=== PATIENT | female | born 1955 | race African-American/Black ===

== ENCOUNTER 2016-03-24 07:54 | Emergency (ER) | payer SELFPAY ==
[~2016-03-24] VITALS: Ht 170.2 cm; Wt 109.3 kg
[2016-03-24] MEDS ORDERED: ASPIRIN 81 MG TAB.CHEW PO ONE (08:30)
--- NOTE | 2016-03-24 08:33 | PHYS DOC ---
Past Medical History Past Medical History: High Cholesterol Past Surgical History: No Surgical History Additional Information: nonsmoker Alcohol Use: None Drug Use: None Adult General Chief Complaint Chief Complaint: MULTIPLE COMPLAINTS HPI HPI Patient is a 60 year old female who presents with chest tightness starting at 0250 this morning. The pain was located in the substernal region without radiation. It has almost entirely resolved now. She reports feeling hot and cold flashes for approximately 1 month and has had an intermittent non- productive cough. She denies any shortness of breath, nausea, palpitations, or diaphoresis with the chest tightness. She has not had any abdominal pain, lower extremity pain or swelling. She has a history of hyperlipidemia but does not take any home medications. She denies history of diabetes, hypertension, CAD, or family history of CAD. She is a non-smoker. She does not have a PCP and has not seen a doctor in over 3 years. Review of Systems Review of Systems Constitutional: Reports hot and cold flashes. Eyes: Denies change in visual acuity, redness, or eye pain. [] HENT: Denies ear pain, nasal congestion or sore throat. [] Respiratory: Denies shortness of breath. Reports intermittent nonproductive cough. Cardiovascular: Denies palpitations or edema. Reports substernal chest tightness. GI: Denies abdominal pain, nausea, vomiting, bloody stools or diarrhea. [] : Denies dysuria, hematuria or urinary frequency. [] Musculoskeletal: Denies back pain or joint pain. [] Integument: Denies rash or skin lesions. [] Neurologic: Denies headache, focal weakness or sensory changes. [] Endocrine: Denies polyuria or polydipsia. [] Psych: Denies anxiety or depression. [] All systems reviewed and negative unless otherwise stated in the HPI. Current Medications Current Medications Current Medications Medications (Trade) Dose Ordered Sig/Shaunna Start Time Stop Time Status Last Admin Dose Admin Aspirin (Children'S Aspirin) 324 mg 1X ONCE 03/24/16 08:30 03/24/16 08:31 DC 03/24/16 08:40 324 MG Allergies Allergies Allergies Coded Allergies Type Severity Reaction Last Updated Verified No Known Drug Allergies 03/24/16 No Physical Exam Physical Exam Constitutional: Well developed, well nourished, no acute distress, non-toxic appearance. [] HENT: Normocephalic, atraumatic, oropharynx moist. [] Eyes: PERRLA, EOMI, conjunctiva normal, no discharge. [] Neck: Normal range of motion, no tenderness, supple, no stridor. [] Cardiovascular: Heart rate regular rhythm, no murmur. [] Lungs & Thorax: Bilateral breath sounds clear to auscultation without wheezes, rales, or rhonchi. Mild central chest wall tenderness. Abdomen: Bowel sounds normal, soft, no tenderness, no masses, no pulsatile masses. [] Skin: Warm, dry, no erythema, no rash. [] Back: No midline tenderness, no CVA tenderness. [] Extremities: No lower extremity tenderness, ROM intact, no edema. 2+ DP pulses bilaterally. [] Neurologic: Alert and oriented X 3, normal motor function, normal sensory function, no focal deficits noted. [] Psychologic: Affect normal, judgement normal, mood normal. [] Current Patient Data Vital Signs Vital Signs Date Time Temp Pulse Resp B/P Pulse Ox O2 Delivery O2 Flow Rate FiO2 03/24/16 09:55 69 14 142/89 96 Room Air 03/24/16 08:13 98.7 98.7 Lab Values Laboratory Tests Test 03/24/16 09:00 03/24/16 11:15 White Blood Count 7.8x10^3/uL (4.0-11.0) Red Blood Count 3.91x10^6/uL (3.50-5.40) Hemoglobin 12.1g/dL (12.0-15.5) Hematocrit 35.5% (36.0-47.0) L Mean Corpuscular Volume 91fL (79-100) Mean Corpuscular Hemoglobin 31pg (25-35) Mean Corpuscular Hemoglobin Concent 34g/dL (31-37) Red Cell Distribution Width 14.2% (11.5-14.5) Platelet Count 217x10^3/uL (140-400) Neutrophils (%) (Auto) 74% (31-73) H Lymphocytes (%) (Auto) 19% (24-48) L Monocytes (%) (Auto) 7% (0-9) Eosinophils (%) (Auto) 1% (0-3) Basophils (%) (Auto) 0% (0-3) Neutrophils # (Auto) 5.8x10^3uL (1.8-7.7) Lymphocytes # (Auto) 1.4x10^3/uL (1.0-4.8) Monocytes # (Auto) 0.5x10^3/uL (0.0-1.1) Eosinophils # (Auto) 0.0x10^3/uL (0.0-0.7) Basophils # (Auto) 0.0x10^3/uL (0.0-0.2) Sodium Level 142mmol/L (136-145) Potassium Level 4.2mmol/L (3.5-5.1) Chloride Level 106mmol/L (98-107) Carbon Dioxide Level 31mmol/L (21-32) Anion Gap 5 (6-14) L Blood Urea Nitrogen 10mg/dL (7-20) Creatinine 0.9mg/dL (0.6-1.0) Estimated GFR (Cockcroft-Gault) 77.8 Glucose Level 99mg/dL (70-99) Calcium Level 9.2mg/dL (8.5-10.1) Magnesium Level 2.1mg/dL (1.8-2.4) Total Bilirubin 0.5mg/dL (0.2-1.0) Direct Bilirubin 0.1mg/dL (0.0-0.2) Aspartate Amino Transferase (AST) 11U/L (15-37) L Alanine Aminotransferase (ALT) 15U/L (14-59) Alkaline Phosphatase 66U/L (46-116) Creatine Kinase 142U/L (26-192) Creatine Kinase MB (Mass) 0.9ng/mL (0.0-3.6) Creatine Kinase MB Relative Index 0.6% (0-4) Troponin I Quantitative < 0.017ng/mL (0.000-0.055) NA-Phj-Z-Type Natriuretic Peptide 65pg/mL (0-124) Total Protein 7.3g/dL (6.4-8.2) Albumin 3.6g/dL (3.4-5.0) Lipase 73U/L (73-393) Urine Collection Type Void Urine Color Yellow Urine Clarity Clear Urine pH 7.0 Urine Specific Delta 1.010 Urine Protein Negativemg/dL (NEG-TRACE) Urine Glucose (UA) Negativemg/dL (NEG) Urine Ketones (Stick) Negativemg/dL (NEG) Urine Blood Negative (NEG) Urine Nitrite Negative (NEG) Urine Bilirubin Negative (NEG) Urine Urobilinogen Dipstick 0.2mg/dL (0.2 mg/dL) Urine Leukocyte Esterase Large (NEG) Urine RBC 0/HPF (0-2) Urine WBC 11-20/HPF (0-4) Urine Squamous Epithelial Cells Many/LPF Urine Transitional Epithelial Cells Few/LPF Urine Renal Epithelial Cells Few/LPF Urine Bacteria Moderate/HPF (0-FEW) Urine Hyaline Casts Few/HPF Urine Mucus Mod/LPF Urine Opiates Screen Neg (NEG) Urine Methadone Screen Neg (NEG) Urine Barbiturates Neg (NEG) Urine Phencyclidine Screen Neg (NEG) Urine Amphetamine/Methamphetamine Neg (NEG) Urine Benzodiazepines Screen Neg (NEG) Urine Cocaine Screen Neg (NEG) Urine Cannabinoids Screen Neg (NEG) Urine Ethyl Alcohol Neg (NEG) Laboratory Tests 03/24/16 09:00 Laboratory Tests 03/24/16 09:00 Microbiology 03/24/16 Urine Culture - Final, Complete 03/24/16 Urine Culture Result 1 (WEST) - Final, Complete EKG EKG EKG at 0821. Heart rate 74 bpm. Sinus rhythm with leftward axis. There are no acute ischemic changes or STEMI, as interpreted by Dr. Morgan. Radiology/Procedures Radiology/Procedures REASON: chest pain PROCEDURE: CHEST PA & LATERAL EXAM: Chest, 2 views. HISTORY: Chest pressure. COMPARISON: None. FINDINGS: Frontal and lateral views of the chest are obtained. There is no infiltrate, effusion or pneumothorax. There is mild cardiomegaly. IMPRESSION: 1. Stable mild cardiomegaly. 2. No acute pulmonary finding. Course & Med Decision Making Course & Med Decision Making Pertinent Labs and Imaging studies reviewed. (See chart for details) The patient is a 52-year-old female with history of hyperlipidemia who presents with chest tightness starting at approximately 0300 this morning in the substernal region. She denies any associated symptoms with this, however has had hot and cold flashes and nonproductive cough intermittently for approximately one month. Upon arrival to the emergency department, her vital signs are stable. On exam, her lungs are clear, heart rate regular. EKG does not show any acute ischemic changes or STEMI. Chest x-ray does not show any acute cardiopulmonary process. Initial troponin level is negative, obtained greater than 4 hours after onset of pain. She is pain-free in the emergency department. She was given a dose of aspirin in the emergency department. Patient course was discussed with Dr. Morgan. Results were discussed with the patient. She is instructed to follow-up with cardiology as an outpatient. She is also instructed to begin a daily aspirin regimen. Return precautions were discussed. She verbalizes understanding and agrees with plan. The patient was being discharged by JULIET Curry when her friend arrived to take her home. Her friend was motioning at Antoinette, pointing to her head. When questioned, her friend stated that she is concerned about the patient because she "has no cheri, doesn't smile anymore, and has been hearing voices." The patient was specifically asked about hearing voices during her initial triage evaluation by Antoinette and she denied it. The patient admits that she has been hearing voices. Carlito with social work spoke with the patient regarding her financial concerns. The PAT team was paged. The patient denies suicidal or homicidal ideation and is not a danger to herself. At the recommendation of Dr. Morgan, [facility] was contacted about having the patient seen through their emergency service because she is not suicidal, homicidal, or a danger to herself. After faxing the patient's medical information to [facility], she was accepted to their emergency service. The patient was evaluated by Sandra with the PAT team. She agrees that the [facility] emergency service is appropriate for the patient. The patient's friend agreed to take her immediately there. The patient agreed with this plan as well. She was discharged in stable condition. Dragon Disclaimer Dragon Disclaimer This electronic medical record was generated, in whole or in part, using a voice recognition dictation system. Departure Departure Impression: Primary Impression: Atypical chest pain Additional Impressions: Hallucination Mental health problem Disposition: HOME, SELF-CARE Condition: STABLE Referrals: SHELLI MARTINEZ MD Patient Instructions: Chest Pain (Nonspecific), [id number] Additional Instructions: You were seen for chest pain. Your EKG was normal and your cardiac lab tests were also normal. Your chest xray did not show any concerning changes. Please take a daily baby aspirin (81mg). Please follow up with the motorboat mechanic inboard listed below for further evaluation of your heart. Return to the emergency department if you have chest pain, shortness of breath, or other new or concerning symptoms. Please go directly to [facility] for evaluation of your psychiatric concerns. Return immediately to the emergency department if you have thoughts of hurting yourself or others. Scripts No Active Prescriptions or Reported Meds Problem Qualifiers HANNA SHELBY Mar 24, 2016 08:33
--- NOTE | 2016-03-24 08:43 | EKG ---
[facility] [address] [place] [address] Test Date: 2016-03-24 Test Time: 08:21:01 Pat Name: MARIA ESTHER MEYERS Department: Room: Gender: F Pumper Hand: : 1955 Requested By: HANNA SHELBY Order Number: [id number] Reading MD: Tani Gardiner Measurements Intervals [place] Rate: 74 P: 25 [place]: 154 QRS: -28 QRSD: 98 T: 20 QT: 398 QTc: 442 Interpretive Statements SINUS RHYTHM LEFTWARD AXIS Electronically Signed On 03-24-2016 15:51:59 NEUROSURGICAL NURSE by Tani Gardiner
--- NOTE | 2016-03-24 08:47 | RAD ---
EXAM: Chest, 2 views. HISTORY: Chest pressure. COMPARISON: None. FINDINGS: Frontal and lateral views of the chest are obtained. There is no infiltrate, effusion or pneumothorax. There is mild cardiomegaly. IMPRESSION: 1. Stable mild cardiomegaly. 2. No acute pulmonary finding.
[2016-03-24 09:10] LABS: BASO % 0 % (0-3); EOS % 1 % (0-3); HEMATOCRIT 35.5 % (36.0-47.0); HEMOGLOBIN 12.1 g/dL (12.0-15.5); LYMPH # 1.4 x10^3/uL (1.0-4.8); LYMPH % 19 % (24-48); MEAN CORPUSCULAR HEMOGLOBIN 31 pg (25-35); MEAN CORPUSCULAR HGB CONC 34 g/dL (31-37); MEAN CORPUSCULAR VOLUME 91 fL (79-100); MONO % 7 % (0-9); NEUT % 74 % (31-73); PLATELET COUNT 217 x10^3/uL (140-400); RED BLOOD COUNT 3.91 x10^6/uL (3.50-5.40); RED CELL DISTRIBUTION WIDTH 14.2 % (11.5-14.5); WHITE BLOOD COUNT 7.8 x10^3/uL (4.0-11.0)
[2016-03-24 09:20] LABS: CALCIUM 9.2 mg/dL (8.5-10.1); CREATININE 0.9 mg/dL (0.6-1.0); GFR 77.8; POTASSIUM 4.2 mmol/L (3.5-5.1)
[2016-03-24 09:27] LABS: ALBUMIN 3.6 g/dL (3.4-5.0); DIRECT BILIRUBIN 0.1 mg/dL (0.0-0.2); MAGNESIUM 2.1 mg/dL (1.8-2.4); TOTAL BILIRUBIN 0.5 mg/dL (0.2-1.0); TOTAL PROTEIN 7.3 g/dL (6.4-8.2)
[2016-03-24 09:35] LABS: CKMB INDEX 0.6 % (0-4); CKMB MASS 0.9 ng/mL (0.0-3.6)
[2016-03-24 09:55] VITALS: BP 142/89
[2016-03-24 11:56] LABS: BARBITURATES NEG (NEG); BENZODIAZEPINES NEG (NEG); BILIRUBIN,URINE NEGATIVE (NEG); CANNABINOIDS NEG (NEG); COCAINE NEG (NEG); GLUCOSE,URINE NEGATIVE (NEG); METHADONE NEG (NEG); NITRITE,URINE NEGATIVE (NEG); OPIATES NEG (NEG); PHENCYCLIDINE NEG (NEG); PROTEIN,URINE NEGATIVE (NEG-TRACE); UROBILINOGEN,URINE 0.2 mg/dL (0.2 mg/dL)
[2016-03-24 12:00] LABS: ETHANOL, URINE NEG (NEG)
[2016-03-24 12:08] LABS: BACTERIA,URINE MODERATE /HPF (0-FEW); RBC,URINE 0 /HPF (0-2); SQUAMOUS EPITHELIAL CELL,UR MANY /LPF
== END 2016-03-24 12:00 | disposition home or self-care (01) ==
LOC: ER 07:54
DX: R07.89 Other chest pain (principal); R44.3 Hallucinations, unspecified; E78.00 Pure hypercholesterolemia, unspecified; F48.8 Other specified nonpsychotic mental disorders
CPT/HCPCS: 36415; 71020; 80048; 80076; 81001; 82553; 83690; 83735; 83880; 84484; 85027; 87086; 93005; 99285; G0481

== ENCOUNTER 2016-04-07 10:36 | Emergency (ER) | payer SELFPAY ==
[~2016-04-07] VITALS: Ht 170.2 cm; Wt 109.3 kg
[2016-04-07 11:18] LABS: BILIRUBIN,URINE NEGATIVE (NEG); GLUCOSE,URINE NEGATIVE (NEG); NITRITE,URINE NEGATIVE (NEG); PH,URINE 6.5; PROTEIN,URINE NEGATIVE (NEG-TRACE); UROBILINOGEN,URINE 0.2 mg/dL (0.2 mg/dL)
[2016-04-07 11:29] LABS: BACTERIA,URINE FEW /HPF (0-FEW); RBC,URINE 0 /HPF (0-2); SQUAMOUS EPITHELIAL CELL,UR FEW /LPF
[2016-04-07] MEDS ORDERED: CIPR250T30 PO (12:03)
--- NOTE | 2016-04-07 12:03 | PHYS DOC ---
Past Medical History Past Medical History: Depression, High Cholesterol Past Surgical History: No Surgical History Alcohol Use: None Drug Use: None Adult General Chief Complaint Chief Complaint: MULTIPLE COMPLAINTS HPI HPI Patient is a 60 year old female who presents with friend for evaluation of difficulty sleeping for the past month. She has difficulty initiating and staying asleep. She also notes a dry cough that has been present for the past month. She denies dyspnea, hemoptysis, chest pain, fever or chills, sore throat , rhinorrhea. She does also note intermittent episodes of urinary incontinence. She states this can happen in small or large amounts, spontaneously or associated with cough. She denies urinary frequency, dysuria, or hematuria. She states she did go to [facility] after her last visit to the emergency department and was told to start an SSRI, but she did not want to start this medication due to the listed side effects. Review of Systems Review of Systems Constitutional: Denies fever or chills [] Eyes: Denies change in visual acuity, redness, or eye pain [] HENT: Denies nasal congestion or sore throat [] Respiratory: Denies shortness of breath [] Cardiovascular: No additional information not addressed in HPI [] GI: Denies abdominal pain, nausea, vomiting, bloody stools or diarrhea [] : Denies dysuria or hematuria [] Musculoskeletal: Denies back pain or joint pain [] Integument: Denies rash or skin lesions [] Neurologic: Denies headache, focal weakness or sensory changes [] Endocrine: Denies polyuria or polydipsia [] Allergies Allergies Allergies Coded Allergies Type Severity Reaction Last Updated Verified No Known Drug Allergies 03/24/16 No Physical Exam Physical Exam Constitutional: Well developed, well nourished, no acute distress, non-toxic appearance. [] HENT: Normocephalic, atraumatic, bilateral external ears normal, oropharynx moist, no oral exudates, nose normal. [] Eyes: PERRLA, EOMI, conjunctiva normal, no discharge. [] Neck: Normal range of motion, supple, no stridor. [] Cardiovascular:Heart rate regular rhythm [] Lungs & Thorax: Bilateral breath sounds clear to auscultation [] Abdomen: Bowel sounds normal, soft, no tenderness. [] Skin: Warm, dry, no erythema, no rash. [] Back: No tenderness, no CVA tenderness. [] Extremities: No tenderness, ROM intact, no edema. [] Neurologic: Alert and oriented X 3, normal motor function, normal sensory function, no focal deficits noted. [] Psychologic: Affect normal, judgement normal, mood normal. [] Current Patient Data Vital Signs Vital Signs Date Time Temp Pulse Resp B/P Pulse Ox O2 Delivery O2 Flow Rate FiO2 04/07/16 13:01 58 20 142/87 94 Room Air 04/07/16 11:32 04/07/16 10:55 98.7 98.7 Lab Values Laboratory Tests Test 04/07/16 10:55 Urine Collection Type Unknown Urine Color Yellow Urine Clarity Clear Urine pH 6.5 Urine Specific [place] 1.010 Urine Protein Negativemg/dL (NEG-TRACE) Urine Glucose (UA) Negativemg/dL (NEG) Urine Ketones (Stick) Negativemg/dL (NEG) Urine Blood Negative (NEG) Urine Nitrite Negative (NEG) Urine Bilirubin Negative (NEG) Urine Urobilinogen Dipstick 0.2mg/dL (0.2 mg/dL) Urine Leukocyte Esterase Large (NEG) Urine RBC 0/HPF (0-2) Urine WBC 11-20/HPF (0-4) Urine Squamous Epithelial Cells Few/LPF Urine Bacteria Few/HPF (0-FEW) Course & Med Decision Making Course & Med Decision Making Pertinent Labs and Imaging studies reviewed. (See chart for details) She had a normal chest x-ray during her last emergency department visit and she was having cough at that time, so x-ray was not repeated at this time. She appears well on exam. Discussed avenues symptomatic management such as Benadryl or Unisom to help with sleep and honey to help with cough. Will treat for urinary tract infection. I encouraged her to return for mental health follow-up to discuss other medications for depression or sleep aid on an outpatient basis. She states she does have a primary care follow-up in 2 weeks. Return precautions given. She understands and agrees with plan. Dragon Disclaimer Dragon Disclaimer This electronic medical record was generated, in whole or in part, using a voice recognition dictation system. Departure Departure Impression: Primary Impression: Acute cystitis without hematuria Additional Impressions: Insomnia Cough Disposition: HOME, SELF-CARE Condition: STABLE Referrals: NO PCP (PCP) Patient Instructions: Insomnia-Brief Additional Instructions: Take Cipro for urinary tract infection. Take Unisom or Benadryl as needed to help you sleep. Use honey as needed for cough. Follow-up with your primary care doctor and mental health clinic. Return for any concerns. Scripts Ciprofloxacin Hcl (Cipro)250 Mg Tablet1 Tab PO BID #6 TAB Prov:Chey CHAN MD 04/07/16 Problem Qualifiers Additional Impressions: Insomnia Insomnia type: unspecified Qualified Code: G47.00 - Insomnia, unspecified Chey CHAN MD Apr 07, 2016 12:03
[2016-04-07 13:01] VITALS: BP 142/87
== END 2016-04-07 13:05 | disposition home or self-care (01) ==
LOC: ER 10:36
DX: N30.00 Acute cystitis without hematuria (principal); G47.00 Insomnia, unspecified; R05 Cough; F32.9 Major depressive disorder, single episode, unspecified; E78.00 Pure hypercholesterolemia, unspecified
CPT/HCPCS: 81001; 87086; 99284

== ENCOUNTER → 2016-06-17 | Outpatient (CLI) | payer OTHER ==
[~2016-06-17] MED LIST: CIPR250T30 PO; CONTRAST GIVEN MC PRN; IOHEXOL 300 MG/ML 75 ML VIAL IV ONE
--- NOTE | 2016-06-17 14:30 | RAD ---
CT of the head with and without contrast, 06/17/2016: History: Altered mental status, visual disturbance Multiple detector CT imaging was performed prior to and following an IV bolus injection of iodinated contrast material. The ventricles are within normal limits in size. There is no shift of the midline structures. There is no evidence of acute intracranial hemorrhage or mass effect. The postcontrast scans show no foci of abnormal enhancement. A small lucency in the right frontal parasagittal calvarium is unchanged since 03/30/2012 and is probably a venous salas. IMPRESSION: No acute intracranial abnormality is detected. PQRS Compliance Statement: One or more of the following individualized dose reduction techniques were utilized for this examination: 1. Automated exposure control 2. Adjustment of the mA and/or kV according to patient size 3. Use of iterative reconstruction technique
== END | disposition home or self-care (01) ==
LOC: CT 09:23
PROVIDERS: ATTEND Family Medicine
DX: R63.4 Abnormal weight loss (principal)
CPT/HCPCS: 70470

== ENCOUNTER 2016-07-13 12:14 | Inpatient (IN) | payer SELFPAY ==
[2016-07-13] VITALS (7 sets, daily range): BP systolic 141–179; BP diastolic 63–109
[~2016-07-13] VITALS: Ht 170.2 cm; Wt 121.7 kg
[~2016-07-13 12:14] MED LIST changes: -CONTRAST GIVEN MC PRN; -IOHEXOL 300 MG/ML 75 ML VIAL IV ONE
[2016-07-13] MEDS ORDERED: HALOPERIDOL LACTATE 5 MG/ML VIAL. IVP ONE ×2 (12:30→14:15)
--- NOTE | 2016-07-13 12:38 | ED.ADGEN ---
Past Medical History Past Medical History: Depression, High Cholesterol Past Surgical History: No Surgical History Alcohol Use: None Drug Use: None Adult General Chief Complaint Chief Complaint: ALTERED MENTAL STATUS HPI HPI Patient is a 60 year old female found confused in bed by EMS after being were called by a neighbor for welfare check. Patient's last known normal was unknown. Patient's alert, agitated with spontaneous coordinated mated movement of all 4 extremities. Patient is nonverbal and follows basic commands. Blood sugar was 158. Patient was found to be incontinent of both urine and stool. Noted empty medication bottles, drug paraphernalia or alcohol were noted in her immediate surroundings. History is limited due to the patient' s clinical condition. Review of Systems Review of Systems ROS limited due to mental status change. Current Medications Current Medications Current Medications Medications (Trade) Dose Ordered Sig/Shaunna Start Time Stop Time Status Last Admin Dose Admin Haloperidol Lactate 5 mg 5 mg 1X ONCE 07/13/16 12:30 07/13/16 12:31 DC 07/13/16 12:34 5 MG Sodium Chloride (Iv Sodium Chloride 0.9% 1000ml Bag) 1,000 ml @ 1,000 mls/hr 1X ONCE 07/13/16 13:45 07/13/16 14:44 DC 07/13/16 14:06 1,000 MLS/HR Allergies Allergies Allergies Coded Allergies Type Severity Reaction Last Updated Verified No Known Drug Allergies 03/24/16 No Physical Exam Physical Exam Constitutional: Well developed, agitated, and uncooperative. HENT: Normocephalic, atraumatic, bilateral external ears normal, oropharynx moist, no oral exudates, nose, dry MMM. Eyes: PERRL, matting of eyelids. Neck: Normal range of motion. Cardiovascular:Heart rate regular rhythm, no murmur. Lungs & Thorax: Bilateral breath sounds clear to auscultation. Abdomen: Bowel sounds normal, soft, no tenderness. Skin: Warm, dry. Back: No tenderness. Neurologic: Alert X one, normal motor function, normal sensory function, no focal deficits noted. Psychologic: Affect normal, judgement normal, mood normal. Current Patient Data Vital Signs Vital Signs Date Time Temp Pulse Resp B/P Pulse Ox O2 Delivery O2 Flow Rate FiO2 07/13/16 12:30 98.8 96 28 117/66 98 Room Air 98.8 Lab Values Laboratory Tests Test 07/13/16 12:45 07/13/16 12:50 07/13/16 13:13 Lactic Acid Level 2.2mmol/L (0.4-2.0) H Sodium Level 153mmol/L (136-145) H Potassium Level 5.0mmol/L (3.5-5.1) Chloride Level 114mmol/L (98-107) H Carbon Dioxide Level 32mmol/L (21-32) Anion Gap 7 (6-14) Blood Urea Nitrogen 100mg/dL (7-20) H Creatinine 3.0mg/dL (0.6-1.0) H Estimated GFR (Cockcroft-Gault) 19.4 BUN/Creatinine Ratio 33 (6-20) H Glucose Level 181mg/dL (70-99) H Calcium Level 8.3mg/dL (8.5-10.1) L Total Bilirubin 2.4mg/dL (0.2-1.0) H Aspartate Amino Transferase (AST) 57U/L (15-37) H Alanine Aminotransferase (ALT) 40U/L (14-59) Alkaline Phosphatase 86U/L (46-116) Ammonia 14mcmol/L (11-34) Creatine Kinase 160U/L (26-192) Troponin I Quantitative 0.118ng/mL (0.000-0.055) Total Protein 8.0g/dL (6.4-8.2) Albumin 3.4g/dL (3.4-5.0) Albumin/Globulin Ratio 0.7 (1.0-1.7) L Thyroid Stimulating Hormone (TSH) 1.630uIU/mL (0.358-3.74) Ethyl Alcohol Level < 10mg/dL (0-10) White Blood Count 45.0x10^3/uL (4.0-11.0) *H Red Blood Count 3.29x10^6/uL (3.50-5.40) L Hemoglobin 10.6g/dL (12.0-15.5) L Hematocrit 34.4% (36.0-47.0) L Mean Corpuscular Volume 105fL (79-100) H Mean Corpuscular Hemoglobin 32pg (25-35) Mean Corpuscular Hemoglobin Concent 31g/dL (31-37) Red Cell Distribution Width 17.9% (11.5-14.5) H Platelet Count 184x10^3/uL (140-400) Neutrophils (%) (Auto) 72% (31-73) Lymphocytes (%) (Auto) 16% (24-48) L Monocytes (%) (Auto) 11% (0-9) H Eosinophils (%) (Auto) 0% (0-3) Basophils (%) (Auto) 1% (0-3) Neutrophils # (Auto) 32.4x10^3uL (1.8-7.7) H Lymphocytes # (Auto) 7.2x10^3/uL (1.0-4.8) H Monocytes # (Auto) 5.0x10^3/uL (0.0-1.1) H Eosinophils # (Auto) 0.1x10^3/uL (0.0-0.7) Basophils # (Auto) 0.3x10^3/uL (0.0-0.2) H Segmented Neutrophils % 63% (35-66) Band Neutrophils % 11% (0-9) H Lymphocytes % 12% (24-48) L Monocytes % 12% (0-10) H Metamyelocytes % 2% (0-0) H Nucleated Red Blood Cells 31 Platelet Estimate Adequate (ADEQUATE) Polychromasia Mod Poikilocytosis Mod Basophilic Stippling Present Anisocytosis Mod Spherocytes Present Sickle Cells Present Sharp-Riley Bodies Present Schistocytes Mod Laboratory Tests 07/13/16 13:13 Laboratory Tests 07/13/16 12:50 EKG EKG [EKG: Reviewed] Radiology/Procedures Radiology/Procedures [CT head: No acute findings per radiology report Chest x-ray: Endotracheal tube in good position. Lumbar puncture procedure: Operating physician: Dr. Jaziel Sanchez Anesthesia used: Etomidate 20 mg, Ativan 2 mg Consent: Patient's medical power of civil attorney] written consent prior to procedure. Full wrist and benefits of procedure discussed in detail. Patient's power of civil attorney verbalizes understanding prior to signing. Patient was connected to a cardiovascular and pulse oximetry monitors. After she achieved an adequate level sedation, the patient was paced in a left lateral recumbent position. Her back was exposed and bowed towards the examiner with her knees to chest position. Her back was widely prepped in a sterile manner with piece of Betadine. Following which a 22-gauge 3 and having cheek with the needle was inserted into the L3-L4 interspace. However, this was unsuccessful for attempts were made prior to return in the L2-L3 interspace. However, the tap was closely blood he would not run clear. No further attempts were made. Patient tolerated procedure well without complication. Patient procedure note Indication: Need to protect airway or respiratory compromise Operating physician: Dr. Jaziel Sanchez Anesthesia use: Propofol 100 mg, rocuronium 80 mg Consent: Verbal consent was obtained from [facility] power of civil attorney The patient was connected to pulse oximetry and cardiovascular monitors. She was preoxygenated 100% via of mask. Upon adequate level of sedation, 7.5 mm endotracheal tube was cautiously introduced through the vocal cords and was successful on first attempt via inferior laryngoscope. Tube was secured at the lips at 23.5 cm. Endotracheal tube position was confirmed with tube fogging, positive capnometry, presence of bilateral ear sounds and absence of your noises no epigastrium and on chest x-ray. Nations tolerated the procedure well without complications. ] Impressions: Acute encephalopathy Course & Med Decision Making Course & Med Decision Making Pertinent Labs and Imaging studies reviewed. (See chart for details) [Patient acutely encephalopathic with markedly elevated white blood cell count. Concern for sepsis with cephalopathy versus meningitis/encephalitis is unknown cause. Unfortunately, lumbar puncture was unable to be obtained in the emergency department due to technical limitations. Infectious disease was consult. Dr. Prakash requested empiric antibiotics. Dr. Albarran in the ED for admission. Family remembers provided routine updates. Dragon Disclaimer Dragon Disclaimer This electronic medical record was generated, in whole or in part, using a voice recognition dictation system. JAZIEL SANCHEZ DO July 13, 2016 12:38
[2016-07-13] MEDS ORDERED: IV NORMAL SALINE 1000ML BAG 1,000 ML IV ONE ×3 (13:00→16:30)
--- NOTE | 2016-07-13 13:03 | ACF ---
Admission Forms Criteria MENTAL STATUS CHANGE Clinical Indications for Inpatient Care (Place 'X' for any and all applicable criteria): Ongoing inpatient care may be needed for 1 or more of the following(1)(2)(3)(5)( 6): [X]I. Suspected serious etiology (eg, medical disorder, ANIMAL ECOLOGIST event) of altered mental status [ ]II. Danger to self or others not manageable at lower level of care [ ]III. Grave disability (eg, inability to perform self care necessary at lower level of care) [ ]IV. Agitation or inappropriate behavior interfering with care for primary condition (eg, attempting to discontinue lines or drains prematurely, unable to cooperate with respiratory care) [ ]V. Delirium [A] [D][E] as described by 1 or more of the following(26): [ ]a) Delirium due to alcohol or sedative [F] withdrawal [ ]b) Delirium of uncertain etiology that has not responded to appropriate empiric treatment [ ]c) Delirium that prevents performance of a life-sustaining function (eg, feeding or hydrating oneself) [ ]. General contraindications and/or Inappropriate clinical situations for Observational Care in patients with Mental Status Change, when ANY ONE of the following is required: [ ]a) Prediction of prolongation of LOS based on ANY ONE of the following may be considered as a contraindication for observational care 2, 3, 4, 5, 6, 7, 8, 9, 10, 11 [ ]i) Age > 65 yrs. [ ]ii) Patient arriving by ambulance [ ]iii) Patient with high acuity [ ]iv) Patient requiring vital sign monitoring [ ]v) Patient on IV medication [ ]b) Systolic blood pressures greater than or equal to 180mmHg 3, 12 [ ]c) Patient with altered mental status including delirium and other alteration of consciousness, (3) [ ]d) Patient whose discharge disposition will be to a alf home or rehabilitation home should not be managed in Emergency Department Observation Unit. CMS rule requires 3 days hospital stay before such placement.3,13 [ ]e) Patient with failure to thrive due to broad array of etiologies 3,16,17 [ ]f) Inability to ambulate 3,14 Extended stay beyond goal length of stay for the primary condition may be needed until ALL of the following are present(3)(5): [ ]a) Underlying medical etiology of mental status change is absent, or has been established and adequately treated [ ]b) Danger to self or others is absent or manageable at lower level of care. [ ]c) Behavior crisis management, including physical or chemical restraints, is not required or available at lower level of car [ ]d) Substance or alcohol withdrawal is absent or manageable at lower level of care. [ ]e) Behavioral symptoms (eg, agitation, somnolence, inappropriate behavior) are absent, or are manageable at lower level of care. The original [facility] content created by [facility] has been revised. The portions of the content which have been revised are identified through the use of italic text or in bold, and [facility] has neither reviewed nor approved the modified material. All other unmodified content is copyright [facility]. Please see references footnoted in the original [facility] edition 2016 Admission Criteria Met?: Yes CHRISTOPHER GALVEZ July 13, 2016 13:03
--- NOTE | 2016-07-13 13:14 | EKG ---
[facility] [address] [place] [address] Test Date: 2016-07-13 Test Time: 12:26:41 Pat Name: MARIA ESTHER MEYERS Department: Room: Gender: F Medical Care Administrator: : 1955 Requested By: EARLINE LACY Order Number: [id number] Reading MD: Duyen Mendez Measurements Intervals [place] Rate: 96 P: 5 CO: 116 QRS: -87 QRSD: 90 T: -152 QT: 338 QTc: 428 Interpretive Statements SINUS RHYTHM LEFT ATRIAL ABNORMALITY ABNORMAL LEFT AXIS DEVIATION T ABNORMALITY IN LATERAL LEADS INFEROLATERAL LEADS ABNORMAL ECG Electronically Signed On 07-13-2016 21:14:56 CDT by Duyen Mendez
[2016-07-13 13:25] LABS: BASO # 0.3 x10^3/uL (0.0-0.2); BASO % 1 % (0-3); EOS % 0 % (0-3); HEMATOCRIT 34.4 % (36.0-47.0); HEMOGLOBIN 10.6 g/dL (12.0-15.5); LYMPH # 7.2 x10^3/uL (1.0-4.8); LYMPH % 16 % (24-48); MEAN CORPUSCULAR HEMOGLOBIN 32 pg (25-35); MEAN CORPUSCULAR HGB CONC 31 g/dL (31-37); MEAN CORPUSCULAR VOLUME 105 fL (79-100); MONO % 11 % (0-9); NEUT % 72 % (31-73); PLATELET COUNT 184 x10^3/uL (140-400); RED BLOOD COUNT 3.29 x10^6/uL (3.50-5.40); RED CELL DISTRIBUTION WIDTH 17.9 % (11.5-14.5)
[2016-07-13 13:33] LABS: CALCIUM 8.3 mg/dL (8.5-10.1); GFR 19.4
[2016-07-13 13:39] LABS: ALBUMIN 3.4 g/dL (3.4-5.0); ALBUMIN/GLOBULIN RATIO 0.7 (1.0-1.7); TOTAL BILIRUBIN 2.4 mg/dL (0.2-1.0)
--- NOTE | 2016-07-13 14:21 | RAD ---
Indication change in mental status. Noncontrast images of the head were obtained. Note is made of a previous examination 06/17/2016. An acute or significant calvarial finding is not seen and the visualized paranasal sinuses appear unremarkable. No subdural or epidural hematoma is seen. There is no mass or midline shift. No hemorrhage or acute finding is seen. A significant change when compared to the previous exam is not seen. IMPRESSION: No acute finding apparent in the head PQRS Compliance Statement: One or more of the following individualized dose reduction techniques were utilized for this examination: 1. Automated exposure control 2. Adjustment of the mA and/or kV according to patient size 3. Use of iterative reconstruction technique
[2016-07-13] MEDS ORDERED: ETOMIDATE 20 MG/10 ML VIAL. IV ONE (14:30)
[2016-07-13 14:32] LABS: NUCLEATED RBC 31
[2016-07-13 14:33] LABS: PLT ESTIMATE ADEQUATE (ADEQUATE); POLYCHROMASIA MOD
[2016-07-13 14:34] LABS: ANISOCYTOSIS MOD
[2016-07-13 14:35] LABS: HOWELL-JOLLY BODIES PRESENT; POIKILOCYTOSIS MOD; SCHISTOCYTES MOD; SICKLE CELLS PRESENT; SPHEROCYTES PRESENT
[2016-07-13] MEDS ORDERED: MEROPENEM 1 GM in IV NORMAL SALINE 100ML 100 ML IV ONE (15:00)
[2016-07-13] MEDS ORDERED: VANCOMYCIN 1.25 GM in IV NORMAL SALINE 250ML 250 ML IV ONE (15:00)
[2016-07-13 15:09] LABS: BILIRUBIN,URINE NEGATIVE (NEG); GLUCOSE,URINE NEGATIVE (NEG); NITRITE,URINE NEGATIVE (NEG); PROTEIN,URINE 30 mg/dL (NEG-TRACE)
[2016-07-13] MEDS ORDERED: PROPOFOL 50 ML IV ONE (15:15)
[2016-07-13 15:18] LABS: BACTERIA,URINE MODERATE /HPF (0-FEW); SQUAMOUS EPITHELIAL CELL,UR MOD /LPF
[2016-07-13] MEDS ORDERED: IV DEXTROSE 5 %-0.45 % NACL 1,000 ML IV ONE (15:45)
--- NOTE | 2016-07-13 15:45 | RAD ---
Indication shortness of breath. A single view of the chest was obtained and is compared to an exam March 24, 2016. There is unchanged moderate cardiomegaly. Slightly tortuous thoracic aorta is noted. There are patchy pulmonary infiltrates suggesting mild congestive heart failure. A component of inflammation is not entirely excluded. Significant pleural fluid is not present. Endotracheal tube is appropriately positioned above the louis. IMPRESSION: Stable mild cardiomegaly. Appropriately positioned endotracheal tube. Suspect congestive heart failure. Inflammatory component cannot be entirely excluded. A focal consolidated pneumonia is not seen
[2016-07-13] MEDS ORDERED: ROCURONIUM 50 MG/5 ML VIAL. ONE (16:50)
[2016-07-13 17:00] LABS: HCO3 ABG 25 mmol/L (21-28); PCO2 ABG 46 mmHg (35-46); PH ABG 7.36 (7.35-7.45); PO2 ABG 104 mmHg (75-108); SAT O2 ABG 96 % (92-99)
[2016-07-13 17:08] LABS: BARBITURATES NEG (NEG); BENZODIAZEPINES NEG (NEG); CANNABINOIDS NEG (NEG); COCAINE NEG (NEG); METHADONE NEG (NEG); OPIATES NEG (NEG); PHENCYCLIDINE NEG (NEG)
[2016-07-13] MEDS ORDERED: PROPOFOL 50 ML IV PRN (18:00)
[2016-07-13 18:43] LABS: FIO2 ABG 60
--- NOTE | 2016-07-13 19:06 | HP ---
ADMIT DATE: 07/13/2016 CHIEF COMPLAINT: Found down. 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 Apparently, she was found down. She seems to be septic. Her white count is 40,000. She is encephalopathic. She is shaking. She might have some respiratory failure. I have discussed the case with ER physician. We are going to get lumbar puncture and this patient is going to be admitted to the ICU after being intubated. PAST MEDICAL HISTORY: Was reviewed in the computerized system. She psychiatric issues and hypertension. ALLERGIES: None. FAMILY HISTORY: Unknown. SOCIAL HISTORY: She does not drink, smoke, or take drugs. MEDICATIONS: Reviewed. REVIEW OF SYSTEMS: Unobtainable; the patient is too confused. PHYSICAL EXAMINATION: VITAL SIGNS: Temperature 100, pulse 98, respirations 18, blood pressure 130/63. GENERAL: She is shaking. She is very encephalopathic. Her sister is present. HEART: Tachycardic S1, S2. LUNGS: Diminished with some slight crackles. ABDOMEN: Soft, obese. EXTREMITIES: 1+ edema. SKIN: No rashes. ENDOCRINE: No thyromegaly. LYMPHATICS: No cervical nodes. HEMATOPOIETIC: No bruising. LABORATORY DATA: Reviewed. She has a white count 40,000. Lumbar puncture results are pending. ASSESSMENT AND PLAN: Clinical sepsis. The patient has been admitted. We will start IV Rocephin, IV vancomycin. Consult Infectious Disease. Consult pulmonary medicine for vent management. We will try to resume her home meds once she is more stable, IV fluids and frequent labs. PROGNOSIS: Guarded. GOMEZ IBRAHIM DO DR: LESVIA/frank JOB#: [id number] / [id number]
[2016-07-13] MEDS: fentaNYL PF VIAL 100 MCG/2 ML VIAL IV PRN (22:41)
[2016-07-13] MEDS: MEROPENEM 1 GM in IV NORMAL SALINE 100ML 100 ML IV SCH (23:02)
[2016-07-13] MEDS: PROPOFOL 100 ML IV PRN (23:30)
[2016-07-14] VITALS (24 sets, daily range): BP systolic 96–160; BP diastolic 57–95
[2016-07-14] MEDS ORDERED: IV DEXTROSE 5 %-0.45 % NACL 1,000 ML IV ONE (03:30)
[2016-07-14] MEDS: PROPOFOL 100 ML IV PRN ×7 (03:34→23:01)
[2016-07-14] MEDS: MEROPENEM 1 GM in IV NORMAL SALINE 100ML 100 ML IV SCH ×3 (05:40→22:27)
[2016-07-14] MEDS ORDERED: ACETAMINOPHEN 650 MG SUPP.RECT. PR PRN (08:00)
[2016-07-14 08:21] LABS: CALCIUM 7.5 mg/dL (8.5-10.1); CREATININE 1.8 mg/dL (0.6-1.0); POTASSIUM 3.5 mmol/L (3.5-5.1)
[2016-07-14] MEDS: CHLORHEXIDINE 0.12% 15 ML MOUTHWASH. MM SCH ×2 (08:21→20:29)
--- NOTE | 2016-07-14 08:22 | PDOC ---
Infectious Disease Note Vital Sign Vital Signs Vital Signs Date Time Temp Pulse Resp B/P Pulse Ox O2 Delivery O2 Flow Rate FiO2 07/14/16 08:00 71 22 128/64 100 Ventilator 07/14/16 07:00 99.8 99.8 Labs Lab Laboratory Tests Test 07/13/16 12:45 07/13/16 12:50 07/13/16 13:13 07/13/16 14:54 Lactic Acid Level 2.2mmol/L (0.4-2.0) Sodium Level 153mmol/L (136-145) Potassium Level 5.0mmol/L (3.5-5.1) Chloride Level 114mmol/L (98-107) Carbon Dioxide Level 32mmol/L (21-32) Anion Gap 7 (6-14) Blood Urea Nitrogen 100mg/dL (7-20) Creatinine 3.0mg/dL (0.6-1.0) Estimated GFR (Cockcroft-Gault) 19.4 BUN/Creatinine Ratio 33 (6-20) Glucose Level 181mg/dL (70-99) Calcium Level 8.3mg/dL (8.5-10.1) Total Bilirubin 2.4mg/dL (0.2-1.0) Aspartate Amino Transf (AST/SGOT) 57U/L (15-37) Alanine Aminotransferase (ALT/SGPT) 40U/L (14-59) Alkaline Phosphatase 86U/L (46-116) Ammonia 14mcmol/L (11-34) Creatine Kinase 160U/L (26-192) Troponin I Quantitative 0.118ng/mL (0.000-0.055) CE-Zqc-[id number]-Type Natriuretic Peptide 80366vg/mL (0-124) Total Protein 8.0g/dL (6.4-8.2) Albumin 3.4g/dL (3.4-5.0) Albumin/Globulin Ratio 0.7 (1.0-1.7) Thyroid Stimulating Hormone (TSH) 1.630uIU/mL (0.358-3.74) Ethyl Alcohol Level < 10mg/dL (0-10) White Blood Count 45.0x10^3/uL (4.0-11.0) Red Blood Count 3.29x10^6/uL (3.50-5.40) Hemoglobin 10.6g/dL (12.0-15.5) Hematocrit 34.4% (36.0-47.0) Mean Corpuscular Volume 105fL (79-100) Mean Corpuscular Hemoglobin 32pg (25-35) Mean Corpuscular Hemoglobin Concent 31g/dL (31-37) Red Cell Distribution Width 17.9% (11.5-14.5) Platelet Count 184x10^3/uL (140-400) Neutrophils (%) (Auto) 72% (31-73) Lymphocytes (%) (Auto) 16% (24-48) Monocytes (%) (Auto) 11% (0-9) Eosinophils (%) (Auto) 0% (0-3) Basophils (%) (Auto) 1% (0-3) Neutrophils # (Auto) 32.4x10^3uL (1.8-7.7) Lymphocytes # (Auto) 7.2x10^3/uL (1.0-4.8) Monocytes # (Auto) 5.0x10^3/uL (0.0-1.1) Eosinophils # (Auto) 0.1x10^3/uL (0.0-0.7) Basophils # (Auto) 0.3x10^3/uL (0.0-0.2) Segmented Neutrophils % 63% (35-66) Band Neutrophils % 11% (0-9) Lymphocytes % 12% (24-48) Monocytes % 12% (0-10) Metamyelocytes % 2% (0-0) Nucleated Red Blood Cells 31 Platelet Estimate Adequate (ADEQUATE) Polychromasia Mod Poikilocytosis Mod Basophilic Stippling Present Anisocytosis Mod Spherocytes Present Sickle Cells Present Sharp-[place] Bodies Present Schistocytes Mod O2 Saturation 96% (92-99) Arterial Blood pH 7.36 (7.35-7.45) Arterial Blood pCO2 at Patient Temp 46mmHg (35-46) Arterial Blood pO2 at Patient Temp 104mmHg (75-108) Arterial Blood HCO3 25mmol/L (21-28) Arterial Blood Base Excess -1mmol/L (-3-3) FiO2 60 Test 07/13/16 14:55 07/13/16 15:08 07/13/16 17:40 Urine Color Cheryl Urine Clarity Turbid Urine pH 5.0 Urine Specific [place] 1.015 Urine Protein 30mg/dL (NEG-TRACE) Urine Glucose (UA) Negativemg/dL (NEG) Urine Ketones (Stick) Negativemg/dL (NEG) Urine Blood Large (NEG) Urine Nitrite Negative (NEG) Urine Bilirubin Negative (NEG) Urine Urobilinogen Dipstick 1.0mg/dL (0.2 mg/dL) Urine Leukocyte Esterase Large (NEG) Urine RBC 3-5/HPF (0-2) Urine WBC 11-20/HPF (0-4) Urine Squamous Epithelial Cells Mod/LPF Urine Bacteria Moderate/HPF (0-FEW) Urine Mucus Slight/LPF Urine Opiates Screen Neg (NEG) Urine Methadone Screen Neg (NEG) Urine Barbiturates Neg (NEG) Urine Phencyclidine Screen Neg (NEG) Urine Amphetamine/Methamphetamine Neg (NEG) Urine Benzodiazepines Screen Neg (NEG) Urine Cocaine Screen Neg (NEG) Urine Cannabinoids Screen Neg (NEG) Urine Ethyl Alcohol Neg (NEG) Glucose Level 127mg/dL (70-99) Lactic Acid Level 1.9mmol/L (0.4-2.0) Nasal Screen MRSA (PCR) Negative (Negative) Objective Assessment Fever Encephalopathy Respiratory failure Leukocytosis h/o depression Obesity Plan Plan of Care Meropenem and vanc x 1 LP supportive care check cultures BENY CASTILLO MD July 14, 2016 08:22
[2016-07-14 08:23] LABS: HCO3 ABG 23 mmol/L (21-28); PCO2 ABG 23 mmHg (35-46); PO2 ABG 81 mmHg (75-108); SAT O2 ABG 96 % (92-99)
[2016-07-14 08:25] LABS: HEMATOCRIT 31.5 % (36.0-47.0); HEMOGLOBIN 10.4 g/dL (12.0-15.5); RED BLOOD COUNT 3.15 x10^6/uL (3.50-5.40); RED CELL DISTRIBUTION WIDTH 16.6 % (11.5-14.5); WHITE BLOOD COUNT 19.4 x10^3/uL (4.0-11.0)
[2016-07-14 08:27] LABS: PH ABG 7.62 (7.35-7.45)
--- NOTE | 2016-07-14 08:31 | RAD ---
Indication respiratory failure. A single view of the chest was obtained and is compared to a study one day earlier. Heart size is unchanged. There is no gross congestive heart failure. The right lung is clear. There is now significant volume loss in the left lower lobe which may reflect pleural fluid and atelectasis. Mucous plugging accounting for the appearance is not excluded. Pneumonia is not entirely excluded. There is no pneumothorax. Endotracheal tube is appropriately positioned above the louis. Nasogastric tube is noted having its tip beyond the mid body of the stomach. IMPRESSION: Appropriately positioned endotracheal and nasogastric tubes. New volume loss in the left lower lobe may reflect atelectasis and pleural fluid. Underlying pneumonia is not excluded
[2016-07-14] MEDS: IV DEXTROSE 5 %-0.2 % NACL 1,000 ML IV SCH ×2 (09:13→20:50)
[2016-07-14 09:28] LABS: HCO3 ABG 28 mmol/L (21-28); PCO2 ABG 44 mmHg (35-46); PH ABG 7.42 (7.35-7.45); PO2 ABG 82 mmHg (75-108); SAT O2 ABG 94 % (92-99)
[2016-07-14 10:19] LABS: FIO2 ABG 40
[2016-07-14 10:26] LABS: INR 1.5 (0.8-1.1); PROTHROMBIN TIME PATIENT 17.6 SEC (11.7-14.0)
--- NOTE | 2016-07-14 11:19 | CONS ---
DATE OF CONSULTATION: ATTENDING PHYSICIAN: Dr. Norris. REASON FOR CONSULTATION: Respiratory failure, fevers, abnormal chest x-ray. HISTORY OF PRESENT ILLNESS: The patient is a 60-year-old female who resides at [facility]patient [facility] at [facility]. She was found down and was unresponsive. Her white cell count was 40,000. Due to her altered mental status, she was brought to [facility] where she was intubated. Her white cell count was 40,000 and I reviewed the patient's chest x-ray and per my review, films from yesterday showed a rounded density in the right perihilar area, could be a pulmonary artery shadow. There was also some fullness in the mediastinum as well. No definite consolidation seen except for possible atelectasis involving the left lower lobe on today's film. I have been asked to see her for further evaluation. She had a fever of 101 on admission. Lumbar puncture has been scheduled for today. Broad spectrum antibiotics were initiated. Infectious Disease was consulted. White cell count is trending down. She is on low dose propofol. Blood pressure is stable. I have been asked to see her for further evaluation. PAST MEDICAL HISTORY: Significant for history of psychiatric issues, depression, dyslipidemia. PAST SURGICAL HISTORY: None. ALLERGIES: None. MEDICATIONS: Reviewed as listed in the MRAD. REVIEW OF SYSTEMS: Unable to obtain as patient is on the ventilator. PHYSICAL EXAMINATION: VITAL SIGNS: T-max is 101.2, blood pressure 151/77. HEENT: Sclerae are nonicteric. NECK: Supple. LUNGS: Diminished breath sounds. CARDIOVASCULAR: Regular rate. ABDOMEN: Soft, obese. EXTREMITIES: With no pitting edema. LABORATORY DATA: Reviewed. Sodium , potassium 3.5, chloride 122, BUN ____, creatinine 1.8. ABGs showed a pH of 7.62, pCO2 of 23 and a pO2 of 81, which has been corrected and pH is now normalized after reducing the assist control rate and tidal volume. Her white cell count was ____, now down to 19.4, hemoglobin is 10.4 and platelets are 122. IMPRESSION: 1. Acute respiratory failure secondary to acute encephalopathy and sepsis. 2. Acute encephalopathy secondary to sepsis. 3. High-grade fever and markedly elevated white cell count, suspect underlying sepsis. Cannot exclude the possibility of any drug reaction in a patient with psychiatric issues. We will review her home medication to see if it includes SSRI and to rule out the possibility of serotonergic syndrome. 4. Abnormal chest x-ray with some rounded density in the right perihilar area and some mediastinal fullness. could be pulmonary artery shadow. We will obtain CT chest. 5. Rule out encephalitis. RECOMMENDATIONS: 1. Continue present assist control mode and make necessary adjustments based on ABGs. 2. Broad-spectrum antibiotics. 3. Infectious Disease recommendations. 4. Follow all cultures. 5. Lumbar puncture is scheduled for today. 6. Noncontrast CT chest. 7. Deep venous thrombosis prophylaxis. 8. Stress ulcer prophylaxis. 9. Once lumbar puncture is done, we will discontinue propofol and assess her mental status. 10. Discussed with RN and RT. We will follow along with you. Critical care time 40 minutes. ANU CROWLEY MD DR: EDIE/frank JOB#: [id number] / [id number] JEAN CARLOS
--- NOTE | 2016-07-14 13:25 | PDOC ---
PROGRESS NOTES Chief Complaint Chief Complaint cc: Altered mental status Depression High Cholesterol History of Present Illness History of Present Illness Ms. Thrasher was sedated when we visited. She was on a ventilator with settings of A/C / 12 / 500 / 40 / 5 PEEP. We discussed care with her nurse. Her fluids were changed from D5 1/2 NS to D5 1/4 NS this morning due to Na of 158 and BUN of 58 and Cr of 1.8. Vitals Vitals Vital Signs Date Time Temp Pulse Resp B/P Pulse Ox O2 Delivery O2 Flow Rate FiO2 07/14/16 12:00 98.7 71 13 96/57 100 Ventilator 98.7 Physical Exam General: Other (sedated) Heart: Regular rate, Normal S1, Normal S2 Lungs: Clear, Other (ventilator) Abdomen: Normal bowel sounds, Soft Extremities: No clubbing, No cyanosis Skin: No rashes, No breakdown Labs LABS Laboratory Tests Test 07/13/16 14:54 07/13/16 14:55 07/13/16 15:08 07/13/16 17:40 O2 Saturation 96% (92-99) Arterial Blood pH 7.36 (7.35-7.45) Arterial Blood pCO2 at Patient Temp 46mmHg (35-46) Arterial Blood pO2 at Patient Temp 104mmHg (75-108) Arterial Blood HCO3 25mmol/L (21-28) Arterial Blood Base Excess -1mmol/L (-3-3) FiO2 60 Urine Color Cheryl Urine Clarity Turbid Urine pH 5.0 Urine Specific Bailey 1.015 Urine Protein 30mg/dL (NEG-TRACE) Urine Glucose (UA) Negativemg/dL (NEG) Urine Ketones (Stick) Negativemg/dL (NEG) Urine Blood Large (NEG) Urine Nitrite Negative (NEG) Urine Bilirubin Negative (NEG) Urine Urobilinogen Dipstick 1.0mg/dL (0.2 mg/dL) Urine Leukocyte Esterase Large (NEG) Urine RBC 3-5/HPF (0-2) Urine WBC 11-20/HPF (0-4) Urine Squamous Epithelial Cells Mod/LPF Urine Bacteria Moderate/HPF (0-FEW) Urine Mucus Slight/LPF Urine Opiates Screen Neg (NEG) Urine Methadone Screen Neg (NEG) Urine Barbiturates Neg (NEG) Urine Phencyclidine Screen Neg (NEG) Urine Amphetamine/Methamphetamine Neg (NEG) Urine Benzodiazepines Screen Neg (NEG) Urine Cocaine Screen Neg (NEG) Urine Cannabinoids Screen Neg (NEG) Urine Ethyl Alcohol Neg (NEG) Glucose Level 127mg/dL (70-99) Lactic Acid Level 1.9mmol/L (0.4-2.0) Nasal Screen MRSA (PCR) Negative (Negative) Test 07/14/16 07:50 07/14/16 08:00 07/14/16 08:39 07/14/16 09:39 White Blood Count 19.4x10^3/uL (4.0-11.0) Red Blood Count 3.15x10^6/uL (3.50-5.40) Hemoglobin 10.4g/dL (12.0-15.5) Hematocrit 31.5% (36.0-47.0) Mean Corpuscular Volume 100fL (79-100) Mean Corpuscular Hemoglobin 33pg (25-35) Mean Corpuscular Hemoglobin Concent 33g/dL (31-37) Red Cell Distribution Width 16.6% (11.5-14.5) Platelet Count 122x10^3/uL (140-400) Sodium Level 158mmol/L (136-145) Potassium Level 3.5mmol/L (3.5-5.1) Chloride Level 122mmol/L (98-107) Carbon Dioxide Level 27mmol/L (21-32) Anion Gap 9 (6-14) Blood Urea Nitrogen 58mg/dL (7-20) Creatinine 1.8mg/dL (0.6-1.0) Estimated GFR (Cockcroft-Gault) 35.0 Glucose Level 151mg/dL (70-99) Lactic Acid Level 1.7mmol/L (0.4-2.0) Calcium Level 7.5mg/dL (8.5-10.1) Troponin I Quantitative 0.096ng/mL (0.000-0.055) O2 Saturation 96% (92-99) 94% (92-99) Arterial Blood pH 7.62 (7.35-7.45) 7.42 (7.35-7.45) Arterial Blood pCO2 at Patient Temp 23mmHg (35-46) 44mmHg (35-46) Arterial Blood pO2 at Patient Temp 81mmHg (75-108) 82mmHg (75-108) Arterial Blood HCO3 23mmol/L (21-28) 28mmol/L (21-28) Arterial Blood Base Excess 3mmol/L (-3-3) 3mmol/L (-3-3) FiO2 40 Prothrombin Time 17.6SEC (11.7-14.0) Prothromb Time International Ratio 1.5 (0.8-1.1) Review of Systems Review of Systems General: patient is under sedation Assessment and Plan Assessmemt and Plan Problems Medical Problems: (1) Sepsis Status: Acute (2) Sepsis Status: Acute Assessment: -Sepsis -Altered mental status -Acute encephalopathy -Depression -High Cholesterol Plan: -Plan of LP at 1pm today -Plan for Lovenox after LP -Continue monitoring renal function and adjust fluids as needed -Consult nephrology -Recheck AM labs -ID is following, continue antibiotics if they agree -Subspecialty input appreciated Problems: Comment Review of Relevant I have reviewed the following items quentin (where applicable) has been applied. Labs Laboratory Tests Test 07/13/16 12:45 07/13/16 12:50 07/13/16 13:13 07/13/16 14:54 Lactic Acid Level 2.2mmol/L (0.4-2.0) Sodium Level 153mmol/L (136-145) Potassium Level 5.0mmol/L (3.5-5.1) Chloride Level 114mmol/L (98-107) Carbon Dioxide Level 32mmol/L (21-32) Anion Gap 7 (6-14) Blood Urea Nitrogen 100mg/dL (7-20) Creatinine 3.0mg/dL (0.6-1.0) Estimated GFR (Cockcroft-Gault) 19.4 BUN/Creatinine Ratio 33 (6-20) Glucose Level 181mg/dL (70-99) Calcium Level 8.3mg/dL (8.5-10.1) Total Bilirubin 2.4mg/dL (0.2-1.0) Aspartate Amino Transf (AST/SGOT) 57U/L (15-37) Alanine Aminotransferase (ALT/SGPT) 40U/L (14-59) Alkaline Phosphatase 86U/L (46-116) Ammonia 14mcmol/L (11-34) Creatine Kinase 160U/L (26-192) Troponin I Quantitative 0.118ng/mL (0.000-0.055) HK-Ifs-S-Type Natriuretic Peptide 13387hk/mL (0-124) Total Protein 8.0g/dL (6.4-8.2) Albumin 3.4g/dL (3.4-5.0) Albumin/Globulin Ratio 0.7 (1.0-1.7) Thyroid Stimulating Hormone (TSH) 1.630uIU/mL (0.358-3.74) Ethyl Alcohol Level < 10mg/dL (0-10) White Blood Count 45.0x10^3/uL (4.0-11.0) Red Blood Count 3.29x10^6/uL (3.50-5.40) Hemoglobin 10.6g/dL (12.0-15.5) Hematocrit 34.4% (36.0-47.0) Mean Corpuscular Volume 105fL (79-100) Mean Corpuscular Hemoglobin 32pg (25-35) Mean Corpuscular Hemoglobin Concent 31g/dL (31-37) Red Cell Distribution Width 17.9% (11.5-14.5) Platelet Count 184x10^3/uL (140-400) Neutrophils (%) (Auto) 72% (31-73) Lymphocytes (%) (Auto) 16% (24-48) Monocytes (%) (Auto) 11% (0-9) Eosinophils (%) (Auto) 0% (0-3) Basophils (%) (Auto) 1% (0-3) Neutrophils # (Auto) 32.4x10^3uL (1.8-7.7) Lymphocytes # (Auto) 7.2x10^3/uL (1.0-4.8) Monocytes # (Auto) 5.0x10^3/uL (0.0-1.1) Eosinophils # (Auto) 0.1x10^3/uL (0.0-0.7) Basophils # (Auto) 0.3x10^3/uL (0.0-0.2) Segmented Neutrophils % 63% (35-66) Band Neutrophils % 11% (0-9) Lymphocytes % 12% (24-48) Monocytes % 12% (0-10) Metamyelocytes % 2% (0-0) Nucleated Red Blood Cells 31 Platelet Estimate Adequate (ADEQUATE) Polychromasia Mod Poikilocytosis Mod Basophilic Stippling Present Anisocytosis Mod Spherocytes Present Sickle Cells Present Sharp-Roy Bodies Present Schistocytes Mod O2 Saturation 96% (92-99) Arterial Blood pH 7.36 (7.35-7.45) Arterial Blood pCO2 at Patient Temp 46mmHg (35-46) Arterial Blood pO2 at Patient Temp 104mmHg (75-108) Arterial Blood HCO3 25mmol/L (21-28) Arterial Blood Base Excess -1mmol/L (-3-3) FiO2 60 Test 07/13/16 14:55 07/13/16 15:08 07/13/16 17:40 07/14/16 07:50 Urine Color Cheryl Urine Clarity Turbid Urine pH 5.0 Urine Specific Bailey 1.015 Urine Protein 30mg/dL (NEG-TRACE) Urine Glucose (UA) Negativemg/dL (NEG) Urine Ketones (Stick) Negativemg/dL (NEG) Urine Blood Large (NEG) Urine Nitrite Negative (NEG) Urine Bilirubin Negative (NEG) Urine Urobilinogen Dipstick 1.0mg/dL (0.2 mg/dL) Urine Leukocyte Esterase Large (NEG) Urine RBC 3-5/HPF (0-2) Urine WBC 11-20/HPF (0-4) Urine Squamous Epithelial Cells Mod/LPF Urine Bacteria Moderate/HPF (0-FEW) Urine Mucus Slight/LPF Urine Opiates Screen Neg (NEG) Urine Methadone Screen Neg (NEG) Urine Barbiturates Neg (NEG) Urine Phencyclidine Screen Neg (NEG) Urine Amphetamine/Methamphetamine Neg (NEG) Urine Benzodiazepines Screen Neg (NEG) Urine Cocaine Screen Neg (NEG) Urine Cannabinoids Screen Neg (NEG) Urine Ethyl Alcohol Neg (NEG) Glucose Level 127mg/dL (70-99) 151mg/dL (70-99) Lactic Acid Level 1.9mmol/L (0.4-2.0) 1.7mmol/L (0.4-2.0) Nasal Screen MRSA (PCR) Negative (Negative) White Blood Count 19.4x10^3/uL (4.0-11.0) Red Blood Count 3.15x10^6/uL (3.50-5.40) Hemoglobin 10.4g/dL (12.0-15.5) Hematocrit 31.5% (36.0-47.0) Mean Corpuscular Volume 100fL (79-100) Mean Corpuscular Hemoglobin 33pg (25-35) Mean Corpuscular Hemoglobin Concent 33g/dL (31-37) Red Cell Distribution Width 16.6% (11.5-14.5) Platelet Count 122x10^3/uL (140-400) Sodium Level 158mmol/L (136-145) Potassium Level 3.5mmol/L (3.5-5.1) Chloride Level 122mmol/L (98-107) Carbon Dioxide Level 27mmol/L (21-32) Anion Gap 9 (6-14) Blood Urea Nitrogen 58mg/dL (7-20) Creatinine 1.8mg/dL (0.6-1.0) Estimated GFR (Cockcroft-Gault) 35.0 Calcium Level 7.5mg/dL (8.5-10.1) Troponin I Quantitative 0.096ng/mL (0.000-0.055) Test 07/14/16 08:00 07/14/16 08:39 07/14/16 09:39 O2 Saturation 96% (92-99) 94% (92-99) Arterial Blood pH 7.62 (7.35-7.45) 7.42 (7.35-7.45) Arterial Blood pCO2 at Patient Temp 23mmHg (35-46) 44mmHg (35-46) Arterial Blood pO2 at Patient Temp 81mmHg (75-108) 82mmHg (75-108) Arterial Blood HCO3 23mmol/L (21-28) 28mmol/L (21-28) Arterial Blood Base Excess 3mmol/L (-3-3) 3mmol/L (-3-3) FiO2 40 Prothrombin Time 17.6SEC (11.7-14.0) Prothromb Time International Ratio 1.5 (0.8-1.1) Laboratory Tests Test 07/13/16 14:54 07/13/16 14:55 07/13/16 15:08 07/13/16 17:40 O2 Saturation 96% (92-99) Arterial Blood pH 7.36 (7.35-7.45) Arterial Blood pCO2 at Patient Temp 46mmHg (35-46) Arterial Blood pO2 at Patient Temp 104mmHg (75-108) Arterial Blood HCO3 25mmol/L (21-28) Arterial Blood Base Excess -1mmol/L (-3-3) FiO2 60 Urine Color Cheryl Urine Clarity Turbid Urine pH 5.0 Urine Specific Bailey 1.015 Urine Protein 30mg/dL (NEG-TRACE) Urine Glucose (UA) Negativemg/dL (NEG) Urine Ketones (Stick) Negativemg/dL (NEG) Urine Blood Large (NEG) Urine Nitrite Negative (NEG) Urine Bilirubin Negative (NEG) Urine Urobilinogen Dipstick 1.0mg/dL (0.2 mg/dL) Urine Leukocyte Esterase Large (NEG) Urine RBC 3-5/HPF (0-2) Urine WBC 11-20/HPF (0-4) Urine Squamous Epithelial Cells Mod/LPF Urine Bacteria Moderate/HPF (0-FEW) Urine Mucus Slight/LPF Urine Opiates Screen Neg (NEG) Urine Methadone Screen Neg (NEG) Urine Barbiturates Neg (NEG) Urine Phencyclidine Screen Neg (NEG) Urine Amphetamine/Methamphetamine Neg (NEG) Urine Benzodiazepines Screen Neg (NEG) Urine Cocaine Screen Neg (NEG) Urine Cannabinoids Screen Neg (NEG) Urine Ethyl Alcohol Neg (NEG) Glucose Level 127mg/dL (70-99) Lactic Acid Level 1.9mmol/L (0.4-2.0) Nasal Screen MRSA (PCR) Negative (Negative) Test 07/14/16 07:50 07/14/16 08:00 07/14/16 08:39 07/14/16 09:39 White Blood Count 19.4x10^3/uL (4.0-11.0) Red Blood Count 3.15x10^6/uL (3.50-5.40) Hemoglobin 10.4g/dL (12.0-15.5) Hematocrit 31.5% (36.0-47.0) Mean Corpuscular Volume 100fL (79-100) Mean Corpuscular Hemoglobin 33pg (25-35) Mean Corpuscular Hemoglobin Concent 33g/dL (31-37) Red Cell Distribution Width 16.6% (11.5-14.5) Platelet Count 122x10^3/uL (140-400) Sodium Level 158mmol/L (136-145) Potassium Level 3.5mmol/L (3.5-5.1) Chloride Level 122mmol/L (98-107) Carbon Dioxide Level 27mmol/L (21-32) Anion Gap 9 (6-14) Blood Urea Nitrogen 58mg/dL (7-20) Creatinine 1.8mg/dL (0.6-1.0) Estimated GFR (Cockcroft-Gault) 35.0 Glucose Level 151mg/dL (70-99) Lactic Acid Level 1.7mmol/L (0.4-2.0) Calcium Level 7.5mg/dL (8.5-10.1) Troponin I Quantitative 0.096ng/mL (0.000-0.055) O2 Saturation 96% (92-99) 94% (92-99) Arterial Blood pH 7.62 (7.35-7.45) 7.42 (7.35-7.45) Arterial Blood pCO2 at Patient Temp 23mmHg (35-46) 44mmHg (35-46) Arterial Blood pO2 at Patient Temp 81mmHg (75-108) 82mmHg (75-108) Arterial Blood HCO3 23mmol/L (21-28) 28mmol/L (21-28) Arterial Blood Base Excess 3mmol/L (-3-3) 3mmol/L (-3-3) FiO2 40 Prothrombin Time 17.6SEC (11.7-14.0) Prothromb Time International Ratio 1.5 (0.8-1.1) Microbiology 07/13/16 Blood Culture - Preliminary, Resulted NO GROWTH AFTER 1 DAY Medications Current Medications Haloperidol Lactate 5 mg 5 mg 1X ONCE IVP Last administered on 07/13/16 12:34 ; Start 07/13/16 at 12:30; Stop 07/13/16 at 12:31; Status DC Sodium Chloride 1,000 ml @ 1,000 mls/hr 1X ONCE IV Last administered on 14:06; Start 07/13/16 at 13:00; Stop 07/13/16 at 13:59; Status DC Sodium Chloride (Iv Sodium Chloride 0.9% 1000ml Bag) 1,000 ml @ 1,000 mls/hr 1X ONCE IV Last administered on 07/13/16 14:06; Start 07/13/16 at 13:45; Stop 07/13/16 at 14:44; Status DC Haloperidol Lactate (Haldol) 5 mg 1X ONCE IVP Last administered on 07/13/16 14 :20; Start 07/13/16 at 14:15; Stop 07/13/16 at 14:17; Status DC Etomidate (Amidate) 20 mg 1X ONCE IV Last administered on 07/13/16 14:35; Start 07/13/16 at 14:30; Stop 07/13/16 at 14:31; Status DC Lorazepam 2 mg 2 mg STK-MED ONCE .ROUTE ; Start 07/13/16 at 14:43; Stop 07/13/16 at 14:44; Status DC Levofloxacin/ Dextrose 150 ml @ 100 mls/hr 1X ONCE IV ; Start 07/13/16 at 15:00 ; Stop 07/13/16 at 15:00; Status DC Ceftriaxone Sodium 2 gm/ Sodium Chloride 100 ml @ 200 mls/hr Q24H IV ; Start at 15:00; Stop 07/13/16 at 15:00; Status DC Vancomycin HCl 1.25 gm/Sodium Chloride 250 ml @ 166.667 mls/hr 1X ONCE IV Last administered on 07/13/16 16:32; Start 07/13/16 at 15:00; Stop 07/13/16 at 16: 29; Status DC Meropenem 1 gm/ Sodium Chloride 100 ml @ 200 mls/hr Q8HRS IV Last administered on 07/14/16 12:30; Start 07/13/16 at 22:00 Meropenem 1 gm/ Sodium Chloride 100 ml @ 200 mls/hr 1X ONCE IV Last administered on 07/13/16 15:39; Start 07/13/16 at 15:00; Stop 07/13/16 at 15:29; Status DC Propofol (Diprivan) 50 ml @ As Directed STK-MED ONCE IV ; Start 07/13/16 at 15:15 ; Stop 07/13/16 at 15:16; Status DC Lorazepam 2 mg 2 mg 1X ONCE IV Last administered on 07/13/16 14:44; Start 07/13 at 15:45; Stop 07/13/16 at 15:46; Status DC Dextrose/Sodium Chloride 1,000 ml @ 125 mls/hr 1X ONCE IV Last administered on 07/13/16 18:25; Start 07/13/16 at 15:45; Stop 07/13/16 at 23:44; Status DC Propofol 100 ml @ 0 mls/hr CONT PRN IV SEE I/O RECORD Last administered on 11:24; Start 07/13/16 at 15:45 Sodium Chloride (Iv Sodium Chloride 0.9% 1000ml Bag) 1,000 ml @ 1,000 mls/hr 1X ONCE IV Last administered on 07/13/16 16:30; Start 07/13/16 at 16:30; Stop 07/13/16 at 17:29; Status DC Rocuronium [place] 50 mg 50 mg STK-MED ONCE .ROUTE ; Start 07/13/16 at 16:50; Stop 07/13/16 at 16:51; Status DC Propofol (Diprivan) 50 ml @ 0 mls/hr CONT PRN IV SEE I/O RECORD Last administered on 07/13/16 15:30; Start 07/13/16 at 18:00; Stop 07/14/16 at 07:08; Status DC Fentanyl Citrate (Fentanyl 2ml Vial) 25 mcg PRN Q1HR PRN IV COMM; Start at 21:15 Fentanyl Citrate (Fentanyl 2ml Vial) 50 mcg PRN Q1HR PRN IV COMM Last administered on 07/13/16 22:41; Start 07/13/16 at 21:15 Chlorhexidine Gluconate 15 ml 15 ml BID MM Last administered on 07/14/16 08:21 ; Start 07/14/16 at 09:00 Dextrose/Sodium Chloride (Iv D5% - / NS) 1,000 ml @ 125 mls/hr 1X ONCE IV Last administered on 07/14/16 03:33; Start 07/14/16 at 03:30; Stop 07/14/16 at 11: 29; Status DC Acetaminophen 650 mg 650 mg PRN Q6HRS PRN [place] MILD PAIN / TEMP Last administered on 07/14/16 08:21; Start 07/14/16 at 08:00 Dextrose/Sodium Chloride (Iv D5% - 1/ NS) 1,000 ml @ 100 mls/hr Q10H IV Last administered on 07/14/16 09:13; Start 07/14/16 at 09:15 Enoxaparin Sodium (Lovenox 40mg Syringe) 40 mg Q24H SQ ; Start 07/14/16 at 11:00 Famotidine (Pepcid) 20 mg QHS IVP ; Start 07/14/16 at 21:00 Active Scripts Active Cipro (Ciprofloxacin Hcl) 250 Mg Tablet 1 Tab PO BID Vitals/I & O Vital Sign - Last 24 Hours 07/13/16 07/13/16 07/13/16 07/13/16 13:30 14:00 14:30 15:00 Pulse 100 98 94 90 Resp 34 30 30 18 B/P 85/48 111/78 119/102 179/90 Pulse Ox 88 90 90 90 O2 Delivery Room Air Venturi Mask Venturi Mask Venturi Mask 07/13/16 07/13/16 07/13/16 07/13/16 15:23 15:30 15:32 16:00 Pulse 84 90 Resp 22 22 B/P 118/69 56/90 Pulse Ox 97 99 98 O2 Delivery Ventilator Mechanical Ventilator Ventilator Ventilator 07/13/16 07/13/16 07/13/16 07/13/16 16:30 16:50 17:00 17:30 Temp 98.8 98.8 Pulse 90 88 86 Resp 22 22 24 B/P 171/108 140/75 179/109 Pulse Ox 98 99 97 97 O2 Delivery Ventilator Ventilator Ventilator Ventilator 07/13/16 07/13/16 07/13/16 07/13/16 18:00 19:00 19:52 20:00 Pulse 77 74 Resp 25 22 B/P 161/89 158/82 Pulse Ox 100 100 100 O2 Delivery Ventilator Ventilator Ventilator Mechanical Ventilator 07/13/16 07/13/16 07/13/16 07/13/16 20:00 21:00 22:00 22:30 Temp 100.2 100.2 Pulse 77 78 78 Resp 22 22 22 B/P 176/81 141/63 161/77 Pulse Ox 100 100 100 100 O2 Delivery Ventilator Ventilator Ventilator Ventilator 07/13/16 07/13/16 07/13/16 07/13/16 22:41 23:00 23:11 23:59 Pulse 80 Resp 22 22 22 B/P 143/63 Pulse Ox 100 99 100 O2 Delivery Ventilator Ventilator Ventilator Mechanical Ventilator 07/14/16 07/14/16 07/14/16 07/14/16 00:00 00:20 01:00 02:00 Temp 100.3 100.3 Pulse 80 82 83 Resp B/P 140/69 144/73 154/72 Pulse Ox 99 100 98 98 O2 Delivery Ventilator Ventilator Ventilator Ventilator 07/14/16 07/14/16 07/14/16 07/14/16 03:00 03:30 04:00 04:00 Temp 101.2 101.2 Pulse 83 82 Resp 22 22 B/P 147/76 138/71 Pulse Ox 98 98 98 O2 Delivery Ventilator Ventilator Mechanical Ventilator Ventilator 07/14/16 07/14/16 07/14/16 07/14/16 05:00 05:10 06:00 07:00 Temp 99.8 99.8 Pulse 81 80 70 Resp B/P 149/77 141/78 151/77 Pulse Ox 98 98 99 99 O2 Delivery Ventilator Ventilator Ventilator Ventilator 07/14/16 07/14/16 07/14/16 07/14/16 07:05 07:54 08:00 08:47 Pulse 71 Resp 22 B/P 128/64 Pulse Ox 100 100 99 O2 Delivery Ventilator Mechanical Ventilator Ventilator Ventilator 07/14/16 07/14/16 07/14/16 07/14/16 09:00 10:00 10:57 11:00 Pulse 73 76 70 Resp 12 12 12 B/P 121/70 118/69 105/65 Pulse Ox 99 100 99 100 O2 Delivery Ventilator Ventilator Ventilator Ventilator 07/14/16 07/14/16 11:57 12:00 Temp 98.7 98.7 Pulse 71 Resp 13 B/P 96/57 Pulse Ox 100 O2 Delivery Mechanical Ventilator Ventilator Intake and Output 07/13/16 07/13/16 07/14/16 15:00 23:00 07:00 Intake Total 3364.3 ml 625 ml Output Total 1275 ml 1075 ml Balance 2089.3 ml -450 ml GOMEZ IBRAHIM K III DO July 14, 2016 13:25
--- NOTE | 2016-07-14 14:31 | RAD ---
Indication sepsis. Suspect meningitis. Administrative consistent was obtained to perform the lumbar puncture for purposes of acquiring CSF. The patient was intubated during the procedure and managed by the nursing and anesthesia personnel during the lumbar puncture. The skin was prepped and draped in the routine fashion. Initially a left side down decubitus approach was attempted but this was unsuccessful. Ultimately a midline approach was utilized. A 20-gauge spinal needle was used and the subarachnoid space was punctured at L3-4 with a 20-gauge spinal needle using a midline approach.. Clear CSF was encountered. Approximately 10 cc of fluid was withdrawn and into 3 tubes. A single spot fluoroscopic image was obtained. Fluoroscopy time associated with the procedure was 3.7 minutes. The patient tolerated the procedure well. Retrieved fluid was transferred to pathology for analysis. Analysis to be performed on the CSF was ordered by the physician caring for the patient. IMPRESSION: Successful lumbar puncture under fluoroscopic guidance.
[2016-07-14] MEDS: ENOXAPARIN 40 MG/0.4 ML SYRINGE. SQ SCH (14:47)
[2016-07-14 14:59] LABS: CSF PROTEIN 32.9 mg/dL (15.0-45.0)
[2016-07-14 15:20] LABS: CSF CLARITY CLEAR; CSF COLOR STRAW
[2016-07-14 15:21] LABS: CSF PMN % 16 %
--- NOTE | 2016-07-14 15:34 | RAD ---
CT of the chest without contrast, 07/14/2016: History: Right parahilar density Noncontrast scans were obtained as requested. An NG tube extends into the stomach. An ET tube is in place. The heart is generally enlarged. The ascending aorta is mildly enlarged measuring 4.2 cm in width. The main pulmonary artery is also prominent measuring 4 cm in width. No mediastinal adenopathy is seen. There is moderate volume loss and posterior atelectasis/infiltrate in both lower lobes, left greater than right. There appears to be a trace amount of pleural fluid in the posterior gutters. There is minimal atelectasis posteriorly in the upper lobes. There are moderate scattered spurs in the spine. IMPRESSION: 1. Cardiomegaly with mild enlargement of the ascending aorta. 2. Moderate volume loss with posterior atelectasis/infiltrate in both lower lobes, left greater than right. PQRS Compliance Statement: One or more of the following individualized dose reduction techniques were utilized for this examination: 1. Automated exposure control 2. Adjustment of the mA and/or kV according to patient size 3. Use of iterative reconstruction technique
[2016-07-14] MEDS ORDERED: QUET100T4 PO (15:41)
[2016-07-14] MEDS ORDERED: MELO-150 PO (15:41)
[2016-07-14] MEDS ORDERED: QUET200T4 PO (15:41)
[2016-07-14] MEDS: FAMOTIDINE 20 MG/2 ML VIAL IVP SCH (20:29)
[2016-07-14] MEDS: fentaNYL PF VIAL 100 MCG/2 ML VIAL IV PRN (23:01)
[2016-07-15] VITALS (24 sets, daily range): BP systolic 84–139; BP diastolic 48–75
--- NOTE | 2016-07-15 00:06 | CONS ---
DATE OF CONSULTATION: 07/14/2016 REQUESTING PHYSICIAN: Dr. Norris. REASON FOR CONSULTATION: Fever and encephalopathy. HISTORY OF PRESENT ILLNESS: This is a 60-year-old -[place] female with morbid obesity, depression and hyperlipidemia who was found at home confused by neighbor. The patient was nonverbal in the ER and found incontinent of urine and stool. The patient was intubated. The patient was stabilized. They attempted the lumbar puncture. They were not able to do. The patient had fever and leukocytosis. ER physician called me since they were not able to get lumbar puncture, I said them to start on meropenem and one dose of vancomycin was given. The patient also had acute renal failure. The patient is currently in the ICU, orally intubated on ventilator and sedated. Blood pressure has been stable. White count is 45,000 and the lumbar puncture is supposed to be done today. Lactic acid was normal. Her creatinine around 3. Toxicology screen was negative and the culture so far negative. CT of the head was unremarkable for any acute changes and chest x-ray showed cardiomegaly. The patient is not able to provide any information and there is no family member at the bedside. PAST MEDICAL HISTORY: As I mentioned, obesity, hyperlipidemia and depression. SOCIAL HISTORY: Unable to get. ALLERGIES: No known drug allergies. CURRENT MEDICATIONS: Reviewed. REVIEW OF SYSTEMS: Unable to obtain. PHYSICAL EXAMINATION: GENERAL: Sedated, orally intubated female, not in any distress. VITAL SIGNS: 99.8 with a T-max of 101.2. HEENT: Both pupils are round and reacting. Mouth cannot be visualized, as she is orally intubated. NECK: Supple. No JVP. No lymphadenopathy. LUNGS: Clear. HEART: S1, S2 regular. ABDOMEN: Benign. EXTREMITIES: No edema or cyanosis. SKIN: Unremarkable. There is no rash. The patient had been moving all the extremities before intubation. LABORATORY DATA: White count is 45,000, hemoglobin 10.6, platelets are normal. BUN 100, creatinine 3. Drug screen was negative. Urinalysis showed 11-20 WBC. MRSA screen was negative. Cultures are pending. Chest x-ray and CT as I mentioned in the HPI. IMPRESSION: 1. Fever and leukocytosis. 2. Encephalopathy. 3. Respiratory failure. 4. Renal failure. 5. History for depression. 6. Obesity. RECOMMENDATIONS: Continue meropenem and vancomycin was given one dose, lumbar puncture today, supportive care. We will check the cultures and continue to follow. Thank you very much, Dr. Norris for giving me opportunity to participate in this patient's care. BENY CASTILLO MD DR: EZRA/frank JOB#: [id number] / [id number] JEAN CARLOS
[2016-07-15] MEDS: PROPOFOL 100 ML IV PRN ×6 (02:49→23:19)
[2016-07-15] MEDS: MEROPENEM 1 GM in IV NORMAL SALINE 100ML 100 ML IV SCH ×3 (05:56→21:56)
[2016-07-15 07:27] LABS: HCO3 ABG 26 mmol/L (21-28); PCO2 ABG 43 mmHg (35-46); PO2 ABG 94 mmHg (75-108); SAT O2 ABG 97 % (92-99)
[2016-07-15 07:29] LABS: FIO2 ABG 40
[2016-07-15 07:50] LABS: BASO # 0.1 x10^3/uL (0.0-0.2); BASO % 1 % (0-3); EOS % 0 % (0-3); HEMATOCRIT 37.8 % (36.0-47.0); HEMOGLOBIN 11.8 g/dL (12.0-15.5); LYMPH # 2.1 x10^3/uL (1.0-4.8); LYMPH % 13 % (24-48); MEAN CORPUSCULAR HEMOGLOBIN 33 pg (25-35); MEAN CORPUSCULAR HGB CONC 31 g/dL (31-37); MEAN CORPUSCULAR VOLUME 105 fL (79-100); MONO % 8 % (0-9); NEUT % 78 % (31-73); PLATELET COUNT 78 x10^3/uL (140-400); RED BLOOD COUNT 3.59 x10^6/uL (3.50-5.40); RED CELL DISTRIBUTION WIDTH 18.8 % (11.5-14.5); WHITE BLOOD COUNT 16.1 x10^3/uL (4.0-11.0)
[2016-07-15 08:04] LABS: CALCIUM 7.7 mg/dL (8.5-10.1); CREATININE 1.2 mg/dL (0.6-1.0); GFR 55.8; POTASSIUM 4.4 mmol/L (3.5-5.1)
--- NOTE | 2016-07-15 08:42 | PDOC ---
Infectious Disease Note Subjective Subjective intubated , sedated ROS ROS unable to do Vital Sign Vital Signs Vital Signs Date Time Temp Pulse Resp B/P Pulse Ox O2 Delivery O2 Flow Rate FiO2 07/15/16 08:00 98.8 81 19 133/75 100 Ventilator 98.8 Physical Exam PHYSICAL EXAM GENERAL: sedated on vent HEENT: PERRL, OC/OP NECK: Supple, no JVD, no LN LUNGS: Clear HEART: S1S2, no gallop, no murmur ABD: Soft, NT, no organomegaly, no rebound EXT: No edema, no cyanosis GLUING MACHINE OPERATOR: sedated on vent SKIN: No rash IV: ok Labs Lab Laboratory Tests Test 07/14/16 09:39 07/15/16 07:20 Prothrombin Time 17.6SEC (11.7-14.0) Prothromb Time International Ratio 1.5 (0.8-1.1) White Blood Count 16.1x10^3/uL (4.0-11.0) Red Blood Count 3.59x10^6/uL (3.50-5.40) Hemoglobin 11.8g/dL (12.0-15.5) Hematocrit 37.8% (36.0-47.0) Mean Corpuscular Volume 105fL (79-100) Mean Corpuscular Hemoglobin 33pg (25-35) Mean Corpuscular Hemoglobin Concent 31g/dL (31-37) Red Cell Distribution Width 18.8% (11.5-14.5) Platelet Count 78x10^3/uL (140-400) Neutrophils (%) (Auto) 78% (31-73) Lymphocytes (%) (Auto) 13% (24-48) Monocytes (%) (Auto) 8% (0-9) Eosinophils (%) (Auto) 0% (0-3) Basophils (%) (Auto) 1% (0-3) Neutrophils # (Auto) 12.5x10^3uL (1.8-7.7) Lymphocytes # (Auto) 2.1x10^3/uL (1.0-4.8) Monocytes # (Auto) 1.3x10^3/uL (0.0-1.1) Eosinophils # (Auto) 0.0x10^3/uL (0.0-0.7) Basophils # (Auto) 0.1x10^3/uL (0.0-0.2) O2 Saturation 97% (92-99) Arterial Blood pH 7.40 (7.35-7.45) Arterial Blood pCO2 at Patient Temp 43mmHg (35-46) Arterial Blood pO2 at Patient Temp 94mmHg (75-108) Arterial Blood HCO3 26mmol/L (21-28) Arterial Blood Base Excess 1mmol/L (-3-3) FiO2 40 Sodium Level 153mmol/L (136-145) Potassium Level 4.4mmol/L (3.5-5.1) Chloride Level 119mmol/L (98-107) Carbon Dioxide Level 27mmol/L (21-32) Anion Gap 7 (6-14) Blood Urea Nitrogen 31mg/dL (7-20) Creatinine 1.2mg/dL (0.6-1.0) Estimated GFR (Cockcroft-Gault) 55.8 Glucose Level 146mg/dL (70-99) Calcium Level 7.7mg/dL (8.5-10.1) Objective Assessment Fever Encephalopathy, CSF neg, traumatic tap Respiratory failure Leukocytosis h/o depression Obesity Plan Plan of Care Meropenem and vanc x 1 supportive care cultures neg so far BENY CASTILLO MD July 15, 2016 08:42
--- NOTE | 2016-07-15 08:44 | RAD ---
Portable chest, 07/15/2016: History: Respiratory distress Comparison is made yesterday study. The ET tube and NG tube remain in place in satisfactory positions. The heart is enlarged. The pulmonary vascularity is within normal limits. There is a moderate ongoing consolidation and atelectasis in the left lower lobe obscuring the hemidiaphragm. This is unchanged. A lesser degree of atelectasis/infiltrate seen posteriorly in the right lung base on yesterday's CT study is not radiographically visible. No new abnormality is detected. IMPRESSION: 1. Stable tube positions. 2. Cardiomegaly without vascular congestion. 3. Moderate unchanged left basilar consolidation/atelectasis.
[2016-07-15] MEDS: CHLORHEXIDINE 0.12% 15 ML MOUTHWASH. MM SCH ×2 (11:00→20:43)
[2016-07-15] MEDS: ENOXAPARIN 40 MG/0.4 ML SYRINGE. SQ SCH (11:01)
--- NOTE | 2016-07-15 11:16 | PDOC ---
PULMONARY PROGRESS NOTES Subjective BECOMES VERY AGITATED WHEN OFF SEDATION CANNOT DO CPAP TRIAL Vitals Vital Signs Date Time Temp Pulse Resp B/P Pulse Ox O2 Delivery O2 Flow Rate FiO2 07/15/16 10:00 75 16 129/68 100 Ventilator 07/15/16 08:00 98.8 98.8 Lungs: Other (decrease bs) Cardiovascular: S1 Abdomen: Soft Extremities: No Edema Skin: Warm Labs Laboratory Tests Test 07/13/16 12:45 07/13/16 12:50 07/13/16 13:13 07/13/16 14:00 Lactic Acid Level 2.2mmol/L (0.4-2.0) Sodium Level 153mmol/L (136-145) Potassium Level 5.0mmol/L (3.5-5.1) Chloride Level 114mmol/L (98-107) Carbon Dioxide Level 32mmol/L (21-32) Anion Gap 7 (6-14) Blood Urea Nitrogen 100mg/dL (7-20) Creatinine 3.0mg/dL (0.6-1.0) Estimated GFR (Cockcroft-Gault) 19.4 BUN/Creatinine Ratio 33 (6-20) Glucose Level 181mg/dL (70-99) Calcium Level 8.3mg/dL (8.5-10.1) Total Bilirubin 2.4mg/dL (0.2-1.0) Aspartate Amino Transf (AST/SGOT) 57U/L (15-37) Alanine Aminotransferase (ALT/SGPT) 40U/L (14-59) Alkaline Phosphatase 86U/L (46-116) Ammonia 14mcmol/L (11-34) Creatine Kinase 160U/L (26-192) Troponin I Quantitative 0.118ng/mL (0.000-0.055) SL-Emj-Y-Type Natriuretic Peptide 12464kf/mL (0-124) Total Protein 8.0g/dL (6.4-8.2) Albumin 3.4g/dL (3.4-5.0) Albumin/Globulin Ratio 0.7 (1.0-1.7) Thyroid Stimulating Hormone (TSH) 1.630uIU/mL (0.358-3.74) Ethyl Alcohol Level < 10mg/dL (0-10) White Blood Count 45.0x10^3/uL (4.0-11.0) Red Blood Count 3.29x10^6/uL (3.50-5.40) Hemoglobin 10.6g/dL (12.0-15.5) Hematocrit 34.4% (36.0-47.0) Mean Corpuscular Volume 105fL (79-100) Mean Corpuscular Hemoglobin 32pg (25-35) Mean Corpuscular Hemoglobin Concent 31g/dL (31-37) Red Cell Distribution Width 17.9% (11.5-14.5) Platelet Count 184x10^3/uL (140-400) Neutrophils (%) (Auto) 72% (31-73) Lymphocytes (%) (Auto) 16% (24-48) Monocytes (%) (Auto) 11% (0-9) Eosinophils (%) (Auto) 0% (0-3) Basophils (%) (Auto) 1% (0-3) Neutrophils # (Auto) 32.4x10^3uL (1.8-7.7) Lymphocytes # (Auto) 7.2x10^3/uL (1.0-4.8) Monocytes # (Auto) 5.0x10^3/uL (0.0-1.1) Eosinophils # (Auto) 0.1x10^3/uL (0.0-0.7) Basophils # (Auto) 0.3x10^3/uL (0.0-0.2) Segmented Neutrophils % 63% (35-66) Band Neutrophils % 11% (0-9) Lymphocytes % 12% (24-48) Monocytes % 12% (0-10) Metamyelocytes % 2% (0-0) Nucleated Red Blood Cells 31 Platelet Estimate Adequate (ADEQUATE) Polychromasia Mod Poikilocytosis Mod Basophilic Stippling Present Anisocytosis Mod Spherocytes Present Sickle Cells Present [place] Bodies Present Schistocytes Mod CSF Tube Number 3 CSF Color Straw CSF Clarity Clear CSF WBC 6 CSF RBC 381 CSF Mononuclear WBCs % 84% CSF Polynuclear WBCs (%) 16% CSF Glucose 94mg/dL (37-70) CSF Total Protein 32.9mg/dL (15.0-45.0) Test 07/13/16 14:54 07/13/16 14:55 07/13/16 15:08 07/13/16 17:40 O2 Saturation 96% (92-99) Arterial Blood pH 7.36 (7.35-7.45) Arterial Blood pCO2 at Patient Temp 46mmHg (35-46) Arterial Blood pO2 at Patient Temp 104mmHg (75-108) Arterial Blood HCO3 25mmol/L (21-28) Arterial Blood Base Excess -1mmol/L (-3-3) FiO2 60 Urine Color Cheryl Urine Clarity Turbid Urine pH 5.0 Urine Specific [place] 1.015 Urine Protein 30mg/dL (NEG-TRACE) Urine Glucose (UA) Negativemg/dL (NEG) Urine Ketones (Stick) Negativemg/dL (NEG) Urine Blood Large (NEG) Urine Nitrite Negative (NEG) Urine Bilirubin Negative (NEG) Urine Urobilinogen Dipstick 1.0mg/dL (0.2 mg/dL) Urine Leukocyte Esterase Large (NEG) Urine RBC 3-5/HPF (0-2) Urine WBC 11-20/HPF (0-4) Urine Squamous Epithelial Cells Mod/LPF Urine Bacteria Moderate/HPF (0-FEW) Urine Mucus Slight/LPF Urine Opiates Screen Neg (NEG) Urine Methadone Screen Neg (NEG) Urine Barbiturates Neg (NEG) Urine Phencyclidine Screen Neg (NEG) Urine Amphetamine/Methamphetamine Neg (NEG) Urine Benzodiazepines Screen Neg (NEG) Urine Cocaine Screen Neg (NEG) Urine Cannabinoids Screen Neg (NEG) Urine Ethyl Alcohol Neg (NEG) Glucose Level 127mg/dL (70-99) Lactic Acid Level 1.9mmol/L (0.4-2.0) Nasal Screen MRSA (PCR) Negative (Negative) Test 07/14/16 07:50 07/14/16 08:00 07/14/16 08:39 07/14/16 09:39 White Blood Count 19.4x10^3/uL (4.0-11.0) Red Blood Count 3.15x10^6/uL (3.50-5.40) Hemoglobin 10.4g/dL (12.0-15.5) Hematocrit 31.5% (36.0-47.0) Mean Corpuscular Volume 100fL (79-100) Mean Corpuscular Hemoglobin 33pg (25-35) Mean Corpuscular Hemoglobin Concent 33g/dL (31-37) Red Cell Distribution Width 16.6% (11.5-14.5) Platelet Count 122x10^3/uL (140-400) Sodium Level 158mmol/L (136-145) Potassium Level 3.5mmol/L (3.5-5.1) Chloride Level 122mmol/L (98-107) Carbon Dioxide Level 27mmol/L (21-32) Anion Gap 9 (6-14) Blood Urea Nitrogen 58mg/dL (7-20) Creatinine 1.8mg/dL (0.6-1.0) Estimated GFR (Cockcroft-Gault) 35.0 Glucose Level 151mg/dL (70-99) Lactic Acid Level 1.7mmol/L (0.4-2.0) Calcium Level 7.5mg/dL (8.5-10.1) Troponin I Quantitative 0.096ng/mL (0.000-0.055) O2 Saturation 96% (92-99) 94% (92-99) Arterial Blood pH 7.62 (7.35-7.45) 7.42 (7.35-7.45) Arterial Blood pCO2 at Patient Temp 23mmHg (35-46) 44mmHg (35-46) Arterial Blood pO2 at Patient Temp 81mmHg (75-108) 82mmHg (75-108) Arterial Blood HCO3 23mmol/L (21-28) 28mmol/L (21-28) Arterial Blood Base Excess 3mmol/L (-3-3) 3mmol/L (-3-3) FiO2 40 Prothrombin Time 17.6SEC (11.7-14.0) Prothromb Time International Ratio 1.5 (0.8-1.1) Test 07/15/16 07:20 White Blood Count 16.1x10^3/uL (4.0-11.0) Red Blood Count 3.59x10^6/uL (3.50-5.40) Hemoglobin 11.8g/dL (12.0-15.5) Hematocrit 37.8% (36.0-47.0) Mean Corpuscular Volume 105fL (79-100) Mean Corpuscular Hemoglobin 33pg (25-35) Mean Corpuscular Hemoglobin Concent 31g/dL (31-37) Red Cell Distribution Width 18.8% (11.5-14.5) Platelet Count 78x10^3/uL (140-400) Neutrophils (%) (Auto) 78% (31-73) Lymphocytes (%) (Auto) 13% (24-48) Monocytes (%) (Auto) 8% (0-9) Eosinophils (%) (Auto) 0% (0-3) Basophils (%) (Auto) 1% (0-3) Neutrophils # (Auto) 12.5x10^3uL (1.8-7.7) Lymphocytes # (Auto) 2.1x10^3/uL (1.0-4.8) Monocytes # (Auto) 1.3x10^3/uL (0.0-1.1) Eosinophils # (Auto) 0.0x10^3/uL (0.0-0.7) Basophils # (Auto) 0.1x10^3/uL (0.0-0.2) O2 Saturation 97% (92-99) Arterial Blood pH 7.40 (7.35-7.45) Arterial Blood pCO2 at Patient Temp 43mmHg (35-46) Arterial Blood pO2 at Patient Temp 94mmHg (75-108) Arterial Blood HCO3 26mmol/L (21-28) Arterial Blood Base Excess 1mmol/L (-3-3) FiO2 40 Sodium Level 153mmol/L (136-145) Potassium Level 4.4mmol/L (3.5-5.1) Chloride Level 119mmol/L (98-107) Carbon Dioxide Level 27mmol/L (21-32) Anion Gap 7 (6-14) Blood Urea Nitrogen 31mg/dL (7-20) Creatinine 1.2mg/dL (0.6-1.0) Estimated GFR (Cockcroft-Gault) 55.8 Glucose Level 146mg/dL (70-99) Calcium Level 7.7mg/dL (8.5-10.1) Laboratory Tests Test 07/15/16 07:20 White Blood Count 16.1x10^3/uL (4.0-11.0) Red Blood Count 3.59x10^6/uL (3.50-5.40) Hemoglobin 11.8g/dL (12.0-15.5) Hematocrit 37.8% (36.0-47.0) Mean Corpuscular Volume 105fL (79-100) Mean Corpuscular Hemoglobin 33pg (25-35) Mean Corpuscular Hemoglobin Concent 31g/dL (31-37) Red Cell Distribution Width 18.8% (11.5-14.5) Platelet Count 78x10^3/uL (140-400) Neutrophils (%) (Auto) 78% (31-73) Lymphocytes (%) (Auto) 13% (24-48) Monocytes (%) (Auto) 8% (0-9) Eosinophils (%) (Auto) 0% (0-3) Basophils (%) (Auto) 1% (0-3) Neutrophils # (Auto) 12.5x10^3uL (1.8-7.7) Lymphocytes # (Auto) 2.1x10^3/uL (1.0-4.8) Monocytes # (Auto) 1.3x10^3/uL (0.0-1.1) Eosinophils # (Auto) 0.0x10^3/uL (0.0-0.7) Basophils # (Auto) 0.1x10^3/uL (0.0-0.2) O2 Saturation 97% (92-99) Arterial Blood pH 7.40 (7.35-7.45) Arterial Blood pCO2 at Patient Temp 43mmHg (35-46) Arterial Blood pO2 at Patient Temp 94mmHg (75-108) Arterial Blood HCO3 26mmol/L (21-28) Arterial Blood Base Excess 1mmol/L (-3-3) FiO2 40 Sodium Level 153mmol/L (136-145) Potassium Level 4.4mmol/L (3.5-5.1) Chloride Level 119mmol/L (98-107) Carbon Dioxide Level 27mmol/L (21-32) Anion Gap 7 (6-14) Blood Urea Nitrogen 31mg/dL (7-20) Creatinine 1.2mg/dL (0.6-1.0) Estimated GFR (Cockcroft-Gault) 55.8 Glucose Level 146mg/dL (70-99) Calcium Level 7.7mg/dL (8.5-10.1) Medications Active Scripts Medications Dose Route/Sig Days Date Category Seroquel (Quetiapine Fumarate) 100 Mg Tablet 1 Tab PO DAILY08 07/14/16 Reported Meloxicam 15 Mg Tablet 1 Tab PO DAILY 07/14/16 Reported Seroquel (Quetiapine Fumarate) 200 Mg Tablet 1 Tab PO QHS 07/14/16 Reported Cipro (Ciprofloxacin Hcl) 250 Mg Tablet 1 Tab PO BID 04/07/16 Rx Impression . 1. Acute respiratory failure secondary to acute encephalopathy and sepsis. 2. Acute encephalopathy secondary to sepsis. 3. High-grade fever and markedly elevated white cell count, suspect underlying sepsis. 4. Abnormal chest x-ray with some rounded density in the right perihilar area and some mediastinal fullness. We will obtain CT chest. 5. encephalopathy, LP neg Plan . 1. Continue present assist control mode and make necessary adjustments based on ABGs. HOLD CPAP trial today 2. Broad-spectrum antibiotics. 3. Infectious Disease recommendations. 4. Follow all cultures. 5. Lumbar puncture neg 6. Noncontrast CT chest reviewed. pulmonary HTN/ atelectasis 7. Deep venous thrombosis prophylaxis. 8. Stress ulcer prophylaxis. 10. Discussed with RN and RT. ANU CROWLEY MD July 15, 2016 11:16
--- NOTE | 2016-07-15 11:32 | PDOC ---
PROGRESS NOTES Chief Complaint Chief Complaint cc: acute hypoxic resp failure altered mental status hypernatremia Sepsis Acute metabolic encephalopathy Hx Depression High Cholesterol History of Present Illness History of Present Illness Ms. Thrasher was sedated on a ventilator . We discussed care with her nurse. Na of 158 and BUN of 58 and Cr of 1.8. Vitals Vitals Vital Signs Date Time Temp Pulse Resp B/P Pulse Ox O2 Delivery O2 Flow Rate FiO2 07/15/16 10:00 75 16 129/68 100 Ventilator 07/15/16 08:00 98.8 98.8 Physical Exam General: Other (sedated) Heart: Regular rate, Normal S1, Normal S2 Lungs: Other (decrease bs) Abdomen: Normal bowel sounds, Soft Extremities: No clubbing, No cyanosis Skin: No rashes, No breakdown Labs LABS Laboratory Tests Test 07/15/16 07:20 White Blood Count 16.1x10^3/uL (4.0-11.0) Red Blood Count 3.59x10^6/uL (3.50-5.40) Hemoglobin 11.8g/dL (12.0-15.5) Hematocrit 37.8% (36.0-47.0) Mean Corpuscular Volume 105fL (79-100) Mean Corpuscular Hemoglobin 33pg (25-35) Mean Corpuscular Hemoglobin Concent 31g/dL (31-37) Red Cell Distribution Width 18.8% (11.5-14.5) Platelet Count 78x10^3/uL (140-400) Neutrophils (%) (Auto) 78% (31-73) Lymphocytes (%) (Auto) 13% (24-48) Monocytes (%) (Auto) 8% (0-9) Eosinophils (%) (Auto) 0% (0-3) Basophils (%) (Auto) 1% (0-3) Neutrophils # (Auto) 12.5x10^3uL (1.8-7.7) Lymphocytes # (Auto) 2.1x10^3/uL (1.0-4.8) Monocytes # (Auto) 1.3x10^3/uL (0.0-1.1) Eosinophils # (Auto) 0.0x10^3/uL (0.0-0.7) Basophils # (Auto) 0.1x10^3/uL (0.0-0.2) O2 Saturation 97% (92-99) Arterial Blood pH 7.40 (7.35-7.45) Arterial Blood pCO2 at Patient Temp 43mmHg (35-46) Arterial Blood pO2 at Patient Temp 94mmHg (75-108) Arterial Blood HCO3 26mmol/L (21-28) Arterial Blood Base Excess 1mmol/L (-3-3) FiO2 40 Sodium Level 153mmol/L (136-145) Potassium Level 4.4mmol/L (3.5-5.1) Chloride Level 119mmol/L (98-107) Carbon Dioxide Level 27mmol/L (21-32) Anion Gap 7 (6-14) Blood Urea Nitrogen 31mg/dL (7-20) Creatinine 1.2mg/dL (0.6-1.0) Estimated GFR (Cockcroft-Gault) 55.8 Glucose Level 146mg/dL (70-99) Calcium Level 7.7mg/dL (8.5-10.1) Assessment and Plan Assessmemt and Plan Problems Medical Problems: (1) Sepsis Status: Acute (2) Sepsis Status: Acute Problems: Comment Review of Relevant I have reviewed the following items quentin (where applicable) has been applied. Labs Laboratory Tests Test 07/13/16 12:45 07/13/16 12:50 07/13/16 13:13 07/13/16 14:00 Lactic Acid Level 2.2mmol/L (0.4-2.0) Sodium Level 153mmol/L (136-145) Potassium Level 5.0mmol/L (3.5-5.1) Chloride Level 114mmol/L (98-107) Carbon Dioxide Level 32mmol/L (21-32) Anion Gap 7 (6-14) Blood Urea Nitrogen 100mg/dL (7-20) Creatinine 3.0mg/dL (0.6-1.0) Estimated GFR (Cockcroft-Gault) 19.4 BUN/Creatinine Ratio 33 (6-20) Glucose Level 181mg/dL (70-99) Calcium Level 8.3mg/dL (8.5-10.1) Total Bilirubin 2.4mg/dL (0.2-1.0) Aspartate Amino Transf (AST/SGOT) 57U/L (15-37) Alanine Aminotransferase (ALT/SGPT) 40U/L (14-59) Alkaline Phosphatase 86U/L (46-116) Ammonia 14mcmol/L (11-34) Creatine Kinase 160U/L (26-192) Troponin I Quantitative 0.118ng/mL (0.000-0.055) BF-Frh-J-Type Natriuretic Peptide 14203oi/mL (0-124) Total Protein 8.0g/dL (6.4-8.2) Albumin 3.4g/dL (3.4-5.0) Albumin/Globulin Ratio 0.7 (1.0-1.7) Thyroid Stimulating Hormone (TSH) 1.630uIU/mL (0.358-3.74) Ethyl Alcohol Level < 10mg/dL (0-10) White Blood Count 45.0x10^3/uL (4.0-11.0) Red Blood Count 3.29x10^6/uL (3.50-5.40) Hemoglobin 10.6g/dL (12.0-15.5) Hematocrit 34.4% (36.0-47.0) Mean Corpuscular Volume 105fL (79-100) Mean Corpuscular Hemoglobin 32pg (25-35) Mean Corpuscular Hemoglobin Concent 31g/dL (31-37) Red Cell Distribution Width 17.9% (11.5-14.5) Platelet Count 184x10^3/uL (140-400) Neutrophils (%) (Auto) 72% (31-73) Lymphocytes (%) (Auto) 16% (24-48) Monocytes (%) (Auto) 11% (0-9) Eosinophils (%) (Auto) 0% (0-3) Basophils (%) (Auto) 1% (0-3) Neutrophils # (Auto) 32.4x10^3uL (1.8-7.7) Lymphocytes # (Auto) 7.2x10^3/uL (1.0-4.8) Monocytes # (Auto) 5.0x10^3/uL (0.0-1.1) Eosinophils # (Auto) 0.1x10^3/uL (0.0-0.7) Basophils # (Auto) 0.3x10^3/uL (0.0-0.2) Segmented Neutrophils % 63% (35-66) Band Neutrophils % 11% (0-9) Lymphocytes % 12% (24-48) Monocytes % 12% (0-10) Metamyelocytes % 2% (0-0) Nucleated Red Blood Cells 31 Platelet Estimate Adequate (ADEQUATE) Polychromasia Mod Poikilocytosis Mod Basophilic Stippling Present Anisocytosis Mod Spherocytes Present Sickle Cells Present [place] Bodies Present Schistocytes Mod CSF Tube Number 3 CSF Color Straw CSF Clarity Clear CSF WBC 6 CSF RBC 381 CSF Mononuclear WBCs % 84% CSF Polynuclear WBCs (%) 16% CSF Glucose 94mg/dL (37-70) CSF Total Protein 32.9mg/dL (15.0-45.0) Test 07/13/16 14:54 07/13/16 14:55 07/13/16 15:08 07/13/16 17:40 O2 Saturation 96% (92-99) Arterial Blood pH 7.36 (7.35-7.45) Arterial Blood pCO2 at Patient Temp 46mmHg (35-46) Arterial Blood pO2 at Patient Temp 104mmHg (75-108) Arterial Blood HCO3 25mmol/L (21-28) Arterial Blood Base Excess -1mmol/L (-3-3) FiO2 60 Urine Color Cheryl Urine Clarity Turbid Urine pH 5.0 Urine Specific [place] 1.015 Urine Protein 30mg/dL (NEG-TRACE) Urine Glucose (UA) Negativemg/dL (NEG) Urine Ketones (Stick) Negativemg/dL (NEG) Urine Blood Large (NEG) Urine Nitrite Negative (NEG) Urine Bilirubin Negative (NEG) Urine Urobilinogen Dipstick 1.0mg/dL (0.2 mg/dL) Urine Leukocyte Esterase Large (NEG) Urine RBC 3-5/HPF (0-2) Urine WBC 11-20/HPF (0-4) Urine Squamous Epithelial Cells Mod/LPF Urine Bacteria Moderate/HPF (0-FEW) Urine Mucus Slight/LPF Urine Opiates Screen Neg (NEG) Urine Methadone Screen Neg (NEG) Urine Barbiturates Neg (NEG) Urine Phencyclidine Screen Neg (NEG) Urine Amphetamine/Methamphetamine Neg (NEG) Urine Benzodiazepines Screen Neg (NEG) Urine Cocaine Screen Neg (NEG) Urine Cannabinoids Screen Neg (NEG) Urine Ethyl Alcohol Neg (NEG) Glucose Level 127mg/dL (70-99) Lactic Acid Level 1.9mmol/L (0.4-2.0) Nasal Screen MRSA (PCR) Negative (Negative) Test 07/14/16 07:50 07/14/16 08:00 07/14/16 08:39 07/14/16 09:39 White Blood Count 19.4x10^3/uL (4.0-11.0) Red Blood Count 3.15x10^6/uL (3.50-5.40) Hemoglobin 10.4g/dL (12.0-15.5) Hematocrit 31.5% (36.0-47.0) Mean Corpuscular Volume 100fL (79-100) Mean Corpuscular Hemoglobin 33pg (25-35) Mean Corpuscular Hemoglobin Concent 33g/dL (31-37) Red Cell Distribution Width 16.6% (11.5-14.5) Platelet Count 122x10^3/uL (140-400) Sodium Level 158mmol/L (136-145) Potassium Level 3.5mmol/L (3.5-5.1) Chloride Level 122mmol/L (98-107) Carbon Dioxide Level 27mmol/L (21-32) Anion Gap 9 (6-14) Blood Urea Nitrogen 58mg/dL (7-20) Creatinine 1.8mg/dL (0.6-1.0) Estimated GFR (Cockcroft-Gault) 35.0 Glucose Level 151mg/dL (70-99) Lactic Acid Level 1.7mmol/L (0.4-2.0) Calcium Level 7.5mg/dL (8.5-10.1) Troponin I Quantitative 0.096ng/mL (0.000-0.055) O2 Saturation 96% (92-99) 94% (92-99) Arterial Blood pH 7.62 (7.35-7.45) 7.42 (7.35-7.45) Arterial Blood pCO2 at Patient Temp 23mmHg (35-46) 44mmHg (35-46) Arterial Blood pO2 at Patient Temp 81mmHg (75-108) 82mmHg (75-108) Arterial Blood HCO3 23mmol/L (21-28) 28mmol/L (21-28) Arterial Blood Base Excess 3mmol/L (-3-3) 3mmol/L (-3-3) FiO2 40 Prothrombin Time 17.6SEC (11.7-14.0) Prothromb Time International Ratio 1.5 (0.8-1.1) Test 07/15/16 07:20 White Blood Count 16.1x10^3/uL (4.0-11.0) Red Blood Count 3.59x10^6/uL (3.50-5.40) Hemoglobin 11.8g/dL (12.0-15.5) Hematocrit 37.8% (36.0-47.0) Mean Corpuscular Volume 105fL (79-100) Mean Corpuscular Hemoglobin 33pg (25-35) Mean Corpuscular Hemoglobin Concent 31g/dL (31-37) Red Cell Distribution Width 18.8% (11.5-14.5) Platelet Count 78x10^3/uL (140-400) Neutrophils (%) (Auto) 78% (31-73) Lymphocytes (%) (Auto) 13% (24-48) Monocytes (%) (Auto) 8% (0-9) Eosinophils (%) (Auto) 0% (0-3) Basophils (%) (Auto) 1% (0-3) Neutrophils # (Auto) 12.5x10^3uL (1.8-7.7) Lymphocytes # (Auto) 2.1x10^3/uL (1.0-4.8) Monocytes # (Auto) 1.3x10^3/uL (0.0-1.1) Eosinophils # (Auto) 0.0x10^3/uL (0.0-0.7) Basophils # (Auto) 0.1x10^3/uL (0.0-0.2) O2 Saturation 97% (92-99) Arterial Blood pH 7.40 (7.35-7.45) Arterial Blood pCO2 at Patient Temp 43mmHg (35-46) Arterial Blood pO2 at Patient Temp 94mmHg (75-108) Arterial Blood HCO3 26mmol/L (21-28) Arterial Blood Base Excess 1mmol/L (-3-3) FiO2 40 Sodium Level 153mmol/L (136-145) Potassium Level 4.4mmol/L (3.5-5.1) Chloride Level 119mmol/L (98-107) Carbon Dioxide Level 27mmol/L (21-32) Anion Gap 7 (6-14) Blood Urea Nitrogen 31mg/dL (7-20) Creatinine 1.2mg/dL (0.6-1.0) Estimated GFR (Cockcroft-Gault) 55.8 Glucose Level 146mg/dL (70-99) Calcium Level 7.7mg/dL (8.5-10.1) Laboratory Tests Test 07/15/16 07:20 White Blood Count 16.1x10^3/uL (4.0-11.0) Red Blood Count 3.59x10^6/uL (3.50-5.40) Hemoglobin 11.8g/dL (12.0-15.5) Hematocrit 37.8% (36.0-47.0) Mean Corpuscular Volume 105fL (79-100) Mean Corpuscular Hemoglobin 33pg (25-35) Mean Corpuscular Hemoglobin Concent 31g/dL (31-37) Red Cell Distribution Width 18.8% (11.5-14.5) Platelet Count 78x10^3/uL (140-400) Neutrophils (%) (Auto) 78% (31-73) Lymphocytes (%) (Auto) 13% (24-48) Monocytes (%) (Auto) 8% (0-9) Eosinophils (%) (Auto) 0% (0-3) Basophils (%) (Auto) 1% (0-3) Neutrophils # (Auto) 12.5x10^3uL (1.8-7.7) Lymphocytes # (Auto) 2.1x10^3/uL (1.0-4.8) Monocytes # (Auto) 1.3x10^3/uL (0.0-1.1) Eosinophils # (Auto) 0.0x10^3/uL (0.0-0.7) Basophils # (Auto) 0.1x10^3/uL (0.0-0.2) O2 Saturation 97% (92-99) Arterial Blood pH 7.40 (7.35-7.45) Arterial Blood pCO2 at Patient Temp 43mmHg (35-46) Arterial Blood pO2 at Patient Temp 94mmHg (75-108) Arterial Blood HCO3 26mmol/L (21-28) Arterial Blood Base Excess 1mmol/L (-3-3) FiO2 40 Sodium Level 153mmol/L (136-145) Potassium Level 4.4mmol/L (3.5-5.1) Chloride Level 119mmol/L (98-107) Carbon Dioxide Level 27mmol/L (21-32) Anion Gap 7 (6-14) Blood Urea Nitrogen 31mg/dL (7-20) Creatinine 1.2mg/dL (0.6-1.0) Estimated GFR (Cockcroft-Gault) 55.8 Glucose Level 146mg/dL (70-99) Calcium Level 7.7mg/dL (8.5-10.1) Microbiology 07/13/16 Blood Culture - Preliminary, Resulted NO GROWTH AFTER 1 DAY 07/13/16 Gram Stain - Final, Complete 07/13/16 Urine Culture - Preliminary, Resulted 07/13/16 Urine Culture Result 1 (WEST) - Preliminary, Resulted Medications Current Medications Haloperidol Lactate 5 mg 5 mg 1X ONCE IVP Last administered on 07/13/16 12:34 ; Start 07/13/16 at 12:30; Stop 07/13/16 at 12:31; Status DC Sodium Chloride 1,000 ml @ 1,000 mls/hr 1X ONCE IV Last administered on 14:06; Start 07/13/16 at 13:00; Stop 07/13/16 at 13:59; Status DC Sodium Chloride (Iv Sodium Chloride 0.9% 1000ml Bag) 1,000 ml @ 1,000 mls/hr 1X ONCE IV Last administered on 07/13/16 14:06; Start 07/13/16 at 13:45; Stop 07/13/16 at 14:44; Status DC Haloperidol Lactate (Haldol) 5 mg 1X ONCE IVP Last administered on 07/13/16 14 :20; Start 07/13/16 at 14:15; Stop 07/13/16 at 14:17; Status DC Etomidate (Amidate) 20 mg 1X ONCE IV Last administered on 07/13/16 14:35; Start 07/13/16 at 14:30; Stop 07/13/16 at 14:31; Status DC Lorazepam 2 mg 2 mg STK-MED ONCE .ROUTE ; Start 07/13/16 at 14:43; Stop 07/13/16 at 14:44; Status DC Levofloxacin/ Dextrose 150 ml @ 100 mls/hr 1X ONCE IV ; Start 07/13/16 at 15:00 ; Stop 07/13/16 at 15:00; Status DC Ceftriaxone Sodium 2 gm/ Sodium Chloride 100 ml @ 200 mls/hr Q24H IV ; Start at 15:00; Stop 07/13/16 at 15:00; Status DC Vancomycin HCl 1.25 gm/Sodium Chloride 250 ml @ 166.667 mls/hr 1X ONCE IV Last administered on 07/13/16 16:32; Start 07/13/16 at 15:00; Stop 07/13/16 at 16: 29; Status DC Meropenem 1 gm/ Sodium Chloride 100 ml @ 200 mls/hr Q8HRS IV Last administered on 07/15/16 05:56; Start 07/13/16 at 22:00 Meropenem 1 gm/ Sodium Chloride 100 ml @ 200 mls/hr 1X ONCE IV Last administered on 07/13/16 15:39; Start 07/13/16 at 15:00; Stop 07/13/16 at 15:29; Status DC Propofol (Diprivan) 50 ml @ As Directed STK-MED ONCE IV ; Start 07/13/16 at 15:15 ; Stop 07/13/16 at 15:16; Status DC Lorazepam 2 mg 2 mg 1X ONCE IV Last administered on 07/13/16 14:44; Start 07/13 at 15:45; Stop 07/13/16 at 15:46; Status DC Dextrose/Sodium Chloride 1,000 ml @ 125 mls/hr 1X ONCE IV Last administered on 07/13/16 18:25; Start 07/13/16 at 15:45; Stop 07/13/16 at 23:44; Status DC Propofol 100 ml @ 0 mls/hr CONT PRN IV SEE I/O RECORD Last administered on 11:00; Start 07/13/16 at 15:45 Sodium Chloride (Iv Sodium Chloride 0.9% 1000ml Bag) 1,000 ml @ 1,000 mls/hr 1X ONCE IV Last administered on 07/13/16 16:30; Start 07/13/16 at 16:30; Stop 07/13/16 at 17:29; Status DC Rocuronium [place] 50 mg 50 mg STK-MED ONCE .ROUTE ; Start 07/13/16 at 16:50; Stop 07/13/16 at 16:51; Status DC Propofol (Diprivan) 50 ml @ 0 mls/hr CONT PRN IV SEE I/O RECORD Last administered on 07/13/16 15:30; Start 07/13/16 at 18:00; Stop 07/14/16 at 07:08; Status DC Fentanyl Citrate (Fentanyl 2ml Vial) 25 mcg PRN Q1HR PRN IV COMM; Start at 21:15 Fentanyl Citrate (Fentanyl 2ml Vial) 50 mcg PRN Q1HR PRN IV COMM Last administered on 07/14/16 23:01; Start 07/13/16 at 21:15 Chlorhexidine Gluconate 15 ml 15 ml BID MM Last administered on 07/15/16 11:00 ; Start 07/14/16 at 09:00 Dextrose/Sodium Chloride (Iv D5% - 1/2 NS) 1,000 ml @ 125 mls/hr 1X ONCE IV Last administered on 07/14/16 03:33; Start 07/14/16 at 03:30; Stop 07/14/16 at 11: 29; Status DC Acetaminophen 650 mg 650 mg PRN Q6HRS PRN OR MILD PAIN / TEMP Last administered on 07/14/16 08:21; Start 07/14/16 at 08:00 Dextrose/Sodium Chloride (Iv D5% - 1/4 NS) 1,000 ml @ 100 mls/hr Q10H IV Last administered on 07/14/16 20:50; Start 07/14/16 at 09:15 Enoxaparin Sodium (Lovenox 40mg Syringe) 40 mg Q24H SQ Last administered on 07/15 11:01; Start 07/14/16 at 11:00 Famotidine (Pepcid) 20 mg QHS IVP Last administered on 07/14/16 20:29; Start at 21:00 Active Scripts Active Cipro (Ciprofloxacin Hcl) 250 Mg Tablet 1 Tab PO BID Reported Seroquel (Quetiapine Fumarate) 100 Mg Tablet 1 Tab PO DAILY08 Meloxicam 15 Mg Tablet 1 Tab PO DAILY Seroquel (Quetiapine Fumarate) 200 Mg Tablet 1 Tab PO QHS Vitals/I & O Vital Sign - Last 24 Hours 07/14/16 07/14/16 07/14/16 07/14/16 11:57 12:00 13:00 14:00 Temp 98.7 98.7 Pulse 71 70 88 Resp 13 12 12 B/P 96/57 138/87 154/87 Pulse Ox 100 100 100 O2 Delivery Mechanical Ventilator Ventilator Ventilator Ventilator 07/14/16 07/14/16 07/14/16 07/14/16 14:51 15:00 16:00 16:00 Temp 98.8 98.8 Pulse 77 72 Resp 12 13 B/P 160/95 138/74 Pulse Ox 100 100 100 O2 Delivery Ventilator Ventilator Mechanical Ventilator Ventilator 07/14/16 07/14/16 07/14/16 07/14/16 16:44 17:00 18:00 19:00 Pulse 68 73 80 Resp 12 12 14 B/P 152/83 119/66 141/84 Pulse Ox 100 100 100 100 O2 Delivery Ventilator Ventilator Ventilator Ventilator 07/14/16 07/14/16 07/14/16 07/14/16 19:27 19:51 20:00 21:00 Temp 98.2 98.2 Pulse 78 78 Resp 14 14 B/P 127/75 133/60 Pulse Ox 100 100 100 O2 Delivery Ventilator Mechanical Ventilator Ventilator Ventilator 07/14/16 07/14/16 07/14/16 07/14/16 21:34 22:00 23:00 23:37 Pulse 79 85 Resp 14 17 B/P 131/82 146/76 Pulse Ox 100 100 100 100 O2 Delivery Ventilator Ventilator Ventilator Ventilator 07/14/16 07/15/16 07/15/16 07/15/16 23:59 00:00 01:00 01:20 Temp 98.6 98.6 Pulse 75 77 Resp 13 13 B/P 103/64 90/58 Pulse Ox 100 100 100 O2 Delivery Mechanical Ventilator Ventilator Ventilator Ventilator 07/15/16 07/15/16 07/15/16 07/15/16 02:00 03:00 03:35 03:38 Pulse 84 80 Resp 16 16 B/P 99/57 119/69 Pulse Ox 100 100 100 O2 Delivery Ventilator Ventilator Ventilator Mechanical Ventilator 07/15/16 07/15/16 07/15/16 07/15/16 04:00 05:00 05:20 06:00 Temp 98.4 98.4 Pulse 83 77 78 Resp 16 14 16 B/P 108/58 90/48 123/73 Pulse Ox 100 100 100 100 O2 Delivery Ventilator Ventilator Ventilator Ventilator 07/15/16 07/15/16 07/15/16 07/15/16 07:00 07:05 08:00 09:00 Temp 98.8 98.8 Pulse 88 81 80 Resp 19 17 B/P 130/68 133/75 116/64 Pulse Ox 100 100 100 100 O2 Delivery Ventilator Ventilator Ventilator Ventilator 07/15/16 10:00 Pulse 75 Resp 16 B/P 129/68 Pulse Ox 100 O2 Delivery Ventilator Intake and Output 07/14/16 07/14/16 07/15/16 15:00 23:00 07:00 Intake Total 200 ml 1449 ml 3004 ml Output Total 1110 ml 1070 ml 1060 ml Balance -910 ml 379 ml 1944 ml TEX MCMANUS MD July 15, 2016 11:32
[2016-07-15] MEDS: IV DEXTROSE 5 %-0.2 % NACL 1,000 ML IV SCH ×2 (15:15→17:34)
[2016-07-15] MEDS: QUEtiapine 100 MG TABLET. NG SCH ×2 (17:34→20:43)
[2016-07-15] MEDS: FAMOTIDINE 20 MG/2 ML VIAL IVP SCH (20:43)
[2016-07-16] VITALS (21 sets, daily range): BP systolic 106–158; BP diastolic 55–87
--- NOTE | 2016-07-16 00:22 | CONS ---
DATE OF CONSULTATION: PRIMARY PHYSICIAN: Debbie Norris DO CONSULTING PHYSICIAN: Dr. Ruby. REASON FOR CONSULTATION: Elevated creatinine. HISTORY OF PRESENT ILLNESS: The patient is a 60-year-old -[place] female who was transferred from the inpatient Geriatric Psych Unit at [facility]. She was apparently found down and was felt to be septic, encephalopathic and had some chills. She was evaluated through the ER and appears to have been intubated for airway protection. Per ER notes empty medication bottles, and/or alcohol are noted in the immediate surroundings also. At presentation here, her sodium was 153 and a creatinine of 3.0, with adequate hydration she is now down to a BUN of 30, creatinine of 1.2 and sodium of 153 after it had gone up to 158 yesterday. Her CK is normal. PAST MEDICAL HISTORY: Hyperlipidemia and psych problems including depression, otherwise unable to be obtained from the patient due to altered mental status. SOCIAL HISTORY: She was a resident of the psych unit, prior to that it is unknown. Not noted to drink, smoke or take drugs; however, was found around her at the previous facility. REVIEW OF SYSTEMS: Unable to be obtained due to intubated state. PHYSICAL EXAMINATION: GENERAL: Intubated, sedated. NECK: Supple. LUNGS: Clear to auscultation. ABDOMEN: Soft. EXTREMITIES: Lower extremities have trace of an edema. SKIN: No skin rashes are noted. LABORATORY DATA: Sodium 153, potassium 4.4, BUN 31, creatinine 1.2, calcium 7.7. ASSESSMENT AND PLAN: 1. Hypernatremia, currently does not appear to be polyuric per se. She was also on tube feeds, increased free water flushes have been ordered for now. 2. Acute renal failure, now resolved. We will continue to monitor her labs on increased IV fluids. DAMASO CASTILLO MD DR: SIENA/frank JOB#: [id number] / [id number]
[2016-07-16] MEDS: IV DEXTROSE 5 %-0.2 % NACL 1,000 ML IV SCH ×2 (01:15→16:15)
[2016-07-16] MEDS: PROPOFOL 100 ML IV PRN ×4 (02:30→19:48)
[2016-07-16] MEDS: MEROPENEM 1 GM in IV NORMAL SALINE 100ML 100 ML IV SCH ×3 (06:00→21:38)
--- NOTE | 2016-07-16 07:34 | RAD ---
Portable chest, 07/16/2016: History: Respiratory failure Comparison is made to yesterday's study. The ET tube remains in place in satisfactory position. An NG tube extends into the stomach. The heart is enlarged. The pulmonary vascularity is within normal limits. There is a moderate ongoing left basilar opacity compatible with dense consolidation and atelectasis. A component of pleural fluid cannot be excluded. The right chest remains clear. No new abnormality is detected. IMPRESSION: No significant change since yesterday's exam.
--- NOTE | 2016-07-16 08:06 | PDOC ---
Infectious Disease Note Subjective Subjective intubated , sedated ROS ROS unable to do Vital Sign Vital Signs Vital Signs Date Time Temp Pulse Resp B/P (MAP) Pulse Ox O2 Delivery O2 Flow Rate FiO2 07/16/16 03:07 Mechanical Ventilator 07/16/16 03:00 83 24 106/55 (72) 100 07/16/16 00:00 98.4 98.4 Physical Exam PHYSICAL EXAM GENERAL: sedated on vent HEENT: PERRL, OC/OP NECK: Supple, no JVD, no LN LUNGS: Clear HEART: S1S2, no gallop, no murmur ABD: Soft, NT, no organomegaly, no rebound EXT: No edema, no cyanosis [employer]: sedated on vent SKIN: No rash IV: ok Objective Assessment Fever improved Encephalopathy, CSF neg, traumatic tap Respiratory failure Leukocytosis h/o depression Obesity Plan Plan of Care Meropenem and vanc x 1 supportive care cultures neg so far BENY CASTILLO MD July 16, 2016 08:06
[2016-07-16 08:18] LABS: BASO % 0 % (0-3); EOS % 1 % (0-3); HEMATOCRIT 32.8 % (36.0-47.0); HEMOGLOBIN 10.3 g/dL (12.0-15.5); LYMPH # 1.2 x10^3/uL (1.0-4.8); LYMPH % 9 % (24-48); MEAN CORPUSCULAR HEMOGLOBIN 32 pg (25-35); MEAN CORPUSCULAR HGB CONC 31 g/dL (31-37); MEAN CORPUSCULAR VOLUME 103 fL (79-100); MONO % 9 % (0-9); NEUT % 82 % (31-73); PLATELET COUNT 70 x10^3/uL (140-400); RED BLOOD COUNT 3.19 x10^6/uL (3.50-5.40); RED CELL DISTRIBUTION WIDTH 19.1 % (11.5-14.5); WHITE BLOOD COUNT 13.3 x10^3/uL (4.0-11.0)
[2016-07-16 08:33] LABS: HCO3 ABG 25 mmol/L (21-28); PCO2 ABG 37 mmHg (35-46); PH ABG 7.45 (7.35-7.45); PO2 ABG 89 mmHg (75-108); SAT O2 ABG 97 % (92-99)
[2016-07-16 08:35] LABS: CALCIUM 7.6 mg/dL (8.5-10.1); GFR 68.9; POTASSIUM 4.1 mmol/L (3.5-5.1)
[2016-07-16 09:00] LABS: FIO2 ABG 40
--- NOTE | 2016-07-16 10:52 | PDOC ---
PROGRESS NOTES Chief Complaint Chief Complaint cc: acute hypoxic resp failure altered mental status hypernatremia Sepsis Acute metabolic encephalopathy Hx Depression High Cholesterol History of Present Illness History of Present Illness a little more awake today, not responding or following commands on a ventilator Na+ better white count improving Vitals Vitals Vital Signs Date Time Temp Pulse Resp B/P (MAP) Pulse Ox O2 Delivery O2 Flow Rate FiO2 07/16/16 08:15 99 Ventilator 07/16/16 03:00 83 24 106/55 (72) 07/16/16 00:00 98.4 98.4 Physical Exam General: mild distress, Other (sedated) Heart: Regular rate, Normal S1, Normal S2 Lungs: Other (decrease bs, no wheeze or rhonchi) Abdomen: Normal bowel sounds, Soft Extremities: No clubbing, No cyanosis Skin: No rashes, No breakdown Labs LABS Laboratory Tests Test 07/16/16 08:00 07/16/16 08:05 O2 Saturation 97 % (92-99) Arterial Blood pH 7.45 (7.35-7.45) Arterial Blood pCO2 at Patient Temp 37 mmHg (35-46) Arterial Blood pO2 at Patient Temp 89 mmHg (75-108) Arterial Blood HCO3 25 mmol/L (21-28) Arterial Blood Base Excess 1 mmol/L (-3-3) FiO2 40 White Blood Count 13.3 x10^3/uL (4.0-11.0) Red Blood Count 3.19 x10^6/uL (3.50-5.40) Hemoglobin 10.3 g/dL (12.0-15.5) Hematocrit 32.8 % (36.0-47.0) Mean Corpuscular Volume 103 fL (79-100) Mean Corpuscular Hemoglobin 32 pg (25-35) Mean Corpuscular Hemoglobin Concent 31 g/dL (31-37) Red Cell Distribution Width 19.1 % (11.5-14.5) Platelet Count 70 x10^3/uL (140-400) Neutrophils (%) (Auto) 82 % (31-73) Lymphocytes (%) (Auto) 9 % (24-48) Monocytes (%) (Auto) 9 % (0-9) Eosinophils (%) (Auto) 1 % (0-3) Basophils (%) (Auto) 0 % (0-3) Neutrophils # (Auto) 10.9 x10^3uL (1.8-7.7) Lymphocytes # (Auto) 1.2 x10^3/uL (1.0-4.8) Monocytes # (Auto) 1.2 x10^3/uL (0.0-1.1) Eosinophils # (Auto) 0.1 x10^3/uL (0.0-0.7) Basophils # (Auto) 0.0 x10^3/uL (0.0-0.2) Sodium Level 151 mmol/L (136-145) Potassium Level 4.1 mmol/L (3.5-5.1) Chloride Level 115 mmol/L (98-107) Carbon Dioxide Level 27 mmol/L (21-32) Anion Gap 9 (6-14) Blood Urea Nitrogen 19 mg/dL (7-20) Creatinine 1.0 mg/dL (0.6-1.0) Estimated GFR (Cockcroft-Gault) 68.9 Glucose Level 187 mg/dL (70-99) Calcium Level 7.6 mg/dL (8.5-10.1) Review of Systems Review of Systems vent Assessment and Plan Assessmemt and Plan Problems Medical Problems: (1) Sepsis Status: Acute (2) Sepsis Status: Acute Problems: Comment Review of Relevant I have reviewed the following items quentin (where applicable) has been applied. Labs Laboratory Tests Test 07/15/16 07:20 07/16/16 08:00 07/16/16 08:05 White Blood Count 16.1 x10^3/uL (4.0-11.0) 13.3 x10^3/uL (4.0-11.0) Red Blood Count 3.59 x10^6/uL (3.50-5.40) 3.19 x10^6/uL (3.50-5.40) Hemoglobin 11.8 g/dL (12.0-15.5) 10.3 g/dL (12.0-15.5) Hematocrit 37.8 % (36.0-47.0) 32.8 % (36.0-47.0) Mean Corpuscular Volume 105 fL (79-100) 103 fL (79-100) Mean Corpuscular Hemoglobin 33 pg (25-35) 32 pg (25-35) Mean Corpuscular Hemoglobin Concent 31 g/dL (31-37) 31 g/dL (31-37) Red Cell Distribution Width 18.8 % (11.5-14.5) 19.1 % (11.5-14.5) Platelet Count 78 x10^3/uL (140-400) 70 x10^3/uL (140-400) Neutrophils (%) (Auto) 78 % (31-73) 82 % (31-73) Lymphocytes (%) (Auto) 13 % (24-48) 9 % (24-48) Monocytes (%) (Auto) 8 % (0-9) 9 % (0-9) Eosinophils (%) (Auto) 0 % (0-3) 1 % (0-3) Basophils (%) (Auto) 1 % (0-3) 0 % (0-3) Neutrophils # (Auto) 12.5 x10^3uL (1.8-7.7) 10.9 x10^3uL (1.8-7.7) Lymphocytes # (Auto) 2.1 x10^3/uL (1.0-4.8) 1.2 x10^3/uL (1.0-4.8) Monocytes # (Auto) 1.3 x10^3/uL (0.0-1.1) 1.2 x10^3/uL (0.0-1.1) Eosinophils # (Auto) 0.0 x10^3/uL (0.0-0.7) 0.1 x10^3/uL (0.0-0.7) Basophils # (Auto) 0.1 x10^3/uL (0.0-0.2) 0.0 x10^3/uL (0.0-0.2) O2 Saturation 97 % (92-99) 97 % (92-99) Arterial Blood pH 7.40 (7.35-7.45) 7.45 (7.35-7.45) Arterial Blood pCO2 at Patient Temp 43 mmHg (35-46) 37 mmHg (35-46) Arterial Blood pO2 at Patient Temp 94 mmHg (75-108) 89 mmHg (75-108) Arterial Blood HCO3 26 mmol/L (21-28) 25 mmol/L (21-28) Arterial Blood Base Excess 1 mmol/L (-3-3) 1 mmol/L (-3-3) FiO2 40 40 Sodium Level 153 mmol/L (136-145) 151 mmol/L (136-145) Potassium Level 4.4 mmol/L (3.5-5.1) 4.1 mmol/L (3.5-5.1) Chloride Level 119 mmol/L (98-107) 115 mmol/L (98-107) Carbon Dioxide Level 27 mmol/L (21-32) 27 mmol/L (21-32) Anion Gap 7 (6-14) 9 (6-14) Blood Urea Nitrogen 31 mg/dL (7-20) 19 mg/dL (7-20) Creatinine 1.2 mg/dL (0.6-1.0) 1.0 mg/dL (0.6-1.0) Estimated GFR (Cockcroft-Gault) 55.8 68.9 Glucose Level 146 mg/dL (70-99) 187 mg/dL (70-99) Calcium Level 7.7 mg/dL (8.5-10.1) 7.6 mg/dL (8.5-10.1) Laboratory Tests Test 07/16/16 08:00 07/16/16 08:05 O2 Saturation 97 % (92-99) Arterial Blood pH 7.45 (7.35-7.45) Arterial Blood pCO2 at Patient Temp 37 mmHg (35-46) Arterial Blood pO2 at Patient Temp 89 mmHg (75-108) Arterial Blood HCO3 25 mmol/L (21-28) Arterial Blood Base Excess 1 mmol/L (-3-3) FiO2 40 White Blood Count 13.3 x10^3/uL (4.0-11.0) Red Blood Count 3.19 x10^6/uL (3.50-5.40) Hemoglobin 10.3 g/dL (12.0-15.5) Hematocrit 32.8 % (36.0-47.0) Mean Corpuscular Volume 103 fL (79-100) Mean Corpuscular Hemoglobin 32 pg (25-35) Mean Corpuscular Hemoglobin Concent 31 g/dL (31-37) Red Cell Distribution Width 19.1 % (11.5-14.5) Platelet Count 70 x10^3/uL (140-400) Neutrophils (%) (Auto) 82 % (31-73) Lymphocytes (%) (Auto) 9 % (24-48) Monocytes (%) (Auto) 9 % (0-9) Eosinophils (%) (Auto) 1 % (0-3) Basophils (%) (Auto) 0 % (0-3) Neutrophils # (Auto) 10.9 x10^3uL (1.8-7.7) Lymphocytes # (Auto) 1.2 x10^3/uL (1.0-4.8) Monocytes # (Auto) 1.2 x10^3/uL (0.0-1.1) Eosinophils # (Auto) 0.1 x10^3/uL (0.0-0.7) Basophils # (Auto) 0.0 x10^3/uL (0.0-0.2) Sodium Level 151 mmol/L (136-145) Potassium Level 4.1 mmol/L (3.5-5.1) Chloride Level 115 mmol/L (98-107) Carbon Dioxide Level 27 mmol/L (21-32) Anion Gap 9 (6-14) Blood Urea Nitrogen 19 mg/dL (7-20) Creatinine 1.0 mg/dL (0.6-1.0) Estimated GFR (Cockcroft-Gault) 68.9 Glucose Level 187 mg/dL (70-99) Calcium Level 7.6 mg/dL (8.5-10.1) Microbiology 07/13/16 Blood Culture - Preliminary, Resulted NO GROWTH AFTER 2 DAYS 07/13/16 Anaerobic/Aerobic Culture - Preliminary, Resulted 07/13/16 Anaerobic Culture Result 1 ([facility]) - Preliminary, Resulted 07/13/16 Aerobic Culture - Preliminary, Resulted 07/13/16 Aerobic Culture Result 1 ([facility]) - Preliminary, Resulted 07/13/16 Urine Culture - Final, Complete 07/13/16 Urine Culture Result 1 ([facility]) - Final, Complete 07/13/16 Urine Culture Result 2 ([facility]) - Final, Complete Medications Current Medications Haloperidol Lactate (Haldol) 5 mg 1X ONCE IVP Last administered on 07/13/16 12 :34; Start 07/13/16 at 12:30; Stop 07/13/16 at 12:31; Status DC Sodium Chloride 1,000 ml @ 1,000 mls/hr 1X ONCE IV Last administered on 14:06; Start 07/13/16 at 13:00; Stop 07/13/16 at 13:59; Status DC Sodium Chloride 1,000 ml @ 1,000 mls/hr 1X ONCE IV Last administered on 14:06; Start 07/13/16 at 13:45; Stop 07/13/16 at 14:44; Status DC Haloperidol Lactate (Haldol) 5 mg 1X ONCE IVP Last administered on 07/13/16 14 :20; Start 07/13/16 at 14:15; Stop 07/13/16 at 14:17; Status DC Etomidate (Amidate) 20 mg 1X ONCE IV Last administered on 07/13/16 14:35; Start 07/13/16 at 14:30; Stop 07/13/16 at 14:31; Status DC Lorazepam (Ativan) 2 mg STK-MED ONCE .ROUTE ; Start 07/13/16 at 14:43; Stop at 14:44; Status DC Levofloxacin/ Dextrose 150 ml @ 100 mls/hr 1X ONCE IV ; Start 07/13/16 at 15:00 ; Stop 07/13/16 at 15:00; Status DC Ceftriaxone Sodium 2 gm/ Sodium Chloride 100 ml @ 200 mls/hr Q24H IV ; Start at 15:00; Stop 07/13/16 at 15:00; Status DC Vancomycin HCl 1.25 gm/Sodium Chloride 250 ml @ 166.667 mls/hr 1X ONCE IV Last administered on 07/13/16 16:32; Start 07/13/16 at 15:00; Stop 07/13/16 at 16: 29; Status DC Meropenem 1 gm/ Sodium Chloride 100 ml @ 200 mls/hr Q8HRS IV Last administered on 07/15/16 21:56; Start 07/13/16 at 22:00 Meropenem 1 gm/ Sodium Chloride 100 ml @ 200 mls/hr 1X ONCE IV Last administered on 07/13/16 15:39; Start 07/13/16 at 15:00; Stop 07/13/16 at 15:29; Status DC Propofol 50 ml @ As Directed STK-MED ONCE IV ; Start 07/13/16 at 15:15; Stop 07/13 at 15:16; Status DC Lorazepam (Ativan) 2 mg 1X ONCE IV Last administered on 07/13/16 14:44; Start 07/13/16 at 15:45; Stop 07/13/16 at 15:46; Status DC Dextrose/Sodium Chloride 1,000 ml @ 125 mls/hr 1X ONCE IV Last administered on 07/13/16 18:25; Start 07/13/16 at 15:45; Stop 07/13/16 at 23:44; Status DC Propofol 100 ml @ 0 mls/hr CONT PRN IV SEE I/O RECORD Last administered on 06:15; Start 07/13/16 at 15:45 Sodium Chloride 1,000 ml @ 1,000 mls/hr 1X ONCE IV Last administered on 16:30; Start 07/13/16 at 16:30; Stop 07/13/16 at 17:29; Status DC Rocuronium [place] (Zemuron) 50 mg STK-MED ONCE .ROUTE ; Start 07/13/16 at 16:50 ; Stop 07/13/16 at 16:51; Status DC Propofol 50 ml @ 0 mls/hr CONT PRN IV SEE I/O RECORD Last administered on 15:30; Start 07/13/16 at 18:00; Stop 07/14/16 at 07:08; Status DC Fentanyl Citrate (Fentanyl 2ml Vial) 25 mcg PRN Q1HR PRN IV COMM; Start at 21:15 Fentanyl Citrate (Fentanyl 2ml Vial) 50 mcg PRN Q1HR PRN IV COMM Last administered on 07/14/16 23:01; Start 07/13/16 at 21:15 Chlorhexidine Gluconate (Peridex) 15 ml BID MM Last administered on 07/15/16 20 :43; Start 07/14/16 at 09:00 Dextrose/Sodium Chloride 1,000 ml @ 125 mls/hr 1X ONCE IV Last administered on 07/14/16 03:33; Start 07/14/16 at 03:30; Stop 07/14/16 at 11:29; Status DC Acetaminophen (Acetaminophen Supp) 650 mg PRN Q6HRS PRN PA MILD PAIN / TEMP Last administered on 07/14/16 08:21; Start 07/14/16 at 08:00 Dextrose/Sodium Chloride 1,000 ml @ 100 mls/hr Q10H IV Last administered on 17:34; Start 07/14/16 at 09:15 Enoxaparin Sodium (Lovenox 40mg Syringe) 40 mg Q24H SQ Last administered on 07/15 11:01; Start 07/14/16 at 11:00 Famotidine (Pepcid) 20 mg QHS IVP Last administered on 07/15/16 20:43; Start at 21:00 Quetiapine Fumarate (SEROquel) 100 mg DAILY08 NG Last administered on 07/15/16 17:34; Start 07/15/16 at 15:00 Quetiapine Fumarate (SEROquel) 200 mg QHS NG Last administered on 07/15/16 20: 43; Start 07/15/16 at 21:00 Active Scripts Active Cipro (Ciprofloxacin Hcl) 250 Mg Tablet 1 Tab PO BID Reported Seroquel (Quetiapine Fumarate) 100 Mg Tablet 1 Tab PO DAILY08 Meloxicam 15 Mg Tablet 1 Tab PO DAILY Seroquel (Quetiapine Fumarate) 200 Mg Tablet 1 Tab PO QHS Vitals/I & O Vital Sign - Last 24 Hours 07/15/16 07/15/16 07/15/16 07/15/16 11:00 11:47 12:00 12:00 Temp 98.4 98.4 Pulse 80 82 Resp 15 15 B/P (MAP) 107/66 (80) 91/55 (67) Pulse Ox 100 100 100 O2 Delivery Ventilator Ventilator Ventilator Mechanical Ventilator 07/15/16 07/15/16 07/15/16 07/15/16 13:00 14:00 15:00 16:00 Pulse 82 78 84 Resp 17 17 17 B/P (MAP) 137/62 (87) 84/55 (65) 117/71 (86) Pulse Ox 100 100 100 O2 Delivery Ventilator Ventilator Ventilator Mechanical Ventilator 07/15/16 07/15/16 07/15/16 07/15/16 16:00 16:10 17:00 17:31 Temp 98.6 98.6 Pulse 73 69 Resp 24 30 B/P (MAP) 135/75 (95) 133/71 (91) Pulse Ox 100 100 100 99 O2 Delivery Ventilator Ventilator Ventilator Ventilator 07/15/16 07/15/16 07/15/16 07/15/16 18:00 19:00 19:55 20:00 Temp 98.0 98.0 Pulse 84 85 81 Resp 24 22 14 B/P (MAP) 113/61 (78) 111/51 (71) 109/58 (75) Pulse Ox 100 100 95 100 O2 Delivery Ventilator Ventilator Ventilator Ventilator 07/15/16 07/15/16 07/15/16 07/15/16 20:00 21:00 21:00 22:00 Pulse 87 84 Resp 24 16 B/P (MAP) 139/65 (89) 117/60 (79) Pulse Ox 100 98 99 O2 Delivery Mechanical Ventilator Ventilator Ventilator Ventilator 07/15/16 07/15/16 07/15/16 07/16/16 23:00 23:00 23:53 00:00 Temp 98.4 98.4 Pulse 84 92 Resp 17 24 B/P (MAP) 117/61 (79) 124/64 (84) Pulse Ox 99 99 99 O2 Delivery Ventilator Ventilator Mechanical Ventilator Ventilator 07/16/16 07/16/16 07/16/16 07/16/16 01:00 02:00 02:45 03:00 Pulse 83 84 83 Resp 21 20 24 B/P (MAP) 121/69 (86) 118/66 (83) 106/55 (72) Pulse Ox 99 99 99 100 O2 Delivery Ventilator Ventilator Ventilator Ventilator 07/16/16 07/16/16 03:07 08:15 Pulse Ox 99 O2 Delivery Mechanical Ventilator Ventilator Intake and Output 07/15/16 07/15/16 07/16/16 14:59 22:59 06:59 Intake Total 440 ml 2644 ml 1538 ml Output Total 1325 ml 860 ml 660 ml Balance -885 ml 1784 ml 878 ml TEX MCMANUS MD July 16, 2016 10:52
[2016-07-16] MEDS: CHLORHEXIDINE 0.12% 15 ML MOUTHWASH. MM SCH ×2 (10:54→20:37)
[2016-07-16] MEDS: QUEtiapine 100 MG TABLET. NG SCH ×2 (10:55→20:37)
[2016-07-16] MEDS: ENOXAPARIN 40 MG/0.4 ML SYRINGE. SQ SCH (10:55)
--- NOTE | 2016-07-16 12:01 | PDOC ---
PULMONARY PROGRESS NOTES Subjective BECOMES VERY AGITATED WHEN OFF SEDATION CANNOT DO CPAP TRIAL STILL NOT FULLY AWAKE Vitals Vital Signs Date Time Temp Pulse Resp B/P (MAP) Pulse Ox O2 Delivery O2 Flow Rate FiO2 07/16/16 10:50 98 Ventilator 07/16/16 03:00 83 24 106/55 (72) 07/16/16 00:00 98.4 98.4 Lungs: Other (decrease bs, no wheeze or rhonchi) Cardiovascular: S1 Abdomen: Soft Extremities: No Edema Skin: Warm Labs Laboratory Tests Test 07/15/16 07:20 07/16/16 08:00 07/16/16 08:05 White Blood Count 16.1 x10^3/uL (4.0-11.0) 13.3 x10^3/uL (4.0-11.0) Red Blood Count 3.59 x10^6/uL (3.50-5.40) 3.19 x10^6/uL (3.50-5.40) Hemoglobin 11.8 g/dL (12.0-15.5) 10.3 g/dL (12.0-15.5) Hematocrit 37.8 % (36.0-47.0) 32.8 % (36.0-47.0) Mean Corpuscular Volume 105 fL (79-100) 103 fL (79-100) Mean Corpuscular Hemoglobin 33 pg (25-35) 32 pg (25-35) Mean Corpuscular Hemoglobin Concent 31 g/dL (31-37) 31 g/dL (31-37) Red Cell Distribution Width 18.8 % (11.5-14.5) 19.1 % (11.5-14.5) Platelet Count 78 x10^3/uL (140-400) 70 x10^3/uL (140-400) Neutrophils (%) (Auto) 78 % (31-73) 82 % (31-73) Lymphocytes (%) (Auto) 13 % (24-48) 9 % (24-48) Monocytes (%) (Auto) 8 % (0-9) 9 % (0-9) Eosinophils (%) (Auto) 0 % (0-3) 1 % (0-3) Basophils (%) (Auto) 1 % (0-3) 0 % (0-3) Neutrophils # (Auto) 12.5 x10^3uL (1.8-7.7) 10.9 x10^3uL (1.8-7.7) Lymphocytes # (Auto) 2.1 x10^3/uL (1.0-4.8) 1.2 x10^3/uL (1.0-4.8) Monocytes # (Auto) 1.3 x10^3/uL (0.0-1.1) 1.2 x10^3/uL (0.0-1.1) Eosinophils # (Auto) 0.0 x10^3/uL (0.0-0.7) 0.1 x10^3/uL (0.0-0.7) Basophils # (Auto) 0.1 x10^3/uL (0.0-0.2) 0.0 x10^3/uL (0.0-0.2) O2 Saturation 97 % (92-99) 97 % (92-99) Arterial Blood pH 7.40 (7.35-7.45) 7.45 (7.35-7.45) Arterial Blood pCO2 at Patient Temp 43 mmHg (35-46) 37 mmHg (35-46) Arterial Blood pO2 at Patient Temp 94 mmHg (75-108) 89 mmHg (75-108) Arterial Blood HCO3 26 mmol/L (21-28) 25 mmol/L (21-28) Arterial Blood Base Excess 1 mmol/L (-3-3) 1 mmol/L (-3-3) FiO2 40 40 Sodium Level 153 mmol/L (136-145) 151 mmol/L (136-145) Potassium Level 4.4 mmol/L (3.5-5.1) 4.1 mmol/L (3.5-5.1) Chloride Level 119 mmol/L (98-107) 115 mmol/L (98-107) Carbon Dioxide Level 27 mmol/L (21-32) 27 mmol/L (21-32) Anion Gap 7 (6-14) 9 (6-14) Blood Urea Nitrogen 31 mg/dL (7-20) 19 mg/dL (7-20) Creatinine 1.2 mg/dL (0.6-1.0) 1.0 mg/dL (0.6-1.0) Estimated GFR (Cockcroft-Gault) 55.8 68.9 Glucose Level 146 mg/dL (70-99) 187 mg/dL (70-99) Calcium Level 7.7 mg/dL (8.5-10.1) 7.6 mg/dL (8.5-10.1) Laboratory Tests Test 07/16/16 08:00 07/16/16 08:05 O2 Saturation 97 % (92-99) Arterial Blood pH 7.45 (7.35-7.45) Arterial Blood pCO2 at Patient Temp 37 mmHg (35-46) Arterial Blood pO2 at Patient Temp 89 mmHg (75-108) Arterial Blood HCO3 25 mmol/L (21-28) Arterial Blood Base Excess 1 mmol/L (-3-3) FiO2 40 White Blood Count 13.3 x10^3/uL (4.0-11.0) Red Blood Count 3.19 x10^6/uL (3.50-5.40) Hemoglobin 10.3 g/dL (12.0-15.5) Hematocrit 32.8 % (36.0-47.0) Mean Corpuscular Volume 103 fL (79-100) Mean Corpuscular Hemoglobin 32 pg (25-35) Mean Corpuscular Hemoglobin Concent 31 g/dL (31-37) Red Cell Distribution Width 19.1 % (11.5-14.5) Platelet Count 70 x10^3/uL (140-400) Neutrophils (%) (Auto) 82 % (31-73) Lymphocytes (%) (Auto) 9 % (24-48) Monocytes (%) (Auto) 9 % (0-9) Eosinophils (%) (Auto) 1 % (0-3) Basophils (%) (Auto) 0 % (0-3) Neutrophils # (Auto) 10.9 x10^3uL (1.8-7.7) Lymphocytes # (Auto) 1.2 x10^3/uL (1.0-4.8) Monocytes # (Auto) 1.2 x10^3/uL (0.0-1.1) Eosinophils # (Auto) 0.1 x10^3/uL (0.0-0.7) Basophils # (Auto) 0.0 x10^3/uL (0.0-0.2) Sodium Level 151 mmol/L (136-145) Potassium Level 4.1 mmol/L (3.5-5.1) Chloride Level 115 mmol/L (98-107) Carbon Dioxide Level 27 mmol/L (21-32) Anion Gap 9 (6-14) Blood Urea Nitrogen 19 mg/dL (7-20) Creatinine 1.0 mg/dL (0.6-1.0) Estimated GFR (Cockcroft-Gault) 68.9 Glucose Level 187 mg/dL (70-99) Calcium Level 7.6 mg/dL (8.5-10.1) Medications Active Scripts Medications Dose Route/Sig Days Date Category Seroquel (Quetiapine Fumarate) 100 Mg Tablet 1 Tab PO DAILY08 07/14/16 Reported Meloxicam 15 Mg Tablet 1 Tab PO DAILY 07/14/16 Reported Seroquel (Quetiapine Fumarate) 200 Mg Tablet 1 Tab PO QHS 07/14/16 Reported Cipro (Ciprofloxacin Hcl) 250 Mg Tablet 1 Tab PO BID 04/07/16 Rx Impression . 1. Acute respiratory failure secondary to acute encephalopathy and sepsis. 2. Acute encephalopathy secondary to sepsis. 3. High-grade fever and markedly elevated white cell count, suspect underlying sepsis. Fever improved 4. Abnormal chest x-ray with some rounded density in the right perihilar area and some mediastinal fullness. CT chest with no mass 5. encephalopathy, LP neg Plan . 1. Continue present assist control mode and make necessary adjustments based on ABGs. HOLD CPAP trial until MS improved. 2. Broad-spectrum antibiotics. 3. Infectious Disease recommendations. 4. Follow all cultures. 5. Lumbar puncture neg 6. Noncontrast CT chest reviewed. pulmonary HTN/ atelectasis 7. Deep venous thrombosis prophylaxis. 8. Stress ulcer prophylaxis. 10. Discussed with RN and RT. ANU CROWLEY MD July 16, 2016 12:01
[2016-07-16 16:19] LABS: HSV 1&2 IGM <0.91 Ratio (0.00-0.90)
[2016-07-16] MEDS: FAMOTIDINE 20 MG/2 ML VIAL IVP SCH (20:37)
[2016-07-17] VITALS (25 sets, daily range): BP systolic 94–129; BP diastolic 49–73
[2016-07-17] MEDS: PROPOFOL 100 ML IV PRN ×5 (00:22→20:37)
[2016-07-17] MEDS: IV DEXTROSE 5 %-0.2 % NACL 1,000 ML IV SCH ×3 (03:23→23:37)
[2016-07-17] MEDS: MEROPENEM 1 GM in IV NORMAL SALINE 100ML 100 ML IV SCH (05:24)
[2016-07-17 08:03] LABS: HCO3 ABG 27 mmol/L (21-28); PCO2 ABG 42 mmHg (35-46); PH ABG 7.42 (7.35-7.45); PO2 ABG 84 mmHg (75-108); SAT O2 ABG 96 % (92-99)
--- NOTE | 2016-07-17 08:24 | PDOC ---
Infectious Disease Note Subjective Subjective intubated , sedated ROS ROS unable to do Vital Sign Vital Signs Vital Signs Date Time Temp Pulse Resp B/P (MAP) Pulse Ox O2 Delivery O2 Flow Rate FiO2 07/17/16 07:23 100 Ventilator 07/17/16 07:00 99.6 82 13 113/62 (79) 99.6 Physical Exam PHYSICAL EXAM GENERAL: on vent HEENT: PERRL, OC/OP NECK: Supple, no JVD, no LN LUNGS: Clear HEART: S1S2, no gallop, no murmur ABD: Soft, NT, no organomegaly, no rebound EXT: No edema, no cyanosis SOLE INKER: sedated on vent SKIN: No rash IV: ok Objective Assessment Fever improved Encephalopathy, CSF neg, traumatic tap Respiratory failure Leukocytosis h/o depression Obesity CHF Plan Plan of Care d/c Meropenem and vanc x 1 supportive care cultures neg so far BENY CASTILLO MD July 17, 2016 08:24
--- NOTE | 2016-07-17 08:34 | RAD ---
Portable chest, 07/17/2016: History: Respiratory failure Comparison is made to a study from 07/16/2016. The ET tube remains in satisfactory position. An NG tube extends into the stomach. The heart is enlarged. There is a moderate unchanged left basilar opacity compatible with left lower lobe consolidation and atelectasis. A component of pleural fluid cannot be excluded. There is minimal right basilar atelectasis. No new abnormality is detected. IMPRESSION: No significant change since yesterday's study.
[2016-07-17] MEDS: QUEtiapine 100 MG TABLET. NG SCH ×2 (08:37→21:24)
[2016-07-17 08:42] LABS: FIO2 ABG 40
[2016-07-17] MEDS: CHLORHEXIDINE 0.12% 15 ML MOUTHWASH. MM SCH ×2 (09:14→20:37)
[2016-07-17] MEDS ORDERED: FUROSEMIDE 20 MG/2 ML VIAL. IVP ONE (11:00)
[2016-07-17] MEDS ORDERED: 0.9 % SODIUM CHLORIDE 10 ML DISP.SYRIN. IV PRN ×2 (11:00)
[2016-07-17 11:09] LABS: HEMATOCRIT 29.7 % (36.0-47.0); HEMOGLOBIN 9.5 g/dL (12.0-15.5); RED BLOOD COUNT 2.95 x10^6/uL (3.50-5.40); RED CELL DISTRIBUTION WIDTH 19.3 % (11.5-14.5); WHITE BLOOD COUNT 13.9 x10^3/uL (4.0-11.0)
[2016-07-17] MEDS: ENOXAPARIN 40 MG/0.4 ML SYRINGE. SQ SCH (11:17)
[2016-07-17 11:22] LABS: CALCIUM 7.2 mg/dL (8.5-10.1); CREATININE 0.9 mg/dL (0.6-1.0); GFR 77.8; POTASSIUM 4.3 mmol/L (3.5-5.1)
--- NOTE | 2016-07-17 11:45 | PDOC ---
PULMONARY PROGRESS NOTES Subjective BECOMES VERY AGITATED WHEN OFF SEDATION, more alert has small ett secretion, follows some commands Vitals Vital Signs Date Time Temp Pulse Resp B/P (MAP) Pulse Ox O2 Delivery O2 Flow Rate FiO2 07/17/16 11:21 100 07/17/16 11:17 Ventilator 07/17/16 11:00 79 17 120/65 (83) 07/17/16 07:00 99.6 99.6 Comments ros as mentioned as above discussed w rn, other sys otherwise neg HEENT: Other (nc at perrl, nose clear, orally intubated) Lungs: Crackles, Other (decrease bs, no wheeze or rhonchi) Cardiovascular: S1, S2 Abdomen: Soft, Non-tender, Other (no mass) Neuro Exam: Alert Extremities: No Edema Skin: Warm Labs Laboratory Tests Test 07/16/16 08:00 07/16/16 08:05 07/17/16 08:00 07/17/16 11:00 O2 Saturation 97 % (92-99) 96 % (92-99) Arterial Blood pH 7.45 (7.35-7.45) 7.42 (7.35-7.45) Arterial Blood pCO2 at Patient Temp 37 mmHg (35-46) 42 mmHg (35-46) Arterial Blood pO2 at Patient Temp 89 mmHg (75-108) 84 mmHg (75-108) Arterial Blood HCO3 25 mmol/L (21-28) 27 mmol/L (21-28) Arterial Blood Base Excess 1 mmol/L (-3-3) 2 mmol/L (-3-3) FiO2 40 40 White Blood Count 13.3 x10^3/uL (4.0-11.0) 13.9 x10^3/uL (4.0-11.0) Red Blood Count 3.19 x10^6/uL (3.50-5.40) 2.95 x10^6/uL (3.50-5.40) Hemoglobin 10.3 g/dL (12.0-15.5) 9.5 g/dL (12.0-15.5) Hematocrit 32.8 % (36.0-47.0) 29.7 % (36.0-47.0) Mean Corpuscular Volume 103 fL (79-100) 101 fL (79-100) Mean Corpuscular Hemoglobin 32 pg (25-35) 32 pg (25-35) Mean Corpuscular Hemoglobin Concent 31 g/dL (31-37) 32 g/dL (31-37) Red Cell Distribution Width 19.1 % (11.5-14.5) 19.3 % (11.5-14.5) Platelet Count 70 x10^3/uL (140-400) 70 x10^3/uL (140-400) Neutrophils (%) (Auto) 82 % (31-73) Lymphocytes (%) (Auto) 9 % (24-48) Monocytes (%) (Auto) 9 % (0-9) Eosinophils (%) (Auto) 1 % (0-3) Basophils (%) (Auto) 0 % (0-3) Neutrophils # (Auto) 10.9 x10^3uL (1.8-7.7) Lymphocytes # (Auto) 1.2 x10^3/uL (1.0-4.8) Monocytes # (Auto) 1.2 x10^3/uL (0.0-1.1) Eosinophils # (Auto) 0.1 x10^3/uL (0.0-0.7) Basophils # (Auto) 0.0 x10^3/uL (0.0-0.2) Sodium Level 151 mmol/L (136-145) 148 mmol/L (136-145) Potassium Level 4.1 mmol/L (3.5-5.1) 4.3 mmol/L (3.5-5.1) Chloride Level 115 mmol/L (98-107) 112 mmol/L (98-107) Carbon Dioxide Level 27 mmol/L (21-32) 31 mmol/L (21-32) Anion Gap 9 (6-14) 5 (6-14) Blood Urea Nitrogen 19 mg/dL (7-20) 15 mg/dL (7-20) Creatinine 1.0 mg/dL (0.6-1.0) 0.9 mg/dL (0.6-1.0) Estimated GFR (Cockcroft-Gault) 68.9 77.8 Glucose Level 187 mg/dL (70-99) 158 mg/dL (70-99) Calcium Level 7.6 mg/dL (8.5-10.1) 7.2 mg/dL (8.5-10.1) Laboratory Tests Test 07/17/16 08:00 07/17/16 11:00 O2 Saturation 96 % (92-99) Arterial Blood pH 7.42 (7.35-7.45) Arterial Blood pCO2 at Patient Temp 42 mmHg (35-46) Arterial Blood pO2 at Patient Temp 84 mmHg (75-108) Arterial Blood HCO3 27 mmol/L (21-28) Arterial Blood Base Excess 2 mmol/L (-3-3) FiO2 40 White Blood Count 13.9 x10^3/uL (4.0-11.0) Red Blood Count 2.95 x10^6/uL (3.50-5.40) Hemoglobin 9.5 g/dL (12.0-15.5) Hematocrit 29.7 % (36.0-47.0) Mean Corpuscular Volume 101 fL (79-100) Mean Corpuscular Hemoglobin 32 pg (25-35) Mean Corpuscular Hemoglobin Concent 32 g/dL (31-37) Red Cell Distribution Width 19.3 % (11.5-14.5) Platelet Count 70 x10^3/uL (140-400) Sodium Level 148 mmol/L (136-145) Potassium Level 4.3 mmol/L (3.5-5.1) Chloride Level 112 mmol/L (98-107) Carbon Dioxide Level 31 mmol/L (21-32) Anion Gap 5 (6-14) Blood Urea Nitrogen 15 mg/dL (7-20) Creatinine 0.9 mg/dL (0.6-1.0) Estimated GFR (Cockcroft-Gault) 77.8 Glucose Level 158 mg/dL (70-99) Calcium Level 7.2 mg/dL (8.5-10.1) Medications Active Scripts Medications Dose Route/Sig Days Date Category Seroquel (Quetiapine Fumarate) 100 Mg Tablet 1 Tab PO DAILY08 07/14/16 Reported Meloxicam 15 Mg Tablet 1 Tab PO DAILY 07/14/16 Reported Seroquel (Quetiapine Fumarate) 200 Mg Tablet 1 Tab PO QHS 07/14/16 Reported Cipro (Ciprofloxacin Hcl) 250 Mg Tablet 1 Tab PO BID 04/07/16 Rx Comments cxr reviewed, There is a moderate unchanged left basilar opacity compatible with left lower lobe consolidation and atelectasis. A component of pleural fluid cannot be excluded. There is minimal right basilar atelectasis. Impression . 1. Acute respiratory failure secondary to acute encephalopathy and sepsis. 2. Acute encephalopathy secondary to sepsis. 3. High-grade fever and markedly elevated white cell count, suspect underlying sepsis. Fever improved 4. Abnormal chest x-ray with some rounded density in the right perihilar area and some mediastinal fullness. CT chest with no mass 5. encephalopathy, LP neg Plan . 1. cont vent support, setting reviewed, i personally put her on sbt, rr in 30s , vt 130 cc, not ready 2. Broad-spectrum antibiotics, stopped by id. 3. Infectious Disease recommendations. 4. Follow all cultures, neg. 5. Lumbar puncture neg 6. Noncontrast CT chest reviewed. pulmonary HTN/ atelectasis 7. Deep venous thrombosis prophylaxis. 8. Stress ulcer prophylaxis. 10. Discussed with RN and RT. TABBY JOHNSON MD July 17, 2016 11:45
--- NOTE | 2016-07-17 11:57 | PDOC ---
SUBJECTIVE ROS ^Na On the vent OBJECTIVE Vital Signs Vital Signs Date Time Temp Pulse Resp B/P (MAP) Pulse Ox O2 Delivery O2 Flow Rate FiO2 07/17/16 11:21 100 07/17/16 11:17 Ventilator 07/17/16 11:00 79 17 120/65 (83) 07/17/16 07:00 99.6 99.6 I & 0 Intake and Output 07/17/16 07:00 Intake Total 5675 ml Output Total 2833 ml Balance 2842 ml Intake Oral 0 ml IV Total 2967 ml Tube Feeding 2108 ml Other 600 ml Output Urine Total 2833 ml Gastric Drainage Total 0 ml PHYSICAL EXAM Physical Exam General Appearance: On the Vent Neck: No JVD or JVP Chest: CTA Omar Heart: S1 S2 Abdomen - Soft NTND Extremities - ? Edema DIAGNOSIS/ASSESSMENT Assessment & Plan ^Na - ct free water repletion. If felt that she needs diuresis then TF may need to be held (with contd free water) to prevent further ^ in Na. Will be available prn - pl call Problems: COMMENT/RELEVANT DATA Meds Current Medications Medications (Trade) Dose Ordered Sig/Shaunna Start Time Stop Time Status Last Admin Dose Admin Acetaminophen (Acetaminophen Supp) 650 mg PRN Q6HRS PRN 07/14/16 08:00 07/14/16 08:21 650 MG Ceftriaxone Sodium 2 gm/ Sodium Chloride 100 ml @ 200 mls/hr Q24H 07/13/16 15:00 07/13/16 15:00 DC Chlorhexidine Gluconate (Peridex) 15 ml BID 07/14/16 09:00 07/17/16 09:14 15 ML Dextrose/Sodium Chloride 1,000 ml @ 100 mls/hr Q10H 07/14/16 09:15 07/17/16 03:23 100 MLS/HR Enoxaparin Sodium (Lovenox 40mg Syringe) 40 mg Q24H 07/14/16 11:00 07/17/16 11:17 40 MG Etomidate (Amidate) 20 mg 1X ONCE 07/13/16 14:30 07/13/16 14:31 DC 07/13/16 14:35 20 MG Famotidine (Pepcid) 20 mg QHS 07/14/16 21:00 07/16/16 20:37 20 MG Fentanyl Citrate (Fentanyl 2ml Vial) 50 mcg PRN Q1HR PRN 07/13/16 21:15 07/14/16 23:01 50 MCG Furosemide (Lasix) 20 mg 1X ONCE 07/17/16 11:00 07/17/16 11:01 DC 07/17/16 11:18 20 MG Haloperidol Lactate (Haldol) 5 mg 1X ONCE 07/13/16 14:15 07/13/16 14:17 DC 07/13/16 14:20 5 MG Levofloxacin/ Dextrose 150 ml @ 100 mls/hr 1X ONCE 07/13/16 15:00 07/13/16 15:00 DC Lorazepam (Ativan) 2 mg 1X ONCE 07/13/16 15:45 07/13/16 15:46 DC 07/13/16 14:44 2 MG Meropenem 1 gm/ Sodium Chloride 100 ml @ 200 mls/hr 1X ONCE 07/13/16 15:00 07/13/16 15:29 DC 07/13/16 15:39 200 MLS/HR Propofol 50 ml @ 0 mls/hr CONT PRN 07/13/16 18:00 07/14/16 07:08 DC 07/13/16 15:30 3.9 MLS/HR Quetiapine Fumarate (SEROquel) 200 mg QHS 07/15/16 21:00 07/16/16 20:37 200 MG Rocuronium [place] (Zemuron) 50 mg STK-MED ONCE 07/13/16 16:50 07/13/16 16:51 DC Sodium Chloride (Normal Saline Flush) 20 ml QSHIFT PRN 07/17/16 11:00 Vancomycin HCl 1.25 gm/Sodium Chloride 250 ml @ 166.667 mls/hr 1X ONCE 07/13/16 15:00 07/13/16 16:29 DC 07/13/16 16:32 166.667 MLS/HR Lab Laboratory Tests Test 07/17/16 08:00 07/17/16 11:00 O2 Saturation 96 % (92-99) Arterial Blood pH 7.42 (7.35-7.45) Arterial Blood pCO2 at Patient Temp 42 mmHg (35-46) Arterial Blood pO2 at Patient Temp 84 mmHg (75-108) Arterial Blood HCO3 27 mmol/L (21-28) Arterial Blood Base Excess 2 mmol/L (-3-3) FiO2 40 White Blood Count 13.9 x10^3/uL (4.0-11.0) Red Blood Count 2.95 x10^6/uL (3.50-5.40) Hemoglobin 9.5 g/dL (12.0-15.5) Hematocrit 29.7 % (36.0-47.0) Mean Corpuscular Volume 101 fL (79-100) Mean Corpuscular Hemoglobin 32 pg (25-35) Mean Corpuscular Hemoglobin Concent 32 g/dL (31-37) Red Cell Distribution Width 19.3 % (11.5-14.5) Platelet Count 70 x10^3/uL (140-400) Sodium Level 148 mmol/L (136-145) Potassium Level 4.3 mmol/L (3.5-5.1) Chloride Level 112 mmol/L (98-107) Carbon Dioxide Level 31 mmol/L (21-32) Anion Gap 5 (6-14) Blood Urea Nitrogen 15 mg/dL (7-20) Creatinine 0.9 mg/dL (0.6-1.0) Estimated GFR (Cockcroft-Gault) 77.8 Glucose Level 158 mg/dL (70-99) Calcium Level 7.2 mg/dL (8.5-10.1) DAMASO CASTILLO MD July 17, 2016 11:57
[2016-07-17] MEDS: fentaNYL PF VIAL 100 MCG/2 ML VIAL IV PRN (12:16)
--- NOTE | 2016-07-17 12:44 | CARD ---
APPROVED REPORT EXAM: Two-dimensional and M-mode echocardiogram with Doppler and color Doppler. Other Information Quality : Good INDICATION R/O CHF 2D DIMENSIONS RVDd3.0 (2.9-3.5cm)Left Atrium(2D)4.3 (1.6-4.0cm) IVSd1.3 (0.7-1.1cm)Aortic Root(2D)3.1 (2.0-3.7cm) LVDd4.5 (3.9-5.9cm)LVOT Diameter2.3 (1.8-2.4cm) PWd1.4 (0.7-1.1cm)LVDs2.6 (2.5-4.0cm) FS (%) 30.0 %LVEF(%)60.0 (>50%) Aortic Valve AoV Peak Pineda.209.6cm/sAoV VTI30.8cm AO Peak GR.17.6mmHgLVOT VTI 26.61cm AO Mean GR.10mmHgAVA (VTI)3.70cm2 Mitral Valve MV E Dmepqchp57.2cm/sMV DECEL [id number] MV A Qxzkiafg03.0cm/sE/A Ratio0.9 TDI Lateral E' P. V10.17cm/sMedial E' P. V6.56cm/s E/Lateral E'6.2E/Medial E'9.6 Tricuspid Valve TR P. Urvuwcdf437sb/sRAP [id number] TR Peak Gr.96lpVbAUMO28xtHa Pulmonary Vein S1 Ygzabycv00.9cm/sS2 Ghyuolmq72.48cm/s D2 Qhcfygbx08.5cm/s LEFT VENTRICLE The left ventricle is normal size. There is mild concentric left ventricular hypertrophy. The left ve ntricular systolic function is normal and the ejection fraction is within normal range. The Ejection Fraction is 55-60%. There is normal LV segmental wall motion. Transmitral Doppler flow pattern is Gra de I-abnormal relaxation pattern. RIGHT VENTRICLE The right ventricle is normal size. The right ventricular systolic function is normal. ATRIA The left atrium is mildly dilated. The right atrium size is normal. The interatrial septum is intact with no evidence for an atrial septal defect or patent foramen ovale as noted on 2-D or Doppler imagi ng. AORTIC VALVE The aortic valve is mildly but opens well. Doppler and Color Flow revealed no significant aortic regu rgitation. There is no significant aortic valvular stenosis. MITRAL VALVE The mitral valve is normal in structure and function. There is no evidence of mitral valve prolapse. There is no mitral valve stenosis. Doppler and Color-flow revealed trace mitral regurgitation. TRICUSPID VALVE The tricuspid valve is normal in structure and function. Doppler and Color Flow revealed physiologica l tricuspid regurgitation. The PA pressure was estimated at 26 mmHg. There is no tricuspid valve sten osis. PULMONIC VALVE Doppler and Color Flow revealed no pulmonic valvular regurgitation. There is no pulmonic valvular cesia nosis. GREAT VESSELS The aortic root is normal in size. The ascending aorta is normal in size. The IVC was not visualized. PERICARDIAL EFFUSION There is moderate left pleural effusion. There is a trace circumferential pericardial effusion. Critical Notification Critical Value: No <Conclusion> The left ventricular systolic function is normal and the ejection fraction is within normal range. Th e Ejection Fraction is 55-60%. There is normal LV segmental wall motion. There is moderate left pleural effusion. There is a trace circumferential pericardial effusion.
--- NOTE | 2016-07-17 15:30 | PDOC ---
PROGRESS NOTES Chief Complaint Chief Complaint cc: acute hypoxic resp failure altered mental status hypernatremia Sepsis Acute metabolic encephalopathy Hx Depression High Cholesterol History of Present Illness History of Present Illness a little more awake today, not responding or following commands on a ventilator Na+ better white count improving Vitals Vitals Vital Signs Date Time Temp Pulse Resp B/P (MAP) Pulse Ox O2 Delivery O2 Flow Rate FiO2 07/17/16 15:06 100 Ventilator 07/17/16 15:00 69 12 94/49 (64) 07/17/16 12:00 99.4 99.4 Physical Exam General: mild distress, Other (sedated) Heart: Regular rate, Normal S1, Normal S2 Lungs: Crackles, Other (decrease bs, no wheeze or rhonchi) Abdomen: Normal bowel sounds, Soft Extremities: No clubbing, No cyanosis Skin: No rashes, No breakdown Labs LABS Laboratory Tests Test 07/17/16 08:00 07/17/16 11:00 O2 Saturation 96 % (92-99) Arterial Blood pH 7.42 (7.35-7.45) Arterial Blood pCO2 at Patient Temp 42 mmHg (35-46) Arterial Blood pO2 at Patient Temp 84 mmHg (75-108) Arterial Blood HCO3 27 mmol/L (21-28) Arterial Blood Base Excess 2 mmol/L (-3-3) FiO2 40 White Blood Count 13.9 x10^3/uL (4.0-11.0) Red Blood Count 2.95 x10^6/uL (3.50-5.40) Hemoglobin 9.5 g/dL (12.0-15.5) Hematocrit 29.7 % (36.0-47.0) Mean Corpuscular Volume 101 fL (79-100) Mean Corpuscular Hemoglobin 32 pg (25-35) Mean Corpuscular Hemoglobin Concent 32 g/dL (31-37) Red Cell Distribution Width 19.3 % (11.5-14.5) Platelet Count 70 x10^3/uL (140-400) Sodium Level 148 mmol/L (136-145) Potassium Level 4.3 mmol/L (3.5-5.1) Chloride Level 112 mmol/L (98-107) Carbon Dioxide Level 31 mmol/L (21-32) Anion Gap 5 (6-14) Blood Urea Nitrogen 15 mg/dL (7-20) Creatinine 0.9 mg/dL (0.6-1.0) Estimated GFR (Cockcroft-Gault) 77.8 Glucose Level 158 mg/dL (70-99) Calcium Level 7.2 mg/dL (8.5-10.1) Review of Systems Review of Systems following some commands Assessment and Plan Assessmemt and Plan Problems Medical Problems: (1) Sepsis Status: Acute (2) Sepsis Status: Acute Problems: Comment Review of Relevant I have reviewed the following items quentin (where applicable) has been applied. Labs Laboratory Tests Test 07/16/16 08:00 07/16/16 08:05 07/17/16 08:00 07/17/16 11:00 O2 Saturation 97 % (92-99) 96 % (92-99) Arterial Blood pH 7.45 (7.35-7.45) 7.42 (7.35-7.45) Arterial Blood pCO2 at Patient Temp 37 mmHg (35-46) 42 mmHg (35-46) Arterial Blood pO2 at Patient Temp 89 mmHg (75-108) 84 mmHg (75-108) Arterial Blood HCO3 25 mmol/L (21-28) 27 mmol/L (21-28) Arterial Blood Base Excess 1 mmol/L (-3-3) 2 mmol/L (-3-3) FiO2 40 40 White Blood Count 13.3 x10^3/uL (4.0-11.0) 13.9 x10^3/uL (4.0-11.0) Red Blood Count 3.19 x10^6/uL (3.50-5.40) 2.95 x10^6/uL (3.50-5.40) Hemoglobin 10.3 g/dL (12.0-15.5) 9.5 g/dL (12.0-15.5) Hematocrit 32.8 % (36.0-47.0) 29.7 % (36.0-47.0) Mean Corpuscular Volume 103 fL (79-100) 101 fL (79-100) Mean Corpuscular Hemoglobin 32 pg (25-35) 32 pg (25-35) Mean Corpuscular Hemoglobin Concent 31 g/dL (31-37) 32 g/dL (31-37) Red Cell Distribution Width 19.1 % (11.5-14.5) 19.3 % (11.5-14.5) Platelet Count 70 x10^3/uL (140-400) 70 x10^3/uL (140-400) Neutrophils (%) (Auto) 82 % (31-73) Lymphocytes (%) (Auto) 9 % (24-48) Monocytes (%) (Auto) 9 % (0-9) Eosinophils (%) (Auto) 1 % (0-3) Basophils (%) (Auto) 0 % (0-3) Neutrophils # (Auto) 10.9 x10^3uL (1.8-7.7) Lymphocytes # (Auto) 1.2 x10^3/uL (1.0-4.8) Monocytes # (Auto) 1.2 x10^3/uL (0.0-1.1) Eosinophils # (Auto) 0.1 x10^3/uL (0.0-0.7) Basophils # (Auto) 0.0 x10^3/uL (0.0-0.2) Sodium Level 151 mmol/L (136-145) 148 mmol/L (136-145) Potassium Level 4.1 mmol/L (3.5-5.1) 4.3 mmol/L (3.5-5.1) Chloride Level 115 mmol/L (98-107) 112 mmol/L (98-107) Carbon Dioxide Level 27 mmol/L (21-32) 31 mmol/L (21-32) Anion Gap 9 (6-14) 5 (6-14) Blood Urea Nitrogen 19 mg/dL (7-20) 15 mg/dL (7-20) Creatinine 1.0 mg/dL (0.6-1.0) 0.9 mg/dL (0.6-1.0) Estimated GFR (Cockcroft-Gault) 68.9 77.8 Glucose Level 187 mg/dL (70-99) 158 mg/dL (70-99) Calcium Level 7.6 mg/dL (8.5-10.1) 7.2 mg/dL (8.5-10.1) Laboratory Tests Test 07/17/16 08:00 07/17/16 11:00 O2 Saturation 96 % (92-99) Arterial Blood pH 7.42 (7.35-7.45) Arterial Blood pCO2 at Patient Temp 42 mmHg (35-46) Arterial Blood pO2 at Patient Temp 84 mmHg (75-108) Arterial Blood HCO3 27 mmol/L (21-28) Arterial Blood Base Excess 2 mmol/L (-3-3) FiO2 40 White Blood Count 13.9 x10^3/uL (4.0-11.0) Red Blood Count 2.95 x10^6/uL (3.50-5.40) Hemoglobin 9.5 g/dL (12.0-15.5) Hematocrit 29.7 % (36.0-47.0) Mean Corpuscular Volume 101 fL (79-100) Mean Corpuscular Hemoglobin 32 pg (25-35) Mean Corpuscular Hemoglobin Concent 32 g/dL (31-37) Red Cell Distribution Width 19.3 % (11.5-14.5) Platelet Count 70 x10^3/uL (140-400) Sodium Level 148 mmol/L (136-145) Potassium Level 4.3 mmol/L (3.5-5.1) Chloride Level 112 mmol/L (98-107) Carbon Dioxide Level 31 mmol/L (21-32) Anion Gap 5 (6-14) Blood Urea Nitrogen 15 mg/dL (7-20) Creatinine 0.9 mg/dL (0.6-1.0) Estimated GFR (Cockcroft-Gault) 77.8 Glucose Level 158 mg/dL (70-99) Calcium Level 7.2 mg/dL (8.5-10.1) Microbiology 07/13/16 Blood Culture - Preliminary, Resulted NO GROWTH AFTER 4 DAYS 07/13/16 Anaerobic/Aerobic Culture - Final, Complete 07/13/16 Anaerobic Culture Result 1 ([facility]) - Final, Complete 07/13/16 Aerobic Culture - Final, Complete 07/13/16 Aerobic Culture Result 1 ([facility]) - Final, Complete 07/13/16 Urine Culture - Final, Complete 07/13/16 Urine Culture Result 1 ([facility]) - Final, Complete 07/13/16 Urine Culture Result 2 ([facility]) - Final, Complete Medications Current Medications Haloperidol Lactate (Haldol) 5 mg 1X ONCE IVP Last administered on 07/13/16t 12 :34; Start 07/13/16 at 12:30; Stop 07/13/16 at 12:31; Status DC Sodium Chloride 1,000 ml @ 1,000 mls/hr 1X ONCE IV Last administered on 14:06; Start 07/13/16 at 13:00; Stop 07/13/16 at 13:59; Status DC Sodium Chloride 1,000 ml @ 1,000 mls/hr 1X ONCE IV Last administered on 14:06; Start 07/13/16 at 13:45; Stop 07/13/16 at 14:44; Status DC Haloperidol Lactate (Haldol) 5 mg 1X ONCE IVP Last administered on 07/13/16 14 :20; Start 07/13/16 at 14:15; Stop 07/13/16 at 14:17; Status DC Etomidate (Amidate) 20 mg 1X ONCE IV Last administered on 07/13/16 14:35; Start 07/13/16 at 14:30; Stop 07/13/16 at 14:31; Status DC Lorazepam (Ativan) 2 mg STK-MED ONCE .ROUTE ; Start 07/13/16 at 14:43; Stop at 14:44; Status DC Levofloxacin/ Dextrose 150 ml @ 100 mls/hr 1X ONCE IV ; Start 07/13/16 at 15:00 ; Stop 07/13/16 at 15:00; Status DC Ceftriaxone Sodium 2 gm/ Sodium Chloride 100 ml @ 200 mls/hr Q24H IV ; Start at 15:00; Stop 07/13/16 at 15:00; Status DC Vancomycin HCl 1.25 gm/Sodium Chloride 250 ml @ 166.667 mls/hr 1X ONCE IV Last administered on 07/13/16 16:32; Start 07/13/16 at 15:00; Stop 07/13/16 at 16: 29; Status DC Meropenem 1 gm/ Sodium Chloride 100 ml @ 200 mls/hr Q8HRS IV Last administered on 07/17/16 05:24; Start 07/13/16 at 22:00; Stop 07/17/16 at 08:25; Status DC Meropenem 1 gm/ Sodium Chloride 100 ml @ 200 mls/hr 1X ONCE IV Last administered on 07/13/16 15:39; Start 07/13/16 at 15:00; Stop 07/13/16 at 15:29; Status DC Propofol 50 ml @ As Directed STK-MED ONCE IV ; Start 07/13/16 at 15:15; Stop 07/13 at 15:16; Status DC Lorazepam (Ativan) 2 mg 1X ONCE IV Last administered on 07/13/16 14:44; Start 07/13/16 at 15:45; Stop 07/13/16 at 15:46; Status DC Dextrose/Sodium Chloride 1,000 ml @ 125 mls/hr 1X ONCE IV Last administered on 07/13/16 18:25; Start 07/13/16 at 15:45; Stop 07/13/16 at 23:44; Status DC Propofol 100 ml @ 0 mls/hr CONT PRN IV SEE I/O RECORD Last administered on 14:16; Start 07/13/16 at 15:45 Sodium Chloride 1,000 ml @ 1,000 mls/hr 1X ONCE IV Last administered on 16:30; Start 07/13/16 at 16:30; Stop 07/13/16 at 17:29; Status DC Rocuronium [place] (Zemuron) 50 mg STK-MED ONCE .ROUTE ; Start 07/13/16 at 16:50 ; Stop 07/13/16 at 16:51; Status DC Propofol 50 ml @ 0 mls/hr CONT PRN IV SEE I/O RECORD Last administered on 15:30; Start 07/13/16 at 18:00; Stop 07/14/16 at 07:08; Status DC Fentanyl Citrate (Fentanyl 2ml Vial) 25 mcg PRN Q1HR PRN IV COMM Last administered on 07/17/16 12:16; Start 07/13/16 at 21:15 Fentanyl Citrate (Fentanyl 2ml Vial) 50 mcg PRN Q1HR PRN IV COMM Last administered on 07/14/16 23:01; Start 07/13/16 at 21:15 Chlorhexidine Gluconate (Peridex) 15 ml BID MM Last administered on 07/17/16 09 :14; Start 07/14/16 at 09:00 Dextrose/Sodium Chloride 1,000 ml @ 125 mls/hr 1X ONCE IV Last administered on 07/14/16 03:33; Start 07/14/16 at 03:30; Stop 07/14/16 at 11:29; Status DC Acetaminophen (Acetaminophen Supp) 650 [address]N Q6HRS PRN CT MILD PAIN / TEMP Last administered on 07/14/16 08:21; Start 07/14/16 at 08:00 Dextrose/Sodium Chloride 1,000 ml @ 100 mls/hr Q10H IV Last administered on 12:21; Start 07/14/16 at 09:15 Enoxaparin Sodium (Lovenox 40mg Syringe) 40 mg Q24H SQ Last administered on 07/17 11:17; Start 07/14/16 at 11:00 Famotidine (Pepcid) 20 mg QHS IVP Last administered on 07/16/16 20:37; Start at 21:00 Quetiapine Fumarate (SEROquel) 100 mg DAILY08 NG Last administered on 07/17/16 08:37; Start 07/15/16 at 15:00 Quetiapine Fumarate (SEROquel) 200 mg QHS NG Last administered on 07/16/16 20: 37; Start 07/15/16 at 21:00 Furosemide (Lasix) 20 mg 1X ONCE IVP Last administered on 07/17/16 11:18; Start 07/17/16 at 11:00; Stop 07/17/16 at 11:01; Status DC Sodium Chloride (Normal Saline Flush) 10 ml QSHIFT PRN IV AFTER MEDS AND BLOOD DRAWS; Start 07/17/16 at 11:00 Sodium Chloride (Normal Saline Flush) 20 ml QSHIFT PRN IV AFTER MEDS AND BLOOD DRAWS; Start 07/17/16 at 11:00 Active Scripts Active Cipro (Ciprofloxacin Hcl) 250 Mg Tablet 1 Tab PO BID Reported Seroquel (Quetiapine Fumarate) 100 Mg Tablet 1 Tab PO DAILY08 Meloxicam 15 Mg Tablet 1 Tab PO DAILY Seroquel (Quetiapine Fumarate) 200 Mg Tablet 1 Tab PO QHS Vitals/I & O Vital Sign - Last 24 Hours 07/16/16 07/16/16 07/16/16 07/16/16 16:00 16:00 17:24 18:00 Temp 100.9 100.9 Pulse 82 90 Resp 24 21 B/P (MAP) 124/78 (93) 120/68 (85) Pulse Ox 100 100 99 O2 Delivery Ventilator Mechanical Ventilator Ventilator Ventilator 07/16/16 07/16/16 07/16/16 07/16/16 19:00 20:00 20:00 20:30 Temp 99.1 99.1 Pulse 75 74 Resp 16 18 B/P (MAP) 120/68 (85) 128/65 (86) Pulse Ox 99 100 99 O2 Delivery Ventilator Ventilator Mechanical Ventilator Ventilator 07/16/16 07/16/16 07/16/16 07/16/16 21:00 21:20 22:00 23:00 Pulse 91 85 78 Resp 14 15 15 B/P (MAP) 109/57 (74) 111/61 (78) 114/59 (77) Pulse Ox 100 100 100 100 O2 Delivery Ventilator Ventilator Ventilator Ventilator 07/16/16 07/17/16 07/17/16 07/17/16 23:59 00:00 01:00 01:37 Temp 99.7 99.7 Pulse 79 83 Resp 17 17 B/P (MAP) 108/61 (77) 129/73 (91) Pulse Ox 100 100 100 O2 Delivery Mechanical Ventilator Ventilator Ventilator Ventilator 07/17/16 07/17/16 07/17/16 07/17/16 02:00 03:00 03:33 04:00 Temp 98.2 98.2 Pulse 76 74 73 Resp 16 17 14 B/P (MAP) 112/63 (79) 102/59 (73) 112/59 (76) Pulse Ox 100 100 99 100 O2 Delivery Ventilator Ventilator Ventilator Ventilator 07/17/16 07/17/16 07/17/16 07/17/16 04:00 05:00 05:44 06:00 Pulse 75 76 Resp 16 16 B/P (MAP) 113/56 (75) 108/53 (71) Pulse Ox 100 100 100 O2 Delivery Mechanical Ventilator Ventilator Ventilator Ventilator 07/17/16 07/17/16 07/17/16 07/17/16 07:00 07:23 08:00 08:00 Temp 99.6 99.6 Pulse 82 75 Resp 13 18 B/P (MAP) 113/62 (79) 119/67 (84) Pulse Ox 100 100 100 O2 Delivery Ventilator Ventilator Ventilator Mechanical Ventilator 07/17/16 07/17/16 07/17/16 07/17/16 08:39 09:00 10:00 11:00 Pulse 80 76 79 Resp 19 18 17 B/P (MAP) 112/61 (78) 104/53 (70) 120/65 (83) Pulse Ox 100 100 100 100 O2 Delivery Ventilator Ventilator Ventilator Ventilator 07/17/16 07/17/16 07/17/16 07/17/16 11:17 11:21 12:00 12:00 Temp 99.4 99.4 Pulse 74 Resp 16 B/P (MAP) 97/66 (76) Pulse Ox 96 100 100 O2 Delivery Ventilator Ventilator Mechanical Ventilator 07/17/16 07/17/16 07/17/16 07/17/16 12:16 12:45 13:00 13:26 Pulse 72 Resp 16 16 14 B/P (MAP) 106/64 (78) Pulse Ox 100 100 100 100 O2 Delivery Ventilator Ventilator Ventilator Ventilator 07/17/16 07/17/16 07/17/16 14:00 15:00 15:06 Pulse 73 69 Resp 18 12 B/P (MAP) 113/57 (75) 94/49 (64) Pulse Ox 100 100 100 O2 Delivery Ventilator Ventilator Ventilator Intake and Output 07/16/16 07/16/16 07/17/16 15:00 23:00 07:00 Intake Total 415 ml 2880 ml 2380 ml Output Total 0 ml 1910 ml 923 ml Balance 415 ml 970 ml 1457 ml TEX MCMANUS MD July 17, 2016 15:30
[2016-07-17 20:12] LABS: HERPES SIMPLEX TYPE 1 Negative (Negative); HERPES SIMPLEX TYPE 2 Negative (Negative)
[2016-07-17] MEDS: FAMOTIDINE 20 MG/2 ML VIAL IVP SCH (21:25)
[2016-07-18] VITALS (24 sets, daily range): BP systolic 93–149; BP diastolic 50–78
[2016-07-18] MEDS: PROPOFOL 100 ML IV PRN ×2 (00:15→05:11)
[2016-07-18 06:19] LABS: CALCIUM 7.9 mg/dL (8.5-10.1); CREATININE 0.9 mg/dL (0.6-1.0); GFR 77.8; POTASSIUM 4.2 mmol/L (3.5-5.1)
--- NOTE | 2016-07-18 08:24 | PDOC ---
PULMONARY PROGRESS NOTES Subjective on vent, agitated off sedation, more alert has small ett secretion, Vitals Vital Signs Date Time Temp Pulse Resp B/P (MAP) Pulse Ox O2 Delivery O2 Flow Rate FiO2 07/18/16 08:03 98.7 65 15 120/73 (89) 100 Ventilator 98.7 Comments ros as mentioned as above discussed w rn, other sys otherwise neg HEENT: Other (nc at perrl, nose clear, orally intubated) Lungs: Crackles, Other (decrease bs, no wheeze or rhonchi) Cardiovascular: S1, S2 Abdomen: Soft, Non-tender, Other (no mass) Neuro Exam: Alert Extremities: No Edema Skin: Warm Labs Laboratory Tests Test 07/17/16 08:00 07/17/16 11:00 07/18/16 05:50 O2 Saturation 96 % (92-99) Arterial Blood pH 7.42 (7.35-7.45) Arterial Blood pCO2 at Patient Temp 42 mmHg (35-46) Arterial Blood pO2 at Patient Temp 84 mmHg (75-108) Arterial Blood HCO3 27 mmol/L (21-28) Arterial Blood Base Excess 2 mmol/L (-3-3) FiO2 40 White Blood Count 13.9 x10^3/uL (4.0-11.0) Red Blood Count 2.95 x10^6/uL (3.50-5.40) Hemoglobin 9.5 g/dL (12.0-15.5) Hematocrit 29.7 % (36.0-47.0) Mean Corpuscular Volume 101 fL (79-100) Mean Corpuscular Hemoglobin 32 pg (25-35) Mean Corpuscular Hemoglobin Concent 32 g/dL (31-37) Red Cell Distribution Width 19.3 % (11.5-14.5) Platelet Count 70 x10^3/uL (140-400) Sodium Level 148 mmol/L (136-145) 142 mmol/L (136-145) Potassium Level 4.3 mmol/L (3.5-5.1) 4.2 mmol/L (3.5-5.1) Chloride Level 112 mmol/L (98-107) 107 mmol/L (98-107) Carbon Dioxide Level 31 mmol/L (21-32) 31 mmol/L (21-32) Anion Gap 5 (6-14) 4 (6-14) Blood Urea Nitrogen 15 mg/dL (7-20) 14 mg/dL (7-20) Creatinine 0.9 mg/dL (0.6-1.0) 0.9 mg/dL (0.6-1.0) Estimated GFR (Cockcroft-Gault) 77.8 77.8 Glucose Level 158 mg/dL (70-99) 122 mg/dL (70-99) Calcium Level 7.2 mg/dL (8.5-10.1) 7.9 mg/dL (8.5-10.1) Laboratory Tests Test 07/17/16 11:00 07/18/16 05:50 White Blood Count 13.9 x10^3/uL (4.0-11.0) Red Blood Count 2.95 x10^6/uL (3.50-5.40) Hemoglobin 9.5 g/dL (12.0-15.5) Hematocrit 29.7 % (36.0-47.0) Mean Corpuscular Volume 101 fL (79-100) Mean Corpuscular Hemoglobin 32 pg (25-35) Mean Corpuscular Hemoglobin Concent 32 g/dL (31-37) Red Cell Distribution Width 19.3 % (11.5-14.5) Platelet Count 70 x10^3/uL (140-400) Sodium Level 148 mmol/L (136-145) 142 mmol/L (136-145) Potassium Level 4.3 mmol/L (3.5-5.1) 4.2 mmol/L (3.5-5.1) Chloride Level 112 mmol/L (98-107) 107 mmol/L (98-107) Carbon Dioxide Level 31 mmol/L (21-32) 31 mmol/L (21-32) Anion Gap 5 (6-14) 4 (6-14) Blood Urea Nitrogen 15 mg/dL (7-20) 14 mg/dL (7-20) Creatinine 0.9 mg/dL (0.6-1.0) 0.9 mg/dL (0.6-1.0) Estimated GFR (Cockcroft-Gault) 77.8 77.8 Glucose Level 158 mg/dL (70-99) 122 mg/dL (70-99) Calcium Level 7.2 mg/dL (8.5-10.1) 7.9 mg/dL (8.5-10.1) Medications Active Scripts Medications Dose Route/Sig Days Date Category Seroquel (Quetiapine Fumarate) 100 Mg Tablet 1 Tab PO DAILY08 07/14/16 Reported Meloxicam 15 Mg Tablet 1 Tab PO DAILY 07/14/16 Reported Seroquel (Quetiapine Fumarate) 200 Mg Tablet 1 Tab PO QHS 07/14/16 Reported Cipro (Ciprofloxacin Hcl) 250 Mg Tablet 1 Tab PO BID 04/07/16 Rx Comments cxr reviewed, There is a moderate unchanged left basilar opacity compatible with left lower lobe consolidation and atelectasis. A component of pleural fluid cannot be excluded. There is minimal right basilar atelectasis. Impression . 1. Acute respiratory failure secondary to acute encephalopathy and sepsis. 2. Acute encephalopathy secondary to sepsis. 3. High-grade fever and markedly elevated white cell count, suspect underlying sepsis. Fever improved 4. Abnormal chest x-ray with some rounded density in the right perihilar area and some mediastinal fullness. CT chest with no mass 5. encephalopathy, LP neg Plan . 1. cont vent support, setting reviewed, sbt today, reeval after trial 2. Broad-spectrum antibiotics, stopped by id. monitor off abx 3. Infectious Disease recommendations. 4. Follow all cultures, neg. 5. Lumbar puncture neg 6. Noncontrast CT chest reviewed. pulmonary HTN/ atelectasis 7. Deep venous thrombosis prophylaxis. 8. Stress ulcer prophylaxis. 10. elevate hob Discussed with RN and RT. TABBY JOHNSON MD July 18, 2016 08:24
[2016-07-18] MEDS: fentaNYL PF VIAL 100 MCG/2 ML VIAL IV PRN (08:51)
[2016-07-18] MEDS: QUEtiapine 100 MG TABLET. NG SCH ×2 (08:51→21:00)
[2016-07-18] MEDS: CHLORHEXIDINE 0.12% 15 ML MOUTHWASH. MM SCH ×2 (08:53→21:00)
--- NOTE | 2016-07-18 08:54 | PDOC ---
Infectious Disease Note Subjective Subjective Uneventful night Sedation recently turned off Remains intubated/vent. FiO2 40% Alert Tube feedings via OGT No BM No fever last 24 hours ROS ROS Unobtainable Vital Sign Vital Signs Vital Signs Date Time Temp Pulse Resp B/P (MAP) Pulse Ox O2 Delivery O2 Flow Rate FiO2 07/18/16 08:03 98.7 65 15 120/73 (89) 100 Ventilator 98.7 Physical Exam PHYSICAL EXAM GENERAL: Awake, moving arms, mittens, following commands HEENT: Pupils equally round, ETT, OGT NECK: Supple, no JVD, no LN LUNGS: Mechanical breath sounds HEART: S1S2 ABD: Obese, BS present, soft, No grimace or guarding to palpation : [place]al[place] EXT: Trace edema. No cyanosis SKIN: No rash RUE-PICC. clean Labs Lab Laboratory Tests Test 07/17/16 11:00 07/18/16 05:50 White Blood Count 13.9 x10^3/uL (4.0-11.0) Red Blood Count 2.95 x10^6/uL (3.50-5.40) Hemoglobin 9.5 g/dL (12.0-15.5) Hematocrit 29.7 % (36.0-47.0) Mean Corpuscular Volume 101 fL (79-100) Mean Corpuscular Hemoglobin 32 pg (25-35) Mean Corpuscular Hemoglobin Concent 32 g/dL (31-37) Red Cell Distribution Width 19.3 % (11.5-14.5) Platelet Count 70 x10^3/uL (140-400) Sodium Level 148 mmol/L (136-145) 142 mmol/L (136-145) Potassium Level 4.3 mmol/L (3.5-5.1) 4.2 mmol/L (3.5-5.1) Chloride Level 112 mmol/L (98-107) 107 mmol/L (98-107) Carbon Dioxide Level 31 mmol/L (21-32) 31 mmol/L (21-32) Anion Gap 5 (6-14) 4 (6-14) Blood Urea Nitrogen 15 mg/dL (7-20) 14 mg/dL (7-20) Creatinine 0.9 mg/dL (0.6-1.0) 0.9 mg/dL (0.6-1.0) Estimated GFR (Cockcroft-Gault) 77.8 77.8 Glucose Level 158 mg/dL (70-99) 122 mg/dL (70-99) Calcium Level 7.2 mg/dL (8.5-10.1) 7.9 mg/dL (8.5-10.1) Micro BLOOD CULTURE Preliminary NO GROWTH AFTER 4 DAYS CSF GRAM STAIN Final WBCS OCCASIONAL RBCS FEW ORGANISMS NONE SEEN ANAEROBIC-AEROBIC CULTURE Final Final report ANAEROBIC RES 1 Final Comment No anaerobic growth in 72 hours. AEROBIC CULT Final Final report AEROBIC RES 1 Final Comment No growth in 56 - 72 hours. URINE CULTURE Final Final report URINE CULTURE RES 1 Final Comment Culture shows less than 10,000 colony forming units of bacteria per milliliter of urine. This colony count is not generally considered to be clinically significant. URINE CULTURE RES 2 Final Gardnerella vaginalis Greater than 100,000 colony forming units per mL Presumptive identification Objective Assessment Fever improved Gardnerella Encephalopathy, CSF neg, traumatic tap - improving Respiratory failure Leukocytosis, improved h/o depression Obesity CHF Plan Plan of Care Flagyl 500 mg per tube BID times 7 days Cultures negative except Gardnerella Supportive care Attending Co-Sign Attending Co-Sign The patient was seen and interviewed as well as examined at the bedside. The chart was reviewed. The case was discussed. Agree with the plan of care. BHARGAVI DARNELL APRN July 18, 2016 08:54 QUIN ASHFORD MD July 18, 2016 12:12
[2016-07-18 09:36] LABS: HCO3 ABG 29 mmol/L (21-28); PCO2 ABG 46 mmHg (35-46); PH ABG 7.41 (7.35-7.45); PO2 ABG 67 mmHg (75-108); SAT O2 ABG 91 % (92-99)
[2016-07-18] MEDS: IV DEXTROSE 5 %-0.2 % NACL 1,000 ML IV SCH ×2 (09:54→21:25)
[2016-07-18] MEDS: ENOXAPARIN 40 MG/0.4 ML SYRINGE. SQ SCH (11:18)
[2016-07-18 11:57] LABS: FIO2 ABG 40
--- NOTE | 2016-07-18 12:00 | PDOC ---
PROGRESS NOTES Chief Complaint Chief Complaint cc: acute hypoxic resp failure altered mental status hypernatremia Sepsis Acute metabolic encephalopathy Hx Depression High Cholesterol History of Present Illness History of Present Illness much more awake today, following commands on a 07/17 trial, doing well, pulling nearly 400 mls, Vitals Vitals Vital Signs Date Time Temp Pulse Resp B/P (MAP) Pulse Ox O2 Delivery O2 Flow Rate FiO2 07/18/16 11:42 Mechanical Ventilator 07/18/16 11:19 87 22 141/78 (99) 100 07/18/16 08:03 98.7 98.7 Physical Exam General: Alert, mild distress, Other (sedated) Heart: Regular rate, Normal S1, Normal S2 Lungs: Crackles, Other (decrease bs, no wheeze or rhonchi) Abdomen: Normal bowel sounds, Soft Extremities: No clubbing, No cyanosis Skin: No rashes, No breakdown Labs LABS Laboratory Tests Test 07/18/16 05:50 07/18/16 08:54 Sodium Level 142 mmol/L (136-145) Potassium Level 4.2 mmol/L (3.5-5.1) Chloride Level 107 mmol/L (98-107) Carbon Dioxide Level 31 mmol/L (21-32) Anion Gap 4 (6-14) Blood Urea Nitrogen 14 mg/dL (7-20) Creatinine 0.9 mg/dL (0.6-1.0) Estimated GFR (Cockcroft-Gault) 77.8 Glucose Level 122 mg/dL (70-99) Calcium Level 7.9 mg/dL (8.5-10.1) O2 Saturation 91 % (92-99) Arterial Blood pH 7.41 (7.35-7.45) Arterial Blood pCO2 at Patient Temp 46 mmHg (35-46) Arterial Blood pO2 at Patient Temp 67 mmHg (75-108) Arterial Blood HCO3 29 mmol/L (21-28) Arterial Blood Base Excess 3 mmol/L (-3-3) FiO2 40 Assessment and Plan Assessmemt and Plan abg pending try to extubate, looking much better Problems Medical Problems: (1) Sepsis Status: Acute (2) Sepsis Status: Acute Problems: Comment Review of Relevant I have reviewed the following items quentin (where applicable) has been applied. Labs Laboratory Tests Test 07/17/16 08:00 07/17/16 11:00 07/18/16 05:50 07/18/16 08:54 O2 Saturation 96 % (92-99) 91 % (92-99) Arterial Blood pH 7.42 (7.35-7.45) 7.41 (7.35-7.45) Arterial Blood pCO2 at Patient Temp 42 mmHg (35-46) 46 mmHg (35-46) Arterial Blood pO2 at Patient Temp 84 mmHg (75-108) 67 mmHg (75-108) Arterial Blood HCO3 27 mmol/L (21-28) 29 mmol/L (21-28) Arterial Blood Base Excess 2 mmol/L (-3-3) 3 mmol/L (-3-3) FiO2 40 40 White Blood Count 13.9 x10^3/uL (4.0-11.0) Red Blood Count 2.95 x10^6/uL (3.50-5.40) Hemoglobin 9.5 g/dL (12.0-15.5) Hematocrit 29.7 % (36.0-47.0) Mean Corpuscular Volume 101 fL (79-100) Mean Corpuscular Hemoglobin 32 pg (25-35) Mean Corpuscular Hemoglobin Concent 32 g/dL (31-37) Red Cell Distribution Width 19.3 % (11.5-14.5) Platelet Count 70 x10^3/uL (140-400) Sodium Level 148 mmol/L (136-145) 142 mmol/L (136-145) Potassium Level 4.3 mmol/L (3.5-5.1) 4.2 mmol/L (3.5-5.1) Chloride Level 112 mmol/L (98-107) 107 mmol/L (98-107) Carbon Dioxide Level 31 mmol/L (21-32) 31 mmol/L (21-32) Anion Gap 5 (6-14) 4 (6-14) Blood Urea Nitrogen 15 mg/dL (7-20) 14 mg/dL (7-20) Creatinine 0.9 mg/dL (0.6-1.0) 0.9 mg/dL (0.6-1.0) Estimated GFR (Cockcroft-Gault) 77.8 77.8 Glucose Level 158 mg/dL (70-99) 122 mg/dL (70-99) Calcium Level 7.2 mg/dL (8.5-10.1) 7.9 mg/dL (8.5-10.1) Laboratory Tests Test 07/18/16 05:50 07/18/16 08:54 Sodium Level 142 mmol/L (136-145) Potassium Level 4.2 mmol/L (3.5-5.1) Chloride Level 107 mmol/L (98-107) Carbon Dioxide Level 31 mmol/L (21-32) Anion Gap 4 (6-14) Blood Urea Nitrogen 14 mg/dL (7-20) Creatinine 0.9 mg/dL (0.6-1.0) Estimated GFR (Cockcroft-Gault) 77.8 Glucose Level 122 mg/dL (70-99) Calcium Level 7.9 mg/dL (8.5-10.1) O2 Saturation 91 % (92-99) Arterial Blood pH 7.41 (7.35-7.45) Arterial Blood pCO2 at Patient Temp 46 mmHg (35-46) Arterial Blood pO2 at Patient Temp 67 mmHg (75-108) Arterial Blood HCO3 29 mmol/L (21-28) Arterial Blood Base Excess 3 mmol/L (-3-3) FiO2 40 Microbiology 07/13/16 Blood Culture - Preliminary, Resulted NO GROWTH AFTER 4 DAYS 07/13/16 Anaerobic/Aerobic Culture - Final, Complete 07/13/16 Anaerobic Culture Result 1 (WEST) - Final, Complete 07/13/16 Aerobic Culture - Final, Complete 07/13/16 Aerobic Culture Result 1 (WEST) - Final, Complete 07/17/16 Gram Stain - Final, Complete 07/13/16 Urine Culture - Final, Complete 07/13/16 Urine Culture Result 1 (WEST) - Final, Complete 07/13/16 Urine Culture Result 2 (WEST) - Final, Complete Medications Current Medications Haloperidol Lactate (Haldol) 5 mg 1X ONCE IVP Last administered on 07/13/16 12 :34; Start 07/13/16 at 12:30; Stop 07/13/16 at 12:31; Status DC Sodium Chloride 1,000 ml @ 1,000 mls/hr 1X ONCE IV Last administered on 14:06; Start 07/13/16 at 13:00; Stop 07/13/16 at 13:59; Status DC Sodium Chloride 1,000 ml @ 1,000 mls/hr 1X ONCE IV Last administered on 14:06; Start 07/13/16 at 13:45; Stop 07/13/16 at 14:44; Status DC Haloperidol Lactate (Haldol) 5 mg 1X ONCE IVP Last administered on 07/13/16 14 :20; Start 07/13/16 at 14:15; Stop 07/13/16 at 14:17; Status DC Etomidate (Amidate) 20 mg 1X ONCE IV Last administered on 07/13/16 14:35; Start 07/13/16 at 14:30; Stop 07/13/16 at 14:31; Status DC Lorazepam (Ativan) 2 mg STK-MED ONCE .ROUTE ; Start 07/13/16 at 14:43; Stop at 14:44; Status DC Levofloxacin/ Dextrose 150 ml @ 100 mls/hr 1X ONCE IV ; Start 07/13/16 at 15:00 ; Stop 07/13/16 at 15:00; Status DC Ceftriaxone Sodium 2 gm/ Sodium Chloride 100 ml @ 200 mls/hr Q24H IV ; Start at 15:00; Stop 07/13/16 at 15:00; Status DC Vancomycin HCl 1.25 gm/Sodium Chloride 250 ml @ 166.667 mls/hr 1X ONCE IV Last administered on 07/13/16 16:32; Start 07/13/16 at 15:00; Stop 07/13/16 at 16: 29; Status DC Meropenem 1 gm/ Sodium Chloride 100 ml @ 200 mls/hr Q8HRS IV Last administered on 07/17/16 05:24; Start 07/13/16 at 22:00; Stop 07/17/16 at 08:25; Status DC Meropenem 1 gm/ Sodium Chloride 100 ml @ 200 mls/hr 1X ONCE IV Last administered on 07/13/16 15:39; Start 07/13/16 at 15:00; Stop 07/13/16 at 15:29; Status DC Propofol 50 ml @ As Directed STK-MED ONCE IV ; Start 07/13/16 at 15:15; Stop 07/13 at 15:16; Status DC Lorazepam (Ativan) 2 mg 1X ONCE IV Last administered on 07/13/16 14:44; Start 07/13/16 at 15:45; Stop 07/13/16 at 15:46; Status DC Dextrose/Sodium Chloride 1,000 ml @ 125 mls/hr 1X ONCE IV Last administered on 07/13/16 18:25; Start 07/13/16 at 15:45; Stop 07/13/16 at 23:44; Status DC Propofol 100 ml @ 0 mls/hr CONT PRN IV SEE I/O RECORD Last administered on 05:11; Start 07/13/16 at 15:45 Sodium Chloride 1,000 ml @ 1,000 mls/hr 1X ONCE IV Last administered on 16:30; Start 07/13/16 at 16:30; Stop 07/13/16 at 17:29; Status DC Rocuronium Duarte (Zemuron) 50 mg STK-MED ONCE .ROUTE ; Start 07/13/16 at 16:50 ; Stop 07/13/16 at 16:51; Status DC Propofol 50 ml @ 0 mls/hr CONT PRN IV SEE I/O RECORD Last administered on 15:30; Start 07/13/16 at 18:00; Stop 07/14/16 at 07:08; Status DC Fentanyl Citrate (Fentanyl 2ml Vial) 25 mcg PRN Q1HR PRN IV COMM Last administered on 07/17/16 12:16; Start 07/13/16 at 21:15 Fentanyl Citrate (Fentanyl 2ml Vial) 50 mcg PRN Q1HR PRN IV COMM Last administered on 07/14/16 23:01; Start 07/13/16 at 21:15 Chlorhexidine Gluconate (Peridex) 15 ml BID MM Last administered on 07/18/16 08 :53; Start 07/14/16 at 09:00 Dextrose/Sodium Chloride 1,000 ml @ 125 mls/hr 1X ONCE IV Last administered on 07/14/16 03:33; Start 07/14/16 at 03:30; Stop 07/14/16 at 11:29; Status DC Acetaminophen (Acetaminophen Supp) 650 mg PRN Q6HRS PRN [place] MILD PAIN / TEMP Last administered on 07/14/16 08:21; Start 07/14/16 at 08:00 Dextrose/Sodium Chloride 1,000 ml @ 100 mls/hr Q10H IV Last administered on 09:54; Start 07/14/16 at 09:15 Enoxaparin Sodium (Lovenox 40mg Syringe) 40 mg Q24H SQ Last administered on 07/18 11:18; Start 07/14/16 at 11:00 Famotidine (Pepcid) 20 mg QHS IVP Last administered on 07/17/16 21:25; Start at 21:00 Quetiapine Fumarate (SEROquel) 100 mg DAILY08 NG Last administered on 07/18/16 08:51; Start 07/15/16 at 15:00 Quetiapine Fumarate (SEROquel) 200 mg QHS NG Last administered on 07/17/16 21: 24; Start 07/15/16 at 21:00 Furosemide (Lasix) 20 mg 1X ONCE IVP Last administered on 07/17/16 11:18; Start 07/17/16 at 11:00; Stop 07/17/16 at 11:01; Status DC Sodium Chloride (Normal Saline Flush) 10 ml QSHIFT PRN IV AFTER MEDS AND BLOOD DRAWS; Start 07/17/16 at 11:00 Sodium Chloride (Normal Saline Flush) 20 ml QSHIFT PRN IV AFTER MEDS AND BLOOD DRAWS; Start 07/17/16 at 11:00 Active Scripts Active Cipro (Ciprofloxacin Hcl) 250 Mg Tablet 1 Tab PO BID Reported Seroquel (Quetiapine Fumarate) 100 Mg Tablet 1 Tab PO DAILY08 Meloxicam 15 Mg Tablet 1 Tab PO DAILY Seroquel (Quetiapine Fumarate) 200 Mg Tablet 1 Tab PO QHS Vitals/I & O Vital Sign - Last 24 Hours 07/17/16 07/17/16 07/17/16 07/17/16 12:00 12:00 12:16 12:45 Temp 99.4 99.4 Pulse 74 Resp 16 16 16 B/P (MAP) 97/66 (76) Pulse Ox 100 100 100 O2 Delivery Ventilator Mechanical Ventilator Ventilator Ventilator 07/17/16 07/17/16 07/17/16 07/17/16 13:00 13:26 14:00 15:00 Pulse 72 73 69 Resp 14 18 12 B/P (MAP) 106/64 (78) 113/57 (75) 94/49 (64) Pulse Ox 100 100 100 100 O2 Delivery Ventilator Ventilator Ventilator Ventilator 07/17/16 07/17/16 07/17/16 07/17/16 15:06 16:00 16:00 17:00 Pulse 75 74 Resp 18 17 B/P (MAP) 110/58 (75) 96/56 (69) Pulse Ox 100 100 100 O2 Delivery Ventilator Ventilator Mechanical Ventilator Ventilator 07/17/16 07/17/16 07/17/16 07/17/16 17:17 18:00 19:00 19:39 Pulse 71 72 Resp 14 14 B/P (MAP) 103/55 (71) 110/56 (74) Pulse Ox 100 100 100 94 O2 Delivery Ventilator Ventilator Ventilator Ventilator 07/17/16 07/17/16 07/17/16 07/17/16 20:00 20:00 21:00 22:00 Temp 99.2 99.2 Pulse 81 70 77 Resp 14 14 14 B/P (MAP) 108/57 (74) 114/66 (82) 121/67 (85) Pulse Ox 100 100 100 O2 Delivery Ventilator Mechanical Ventilator Ventilator Ventilator 07/17/16 07/17/16 07/17/16 07/17/16 23:00 23:29 23:59 23:59 Temp 98.9 98.9 Pulse 74 72 Resp 14 14 B/P (MAP) 114/61 (78) 102/51 (68) Pulse Ox 100 100 100 O2 Delivery Ventilator Ventilator Mechanical Ventilator Ventilator 07/18/16 07/18/16 07/18/16 07/18/16 01:00 01:42 02:00 03:00 Pulse 72 76 76 Resp 14 14 14 B/P (MAP) 93/50 (64) 95/53 (67) 100/53 (69) Pulse Ox 100 100 99 99 O2 Delivery Ventilator Ventilator Ventilator Ventilator 07/18/16 07/18/16 07/18/16 07/18/16 03:45 04:00 04:00 05:00 Temp 98.1 98.1 Pulse 78 67 Resp 14 14 B/P (MAP) 112/64 (80) 112/64 (80) Pulse Ox 100 100 100 O2 Delivery Ventilator Mechanical Ventilator Ventilator Ventilator 07/18/16 07/18/16 07/18/16 07/18/16 05:45 06:00 07:00 07:17 Pulse 72 66 Resp 14 14 B/P (MAP) 105/57 (73) 95/56 (69) Pulse Ox 100 100 100 99 O2 Delivery Ventilator Ventilator Ventilator Ventilator 07/18/16 07/18/16 07/18/16 07/18/16 08:03 08:12 08:49 09:27 Temp 98.7 98.7 Pulse 65 81 Resp 15 23 B/P (MAP) 120/73 (89) 149/73 (98) Pulse Ox 100 99 99 O2 Delivery Ventilator Mechanical Ventilator Ventilator Ventilator 07/18/16 07/18/16 07/18/16 07/18/16 09:30 10:04 11:09 11:19 Pulse 90 87 Resp 17 22 B/P (MAP) 111/60 (77) 141/78 (99) Pulse Ox 99 98 99 100 O2 Delivery Ventilator Ventilator Ventilator Ventilator 07/18/16 11:42 O2 Delivery Mechanical Ventilator Intake and Output 07/17/16 07/17/16 07/18/16 14:59 22:59 06:59 Intake Total 420 ml 2549 ml 2108 ml Output Total 1350 ml 725 ml 840 ml Balance -930 ml 1824 ml 1268 ml TEX MCMANUS MD July 18, 2016 12:00
[2016-07-18] MEDS ORDERED: metroNIDAZOLE 500 MG TABLET PEG SCH (13:00)
[2016-07-18 13:08] LABS: FIO2 ABG 40; HCO3 ABG 30 mmol/L (21-28); PCO2 ABG 50 mmHg (35-46); PO2 ABG 81 mmHg (75-108); SAT O2 ABG 95 % (92-99)
[2016-07-18] MEDS: FAMOTIDINE 20 MG/2 ML VIAL IVP SCH (21:25)
[2016-07-19] VITALS (12 sets, daily range): BP systolic 98–131; BP diastolic 53–78
--- NOTE | 2016-07-19 08:15 | PDOC ---
PULMONARY PROGRESS NOTES Subjective extubated, 07/18, on 02, sob better. has cough, no pain, has snoring and eds Vitals Vital Signs Date Time Temp Pulse Resp B/P (MAP) Pulse Ox O2 Delivery O2 Flow Rate FiO2 07/19/16 07:00 93 26 118/64 (82) 96 Nasal Cannula 2.0 07/19/16 04:00 99.0 99.0 Comments ros as mentioned as above discussed w rn, other sys otherwise neg ROS: No Nausea, No Chest Pain, No Abdominal Pain General: Alert HEENT: Other (nc at perrl, nose clear, orally intubated) Lungs: Crackles, Other (decrease bs, no wheeze or rhonchi) Cardiovascular: S1, S2 Abdomen: Soft, Non-tender, Other (no mass) Neuro Exam: Alert, Oriented Extremities: No Edema Skin: Warm Labs Laboratory Tests Test 07/17/16 11:00 07/18/16 05:50 07/18/16 08:54 07/18/16 11:43 White Blood Count 13.9 x10^3/uL (4.0-11.0) Red Blood Count 2.95 x10^6/uL (3.50-5.40) Hemoglobin 9.5 g/dL (12.0-15.5) Hematocrit 29.7 % (36.0-47.0) Mean Corpuscular Volume 101 fL (79-100) Mean Corpuscular Hemoglobin 32 pg (25-35) Mean Corpuscular Hemoglobin Concent 32 g/dL (31-37) Red Cell Distribution Width 19.3 % (11.5-14.5) Platelet Count 70 x10^3/uL (140-400) Sodium Level 148 mmol/L (136-145) 142 mmol/L (136-145) Potassium Level 4.3 mmol/L (3.5-5.1) 4.2 mmol/L (3.5-5.1) Chloride Level 112 mmol/L (98-107) 107 mmol/L (98-107) Carbon Dioxide Level 31 mmol/L (21-32) 31 mmol/L (21-32) Anion Gap 5 (6-14) 4 (6-14) Blood Urea Nitrogen 15 mg/dL (7-20) 14 mg/dL (7-20) Creatinine 0.9 mg/dL (0.6-1.0) 0.9 mg/dL (0.6-1.0) Estimated GFR (Cockcroft-Gault) 77.8 77.8 Glucose Level 158 mg/dL (70-99) 122 mg/dL (70-99) Calcium Level 7.2 mg/dL (8.5-10.1) 7.9 mg/dL (8.5-10.1) O2 Saturation 91 % (92-99) 95 % (92-99) Arterial Blood pH 7.41 (7.35-7.45) 7.40 (7.35-7.45) Arterial Blood pCO2 at Patient Temp 46 mmHg (35-46) 50 mmHg (35-46) Arterial Blood pO2 at Patient Temp 67 mmHg (75-108) 81 mmHg (75-108) Arterial Blood HCO3 29 mmol/L (21-28) 30 mmol/L (21-28) Arterial Blood Base Excess 3 mmol/L (-3-3) 5 mmol/L (-3-3) FiO2 40 40 Laboratory Tests Test 07/18/16 08:54 07/18/16 11:43 O2 Saturation 91 % (92-99) 95 % (92-99) Arterial Blood pH 7.41 (7.35-7.45) 7.40 (7.35-7.45) Arterial Blood pCO2 at Patient Temp 46 mmHg (35-46) 50 mmHg (35-46) Arterial Blood pO2 at Patient Temp 67 mmHg (75-108) 81 mmHg (75-108) Arterial Blood HCO3 29 mmol/L (21-28) 30 mmol/L (21-28) Arterial Blood Base Excess 3 mmol/L (-3-3) 5 mmol/L (-3-3) FiO2 40 40 Medications Active Scripts Medications Dose Route/Sig Days Date Category Seroquel (Quetiapine Fumarate) 100 Mg Tablet 1 Tab PO DAILY08 07/14/16 Reported Meloxicam 15 Mg Tablet 1 Tab PO DAILY 07/14/16 Reported Seroquel (Quetiapine Fumarate) 200 Mg Tablet 1 Tab PO QHS 07/14/16 Reported Cipro (Ciprofloxacin Hcl) 250 Mg Tablet 1 Tab PO BID 04/07/16 Rx Comments cxr reviewed, There is a moderate unchanged left basilar opacity compatible with left lower lobe consolidation and atelectasis. A component of pleural fluid cannot be excluded. There is minimal right basilar atelectasis. Impression . 1. Acute respiratory failure secondary to acute encephalopathy and sepsis. 2. Acute encephalopathy secondary to sepsis. 3. High-grade fever and markedly elevated white cell count, suspect underlying sepsis. Fever improved 4. Abnormal chest x-ray with some rounded density in the right perihilar area and some mediastinal fullness. CT chest with no mass 5. encephalopathy, LP neg, resolved 6. obesity, snoring, eds, prob yan Plan . 1. 02 titration 2. Broad-spectrum antibiotics, stopped by id. monitor off abx 3. Infectious Disease recommendations. 4. Follow all cultures, neg. 5. Lumbar puncture neg 6. Noncontrast CT chest reviewed. pulmonary HTN/ atelectasis 7. Deep venous thrombosis prophylaxis. 8. Stress ulcer prophylaxis. 10. elevate hob 11. psg as out pt Discussed with RN and RT. TABBY JOHNSON MD July 19, 2016 08:15
--- NOTE | 2016-07-19 08:29 | PDOC ---
Infectious Disease Note Subjective Subjective Extubated yesterday. Now on 2LNC O2 Tolerating clear liquids No BM No fever last 24 hours Feeling weak but doing ok ROS ROS GEN: Denies fevers, chills, sweats CV: Denies chest pain RESP: Denies shortness of air, cough GI: Denies n/v/d NEURO: Denies confusion, dizziness Vital Sign Vital Signs Vital Signs Date Time Temp Pulse Resp B/P (MAP) Pulse Ox O2 Delivery O2 Flow Rate FiO2 07/19/16 07:00 93 26 118/64 (82) 96 Nasal Cannula 2.0 07/19/16 04:00 99.0 99.0 Physical Exam PHYSICAL EXAM GENERAL: Alert, up in the chair, relaxed appearance HEENT: Pupils equally round, OP/OC pink, NECK: Supple LUNGS: CTAB, nonlabored HEART: S1S2 ABD: Obese, BS present, soft, NT : Escalera EXT: No gross edema or cyanosis 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 clean Labs Lab Laboratory Tests Test 07/18/16 08:54 07/18/16 11:43 O2 Saturation 91 % (92-99) 95 % (92-99) Arterial Blood pH 7.41 (7.35-7.45) 7.40 (7.35-7.45) Arterial Blood pCO2 at Patient Temp 46 mmHg (35-46) 50 mmHg (35-46) Arterial Blood pO2 at Patient Temp 67 mmHg (75-108) 81 mmHg (75-108) Arterial Blood HCO3 29 mmol/L (21-28) 30 mmol/L (21-28) Arterial Blood Base Excess 3 mmol/L (-3-3) 5 mmol/L (-3-3) FiO2 40 40 Micro BLOOD CULTURE Preliminary NO GROWTH AFTER 4 DAYS CSF GRAM STAIN Final WBCS OCCASIONAL RBCS FEW ORGANISMS NONE SEEN ANAEROBIC-AEROBIC CULTURE Final Final report ANAEROBIC RES 1 Final Comment No anaerobic growth in 72 hours. AEROBIC CULT Final Final report AEROBIC RES 1 Final Comment No growth in 56 - 72 hours. URINE CULTURE Final Final report URINE CULTURE RES 1 Final Comment Culture shows less than 10,000 colony forming units of bacteria per milliliter of urine. This colony count is not generally considered to be clinically significant. URINE CULTURE RES 2 Final Gardnerella vaginalis Greater than 100,000 colony forming units per mL Presumptive identification Objective Assessment Fever improved Gardnerella in urine Encephalopathy, CSF neg, traumatic tap, improved Respiratory failure s/p extubation, 5/ Leukocytosis, improved h/o depression Obesity CHF Plan Plan of Care Flagyl 500 mg BID times 7 days End 07/25 Cultures negative except Gardnerella Supportive care ID to sign off Attending Co-Sign Attending Co-Sign The patient was seen and interviewed as well as examined at the bedside. The chart was reviewed. The case was discussed. Agree with the plan of care. BHARGAVI DARNELL APRN July 19, 2016 08:28 QUIN ASHFORD MD July 19, 2016 14:23
[2016-07-19] MEDS: CHLORHEXIDINE 0.12% 15 ML MOUTHWASH. MM SCH (09:00)
[2016-07-19] MEDS: metroNIDAZOLE 500 MG TABLET PO SCH ×3 (09:23→22:36)
[2016-07-19] MEDS: QUEtiapine 100 MG TABLET. NG SCH ×3 (09:23→22:36)
[2016-07-19] MEDS: IV DEXTROSE 5 %-0.2 % NACL 1,000 ML IV SCH (09:24)
--- NOTE | 2016-07-19 10:57 | PDOC ---
PROGRESS NOTES Chief Complaint Chief Complaint cc: acute hypoxic resp failure altered mental status hypernatremia Sepsis Acute metabolic encephalopathy Hx Depression High Cholesterol History of Present Illness History of Present Illness much more awake today, extubated, up to chair, talkative, pleasant Vitals Vitals Vital Signs Date Time Temp Pulse Resp B/P (MAP) Pulse Ox O2 Delivery O2 Flow Rate FiO2 07/19/16 10:05 100 30 98/53 (68) 96 Nasal Cannula 3.0 07/19/16 04:00 99.0 99.0 Physical Exam General: Alert, Oriented X3, Cooperative, No acute distress, Other (sedated) Heart: Regular rate, Normal S1, Normal S2 Lungs: Crackles, Other (decrease bs, no wheeze or rhonchi) Abdomen: Normal bowel sounds, Soft Extremities: No clubbing, No cyanosis Skin: No rashes, No breakdown Labs LABS Laboratory Tests Test 07/18/16 11:43 O2 Saturation 95 % (92-99) Arterial Blood pH 7.40 (7.35-7.45) Arterial Blood pCO2 at Patient Temp 50 mmHg (35-46) Arterial Blood pO2 at Patient Temp 81 mmHg (75-108) Arterial Blood HCO3 30 mmol/L (21-28) Arterial Blood Base Excess 5 mmol/L (-3-3) FiO2 40 Review of Systems Review of Systems no n.vd. Assessment and Plan Assessmemt and Plan transfer to floor pt and Ot Cb coffman Problems Medical Problems: (1) Sepsis Status: Acute (2) Sepsis Status: Acute Problems: Comment Review of Relevant I have reviewed the following items quentin (where applicable) has been applied. Labs Laboratory Tests Test 07/17/16 11:00 07/18/16 05:50 07/18/16 08:54 07/18/16 11:43 White Blood Count 13.9 x10^3/uL (4.0-11.0) Red Blood Count 2.95 x10^6/uL (3.50-5.40) Hemoglobin 9.5 g/dL (12.0-15.5) Hematocrit 29.7 % (36.0-47.0) Mean Corpuscular Volume 101 fL (79-100) Mean Corpuscular Hemoglobin 32 pg (25-35) Mean Corpuscular Hemoglobin Concent 32 g/dL (31-37) Red Cell Distribution Width 19.3 % (11.5-14.5) Platelet Count 70 x10^3/uL (140-400) Sodium Level 148 mmol/L (136-145) 142 mmol/L (136-145) Potassium Level 4.3 mmol/L (3.5-5.1) 4.2 mmol/L (3.5-5.1) Chloride Level 112 mmol/L (98-107) 107 mmol/L (98-107) Carbon Dioxide Level 31 mmol/L (21-32) 31 mmol/L (21-32) Anion Gap 5 (6-14) 4 (6-14) Blood Urea Nitrogen 15 mg/dL (7-20) 14 mg/dL (7-20) Creatinine 0.9 mg/dL (0.6-1.0) 0.9 mg/dL (0.6-1.0) Estimated GFR (Cockcroft-Gault) 77.8 77.8 Glucose Level 158 mg/dL (70-99) 122 mg/dL (70-99) Calcium Level 7.2 mg/dL (8.5-10.1) 7.9 mg/dL (8.5-10.1) O2 Saturation 91 % (92-99) 95 % (92-99) Arterial Blood pH 7.41 (7.35-7.45) 7.40 (7.35-7.45) Arterial Blood pCO2 at Patient Temp 46 mmHg (35-46) 50 mmHg (35-46) Arterial Blood pO2 at Patient Temp 67 mmHg (75-108) 81 mmHg (75-108) Arterial Blood HCO3 29 mmol/L (21-28) 30 mmol/L (21-28) Arterial Blood Base Excess 3 mmol/L (-3-3) 5 mmol/L (-3-3) FiO2 40 40 Laboratory Tests Test 07/18/16 11:43 O2 Saturation 95 % (92-99) Arterial Blood pH 7.40 (7.35-7.45) Arterial Blood pCO2 at Patient Temp 50 mmHg (35-46) Arterial Blood pO2 at Patient Temp 81 mmHg (75-108) Arterial Blood HCO3 30 mmol/L (21-28) Arterial Blood Base Excess 5 mmol/L (-3-3) FiO2 40 Microbiology 07/13/16 Blood Culture - Final, Complete NO GROWTH AFTER 5 DAYS 07/13/16 Anaerobic/Aerobic Culture - Final, Complete 07/13/16 Anaerobic Culture Result 1 ([facility]) - Final, Complete 07/13/16 Aerobic Culture - Final, Complete 07/13/16 Aerobic Culture Result 1 (WE[facility]) - Final, Complete 07/17/16 Sputum Culture - Preliminary, Resulted 07/17/16 Sputum Result 1 - Preliminary, Resulted 07/13/16 Urine Culture - Final, Complete 07/13/16 Urine Culture Result 1 (WEST) - Final, Complete 07/13/16 Urine Culture Result 2 ([facility]) - Final, Complete Medications Current Medications Haloperidol Lactate (Haldol) 5 mg 1X ONCE IVP Last administered on 07/13/16 12 :34; Start 07/13/16 at 12:30; Stop 07/13/16 at 12:31; Status DC Sodium Chloride 1,000 ml @ 1,000 mls/hr 1X ONCE IV Last administered on 14:06; Start 07/13/16 at 13:00; Stop 07/13/16 at 13:59; Status DC Sodium Chloride 1,000 ml @ 1,000 mls/hr 1X ONCE IV Last administered on 14:06; Start 07/13/16 at 13:45; Stop 07/13/16 at 14:44; Status DC Haloperidol Lactate (Haldol) 5 mg 1X ONCE IVP Last administered on 07/13/16 14 :20; Start 07/13/16 at 14:15; Stop 07/13/16 at 14:17; Status DC Etomidate (Amidate) 20 mg 1X ONCE IV Last administered on 07/13/16 14:35; Start 07/13/16 at 14:30; Stop 07/13/16 at 14:31; Status DC Lorazepam (Ativan) 2 mg STK-MED ONCE .ROUTE ; Start 07/13/16 at 14:43; Stop at 14:44; Status DC Levofloxacin/ Dextrose 150 ml @ 100 mls/hr 1X ONCE IV ; Start 07/13/16 at 15:00 ; Stop 07/13/16 at 15:00; Status DC Ceftriaxone Sodium 2 gm/ Sodium Chloride 100 ml @ 200 mls/hr Q24H IV ; Start at 15:00; Stop 07/13/16 at 15:00; Status DC Vancomycin HCl 1.25 gm/Sodium Chloride 250 ml @ 166.667 mls/hr 1X ONCE IV Last administered on 07/13/16 16:32; Start 07/13/16 at 15:00; Stop 07/13/16 at 16: 29; Status DC Meropenem 1 gm/ Sodium Chloride 100 ml @ 200 mls/hr Q8HRS IV Last administered on 07/17/16 05:24; Start 07/13/16 at 22:00; Stop 07/17/16 at 08:25; Status DC Meropenem 1 gm/ Sodium Chloride 100 ml @ 200 mls/hr 1X ONCE IV Last administered on 07/13/16 15:39; Start 07/13/16 at 15:00; Stop 07/13/16 at 15:29; Status DC Propofol 50 ml @ As Directed STK-MED ONCE IV ; Start 07/13/16 at 15:15; Stop 07/13 at 15:16; Status DC Lorazepam (Ativan) 2 mg 1X ONCE IV Last administered on 07/13/16 14:44; Start 07/13/16 at 15:45; Stop 07/13/16 at 15:46; Status DC Dextrose/Sodium Chloride 1,000 ml @ 125 mls/hr 1X ONCE IV Last administered on 07/13/16 18:25; Start 07/13/16 at 15:45; Stop 07/13/16 at 23:44; Status DC Propofol 100 ml @ 0 mls/hr CONT PRN IV SEE I/O RECORD Last administered on 05:11; Start 07/13/16 at 15:45 Sodium Chloride 1,000 ml @ 1,000 mls/hr 1X ONCE IV Last administered on 16:30; Start 07/13/16 at 16:30; Stop 07/13/16 at 17:29; Status DC Rocuronium [place] (Zemuron) 50 mg STK-MED ONCE .ROUTE ; Start 07/13/16 at 16:50 ; Stop 07/13/16 at 16:51; Status DC Propofol 50 ml @ 0 mls/hr CONT PRN IV SEE I/O RECORD Last administered on 15:30; Start 07/13/16 at 18:00; Stop 07/14/16 at 07:08; Status DC Fentanyl Citrate (Fentanyl 2ml Vial) 25 mcg PRN Q1HR PRN IV COMM Last administered on 07/17/16 12:16; Start 07/13/16 at 21:15; Stop 07/19/16 at 09:06; Status DC Fentanyl Citrate (Fentanyl 2ml Vial) 50 mcg PRN Q1HR PRN IV COMM Last administered on 07/14/16 23:01; Start 07/13/16 at 21:15; Stop 07/19/16 at 09:06; Status DC Chlorhexidine Gluconate (Peridex) 15 ml BID MM Last administered on 07/18/16 08 :53; Start 07/14/16 at 09:00; Stop 07/19/16 at 09:06; Status DC Dextrose/Sodium Chloride 1,000 ml @ 125 mls/hr 1X ONCE IV Last administered on 07/14/16 03:33; Start 07/14/16 at 03:30; Stop 07/14/16 at 11:29; Status DC Acetaminophen (Acetaminophen Supp) 650 mg PRN Q6HRS PRN [place] MILD PAIN / TEMP Last administered on 07/14/16 08:21; Start 07/14/16 at 08:00 Dextrose/Sodium Chloride 1,000 ml @ 100 mls/hr Q10H IV Last administered on 09:24; Start 07/14/16 at 09:15 Enoxaparin Sodium (Lovenox 40mg Syringe) 40 mg Q24H SQ Last administered on 07/18 11:18; Start 07/14/16 at 11:00 Famotidine (Pepcid) 20 mg QHS IVP Last administered on 07/18/16 21:25; Start at 21:00 Quetiapine Fumarate (SEROquel) 100 mg DAILY08 NG Last administered on 07/19/16 09:23; Start 07/15/16 at 15:00 Quetiapine Fumarate (SEROquel) 200 mg QHS NG Last administered on 07/17/16 21: 24; Start 07/15/16 at 21:00 Furosemide (Lasix) 20 mg 1X ONCE IVP Last administered on 07/17/16 11:18; Start 07/17/16 at 11:00; Stop 07/17/16 at 11:01; Status DC Sodium Chloride (Normal Saline Flush) 10 ml QSHIFT PRN IV AFTER MEDS AND BLOOD DRAWS; Start 07/17/16 at 11:00 Sodium Chloride (Normal Saline Flush) 20 ml QSHIFT PRN IV AFTER MEDS AND BLOOD DRAWS; Start 07/17/16 at 11:00 Metronidazole (Flagyl) 500 mg Q12HR PEG ; Start 07/18/16 at 13:00; Stop 07/18/16 at 13:28; Status DC Metronidazole 100 ml @ 100 mls/hr Q12HR IV Last administered on 07/18/16 21:25 ; Start 07/18/16 at 14:00; Stop 07/19/16 at 09:08; Status DC Metronidazole (Flagyl) 500 mg Q12HR PO Last administered on 07/19/16 09:23; Start 07/19/16 at 10:00 Active Scripts Active Cipro (Ciprofloxacin Hcl) 250 Mg Tablet 1 Tab PO BID Reported Seroquel (Quetiapine Fumarate) 100 Mg Tablet 1 Tab PO DAILY08 Meloxicam 15 Mg Tablet 1 Tab PO DAILY Seroquel (Quetiapine Fumarate) 200 Mg Tablet 1 Tab PO QHS Vitals/I & O Vital Sign - Last 24 Hours 07/18/16 07/18/16 07/18/16 07/18/16 11:09 11:19 11:42 12:01 Pulse 87 93 Resp 22 23 B/P (MAP) 141/78 (99) 125/70 (88) Pulse Ox 99 100 99 O2 Delivery Ventilator Ventilator Mechanical Ventilator Ventilator 07/18/16 07/18/16 07/18/16 07/18/16 12:03 13:02 14:19 15:10 Temp 98.2 98.2 Pulse 90 91 90 Resp 28 21 24 B/P (MAP) 115/71 (86) 118/65 (82) 110/64 (79) Pulse Ox 99 96 96 98 O2 Delivery Ventilator Nasal Cannula Nasal Cannula Nasal Cannula O2 Flow Rate 3.0 2.0 2.0 07/18/16 07/18/16 07/18/16 07/18/16 16:08 16:10 17:00 18:16 Temp 98.5 98.5 Pulse 91 90 86 Resp 32 25 24 B/P (MAP) 111/58 (75) 123/67 (85) 114/65 (81) Pulse Ox 95 96 97 O2 Delivery Nasal Cannula Nasal Cannula Nasal Cannula Room Air O2 Flow Rate 2.0 2.0 2.0 07/18/16 07/18/16 07/18/16 07/18/16 19:00 20:00 20:00 21:00 Temp 98.7 98.7 Pulse 86 92 92 Resp 25 24 29 B/P (MAP) 140/63 (88) 134/71 (92) 111/59 (76) Pulse Ox 96 98 96 O2 Delivery Nasal Cannula Nasal Cannula Nasal Cannula Nasal Cannula O2 Flow Rate 2.0 2.0 2.0 2.0 07/18/16 07/18/16 07/18/16 07/18/16 22:00 23:00 23:59 23:59 Pulse 93 88 89 Resp 29 18 26 B/P (MAP) 126/60 (82) 113/51 (71) 110/55 (73) Pulse Ox 98 98 98 O2 Delivery Nasal Cannula Nasal Cannula Nasal Cannula Nasal Cannula O2 Flow Rate 2.0 2.0 2.0 2.0 07/19/16 07/19/16 07/19/16 07/19/16 01:00 02:00 03:00 04:00 Pulse 115 92 90 Resp 25 19 29 B/P (MAP) 118/61 (80) 99/63 (75) 119/65 (83) Pulse Ox 97 96 96 O2 Delivery Nasal Cannula Nasal Cannula Nasal Cannula Nasal Cannula O2 Flow Rate 2.0 2.0 2.0 2.0 07/19/16 07/19/16 07/19/16 07/19/16 04:00 05:00 06:00 07:00 Temp 99.0 99.0 Pulse 90 91 89 93 Resp 28 28 29 26 B/P (MAP) 114/61 (78) 115/64 (81) 130/66 (87) 118/64 (82) Pulse Ox 96 96 97 96 O2 Delivery Nasal Cannula Nasal Cannula Nasal Cannula Nasal Cannula O2 Flow Rate 2.0 2.0 2.0 2.0 07/19/16 07/19/16 07/19/16 08:00 09:00 10:05 Pulse 90 100 Resp 33 30 B/P (MAP) 131/75 (93) 98/53 (68) Pulse Ox 93 96 O2 Delivery Nasal Cannula Nasal Cannula Nasal Cannula O2 Flow Rate 3.0 2.0 3.0 Intake and Output 07/18/16 07/18/16 07/19/16 15:00 23:00 07:00 Intake Total 1141 ml 2575 ml 1092 ml Output Total 1355 ml 1025 ml 830 ml Balance -214 ml 1550 ml 262 ml TEX MCMANUS MD July 19, 2016 10:57
[2016-07-19] MEDS: ENOXAPARIN 40 MG/0.4 ML SYRINGE. SQ SCH (11:18)
--- NOTE | 2016-07-19 16:24 | PDOC2 ---
NEUROLOGY CONSULT Date of Admission Date of Admission DATE: 07/19/16 TIME: 16:17 Reason for Consult Reason for Consult: Tremors Referring Physician Referring Physician: Dr. Celeste Source Source: Chart review, Patient History of Present Illness History of Present Illness The patient is a 60-year-old right-handed female admitted 6 days ago after having been found unresponsive at her own home, found by a neighbor (Dr Jr' s H&P is incorrect, she was NOT found at the [facility] geriatric psychiatry unit). I do not have access to their records. At admission she underwent a CT of the head which was negative, as well as a lumbar puncture, consistent with traumatic tap. She had sepsis syndrome and was intubated. She was just extubated yesterday. She had an episode of hypoxia when she took off her mask this afternoon and the nurse has noticed some tremors since. These have resolved. There is no history of stroke, tremors, seizure, or head injury. She has also had acute renal failure, resolved, and hypernatremia, resolved, during this admission Past Medical History Cardiovascular: HTN Psych: Depression Past Surgical History Past Surgical History: No pertinent history Family History Family History: CAD Social History Social History Single, no alcohol or tobacco Current Medications Current Medications Current Medications Haloperidol Lactate (Haldol) 5 mg 1X ONCE IVP Last administered on 07/13/16 12 :34; Start 07/13/16 at 12:30; Stop 07/13/16 at 12:31; Status DC Sodium Chloride 1,000 ml @ 1,000 mls/hr 1X ONCE IV Last administered on 14:06; Start 07/13/16 at 13:00; Stop 07/13/16 at 13:59; Status DC Sodium Chloride 1,000 ml @ 1,000 mls/hr 1X ONCE IV Last administered on 14:06; Start 07/13/16 at 13:45; Stop 07/13/16 at 14:44; Status DC Haloperidol Lactate (Haldol) 5 mg 1X ONCE IVP Last administered on 07/13/16 14 :20; Start 07/13/16 at 14:15; Stop 07/13/16 at 14:17; Status DC Etomidate (Amidate) 20 mg 1X ONCE IV Last administered on 07/13/16 14:35; Start 07/13/16 at 14:30; Stop 07/13/16 at 14:31; Status DC Lorazepam (Ativan) 2 mg STK-MED ONCE .ROUTE ; Start 07/13/16 at 14:43; Stop at 14:44; Status DC Levofloxacin/ Dextrose 150 ml @ 100 mls/hr 1X ONCE IV ; Start 07/13/16 at 15:00 ; Stop 07/13/16 at 15:00; Status DC Ceftriaxone Sodium 2 gm/ Sodium Chloride 100 ml @ 200 mls/hr Q24H IV ; Start at 15:00; Stop 07/13/16 at 15:00; Status DC Vancomycin HCl 1.25 gm/Sodium Chloride 250 ml @ 166.667 mls/hr 1X ONCE IV Last administered on 07/13/16 16:32; Start 07/13/16 at 15:00; Stop 07/13/16 at 16: 29; Status DC Meropenem 1 gm/ Sodium Chloride 100 ml @ 200 mls/hr Q8HRS IV Last administered on 07/17/16 05:24; Start 07/13/16 at 22:00; Stop 07/17/16 at 08:25; Status DC Meropenem 1 gm/ Sodium Chloride 100 ml @ 200 mls/hr 1X ONCE IV Last administered on 07/13/16 15:39; Start 07/13/16 at 15:00; Stop 07/13/16 at 15:29; Status DC Propofol 50 ml @ As Directed STK-MED ONCE IV ; Start 07/13/16 at 15:15; Stop 07/13 at 15:16; Status DC Lorazepam (Ativan) 2 mg 1X ONCE IV Last administered on 07/13/16 14:44; Start 07/13/16 at 15:45; Stop 07/13/16 at 15:46; Status DC Dextrose/Sodium Chloride 1,000 ml @ 125 mls/hr 1X ONCE IV Last administered on 07/13/16 18:25; Start 07/13/16 at 15:45; Stop 07/13/16 at 23:44; Status DC Propofol 100 ml @ 0 mls/hr CONT PRN IV SEE I/O RECORD Last administered on 05:11; Start 07/13/16 at 15:45 Sodium Chloride 1,000 ml @ 1,000 mls/hr 1X ONCE IV Last administered on 16:30; Start 07/13/16 at 16:30; Stop 07/13/16 at 17:29; Status DC Rocuronium [place] (Zemuron) 50 mg STK-MED ONCE .ROUTE ; Start 07/13/16 at 16:50 ; Stop 07/13/16 at 16:51; Status DC Propofol 50 ml @ 0 mls/hr CONT PRN IV SEE I/O RECORD Last administered on 15:30; Start 07/13/16 at 18:00; Stop 07/14/16 at 07:08; Status DC Fentanyl Citrate (Fentanyl 2ml Vial) 25 mcg PRN Q1HR PRN IV COMM Last administered on 07/17/16 12:16; Start 07/13/16 at 21:15; Stop 07/19/16 at 09:06; Status DC Fentanyl Citrate (Fentanyl 2ml Vial) 50 mcg PRN Q1HR PRN IV COMM Last administered on 07/14/16 23:01; Start 07/13/16 at 21:15; Stop 07/19/16 at 09:06; Status DC Chlorhexidine Gluconate (Peridex) 15 ml BID MM Last administered on 07/19/16 09 :00; Start 07/14/16 at 09:00; Stop 07/19/16 at 09:06; Status DC Dextrose/Sodium Chloride 1,000 ml @ 125 mls/hr 1X ONCE IV Last administered on 07/14/16 03:33; Start 07/14/16 at 03:30; Stop 07/14/16 at 11:29; Status DC Acetaminophen (Acetaminophen Supp) 650 mg PRN Q6HRS PRN [place] MILD PAIN / TEMP Last administered on 07/14/16 08:21; Start 07/14/16 at 08:00 Dextrose/Sodium Chloride 1,000 ml @ 100 mls/hr Q10H IV Last administered on 09:24; Start 07/14/16 at 09:15; Stop 07/19/16 at 15:45; Status DC Enoxaparin Sodium (Lovenox 40mg Syringe) 40 mg Q24H SQ Last administered on 07/19 11:18; Start 07/14/16 at 11:00 Famotidine (Pepcid) 20 mg QHS IVP Last administered on 07/18/16 21:25; Start at 21:00 Quetiapine Fumarate (SEROquel) 100 mg DAILY08 NG Last administered on 07/19/16 09:23; Start 07/15/16 at 15:00 Quetiapine Fumarate (SEROquel) 200 mg QHS NG Last administered on 07/17/16 21: 24; Start 07/15/16 at 21:00 Furosemide (Lasix) 20 mg 1X ONCE IVP Last administered on 07/17/16 11:18; Start 07/17/16 at 11:00; Stop 07/17/16 at 11:01; Status DC Sodium Chloride (Normal Saline Flush) 10 ml QSHIFT PRN IV AFTER MEDS AND BLOOD DRAWS; Start 07/17/16 at 11:00 Sodium Chloride (Normal Saline Flush) 20 ml QSHIFT PRN IV AFTER MEDS AND BLOOD DRAWS; Start 07/17/16 at 11:00 Metronidazole (Flagyl) 500 mg Q12HR PEG ; Start 07/18/16 at 13:00; Stop 07/18/16 at 13:28; Status DC Metronidazole 100 ml @ 100 mls/hr Q12HR IV Last administered on 07/18/16 21:25 ; Start 07/18/16 at 14:00; Stop 07/19/16 at 09:08; Status DC Metronidazole (Flagyl) 500 mg Q12HR PO Last administered on 07/19/16 09:23; Start 07/19/16 at 10:00 Active Scripts Active Cipro (Ciprofloxacin Hcl) 250 Mg Tablet 1 Tab PO BID Reported Seroquel (Quetiapine Fumarate) 100 Mg Tablet 1 Tab PO DAILY08 Meloxicam 15 Mg Tablet 1 Tab PO DAILY Seroquel (Quetiapine Fumarate) 200 Mg Tablet 1 Tab PO QHS Allergies Allergies: Coded Allergies: No Known Drug Allergies (Unverified , 03/24/16) ROS Review of System Patient denies fevers, chills, weight loss, dyspnea, angina, abdominal pain, change in bowels, or dysuria. 14 point review of systems is negative. Physical Exam Physical Examination PHYSICAL EXAMINATION: Vital signs: see above. General appearance is normal and in no acute distress. HEENT: Normocephalic and nontraumatic. Eyes, nose, ears, and throat are unremarkable. Neck is supple. No lymphadenopathy. No bruits are heard over the carotid artery. No crepitus. NEUROLOGICAL EXAMINATION: Mental Status Examination: Alert. Oriented to place and person, does not know date. Answers questions and follows commends. Pupils are equal round and reactive to light and accommodation. Extraocular movements are intact. Visual field exam shows no defect on the direct confrontation. No motor or sensory deficits on the facial exam. Uvula in the midline and the soft palate elevated symmetrically. No deviation of the tongue to any direction. Gross hearing is normal. Shoulder shrug normal. Muscle tone is normal. Muscle strength is 5. Deep tendon reflexes are 1+ all around. Plantar reflex is with flexion response bilaterally. [id number] test performance is accurate. Alternative movements are accurate. Gait not tested. Sensory exam shows no deficits. No cerebellar signs are elicited. Vitals VITALS Vital Signs Date Time Temp Pulse Resp B/P (MAP) Pulse Ox O2 Delivery O2 Flow Rate FiO2 07/19/16 15:00 97.9 107 22 113/73 (86) 92 Nasal Cannula 2.0 97.9 Labs Labs Laboratory Tests Test 07/18/16 05:50 07/18/16 08:54 07/18/16 11:43 Sodium Level 142 mmol/L (136-145) Potassium Level 4.2 mmol/L (3.5-5.1) Chloride Level 107 mmol/L (98-107) Carbon Dioxide Level 31 mmol/L (21-32) Anion Gap 4 (6-14) Blood Urea Nitrogen 14 mg/dL (7-20) Creatinine 0.9 mg/dL (0.6-1.0) Estimated GFR (Cockcroft-Gault) 77.8 Glucose Level 122 mg/dL (70-99) Calcium Level 7.9 mg/dL (8.5-10.1) O2 Saturation 91 % (92-99) 95 % (92-99) Arterial Blood pH 7.41 (7.35-7.45) 7.40 (7.35-7.45) Arterial Blood pCO2 at Patient Temp 46 mmHg (35-46) 50 mmHg (35-46) Arterial Blood pO2 at Patient Temp 67 mmHg (75-108) 81 mmHg (75-108) Arterial Blood HCO3 29 mmol/L (21-28) 30 mmol/L (21-28) Arterial Blood Base Excess 3 mmol/L (-3-3) 5 mmol/L (-3-3) FiO2 [address] head 07/13/16: Noncontrast images of the head were obtained. Note is made of a previous examination 06/17/2016. An acute or significant calvarial finding is not seen and the visualized paranasal sinuses appear unremarkable. No subdural or epidural hematoma is seen. There is no mass or midline shift. No hemorrhage or acute finding is seen. A significant change when compared to the previous exam is not seen. IMPRESSION: No acute finding apparent in the head Assessment/Plan Assessment/Plan Impression: Tremors, perhaps due to hypoxia, resolved, no altered consciousness to suggest seizure and since tremor is bilateral, seizure would be impossible without altered consciousness Encephalopathy, sepsis, improving LP negative for meningoencephalitis No sign of stroke Recommendation: Continue observation. Hold off on additional studies Thank you for letting me help with the patient's care MAGDA GERBER MD July 19, 2016 16:24
[2016-07-19 16:35] LABS: CALCIUM 8.1 mg/dL (8.5-10.1); CREATININE 0.8 mg/dL (0.6-1.0); GFR 89.1; POTASSIUM 4.2 mmol/L (3.5-5.1)
[2016-07-19] MEDS ORDERED: IPRATRPIUM/ALBUTEROL 0.5/2.5MG 3 ML NEBU. NEB ONE (18:30)
[2016-07-19 18:53] LABS: HCO3 ABG 31 mmol/L (21-28); PCO2 ABG 55 mmHg (35-46); PH ABG 7.37 (7.35-7.45); SAT O2 ABG 81 % (92-99)
[2016-07-19 18:56] LABS: FIO2 ABG 28%; PO2 ABG 48 mmHg (75-108)
--- NOTE | 2016-07-19 19:08 | RAD ---
Chest, AP only Indication: Hypoxia. Time of exam 6:47 p.m. Comparison is made with prior chest from 07/17/2016. The heart is enlarged. There is central congestion. Left basilar infiltrate and pleural fluid persists and is similar to prior. This obscures the left hemidiaphragm. The right lung is clear. There is no pneumothorax. Endotracheal tube and NG tube have been removed. Impression: Cardiomegaly and central congestion with persistent left basilar infiltrate and pleural fluid. Electronically signed by: Jake Walton MD (July 19, 2016 19:06:18)
[2016-07-19] MEDS ORDERED: FUROSEMIDE 20 MG/2 ML VIAL. IVP ONE (20:15)
[2016-07-19] MEDS: FAMOTIDINE 20 MG/2 ML VIAL IVP SCH (20:51)
[2016-07-20] VITALS (27 sets, daily range): BP systolic 85–133; BP diastolic 49–78
[2016-07-20 00:32] LABS: HCO3 ABG 30 mmol/L (21-28); PCO2 ABG 49 mmHg (35-46); PO2 ABG 66 mmHg (75-108); SAT O2 ABG 92 % (92-99)
[2016-07-20 00:33] LABS: PH ABG 7.41 (7.35-7.45)
[2016-07-20 00:38] LABS: FIO2 ABG 30
[2016-07-20] MEDS ORDERED: CITA20TA5 PO (06:18)
[2016-07-20 07:35] LABS: BASO % 1 % (0-3); EOS % 4 % (0-3); HEMOGLOBIN 8.4 g/dL (12.0-15.5); LYMPH # 1.2 x10^3/uL (1.0-4.8); LYMPH % 14 % (24-48); MEAN CORPUSCULAR HEMOGLOBIN 32 pg (25-35); MEAN CORPUSCULAR HGB CONC 32 g/dL (31-37); MEAN CORPUSCULAR VOLUME 100 fL (79-100); MONO % 14 % (0-9); NEUT % 68 % (31-73); PLATELET COUNT 185 x10^3/uL (140-400); RED BLOOD COUNT 2.61 x10^6/uL (3.50-5.40); WHITE BLOOD COUNT 8.2 x10^3/uL (4.0-11.0)
[2016-07-20 07:45] LABS: ALBUMIN 2.2 g/dL (3.4-5.0); ALBUMIN/GLOBULIN RATIO 0.6 (1.0-1.7); CALCIUM 8.3 mg/dL (8.5-10.1); CREATININE 0.9 mg/dL (0.6-1.0); GFR 77.8; TOTAL BILIRUBIN 0.7 mg/dL (0.2-1.0)
[2016-07-20 08:00] LABS: HCO3 ABG 31 mmol/L (21-28); PCO2 ABG 52 mmHg (35-46); PH ABG 7.39 (7.35-7.45); PO2 ABG 59 mmHg (75-108); SAT O2 ABG 89 % (92-99)
[2016-07-20 08:04] LABS: FIO2 ABG 30
[2016-07-20] MEDS: QUEtiapine 100 MG TABLET. NG SCH ×2 (09:06→21:19)
[2016-07-20] MEDS: metroNIDAZOLE 500 MG TABLET PO SCH ×2 (09:06→21:19)
--- NOTE | 2016-07-20 09:09 | PDOC ---
PROGRESS NOTES Chief Complaint Chief Complaint Acute hypoxic respir failure ASSESSMENT AND PLAN: 1. Acute respiratory failure 2/2 acute encephalopathy and sepsis: extubated on 07/18. resolving. 2. Acute encephalopathy secondary to sepsis: resolved. LP on 07/13 neg. 3. Sepsis: blood/sputum cult neg. Urine with Gardnerella, on flagyl. monitor 4. suspected SHAAN: sleep study on O/P basis 5. pHTN: pleural effusion. echo with nl EF (55-60%), no diastolic dysfxn 6. Leukocytosis: resolved 7. Hypernatremia: persisting. push PO fluids. avoid IVF with clinical fluid overload. 8. Hyperglycemia: worse with D10 IVF recently, now stopped. obtain HgbA1c to eval for DM 9. Depression: stable mood. cont home meds 10. Prophylaxis: Lovenox, H2B 11. Dispo: transfer to med floor History of Present Illness History of Present Illness improved, but respir status not at baseline. cough with clear sputum. no CP. Vitals Vitals Vital Signs Date Time Temp Pulse Resp B/P (MAP) Pulse Ox O2 Delivery O2 Flow Rate FiO2 07/20/16 07:48 95 BiPAP/CPAP 07/20/16 06:00 76 16 109/57 (74) 07/20/16 04:08 98.9 98.9 07/19/16 19:57 2.0 Physical Exam General: Alert, Oriented X3, Cooperative, No acute distress Heart: Regular rate, Normal S1, Normal S2 Lungs: Crackles Abdomen: Normal bowel sounds, Soft Extremities: No clubbing, No cyanosis Skin: No rashes, No breakdown Labs LABS Laboratory Tests Test 07/19/16 16:10 07/19/16 18:25 07/19/16 23:53 07/20/16 07:24 Sodium Level 141 mmol/L (136-145) 148 mmol/L (136-145) Potassium Level 4.2 mmol/L (3.5-5.1) 4.0 mmol/L (3.5-5.1) Chloride Level 105 mmol/L (98-107) 109 mmol/L (98-107) Carbon Dioxide Level 33 mmol/L (21-32) 32 mmol/L (21-32) Anion Gap 3 (6-14) 7 (6-14) Blood Urea Nitrogen 14 mg/dL (7-20) 18 mg/dL (7-20) Creatinine 0.8 mg/dL (0.6-1.0) 0.9 mg/dL (0.6-1.0) Estimated GFR (Cockcroft-Gault) 89.1 77.8 Glucose Level 149 mg/dL (70-99) 104 mg/dL (70-99) Calcium Level 8.1 mg/dL (8.5-10.1) 8.3 mg/dL (8.5-10.1) O2 Saturation 81 % (92-99) 92 % (92-99) Arterial Blood pH 7.37 (7.35-7.45) 7.41 (7.35-7.45) Arterial Blood pCO2 at Patient Temp 55 mmHg (35-46) 49 mmHg (35-46) Arterial Blood pO2 at Patient Temp 48 mmHg (75-108) 66 mmHg (75-108) Arterial Blood HCO3 31 mmol/L (21-28) 30 mmol/L (21-28) Arterial Blood Base Excess 5 mmol/L (-3-3) 5 mmol/L (-3-3) FiO2 28% 30 White Blood Count 8.2 x10^3/uL (4.0-11.0) Red Blood Count 2.61 x10^6/uL (3.50-5.40) Hemoglobin 8.4 g/dL (12.0-15.5) Hematocrit 26.0 % (36.0-47.0) Mean Corpuscular Volume 100 fL (79-100) Mean Corpuscular Hemoglobin 32 pg (25-35) Mean Corpuscular Hemoglobin Concent 32 g/dL (31-37) Red Cell Distribution Width 17.0 % (11.5-14.5) Platelet Count 185 x10^3/uL (140-400) Neutrophils (%) (Auto) 68 % (31-73) Lymphocytes (%) (Auto) 14 % (24-48) Monocytes (%) (Auto) 14 % (0-9) Eosinophils (%) (Auto) 4 % (0-3) Basophils (%) (Auto) 1 % (0-3) Neutrophils # (Auto) 5.5 x10^3uL (1.8-7.7) Lymphocytes # (Auto) 1.2 x10^3/uL (1.0-4.8) Monocytes # (Auto) 1.1 x10^3/uL (0.0-1.1) Eosinophils # (Auto) 0.3 x10^3/uL (0.0-0.7) Basophils # (Auto) 0.0 x10^3/uL (0.0-0.2) BUN/Creatinine Ratio 20 (6-20) Total Bilirubin 0.7 mg/dL (0.2-1.0) Aspartate Amino Transf (AST/SGOT) 20 U/L (15-37) Alanine Aminotransferase (ALT/SGPT) 21 U/L (14-59) Alkaline Phosphatase 94 U/L (46-116) Total Protein 6.0 g/dL (6.4-8.2) Albumin 2.2 g/dL (3.4-5.0) Albumin/Globulin Ratio 0.6 (1.0-1.7) Test 07/20/16 07:45 O2 Saturation 89 % (92-99) Arterial Blood pH 7.39 (7.35-7.45) Arterial Blood pCO2 at Patient Temp 52 mmHg (35-46) Arterial Blood pO2 at Patient Temp 59 mmHg (75-108) Arterial Blood HCO3 31 mmol/L (21-28) Arterial Blood Base Excess 6 mmol/L (-3-3) FiO2 30 MODE ROSAS MD July 20, 2016 09:09
--- NOTE | 2016-07-20 10:48 | PDOC ---
PULMONARY PROGRESS NOTES Subjective extubated, 07/18, on 02, sob better. has cough, no pain, has snoring and eds feels better post diuresis Vitals Vital Signs Date Time Temp Pulse Resp B/P (MAP) Pulse Ox O2 Delivery O2 Flow Rate FiO2 07/20/16 10:00 92 24 107/70 (82) 97 Nasal Cannula 3.0 07/20/16 08:00 98.9 98.9 Comments ros as mentioned as above discussed w rn, other sys otherwise neg ROS: No Nausea, No Chest Pain, No Abdominal Pain General: Alert, No acute distress HEENT: Other (nc at perrl, nose clear, orally intubated) Lungs: Clear Cardiovascular: S1, S2 Abdomen: Soft, Non-tender, Other (no mass) Neuro Exam: Alert, Oriented Extremities: No Edema Skin: Warm Labs Laboratory Tests Test 07/18/16 11:43 07/19/16 16:10 07/19/16 18:25 07/19/16 23:53 O2 Saturation 95 % (92-99) 81 % (92-99) 92 % (92-99) Arterial Blood pH 7.40 (7.35-7.45) 7.37 (7.35-7.45) 7.41 (7.35-7.45) Arterial Blood pCO2 at Patient Temp 50 mmHg (35-46) 55 mmHg (35-46) 49 mmHg (35-46) Arterial Blood pO2 at Patient Temp 81 mmHg (75-108) 48 mmHg (75-108) 66 mmHg (75-108) Arterial Blood HCO3 30 mmol/L (21-28) 31 mmol/L (21-28) 30 mmol/L (21-28) Arterial Blood Base Excess 5 mmol/L (-3-3) 5 mmol/L (-3-3) 5 mmol/L (-3-3) FiO2 40 28% 30 Sodium Level 141 mmol/L (136-145) Potassium Level 4.2 mmol/L (3.5-5.1) Chloride Level 105 mmol/L (98-107) Carbon Dioxide Level 33 mmol/L (21-32) Anion Gap 3 (6-14) Blood Urea Nitrogen 14 mg/dL (7-20) Creatinine 0.8 mg/dL (0.6-1.0) Estimated GFR (Cockcroft-Gault) 89.1 Glucose Level 149 mg/dL (70-99) Calcium Level 8.1 mg/dL (8.5-10.1) Test 07/20/16 07:24 07/20/16 07:45 White Blood Count 8.2 x10^3/uL (4.0-11.0) Red Blood Count 2.61 x10^6/uL (3.50-5.40) Hemoglobin 8.4 g/dL (12.0-15.5) Hematocrit 26.0 % (36.0-47.0) Mean Corpuscular Volume 100 fL (79-100) Mean Corpuscular Hemoglobin 32 pg (25-35) Mean Corpuscular Hemoglobin Concent 32 g/dL (31-37) Red Cell Distribution Width 17.0 % (11.5-14.5) Platelet Count 185 x10^3/uL (140-400) Neutrophils (%) (Auto) 68 % (31-73) Lymphocytes (%) (Auto) 14 % (24-48) Monocytes (%) (Auto) 14 % (0-9) Eosinophils (%) (Auto) 4 % (0-3) Basophils (%) (Auto) 1 % (0-3) Neutrophils # (Auto) 5.5 x10^3uL (1.8-7.7) Lymphocytes # (Auto) 1.2 x10^3/uL (1.0-4.8) Monocytes # (Auto) 1.1 x10^3/uL (0.0-1.1) Eosinophils # (Auto) 0.3 x10^3/uL (0.0-0.7) Basophils # (Auto) 0.0 x10^3/uL (0.0-0.2) Sodium Level 148 mmol/L (136-145) Potassium Level 4.0 mmol/L (3.5-5.1) Chloride Level 109 mmol/L (98-107) Carbon Dioxide Level 32 mmol/L (21-32) Anion Gap 7 (6-14) Blood Urea Nitrogen 18 mg/dL (7-20) Creatinine 0.9 mg/dL (0.6-1.0) Estimated GFR (Cockcroft-Gault) 77.8 BUN/Creatinine Ratio 20 (6-20) Glucose Level 104 mg/dL (70-99) Calcium Level 8.3 mg/dL (8.5-10.1) Total Bilirubin 0.7 mg/dL (0.2-1.0) Aspartate Amino Transf (AST/SGOT) 20 U/L (15-37) Alanine Aminotransferase (ALT/SGPT) 21 U/L (14-59) Alkaline Phosphatase 94 U/L (46-116) Total Protein 6.0 g/dL (6.4-8.2) Albumin 2.2 g/dL (3.4-5.0) Albumin/Globulin Ratio 0.6 (1.0-1.7) O2 Saturation 89 % (92-99) Arterial Blood pH 7.39 (7.35-7.45) Arterial Blood pCO2 at Patient Temp 52 mmHg (35-46) Arterial Blood pO2 at Patient Temp 59 mmHg (75-108) Arterial Blood HCO3 31 mmol/L (21-28) Arterial Blood Base Excess 6 mmol/L (-3-3) FiO2 30 Laboratory Tests Test 07/19/16 16:10 07/19/16 18:25 07/19/16 23:53 07/20/16 07:24 Sodium Level 141 mmol/L (136-145) 148 mmol/L (136-145) Potassium Level 4.2 mmol/L (3.5-5.1) 4.0 mmol/L (3.5-5.1) Chloride Level 105 mmol/L (98-107) 109 mmol/L (98-107) Carbon Dioxide Level 33 mmol/L (21-32) 32 mmol/L (21-32) Anion Gap 3 (6-14) 7 (6-14) Blood Urea Nitrogen 14 mg/dL (7-20) 18 mg/dL (7-20) Creatinine 0.8 mg/dL (0.6-1.0) 0.9 mg/dL (0.6-1.0) Estimated GFR (Cockcroft-Gault) 89.1 77.8 Glucose Level 149 mg/dL (70-99) 104 mg/dL (70-99) Calcium Level 8.1 mg/dL (8.5-10.1) 8.3 mg/dL (8.5-10.1) O2 Saturation 81 % (92-99) 92 % (92-99) Arterial Blood pH 7.37 (7.35-7.45) 7.41 (7.35-7.45) Arterial Blood pCO2 at Patient Temp 55 mmHg (35-46) 49 mmHg (35-46) Arterial Blood pO2 at Patient Temp 48 mmHg (75-108) 66 mmHg (75-108) Arterial Blood HCO3 31 mmol/L (21-28) 30 mmol/L (21-28) Arterial Blood Base Excess 5 mmol/L (-3-3) 5 mmol/L (-3-3) FiO2 28% 30 White Blood Count 8.2 x10^3/uL (4.0-11.0) Red Blood Count 2.61 x10^6/uL (3.50-5.40) Hemoglobin 8.4 g/dL (12.0-15.5) Hematocrit 26.0 % (36.0-47.0) Mean Corpuscular Volume 100 fL (79-100) Mean Corpuscular Hemoglobin 32 pg (25-35) Mean Corpuscular Hemoglobin Concent 32 g/dL (31-37) Red Cell Distribution Width 17.0 % (11.5-14.5) Platelet Count 185 x10^3/uL (140-400) Neutrophils (%) (Auto) 68 % (31-73) Lymphocytes (%) (Auto) 14 % (24-48) Monocytes (%) (Auto) 14 % (0-9) Eosinophils (%) (Auto) 4 % (0-3) Basophils (%) (Auto) 1 % (0-3) Neutrophils # (Auto) 5.5 x10^3uL (1.8-7.7) Lymphocytes # (Auto) 1.2 x10^3/uL (1.0-4.8) Monocytes # (Auto) 1.1 x10^3/uL (0.0-1.1) Eosinophils # (Auto) 0.3 x10^3/uL (0.0-0.7) Basophils # (Auto) 0.0 x10^3/uL (0.0-0.2) BUN/Creatinine Ratio 20 (6-20) Total Bilirubin 0.7 mg/dL (0.2-1.0) Aspartate Amino Transf (AST/SGOT) 20 U/L (15-37) Alanine Aminotransferase (ALT/SGPT) 21 U/L (14-59) Alkaline Phosphatase 94 U/L (46-116) Total Protein 6.0 g/dL (6.4-8.2) Albumin 2.2 g/dL (3.4-5.0) Albumin/Globulin Ratio 0.6 (1.0-1.7) Test 07/20/16 07:45 O2 Saturation 89 % (92-99) Arterial Blood pH 7.39 (7.35-7.45) Arterial Blood pCO2 at Patient Temp 52 mmHg (35-46) Arterial Blood pO2 at Patient Temp 59 mmHg (75-108) Arterial Blood HCO3 31 mmol/L (21-28) Arterial Blood Base Excess 6 mmol/L (-3-3) FiO2 30 Medications Active Scripts Medications Dose Route/Sig Days Date Category Seroquel (Quetiapine Fumarate) 100 Mg Tablet 1 Tab PO DAILY08 07/14/16 Reported Meloxicam 15 Mg Tablet 1 Tab PO DAILY 07/14/16 Reported Seroquel (Quetiapine Fumarate) 200 Mg Tablet 1 Tab PO QHS 07/14/16 Reported Cipro (Ciprofloxacin Hcl) 250 Mg Tablet 1 Tab PO BID 04/07/16 Rx Comments cxr reviewed, There is a moderate unchanged left basilar opacity compatible with left lower lobe consolidation and atelectasis. A component of pleural fluid cannot be excluded. There is minimal right basilar atelectasis. Impression . 1. Acute respiratory failure secondary to acute encephalopathy and sepsis. extubated 2. Acute encephalopathy secondary to sepsis., resolved 3. High-grade fever and markedly elevated white cell count POA, suspect underlying sepsis. improved 4. Abnormal chest x-ray with some rounded density in the right perihilar area and some mediastinal fullness. CT chest with no mass 5. encephalopathy, LP neg, resolved 6. obesity, snoring, eds, prob yan 7. suspected acute Diastolic HF/ improved with BIPAP,diuresis Plan . 1. 02 titration 2. monitor off abx 3. Infectious Disease recommendations. 4. Follow all cultures, neg. 5. Lumbar puncture neg 6. Noncontrast CT chest reviewed. pulmonary HTN/ atelectasis 7. Deep venous thrombosis prophylaxis. 8. Stress ulcer prophylaxis. 10. elevate hob 11. psg as out pt ( she does not want CPAP ) Discussed with RN and RT. transfer to floor ANU CROWLEY MD July 20, 2016 10:48
--- NOTE | 2016-07-20 14:45 | PDOC ---
PROGRESS NOTES Assessment Assessment IMPRESSION: Metabolic encephalopathy. Respiratory failure. Hypoxia. Sepsis Tremors. Acute renal failure. Hypernatremia. Obesity. RECOMMENDATIONS/PLAN: Continue medical treatment. OT/PT. LP ruled out meningitis. CT: negative. SUBJECTIVE: Awake. OBJECTIVE: Patient had hypoxia and decreased O2 and she was transferred to ICU on 07/19. No focalized neurological deficits. Past Medical History Cardiovascular: HTN Psych: Depression Past Surgical History No pertinent recent surgical history Family History CAD Social History Single, no alcohol or tobacco ALLERGY: Reviewed. MEDICATIONS: Refer to [facility] REVIEW OF SYSTEMS: Constitutional: Obesity. Head: No recent traumatic brain or head injury. Skin: No edema, or rash. Ear: No infection, tinnitus. Eyes: No vision loss, or diplopia. Nose: No bleeding or purulent discharges. Hearing: No hearing decrease. Neck: No injury. Breast: No history of cancer, masses, or discharges. Cardiac: HTN Pulmonary: hypoxia. GI: No GI Ulcer, GI bleeding Urinary/genital: UTI. Endocrine: Obesity. Skeletomuscular: No muscular atrophy, deformity. Neurological: see HP. Psychiatric: Denies drug use/abuse. Otherwise, not [id number] review of systems. PHYSICAL EXAMINATION: General appearance in subacute distress. HEENT: Normocephalic and nontraumatic. Eyes, nose, ears, and throat are unremarkable. Hearing decrease. Neck is supple. No lymphadenopathy. No bruits are heard over the carotid artery. No Crepitus. Cardiovascular: S1, S2, regular rate and rhythm. Pulmonary: Clear to auscultation bilaterally. Abdomen: Bowel sounds are positive. Abdomen is soft, nontender, and nondistended. Extremities: No rash, lesions, or edema. No restriction of range of motion NEUROLOGICAL EXAMINATION: Awake. Extubated. Oriented to time, place and person, but reaction was slow. PERRL. EOMI. CN: no focal findings. Muscle tone: within normal. Muscle strength: 5- DTR: 2- Plantar reflex: Flexor response bilaterally Gait: not examined in chair. Sensory exam: no abnormal findings. No acute cerebellar signs elicited. F-T-N test fine. No tremors noted. Objective Objective Vital Signs Date Time Temp Pulse Resp B/P (MAP) Pulse Ox O2 Delivery O2 Flow Rate FiO2 07/20/16 11:00 93 24 117/66 (83) 97 Nasal Cannula 3.0 07/20/16 08:00 98.9 98.9 Intake and Output 07/20/16 07:00 Intake Total 100 ml Output Total 2380 ml Balance -2280 ml Intake Oral 100 ml Output Urine Total 2380 ml Vitals Signs Vitals VS - Last 72 Hours, by Label Date Time Temp Pulse Resp B/P (MAP) Pulse Ox O2 Delivery O2 Flow Rate FiO2 07/20/16 11:00 93 24 117/66 (83) 97 Nasal Cannula 3.0 07/20/16 10:00 92 24 107/70 (82) 97 Nasal Cannula 3.0 07/20/16 09:00 88 26 126/73 (90) 92 Nasal Cannula 3.0 07/20/16 08:00 98.9 82 22 129/72 (91) 93 BiPAP/CPAP 98.9 07/20/16 08:00 Bi-pap 07/20/16 07:48 95 BiPAP/CPAP 07/20/16 07:00 84 20 113/70 (84) 90 BiPAP/CPAP 07/20/16 06:00 76 16 109/57 (74) 98 BiPAP/CPAP 07/20/16 05:55 98 07/20/16 05:45 83 BiPAP/CPAP 07/20/16 05:42 94 BiPAP/CPAP 07/20/16 05:15 98 BiPAP/CPAP 07/20/16 05:10 72 16 107/61 (76) 98 BiPAP/CPAP 07/20/16 05:00 93 07/20/16 04:45 83 07/20/16 04:30 75 BiPAP/CPAP 07/20/16 04:26 Bi-pap 07/20/16 04:08 98.9 72 22 108/55 (72) 95 BiPAP/CPAP 98.9 07/20/16 03:50 98 BiPAP/CPAP 07/20/16 03:49 98 BiPAP/CPAP 07/20/16 03:00 86 22 113/68 (83) 91 BiPAP/CPAP 07/20/16 02:35 74 22 109/58 (75) 98 BiPAP/CPAP 07/20/16 02:00 78 22 90/49 (63) 98 BiPAP/CPAP 07/20/16 01:20 Bi-pap 07/20/16 01:15 80 24 115/67 (83) 96 BiPAP/CPAP 07/20/16 01:00 86 24 113/68 (83) 91 BiPAP/CPAP 07/20/16 00:45 99.3 104 24 115/63 (80) 91 BiPAP/CPAP 99.3 07/20/16 00:37 90 BiPAP/CPAP 07/19/16 23:26 92 BiPAP/CPAP 07/19/16 23:20 91 24 119/60 (79) 93 BiPAP/CPAP 07/19/16 20:00 Bi-pap 07/19/16 19:57 99.0 100 18 118/78 (91) 92 Nasal Cannula 2.0 99.0 07/19/16 19:33 97 BiPAP/CPAP 07/19/16 18:51 93 Nasal Cannula 3.0 07/19/16 15:00 97.9 107 22 113/73 (86) 92 Nasal Cannula 2.0 97.9 07/19/16 10:05 100 30 98/53 (68) 96 Nasal Cannula 3.0 07/19/16 09:00 90 33 131/75 (93) 93 Nasal Cannula 2.0 07/19/16 08:00 Nasal Cannula 3.0 07/19/16 07:00 93 26 118/64 (82) 96 Nasal Cannula 2.0 Laboratory Laboratory Laboratory Tests Test 07/19/16 16:10 07/19/16 18:25 07/19/16 23:53 07/20/16 07:24 Sodium Level 141 mmol/L (136-145) 148 mmol/L (136-145) Potassium Level 4.2 mmol/L (3.5-5.1) 4.0 mmol/L (3.5-5.1) Chloride Level 105 mmol/L (98-107) 109 mmol/L (98-107) Carbon Dioxide Level 33 mmol/L (21-32) 32 mmol/L (21-32) Anion Gap 3 (6-14) 7 (6-14) Blood Urea Nitrogen 14 mg/dL (7-20) 18 mg/dL (7-20) Creatinine 0.8 mg/dL (0.6-1.0) 0.9 mg/dL (0.6-1.0) Estimated GFR (Cockcroft-Gault) 89.1 77.8 Glucose Level 149 mg/dL (70-99) 104 mg/dL (70-99) Calcium Level 8.1 mg/dL (8.5-10.1) 8.3 mg/dL (8.5-10.1) O2 Saturation 81 % (92-99) 92 % (92-99) Arterial Blood pH 7.37 (7.35-7.45) 7.41 (7.35-7.45) Arterial Blood pCO2 at Patient Temp 55 mmHg (35-46) 49 mmHg (35-46) Arterial Blood pO2 at Patient Temp 48 mmHg (75-108) 66 mmHg (75-108) Arterial Blood HCO3 31 mmol/L (21-28) 30 mmol/L (21-28) Arterial Blood Base Excess 5 mmol/L (-3-3) 5 mmol/L (-3-3) FiO2 28% 30 White Blood Count 8.2 x10^3/uL (4.0-11.0) Red Blood Count 2.61 x10^6/uL (3.50-5.40) Hemoglobin 8.4 g/dL (12.0-15.5) Hematocrit 26.0 % (36.0-47.0) Mean Corpuscular Volume 100 fL (79-100) Mean Corpuscular Hemoglobin 32 pg (25-35) Mean Corpuscular Hemoglobin Concent 32 g/dL (31-37) Red Cell Distribution Width 17.0 % (11.5-14.5) Platelet Count 185 x10^3/uL (140-400) Neutrophils (%) (Auto) 68 % (31-73) Lymphocytes (%) (Auto) 14 % (24-48) Monocytes (%) (Auto) 14 % (0-9) Eosinophils (%) (Auto) 4 % (0-3) Basophils (%) (Auto) 1 % (0-3) Neutrophils # (Auto) 5.5 x10^3uL (1.8-7.7) Lymphocytes # (Auto) 1.2 x10^3/uL (1.0-4.8) Monocytes # (Auto) 1.1 x10^3/uL (0.0-1.1) Eosinophils # (Auto) 0.3 x10^3/uL (0.0-0.7) Basophils # (Auto) 0.0 x10^3/uL (0.0-0.2) BUN/Creatinine Ratio 20 (6-20) Total Bilirubin 0.7 mg/dL (0.2-1.0) Aspartate Amino Transf (AST/SGOT) 20 U/L (15-37) Alanine Aminotransferase (ALT/SGPT) 21 U/L (14-59) Alkaline Phosphatase 94 U/L (46-116) Total Protein 6.0 g/dL (6.4-8.2) Albumin 2.2 g/dL (3.4-5.0) Albumin/Globulin Ratio 0.6 (1.0-1.7) Test 07/20/16 07:45 O2 Saturation 89 % (92-99) Arterial Blood pH 7.39 (7.35-7.45) Arterial Blood pCO2 at Patient Temp 52 mmHg (35-46) Arterial Blood pO2 at Patient Temp 59 mmHg (75-108) Arterial Blood HCO3 31 mmol/L (21-28) Arterial Blood Base Excess 6 mmol/L (-3-3) FiO2 30 Microbiology 07/13/16 Blood Culture - Final, Complete NO GROWTH AFTER 5 DAYS 07/13/16 Anaerobic/Aerobic Culture - Final, Complete 07/13/16 Anaerobic Culture Result 1 (WEST) - Final, Complete 07/13/16 Aerobic Culture - Final, Complete 07/13/16 Aerobic Culture Result 1 (WEST) - Final, Complete 07/17/16 Sputum Culture - Final, Complete 07/17/16 Sputum Result 1 - Final, Complete 07/13/16 Urine Culture - Final, Complete 07/13/16 Urine Culture Result 1 (WEST) - Final, Complete 07/13/16 Urine Culture Result 2 (WEST) - Final, Complete Medication Medications Current Medications Albuterol/ Ipratropium (Duoneb) 3 ml 1X ONCE NEB Last administered on 18:30; Start 07/19/16 at 18:30; Stop 07/19/16 at 18:31; Status DC Furosemide (Lasix) 20 mg 1X ONCE IVP Last administered on 07/19/16 20:51; Start 07/19/16 at 20:15; Stop 07/19/16 at 20:16; Status DC Comment Review of Relevant I have reviewed the following items quentin (where applicable) has been applied. ZARA CHAMBERLAIN MD July 20, 2016 14:45
[2016-07-20] MEDS: ENOXAPARIN 40 MG/0.4 ML SYRINGE. SQ SCH (14:49)
[2016-07-20] MEDS: IPRATRPIUM/ALBUTEROL 0.5/2.5MG 3 ML NEBU. NEB SCH (20:33)
[2016-07-20] MEDS: FAMOTIDINE 20 MG/2 ML VIAL IVP SCH (21:19)
[2016-07-21] VITALS (20 sets, daily range): BP systolic 91–135; BP diastolic 49–74
[2016-07-21 06:14] LABS: BASO % 1 % (0-3); EOS % 4 % (0-3); HEMOGLOBIN 7.8 g/dL (12.0-15.5); LYMPH # 1.3 x10^3/uL (1.0-4.8); LYMPH % 21 % (24-48); MEAN CORPUSCULAR HEMOGLOBIN 32 pg (25-35); MEAN CORPUSCULAR HGB CONC 33 g/dL (31-37); MEAN CORPUSCULAR VOLUME 99 fL (79-100); MONO % 15 % (0-9); NEUT % 59 % (31-73); PLATELET COUNT 225 x10^3/uL (140-400); RED BLOOD COUNT 2.44 x10^6/uL (3.50-5.40); RED CELL DISTRIBUTION WIDTH 17.3 % (11.5-14.5); WHITE BLOOD COUNT 6.4 x10^3/uL (4.0-11.0)
[2016-07-21 06:31] LABS: ALBUMIN/GLOBULIN RATIO 0.5 (1.0-1.7); CALCIUM 8.2 mg/dL (8.5-10.1); CREATININE 0.9 mg/dL (0.6-1.0); GFR 77.8; TOTAL BILIRUBIN 0.5 mg/dL (0.2-1.0)
--- NOTE | 2016-07-21 07:26 | RAD ---
Indication: Shortness of breath. Time of exam 0629 hours. Correlation is made with prior chest from 07/19/2016. Heart is enlarged. There continues to be consolidation in the left base with air bronchograms. There may be pleural fluid in the left base as well. There is central congestion. No pneumothorax is seen. Impression: Stable chest since 2 days earlier.
[2016-07-21] MEDS: IPRATRPIUM/ALBUTEROL 0.5/2.5MG 3 ML NEBU. NEB SCH ×4 (08:24→19:31)
--- NOTE | 2016-07-21 08:42 | PDOC ---
PROGRESS NOTES Chief Complaint Chief Complaint Acute hypoxic respir failure ASSESSMENT AND PLAN: 1. Acute respiratory failure 2/2 acute encephalopathy and sepsis: extubated on 07/18. resolving. 2. Acute encephalopathy secondary to sepsis: resolved. LP on 07/13 neg. 3. Sepsis: blood/sputum cult neg. Urine with Gardnerella, on flagyl. monitor 4. suspected SHAAN: sleep study on O/P basis 5. pHTN: pleural effusion. echo with nl EF (55-60%), no diastolic dysfxn 6. Run of Vtach: obtain cardiology consult 6. Leukocytosis: resolved 7. Thrombocytopenia: reactive to infect, now resolved 8. Anemia: worsening. ? dilutional. r/o occult bleed. 9. Hypernatremia: improving. no free watter IV 2/2 suspected fluid overload status 10. Hyperglycemia: worse with D10 IVF recently, now stopped. obtain HgbA1c to eval for DM 11. Depression: stable mood. cont home meds 12. Prophylaxis: Lovenox, H2B 13. Dispo: transfer to med floor History of Present Illness History of Present Illness feels better today. breathing improved. no CP. cough with clear sputum Vitals Vitals Vital Signs Date Time Temp Pulse Resp B/P (MAP) Pulse Ox O2 Delivery O2 Flow Rate FiO2 07/21/16 08:24 93 Nasal Cannula 3.0 07/21/16 07:00 91 18 106/57 (73) 07/21/16 04:00 98.9 98.9 Physical Exam General: Alert, Oriented X3, Cooperative, No acute distress Heart: Regular rate, Normal S1, Normal S2 Lungs: Crackles Abdomen: Normal bowel sounds, Soft Extremities: No clubbing, No cyanosis Skin: No rashes, No breakdown Labs LABS Laboratory Tests Test 07/21/16 05:20 07/21/16 05:25 Sodium Level 146 mmol/L (136-145) Potassium Level 4.0 mmol/L (3.5-5.1) Chloride Level 110 mmol/L (98-107) Carbon Dioxide Level 32 mmol/L (21-32) Anion Gap 4 (6-14) Blood Urea Nitrogen 17 mg/dL (7-20) Creatinine 0.9 mg/dL (0.6-1.0) Estimated GFR (Cockcroft-Gault) 77.8 BUN/Creatinine Ratio 19 (6-20) Glucose Level 110 mg/dL (70-99) Calcium Level 8.2 mg/dL (8.5-10.1) Total Bilirubin 0.5 mg/dL (0.2-1.0) Aspartate Amino Transf (AST/SGOT) 23 U/L (15-37) Alanine Aminotransferase (ALT/SGPT) 22 U/L (14-59) Alkaline Phosphatase 88 U/L (46-116) Total Protein 6.0 g/dL (6.4-8.2) Albumin 2.0 g/dL (3.4-5.0) Albumin/Globulin Ratio 0.5 (1.0-1.7) White Blood Count 6.4 x10^3/uL (4.0-11.0) Red Blood Count 2.44 x10^6/uL (3.50-5.40) Hemoglobin 7.8 g/dL (12.0-15.5) Hematocrit 24.0 % (36.0-47.0) Mean Corpuscular Volume 99 fL (79-100) Mean Corpuscular Hemoglobin 32 pg (25-35) Mean Corpuscular Hemoglobin Concent 33 g/dL (31-37) Red Cell Distribution Width 17.3 % (11.5-14.5) Platelet Count 225 x10^3/uL (140-400) Neutrophils (%) (Auto) 59 % (31-73) Lymphocytes (%) (Auto) 21 % (24-48) Monocytes (%) (Auto) 15 % (0-9) Eosinophils (%) (Auto) 4 % (0-3) Basophils (%) (Auto) 1 % (0-3) Neutrophils # (Auto) 3.8 x10^3uL (1.8-7.7) Lymphocytes # (Auto) 1.3 x10^3/uL (1.0-4.8) Monocytes # (Auto) 1.0 x10^3/uL (0.0-1.1) Eosinophils # (Auto) 0.3 x10^3/uL (0.0-0.7) Basophils # (Auto) 0.0 x10^3/uL (0.0-0.2) MODE ROSAS MD July 21, 2016 08:42
[2016-07-21] MEDS: metroNIDAZOLE 500 MG TABLET PO SCH ×2 (09:17→20:54)
[2016-07-21] MEDS: QUEtiapine 100 MG TABLET. NG SCH ×2 (09:17→20:54)
--- NOTE | 2016-07-21 10:29 | PDOC ---
PULMONARY PROGRESS NOTES Subjective extubated, 07/18, on 02, sob better. feels better post diuresis Has V-TAC last night Vitals Vital Signs Date Time Temp Pulse Resp B/P (MAP) Pulse Ox O2 Delivery O2 Flow Rate FiO2 07/21/16 10:00 98 25 119/62 (81) 94 Nasal Cannula 3.0 07/21/16 08:00 98.3 98.3 Comments ros as mentioned as above discussed w rn, other sys otherwise neg ROS: No Nausea, No Chest Pain, No Abdominal Pain General: Alert, No acute distress HEENT: Other (nc at perrl, nose clear, orally intubated) Lungs: Clear Cardiovascular: S1, S2 Abdomen: Soft, Non-tender Neuro Exam: Alert, Oriented Extremities: No Edema Skin: Warm Labs Laboratory Tests Test 07/19/16 16:10 07/19/16 18:25 07/19/16 23:53 07/20/16 07:24 Sodium Level 141 mmol/L (136-145) 148 mmol/L (136-145) Potassium Level 4.2 mmol/L (3.5-5.1) 4.0 mmol/L (3.5-5.1) Chloride Level 105 mmol/L (98-107) 109 mmol/L (98-107) Carbon Dioxide Level 33 mmol/L (21-32) 32 mmol/L (21-32) Anion Gap 3 (6-14) 7 (6-14) Blood Urea Nitrogen 14 mg/dL (7-20) 18 mg/dL (7-20) Creatinine 0.8 mg/dL (0.6-1.0) 0.9 mg/dL (0.6-1.0) Estimated GFR (Cockcroft-Gault) 89.1 77.8 Glucose Level 149 mg/dL (70-99) 104 mg/dL (70-99) Calcium Level 8.1 mg/dL (8.5-10.1) 8.3 mg/dL (8.5-10.1) O2 Saturation 81 % (92-99) 92 % (92-99) Arterial Blood pH 7.37 (7.35-7.45) 7.41 (7.35-7.45) Arterial Blood pCO2 at Patient Temp 55 mmHg (35-46) 49 mmHg (35-46) Arterial Blood pO2 at Patient Temp 48 mmHg (75-108) 66 mmHg (75-108) Arterial Blood HCO3 31 mmol/L (21-28) 30 mmol/L (21-28) Arterial Blood Base Excess 5 mmol/L (-3-3) 5 mmol/L (-3-3) FiO2 28% 30 White Blood Count 8.2 x10^3/uL (4.0-11.0) Red Blood Count 2.61 x10^6/uL (3.50-5.40) Hemoglobin 8.4 g/dL (12.0-15.5) Hematocrit 26.0 % (36.0-47.0) Mean Corpuscular Volume 100 fL (79-100) Mean Corpuscular Hemoglobin 32 pg (25-35) Mean Corpuscular Hemoglobin Concent 32 g/dL (31-37) Red Cell Distribution Width 17.0 % (11.5-14.5) Platelet Count 185 x10^3/uL (140-400) Neutrophils (%) (Auto) 68 % (31-73) Lymphocytes (%) (Auto) 14 % (24-48) Monocytes (%) (Auto) 14 % (0-9) Eosinophils (%) (Auto) 4 % (0-3) Basophils (%) (Auto) 1 % (0-3) Neutrophils # (Auto) 5.5 x10^3uL (1.8-7.7) Lymphocytes # (Auto) 1.2 x10^3/uL (1.0-4.8) Monocytes # (Auto) 1.1 x10^3/uL (0.0-1.1) Eosinophils # (Auto) 0.3 x10^3/uL (0.0-0.7) Basophils # (Auto) 0.0 x10^3/uL (0.0-0.2) BUN/Creatinine Ratio 20 (6-20) Total Bilirubin 0.7 mg/dL (0.2-1.0) Aspartate Amino Transf (AST/SGOT) 20 U/L (15-37) Alanine Aminotransferase (ALT/SGPT) 21 U/L (14-59) Alkaline Phosphatase 94 U/L (46-116) Total Protein 6.0 g/dL (6.4-8.2) Albumin 2.2 g/dL (3.4-5.0) Albumin/Globulin Ratio 0.6 (1.0-1.7) Test 07/20/16 07:45 07/21/16 05:20 07/21/16 05:25 O2 Saturation 89 % (92-99) Arterial Blood pH 7.39 (7.35-7.45) Arterial Blood pCO2 at Patient Temp 52 mmHg (35-46) Arterial Blood pO2 at Patient Temp 59 mmHg (75-108) Arterial Blood HCO3 31 mmol/L (21-28) Arterial Blood Base Excess 6 mmol/L (-3-3) FiO2 30 Sodium Level 146 mmol/L (136-145) Potassium Level 4.0 mmol/L (3.5-5.1) Chloride Level 110 mmol/L (98-107) Carbon Dioxide Level 32 mmol/L (21-32) Anion Gap 4 (6-14) Blood Urea Nitrogen 17 mg/dL (7-20) Creatinine 0.9 mg/dL (0.6-1.0) Estimated GFR (Cockcroft-Gault) 77.8 BUN/Creatinine Ratio 19 (6-20) Glucose Level 110 mg/dL (70-99) Calcium Level 8.2 mg/dL (8.5-10.1) Total Bilirubin 0.5 mg/dL (0.2-1.0) Aspartate Amino Transf (AST/SGOT) 23 U/L (15-37) Alanine Aminotransferase (ALT/SGPT) 22 U/L (14-59) Alkaline Phosphatase 88 U/L (46-116) Total Protein 6.0 g/dL (6.4-8.2) Albumin 2.0 g/dL (3.4-5.0) Albumin/Globulin Ratio 0.5 (1.0-1.7) White Blood Count 6.4 x10^3/uL (4.0-11.0) Red Blood Count 2.44 x10^6/uL (3.50-5.40) Hemoglobin 7.8 g/dL (12.0-15.5) Hematocrit 24.0 % (36.0-47.0) Mean Corpuscular Volume 99 fL (79-100) Mean Corpuscular Hemoglobin 32 pg (25-35) Mean Corpuscular Hemoglobin Concent 33 g/dL (31-37) Red Cell Distribution Width 17.3 % (11.5-14.5) Platelet Count 225 x10^3/uL (140-400) Neutrophils (%) (Auto) 59 % (31-73) Lymphocytes (%) (Auto) 21 % (24-48) Monocytes (%) (Auto) 15 % (0-9) Eosinophils (%) (Auto) 4 % (0-3) Basophils (%) (Auto) 1 % (0-3) Neutrophils # (Auto) 3.8 x10^3uL (1.8-7.7) Lymphocytes # (Auto) 1.3 x10^3/uL (1.0-4.8) Monocytes # (Auto) 1.0 x10^3/uL (0.0-1.1) Eosinophils # (Auto) 0.3 x10^3/uL (0.0-0.7) Basophils # (Auto) 0.0 x10^3/uL (0.0-0.2) Laboratory Tests Test 07/21/16 05:20 07/21/16 05:25 Sodium Level 146 mmol/L (136-145) Potassium Level 4.0 mmol/L (3.5-5.1) Chloride Level 110 mmol/L (98-107) Carbon Dioxide Level 32 mmol/L (21-32) Anion Gap 4 (6-14) Blood Urea Nitrogen 17 mg/dL (7-20) Creatinine 0.9 mg/dL (0.6-1.0) Estimated GFR (Cockcroft-Gault) 77.8 BUN/Creatinine Ratio 19 (6-20) Glucose Level 110 mg/dL (70-99) Calcium Level 8.2 mg/dL (8.5-10.1) Total Bilirubin 0.5 mg/dL (0.2-1.0) Aspartate Amino Transf (AST/SGOT) 23 U/L (15-37) Alanine Aminotransferase (ALT/SGPT) 22 U/L (14-59) Alkaline Phosphatase 88 U/L (46-116) Total Protein 6.0 g/dL (6.4-8.2) Albumin 2.0 g/dL (3.4-5.0) Albumin/Globulin Ratio 0.5 (1.0-1.7) White Blood Count 6.4 x10^3/uL (4.0-11.0) Red Blood Count 2.44 x10^6/uL (3.50-5.40) Hemoglobin 7.8 g/dL (12.0-15.5) Hematocrit 24.0 % (36.0-47.0) Mean Corpuscular Volume 99 fL (79-100) Mean Corpuscular Hemoglobin 32 pg (25-35) Mean Corpuscular Hemoglobin Concent 33 g/dL (31-37) Red Cell Distribution Width 17.3 % (11.5-14.5) Platelet Count 225 x10^3/uL (140-400) Neutrophils (%) (Auto) 59 % (31-73) Lymphocytes (%) (Auto) 21 % (24-48) Monocytes (%) (Auto) 15 % (0-9) Eosinophils (%) (Auto) 4 % (0-3) Basophils (%) (Auto) 1 % (0-3) Neutrophils # (Auto) 3.8 x10^3uL (1.8-7.7) Lymphocytes # (Auto) 1.3 x10^3/uL (1.0-4.8) Monocytes # (Auto) 1.0 x10^3/uL (0.0-1.1) Eosinophils # (Auto) 0.3 x10^3/uL (0.0-0.7) Basophils # (Auto) 0.0 x10^3/uL (0.0-0.2) Medications Active Scripts Medications Dose Route/Sig Days Date Category Seroquel (Quetiapine Fumarate) 100 Mg Tablet 1 Tab PO DAILY08 07/14/16 Reported Meloxicam 15 Mg Tablet 1 Tab PO DAILY 07/14/16 Reported Seroquel (Quetiapine Fumarate) 200 Mg Tablet 1 Tab PO QHS 07/14/16 Reported Cipro (Ciprofloxacin Hcl) 250 Mg Tablet 1 Tab PO BID 04/07/16 Rx Comments cxr reviewed, There is a moderate unchanged left basilar opacity compatible with left lower lobe consolidation and atelectasis. A component of pleural fluid cannot be excluded. There is minimal right basilar atelectasis. Impression . 1. Acute respiratory failure secondary to acute encephalopathy and sepsis. extubated 2. Acute encephalopathy secondary to sepsis., resolved 3. High-grade fever and markedly elevated white cell count POA, suspect underlying sepsis. improved 4. wide complex tachycardia, needs cardiology consult 5. encephalopathy, LP neg, resolved 6. obesity, snoring, eds, prob yan 7. suspected acute Diastolic HF/ improved with BIPAP,diuresis Plan . 1. 02 titration 2. monitor off abx 3. Infectious Disease recommendations. 4. Follow all cultures, neg. 5. Lumbar puncture neg 6. Noncontrast CT chest reviewed. pulmonary HTN/ atelectasis 7. Deep venous thrombosis prophylaxis. 8. Stress ulcer prophylaxis. 10. elevate hob 11. PSG as out pt ( she does not want CPAP ) Discussed with RN and RT. cardiology consult ANU CROWLEY MD July 21, 2016 10:29
[2016-07-21] MEDS: ENOXAPARIN 40 MG/0.4 ML SYRINGE. SQ SCH ×2 (10:53→20:55)
--- NOTE | 2016-07-21 12:05 | PDOC2 ---
JUAN RAMON AGUILAR BILLIARD TABLE ASSEMBLER 07/21/16 1205: CARDIAC CONSULT DATE OF CONSULT Date of Consult DATE: 07/21/16 TIME: 12:03 REASON FOR CONSULT Reason for Consult: VT REFERRING PHYSICIAN Referring Physician: Dr. Sathish Ruby SOURCE Source: Chart review, Patient (who is a poor historian) HISTORY OF PRESENT ILLNESS HISTORY OF PRESENT ILLNESS 60 year old female admitted through the ER after neighbor contacted EMS for welfare check. Patient found unresponsive with ? of medications, drug paraphernalia and ETOH surrounding her, though UDS negative. Required intubation for airway protection. WBC ~ 40 POA and was febrile. CHF on initial CXR on 07/13/2016 Improved and was extubated and transferred to med- surg. Returned with c/o dyspnea, though patient without clear recall of any of the preceding events. Had 12-15 beat of VT run this a.m. about 0845; per nursing may have become choked while eating, however, patient without recall of this. Denies palpitations, chest pain, dyspnea, dizziness, lightheadedness. K WNL. Seen in ER in Mar with c/o chest pain, negative cardiac markers and EKG without acute changes. Advised to follow up with cardiology but discharged to psychiatric facility. Patient did not follow up. Reason for Visit: VT PAST MEDICAL HISTORY Cardiovascular: Hyperlipidemia GI: No pertinent hx, Other (obesity) Heme/Onc: No pertinent hx Hepatobiliary: No pertinent hx Psych: Depression Rheumatologic: No pertinent hx Infectious disease: No pertinent hx ENT: No pertinent hx Renal/: No pertinent hx Endocrine: No pertinent hx Dermatology: No pertinent hx PAST SURGICAL HISTORY Past Surgical History: No pertinent history FAMILY HISTORY Family History: Family History Unknown SOCIAL HISTORY Smoke: No ALCOHOL: none Drugs: None Lives: Alone CURRENT MEDICATIONS CURRENT MEDICATIONS Current Medications Medications (Trade) Dose Ordered Sig/Shaunna Route PRN Reason Start Time Stop Time Status Last Admin Dose Admin Albuterol/ Ipratropium (Duoneb) 3 ml RTQID NEB 07/20/16 20:00 07/21/16 08:24 Enoxaparin Sodium (Lovenox 40mg Syringe) 40 mg BID SQ 07/21/16 10:30 07/21/16 10:53 ALLERGIES ALLERGIES: Coded Allergies: No Known Drug Allergies (Unverified , 03/24/16) ROS Review of System 14 point review with pertinent positives in HPI PHYSICAL EXAM PHYSICAL EXAM seated in chair General: Alert, Cooperative HEENT: Atraumatic, PERRLA Lungs: Other (decreased anteriorly) Heart: Normal S1, Normal S2, No murmurs Abdomen: Soft, Other (truncal obesity) Extremities: Other (trace to 1+ LE edema) Skin: No rashes Neuro: Normal speech Psych/Mental Status: Mood NL MUSCULOSKELETAL: No deformity VITALS VITALS Vital Signs Date Time Temp Pulse Resp B/P (MAP) Pulse Ox O2 Delivery O2 Flow Rate FiO2 07/21/16 11:00 94 24 114/63 (80) 95 Nasal Cannula 3.0 07/21/16 08:00 98.3 98.3 LABS Lab: Laboratory Tests Test 07/21/16 05:20 07/21/16 05:25 Sodium Level 146 mmol/L (136-145) Potassium Level 4.0 mmol/L (3.5-5.1) Chloride Level 110 mmol/L (98-107) Carbon Dioxide Level 32 mmol/L (21-32) Anion Gap 4 (6-14) Blood Urea Nitrogen 17 mg/dL (7-20) Creatinine 0.9 mg/dL (0.6-1.0) Estimated GFR (Cockcroft-Gault) 77.8 BUN/Creatinine Ratio 19 (6-20) Glucose Level 110 mg/dL (70-99) Calcium Level 8.2 mg/dL (8.5-10.1) Total Bilirubin 0.5 mg/dL (0.2-1.0) Aspartate Amino Transf (AST/SGOT) 23 U/L (15-37) Alanine Aminotransferase (ALT/SGPT) 22 U/L (14-59) Alkaline Phosphatase 88 U/L (46-116) Total Protein 6.0 g/dL (6.4-8.2) Albumin 2.0 g/dL (3.4-5.0) Albumin/Globulin Ratio 0.5 (1.0-1.7) White Blood Count 6.4 x10^3/uL (4.0-11.0) Red Blood Count 2.44 x10^6/uL (3.50-5.40) Hemoglobin 7.8 g/dL (12.0-15.5) Hematocrit 24.0 % (36.0-47.0) Mean Corpuscular Volume 99 fL (79-100) Mean Corpuscular Hemoglobin 32 pg (25-35) Mean Corpuscular Hemoglobin Concent 33 g/dL (31-37) Red Cell Distribution Width 17.3 % (11.5-14.5) Platelet Count 225 x10^3/uL (140-400) Neutrophils (%) (Auto) 59 % (31-73) Lymphocytes (%) (Auto) 21 % (24-48) Monocytes (%) (Auto) 15 % (0-9) Eosinophils (%) (Auto) 4 % (0-3) Basophils (%) (Auto) 1 % (0-3) Neutrophils # (Auto) 3.8 x10^3uL (1.8-7.7) Lymphocytes # (Auto) 1.3 x10^3/uL (1.0-4.8) Monocytes # (Auto) 1.0 x10^3/uL (0.0-1.1) Eosinophils # (Auto) 0.3 x10^3/uL (0.0-0.7) Basophils # (Auto) 0.0 x10^3/uL (0.0-0.2) IMAGES IMAGES CXR: 07/21/2016: Heart is enlarged. There continues to be consolidation in the left base with air bronchograms. There may be pleural fluid in the left base as well. There is central congestion. No pneumothorax is seen. Impression: Stable chest since 2 days earlier. EKG EKG 07/13/2016: no acute changes ECHOCARDIOGRAM ECHOCARDIOGRAM 07/17/2016: TTE: The left ventricular systolic function is normal and the ejection fraction is within normal range. The Ejection Fraction is 55-60%. There is normal LV segmental wall motion. There is moderate left pleural effusion. There is a trace circumferential pericardial effusion. ASSESSMENT/PLAN ASSESSMENT/PLAN 1. wide complex tachycardia 12 - 15 beats suggestive of NSVT check Mg level as has been treated with multiple doses of IV diuretics previous echo with preserved LVEF and no WMA consider MPI/cardiac cath to evaluate for ischemia but pt will need to be able to lie flat for testing and can not currently accomplish this 2. acute respiratory failure with sepsis and encephalopathy per primary, pulm, ID 3. ? of HF, presumed diastolic has been treated intermittently with diuretics 4. HLD continue statin therapy 5. morbid obesity with BMI > 40 6. Anemia Hgb 7.8 today ? etiology 7. hypernatremia Problems: CHAPO HOGAN MD 07/21/16 1517: CARDIAC CONSULT ALLERGIES ALLERGIES: Coded Allergies: No Known Drug Allergies (Unverified , 03/24/16) ASSESSMENT/PLAN ASSESSMENT/PLAN Pt. seen and examined. Agree with above [employer] DEVELOPER note. 60 y.o male with multiple comorbidities, incidental finding of NSVT on tele. Labs grossly normal echo with normal EF. MPI prior to discharge, when able to lay flat. If he has recurrence, can start low dose b-fani. Problems: JUAN RAMON AGUILAR APRN July 21, 2016 12:05 CHAPO HOGAN MD July 21, 2016 15:17
--- NOTE | 2016-07-21 12:56 | PDOC ---
PROGRESS NOTES Assessment Assessment Metabolic encephalopathy. Respiratory failure. Hypoxia. Sepsis Tremors. Acute renal failure. Hypernatremia. Obesity. RECOMMENDATIONS/PLAN: Continue medical treatment. OT/PT. LP ruled out meningitis. HCT: negative. SUBJECTIVE: Stating she was doing better on 07/21. OBJECTIVE: Patient had hypoxia and decreased O2 and she was transferred to ICU on 07/19. No focalized neurological deficits. Past Medical History Cardiovascular: HTN Psych: Depression Past Surgical History No pertinent recent surgical history Family History CAD Social History Single, no alcohol or tobacco ALLERGY: Reviewed. MEDICATIONS: Refer to [facility] REVIEW OF SYSTEMS: Constitutional: Obesity. Head: No recent traumatic brain or head injury. Skin: No edema, or rash. Ear: No infection, tinnitus. Eyes: No vision loss, or diplopia. Nose: No bleeding or purulent discharges. Hearing: No hearing decrease. Neck: No injury. Breast: No history of cancer, masses, or discharges. Cardiac: HTN Pulmonary: hypoxia. GI: No GI Ulcer, GI bleeding Urinary/genital: UTI. Endocrine: Obesity. Skeletomuscular: No muscular atrophy, deformity. Neurological: see HP. Psychiatric: Denies drug use/abuse. Otherwise, not [id number] review of systems. PHYSICAL EXAMINATION: General appearance in subacute distress. HEENT: Normocephalic and nontraumatic. Eyes, nose, ears, and throat are unremarkable. Hearing decrease. Neck is supple. No lymphadenopathy. No bruits are heard over the carotid artery. No Crepitus. Cardiovascular: S1, S2, regular rate and rhythm. Pulmonary: Clear to auscultation bilaterally. Abdomen: Bowel sounds are positive. Abdomen is soft, nontender, and nondistended. Extremities: No rash, lesions, or edema. No restriction of range of motion NEUROLOGICAL EXAMINATION: Awake. On room air. Oriented to time, place and person, but reaction was slow. PERRL. EOMI. CN: no focal findings. Muscle tone: within normal. Muscle strength: 5- DTR: 2- UE, 1+ at knee. Plantar reflex: Flexor response bilaterally Gait: not examined in chair. Sensory exam: no abnormal findings. No acute cerebellar signs elicited. F-T-N test fine. No tremors noted. Objective Objective Vital Signs Date Time Temp Pulse Resp B/P (MAP) Pulse Ox O2 Delivery O2 Flow Rate FiO2 07/21/16 12:00 Nasal Cannula 3.0 07/21/16 12:00 98.0 95 23 102/63 (76) 92 98.0 Intake and Output 07/21/16 07:00 Intake Total 1450 ml Output Total 1955 ml Balance -505 ml Intake Oral 1450 ml Tube Feeding 0 ml Output Urine Total 1955 ml Vitals Signs Vitals VS - Last 72 Hours, by Label Date Time Temp Pulse Resp B/P (MAP) Pulse Ox O2 Delivery O2 Flow Rate FiO2 07/21/16 12:00 Nasal Cannula 3.0 07/21/16 12:00 98.0 95 23 102/63 (76) 92 Nasal Cannula 3.0 98.0 07/21/16 11:00 94 24 114/63 (80) 95 Nasal Cannula 3.0 07/21/16 10:00 98 25 119/62 (81) 94 Nasal Cannula 3.0 07/21/16 09:00 93 20 135/71 (92) 95 Nasal Cannula 3.0 07/21/16 08:24 93 Nasal Cannula 3.0 07/21/16 08:00 98.3 84 20 113/68 (83) 94 Nasal Cannula 3.0 98.3 07/21/16 08:00 Nasal Cannula 3.0 07/21/16 07:00 91 18 106/57 (73) 94 Nasal Cannula 3.0 07/21/16 06:04 90 18 93/54 (67) 93 Nasal Cannula 3.0 07/21/16 05:00 92 24 104/61 (75) 93 Nasal Cannula 3.0 07/21/16 04:00 Nasal Cannula 3.0 07/21/16 04:00 98.9 93 20 100/52 (68) 94 Nasal Cannula 3.0 98.9 07/21/16 03:00 90 19 101/56 (71) 94 Nasal Cannula 3.0 07/21/16 02:00 92 18 91/55 (67) 92 Nasal Cannula 3.0 07/21/16 01:20 94 19 96/52 (67) 93 Nasal Cannula 3.0 07/21/16 00:00 Nasal Cannula 3.0 07/21/16 00:00 98.8 97 19 92/49 (63) 94 Nasal Cannula 3.0 98.8 07/20/16 23:00 100 19 91/49 (63) 95 Nasal Cannula 3.0 07/20/16 22:00 89 24 93/70 (78) 93 Nasal Cannula 3.0 07/20/16 21:00 93 23 133/78 (96) 95 Nasal Cannula 3.0 07/20/16 20:34 99 Nasal Cannula 3.0 07/20/16 20:00 98.6 92 23 113/62 (79) 98 Nasal Cannula 3.0 98.6 07/20/16 20:00 Nasal Cannula 3.0 07/20/16 19:00 90 25 108/60 (76) 95 Nasal Cannula 3.0 07/20/16 18:00 86 23 99/57 (71) 99 Nasal Cannula 3.0 07/20/16 17:00 92 23 104/59 (74) 98 Nasal Cannula 3.0 07/20/16 16:00 Nasal Cannula 3.0 07/20/16 16:00 98.0 88 30 113/67 (82) 97 Nasal Cannula 3.0 98.0 07/20/16 15:00 98 26 118/65 (82) 96 Nasal Cannula 3.0 07/20/16 14:00 96 17 114/63 (80) 95 Nasal Cannula 3.0 07/20/16 13:00 86 24 102/72 (82) 97 Nasal Cannula 3.0 07/20/16 12:00 Nasal Cannula 3.0 07/20/16 12:00 98.2 94 22 85/52 (63) 95 Nasal Cannula 3.0 98.2 07/20/16 11:00 93 24 117/66 (83) 97 Nasal Cannula 3.0 07/20/16 10:00 92 24 107/70 (82) 97 Nasal Cannula 3.0 07/20/16 09:00 88 26 126/73 (90) 92 Nasal Cannula 3.0 07/20/16 08:00 98.9 82 22 129/72 (91) 93 BiPAP/CPAP 98.9 07/20/16 08:00 Bi-pap 07/20/16 07:48 95 BiPAP/CPAP 07/20/16 07:00 84 20 113/70 (84) 90 BiPAP/CPAP Laboratory Laboratory Laboratory Tests Test 07/21/16 05:20 07/21/16 05:25 Sodium Level 146 mmol/L (136-145) Potassium Level 4.0 mmol/L (3.5-5.1) Chloride Level 110 mmol/L (98-107) Carbon Dioxide Level 32 mmol/L (21-32) Anion Gap 4 (6-14) Blood Urea Nitrogen 17 mg/dL (7-20) Creatinine 0.9 mg/dL (0.6-1.0) Estimated GFR (Cockcroft-Gault) 77.8 BUN/Creatinine Ratio 19 (6-20) Glucose Level 110 mg/dL (70-99) Calcium Level 8.2 mg/dL (8.5-10.1) Total Bilirubin 0.5 mg/dL (0.2-1.0) Aspartate Amino Transf (AST/SGOT) 23 U/L (15-37) Alanine Aminotransferase (ALT/SGPT) 22 U/L (14-59) Alkaline Phosphatase 88 U/L (46-116) Total Protein 6.0 g/dL (6.4-8.2) Albumin 2.0 g/dL (3.4-5.0) Albumin/Globulin Ratio 0.5 (1.0-1.7) White Blood Count 6.4 x10^3/uL (4.0-11.0) Red Blood Count 2.44 x10^6/uL (3.50-5.40) Hemoglobin 7.8 g/dL (12.0-15.5) Hematocrit 24.0 % (36.0-47.0) Mean Corpuscular Volume 99 fL (79-100) Mean Corpuscular Hemoglobin 32 pg (25-35) Mean Corpuscular Hemoglobin Concent 33 g/dL (31-37) Red Cell Distribution Width 17.3 % (11.5-14.5) Platelet Count 225 x10^3/uL (140-400) Neutrophils (%) (Auto) 59 % (31-73) Lymphocytes (%) (Auto) 21 % (24-48) Monocytes (%) (Auto) 15 % (0-9) Eosinophils (%) (Auto) 4 % (0-3) Basophils (%) (Auto) 1 % (0-3) Neutrophils # (Auto) 3.8 x10^3uL (1.8-7.7) Lymphocytes # (Auto) 1.3 x10^3/uL (1.0-4.8) Monocytes # (Auto) 1.0 x10^3/uL (0.0-1.1) Eosinophils # (Auto) 0.3 x10^3/uL (0.0-0.7) Basophils # (Auto) 0.0 x10^3/uL (0.0-0.2) Microbiology 07/13/16 Blood Culture - Final, Complete NO GROWTH AFTER 5 DAYS 07/13/16 Anaerobic/Aerobic Culture - Final, Complete 07/13/16 Anaerobic Culture Result 1 (WEST) - Final, Complete 07/13/16 Aerobic Culture - Final, Complete 07/13/16 Aerobic Culture Result 1 (WEST) - Final, Complete 07/17/16 Sputum Culture - Final, Complete 07/17/16 Sputum Result 1 - Final, Complete 07/13/16 Urine Culture - Final, Complete 07/13/16 Urine Culture Result 1 (WEST) - Final, Complete 07/13/16 Urine Culture Result 2 (WEST) - Final, Complete Medication Medications Current Medications Albuterol/ Ipratropium (Duoneb) 3 ml RTQID NEB Last administered on 07/21/16 08 :24; Start 07/20/16 at 20:00 Enoxaparin Sodium (Lovenox 40mg Syringe) 40 mg BID SQ Last administered on 10:53; Start 07/21/16 at 10:30 Comment Review of Relevant I have reviewed the following items quentin (where applicable) has been applied. ZARA CHAMBERLAIN MD July 21, 2016 12:56
[2016-07-21] MEDS: FAMOTIDINE 20 MG/2 ML VIAL IVP SCH (20:54)
[2016-07-22] VITALS (7 sets, daily range): BP systolic 103–154; BP diastolic 58–83
[2016-07-22 03:45] LABS: BASO % 1 % (0-3); EOS % 3 % (0-3); HEMATOCRIT 23.2 % (36.0-47.0); HEMOGLOBIN 7.9 g/dL (12.0-15.5); LYMPH # 1.3 x10^3/uL (1.0-4.8); LYMPH % 22 % (24-48); MEAN CORPUSCULAR HEMOGLOBIN 33 pg (25-35); MEAN CORPUSCULAR HGB CONC 34 g/dL (31-37); MEAN CORPUSCULAR VOLUME 97 fL (79-100); MONO % 14 % (0-9); NEUT % 60 % (31-73); PLATELET COUNT 270 x10^3/uL (140-400); RED BLOOD COUNT 2.39 x10^6/uL (3.50-5.40); RED CELL DISTRIBUTION WIDTH 18.2 % (11.5-14.5); WHITE BLOOD COUNT 5.9 x10^3/uL (4.0-11.0)
[2016-07-22 04:00] LABS: CALCIUM 8.2 mg/dL (8.5-10.1); CREATININE 0.9 mg/dL (0.6-1.0); GFR 77.8; POTASSIUM 4.3 mmol/L (3.5-5.1)
[2016-07-22 04:08] LABS: CHOLESTEROL/HDL RATIO 4.5
[2016-07-22] MEDS: IPRATRPIUM/ALBUTEROL 0.5/2.5MG 3 ML NEBU. NEB SCH ×4 (07:56→20:48)
[2016-07-22] MEDS: ENOXAPARIN 40 MG/0.4 ML SYRINGE. SQ SCH ×2 (09:00→20:36)
[2016-07-22] MEDS: QUEtiapine 100 MG TABLET. NG SCH ×2 (09:15→20:36)
[2016-07-22] MEDS: metroNIDAZOLE 500 MG TABLET PO SCH ×2 (09:15→20:35)
--- NOTE | 2016-07-22 10:27 | PDOC ---
PULMONARY PROGRESS NOTES Subjective extubated, 07/18, on 02, sob better. feels better post diuresis No further V-TAC Vitals Vital Signs Date Time Temp Pulse Resp B/P (MAP) Pulse Ox O2 Delivery O2 Flow Rate FiO2 07/22/16 08:00 98.4 92 24 127/71 (89) 96 Nasal Cannula 3.0 98.4 Comments ros as mentioned as above discussed w rn, other sys otherwise neg ROS: No Nausea, No Chest Pain, No Abdominal Pain General: Alert, No acute distress HEENT: Other (nc at perrl, nose clear, orally intubated) Lungs: Clear Cardiovascular: S1, S2 Abdomen: Soft, Non-tender Neuro Exam: Alert, Oriented Extremities: No Edema Skin: Warm Labs Laboratory Tests Test 07/21/16 05:20 07/21/16 05:25 07/21/16 13:45 07/22/16 03:10 Sodium Level 146 mmol/L (136-145) 145 mmol/L (136-145) Potassium Level 4.0 mmol/L (3.5-5.1) 4.3 mmol/L (3.5-5.1) Chloride Level 110 mmol/L (98-107) 109 mmol/L (98-107) Carbon Dioxide Level 32 mmol/L (21-32) 33 mmol/L (21-32) Anion Gap 4 (6-14) 3 (6-14) Blood Urea Nitrogen 17 mg/dL (7-20) 18 mg/dL (7-20) Creatinine 0.9 mg/dL (0.6-1.0) 0.9 mg/dL (0.6-1.0) Estimated GFR (Cockcroft-Gault) 77.8 77.8 BUN/Creatinine Ratio 19 (6-20) Glucose Level 110 mg/dL (70-99) 132 mg/dL (70-99) Hemoglobin A1c 4.9 % (4.8-5.6) Calcium Level 8.2 mg/dL (8.5-10.1) 8.2 mg/dL (8.5-10.1) Magnesium Level 2.0 mg/dL (1.8-2.4) 1.9 mg/dL (1.8-2.4) Total Bilirubin 0.5 mg/dL (0.2-1.0) Aspartate Amino Transf (AST/SGOT) 23 U/L (15-37) Alanine Aminotransferase (ALT/SGPT) 22 U/L (14-59) Alkaline Phosphatase 88 U/L (46-116) Total Protein 6.0 g/dL (6.4-8.2) Albumin 2.0 g/dL (3.4-5.0) Albumin/Globulin Ratio 0.5 (1.0-1.7) White Blood Count 6.4 x10^3/uL (4.0-11.0) 5.9 x10^3/uL (4.0-11.0) Red Blood Count 2.44 x10^6/uL (3.50-5.40) 2.39 x10^6/uL (3.50-5.40) Hemoglobin 7.8 g/dL (12.0-15.5) 7.9 g/dL (12.0-15.5) Hematocrit 24.0 % (36.0-47.0) 23.2 % (36.0-47.0) Mean Corpuscular Volume 99 fL (79-100) 97 fL (79-100) Mean Corpuscular Hemoglobin 32 pg (25-35) 33 pg (25-35) Mean Corpuscular Hemoglobin Concent 33 g/dL (31-37) 34 g/dL (31-37) Red Cell Distribution Width 17.3 % (11.5-14.5) 18.2 % (11.5-14.5) Platelet Count 225 x10^3/uL (140-400) 270 x10^3/uL (140-400) Neutrophils (%) (Auto) 59 % (31-73) 60 % (31-73) Lymphocytes (%) (Auto) 21 % (24-48) 22 % (24-48) Monocytes (%) (Auto) 15 % (0-9) 14 % (0-9) Eosinophils (%) (Auto) 4 % (0-3) 3 % (0-3) Basophils (%) (Auto) 1 % (0-3) 1 % (0-3) Neutrophils # (Auto) 3.8 x10^3uL (1.8-7.7) 3.6 x10^3uL (1.8-7.7) Lymphocytes # (Auto) 1.3 x10^3/uL (1.0-4.8) 1.3 x10^3/uL (1.0-4.8) Monocytes # (Auto) 1.0 x10^3/uL (0.0-1.1) 0.8 x10^3/uL (0.0-1.1) Eosinophils # (Auto) 0.3 x10^3/uL (0.0-0.7) 0.2 x10^3/uL (0.0-0.7) Basophils # (Auto) 0.0 x10^3/uL (0.0-0.2) 0.0 x10^3/uL (0.0-0.2) Triglycerides Level 76 mg/dL (0-150) Cholesterol Level 148 mg/dL (0-200) LDL Cholesterol, Calculated 100 mg/dL (0-100) VLDL Cholesterol, Calculated 15 mg/dL (0-40) Non-HDL Cholesterol Calculated 115 mg/dL (0-129) HDL Cholesterol 33 mg/dL (40-60) Cholesterol/HDL Ratio 4.5 Laboratory Tests Test 07/21/16 13:45 07/22/16 03:10 Magnesium Level 1.9 mg/dL (1.8-2.4) White Blood Count 5.9 x10^3/uL (4.0-11.0) Red Blood Count 2.39 x10^6/uL (3.50-5.40) Hemoglobin 7.9 g/dL (12.0-15.5) Hematocrit 23.2 % (36.0-47.0) Mean Corpuscular Volume 97 fL (79-100) Mean Corpuscular Hemoglobin 33 pg (25-35) Mean Corpuscular Hemoglobin Concent 34 g/dL (31-37) Red Cell Distribution Width 18.2 % (11.5-14.5) Platelet Count 270 x10^3/uL (140-400) Neutrophils (%) (Auto) 60 % (31-73) Lymphocytes (%) (Auto) 22 % (24-48) Monocytes (%) (Auto) 14 % (0-9) Eosinophils (%) (Auto) 3 % (0-3) Basophils (%) (Auto) 1 % (0-3) Neutrophils # (Auto) 3.6 x10^3uL (1.8-7.7) Lymphocytes # (Auto) 1.3 x10^3/uL (1.0-4.8) Monocytes # (Auto) 0.8 x10^3/uL (0.0-1.1) Eosinophils # (Auto) 0.2 x10^3/uL (0.0-0.7) Basophils # (Auto) 0.0 x10^3/uL (0.0-0.2) Sodium Level 145 mmol/L (136-145) Potassium Level 4.3 mmol/L (3.5-5.1) Chloride Level 109 mmol/L (98-107) Carbon Dioxide Level 33 mmol/L (21-32) Anion Gap 3 (6-14) Blood Urea Nitrogen 18 mg/dL (7-20) Creatinine 0.9 mg/dL (0.6-1.0) Estimated GFR (Cockcroft-Gault) 77.8 Glucose Level 132 mg/dL (70-99) Calcium Level 8.2 mg/dL (8.5-10.1) Triglycerides Level 76 mg/dL (0-150) Cholesterol Level 148 mg/dL (0-200) LDL Cholesterol, Calculated 100 mg/dL (0-100) VLDL Cholesterol, Calculated 15 mg/dL (0-40) Non-HDL Cholesterol Calculated 115 mg/dL (0-129) HDL Cholesterol 33 mg/dL (40-60) Cholesterol/HDL Ratio 4.5 Medications Active Scripts Medications Dose Route/Sig Days Date Category Seroquel (Quetiapine Fumarate) 100 Mg Tablet 1 Tab PO DAILY08 07/14/16 Reported Meloxicam 15 Mg Tablet 1 Tab PO DAILY 07/14/16 Reported Seroquel (Quetiapine Fumarate) 200 Mg Tablet 1 Tab PO QHS 07/14/16 Reported Cipro (Ciprofloxacin Hcl) 250 Mg Tablet 1 Tab PO BID 04/07/16 Rx Comments cxr reviewed, There is a moderate unchanged left basilar opacity compatible with left lower lobe consolidation and atelectasis. A component of pleural fluid cannot be excluded. There is minimal right basilar atelectasis. Impression . 1. Acute respiratory failure secondary to acute encephalopathy and sepsis. extubated 2. Acute encephalopathy secondary to sepsis., resolved 3. High-grade fever and markedly elevated white cell count POA, suspect underlying sepsis. resolved. 4. wide complex tachycardia, cardiology seeing pt. MPI prior to dc 5. encephalopathy, LP neg, resolved 6. obesity, snoring, eds, prob yan 7. suspected acute Diastolic HF/ improved with BIPAP,diuresis Plan . 1. 02 titration 2. monitor off abx 3. Infectious Disease recommendations. 4. Follow all cultures, neg. 5. Lumbar puncture neg 6. Noncontrast CT chest reviewed. pulmonary HTN/ atelectasis 7. Deep venous thrombosis prophylaxis. 10. PSG as out pt ( she does not want CPAP ) Discussed with RN and RT. cardiology recommendations ANU CROWLEY MD July 22, 2016 10:27
--- NOTE | 2016-07-22 11:52 | PDOC ---
PROGRESS NOTES Chief Complaint Chief Complaint Acute hypoxic respir failure ASSESSMENT AND PLAN: 1. Acute respiratory failure 2/2 acute encephalopathy and sepsis: extubated on 07/18. resolved 2. Acute encephalopathy secondary to sepsis: resolved. LP on 07/13 neg for HSV 3. Sepsis: blood/sputum cult neg. Urine with Gardnerella, on flagyl. monitor 4. suspected SHAAN: sleep study on O/P basis 5. pHTN: pleural effusion. echo with nl EF (55-60%), no diastolic dysfxn 6. Run of Vtach: cardiology consult appreciated. MPI when tolerating lying flat 6. Leukocytosis: resolved 7. Thrombocytopenia: reactive to infect, now resolved 8. Anemia: worsening. ? dilutional. r/o occult bleed. with low HgbA1c, suspicion of hemolysis given. obtain labs. etiology would be unclear.. 9. Hypernatremia: improving. no free water IV 2/2 suspected fluid overload status 10. Hyperglycemia: mild, persisting. HgbA1c actually low normal, suspicious for hemolysis. (see above) 11. Depression: stable mood. cont home meds 12. Prophylaxis: Lovenox, H2B 13. Dispo: transfer to med floor History of Present Illness History of Present Illness feels good, breathing well no CP. cough with clear sputum improving Vitals Vitals Vital Signs Date Time Temp Pulse Resp B/P (MAP) Pulse Ox O2 Delivery O2 Flow Rate FiO2 07/22/16 11:25 98 Nasal Cannula 2.0 07/22/16 08:00 98.4 92 24 127/71 (89) 98.4 Physical Exam General: Alert, Cooperative Heart: Normal S1, Normal S2, No murmurs Lungs: Clear Abdomen: Soft, Other (truncal obesity) Extremities: Other (trace to 1+ LE edema) Skin: No rashes Labs LABS Laboratory Tests Test 07/21/16 13:45 07/22/16 03:10 Magnesium Level 1.9 mg/dL (1.8-2.4) White Blood Count 5.9 x10^3/uL (4.0-11.0) Red Blood Count 2.39 x10^6/uL (3.50-5.40) Hemoglobin 7.9 g/dL (12.0-15.5) Hematocrit 23.2 % (36.0-47.0) Mean Corpuscular Volume 97 fL (79-100) Mean Corpuscular Hemoglobin 33 pg (25-35) Mean Corpuscular Hemoglobin Concent 34 g/dL (31-37) Red Cell Distribution Width 18.2 % (11.5-14.5) Platelet Count 270 x10^3/uL (140-400) Neutrophils (%) (Auto) 60 % (31-73) Lymphocytes (%) (Auto) 22 % (24-48) Monocytes (%) (Auto) 14 % (0-9) Eosinophils (%) (Auto) 3 % (0-3) Basophils (%) (Auto) 1 % (0-3) Neutrophils # (Auto) 3.6 x10^3uL (1.8-7.7) Lymphocytes # (Auto) 1.3 x10^3/uL (1.0-4.8) Monocytes # (Auto) 0.8 x10^3/uL (0.0-1.1) Eosinophils # (Auto) 0.2 x10^3/uL (0.0-0.7) Basophils # (Auto) 0.0 x10^3/uL (0.0-0.2) Sodium Level 145 mmol/L (136-145) Potassium Level 4.3 mmol/L (3.5-5.1) Chloride Level 109 mmol/L (98-107) Carbon Dioxide Level 33 mmol/L (21-32) Anion Gap 3 (6-14) Blood Urea Nitrogen 18 mg/dL (7-20) Creatinine 0.9 mg/dL (0.6-1.0) Estimated GFR (Cockcroft-Gault) 77.8 Glucose Level 132 mg/dL (70-99) Calcium Level 8.2 mg/dL (8.5-10.1) Triglycerides Level 76 mg/dL (0-150) Cholesterol Level 148 mg/dL (0-200) LDL Cholesterol, Calculated 100 mg/dL (0-100) VLDL Cholesterol, Calculated 15 mg/dL (0-40) Non-HDL Cholesterol Calculated 115 mg/dL (0-129) HDL Cholesterol 33 mg/dL (40-60) Cholesterol/HDL Ratio 4.5 MODE ROSAS MD July 22, 2016 11:52
[2016-07-22 12:20] LABS: DIRECT BILIRUBIN 0.2 mg/dL (0.0-0.2); TOTAL BILIRUBIN 0.4 mg/dL (0.2-1.0)
--- NOTE | 2016-07-22 12:49 | PDOC ---
JUAN RAMON AGUILAR [employer] 07/22/16 1249: CARDIO Progress Notes Date and Time Date of Service 07/22/2016 Time of Evaluation 1241 Subjective Subjective: No Chest Pain, No shortness of breath, No Palpitations, No Dizziness Vitals Vitals Vital Signs Date Time Temp Pulse Resp B/P (MAP) Pulse Ox O2 Delivery O2 Flow Rate FiO2 07/22/16 11:25 98 Nasal Cannula 2.0 07/22/16 08:00 98.4 92 24 127/71 (89) 98.4 Weight Weight [ ] Input and Output Intake and Output Intake and Output 07/22/16 07:00 Intake Total 1535 ml Output Total 1700 ml Balance -165 ml Intake Oral 1535 ml Output Urine Total 1700 ml Laboratory Labs Laboratory Tests Test 07/21/16 13:45 07/22/16 03:10 Magnesium Level 1.9 mg/dL (1.8-2.4) White Blood Count 5.9 x10^3/uL (4.0-11.0) Red Blood Count 2.39 x10^6/uL (3.50-5.40) Hemoglobin 7.9 g/dL (12.0-15.5) Hematocrit 23.2 % (36.0-47.0) Mean Corpuscular Volume 97 fL (79-100) Mean Corpuscular Hemoglobin 33 pg (25-35) Mean Corpuscular Hemoglobin Concent 34 g/dL (31-37) Red Cell Distribution Width 18.2 % (11.5-14.5) Platelet Count 270 x10^3/uL (140-400) Neutrophils (%) (Auto) 60 % (31-73) Lymphocytes (%) (Auto) 22 % (24-48) Monocytes (%) (Auto) 14 % (0-9) Eosinophils (%) (Auto) 3 % (0-3) Basophils (%) (Auto) 1 % (0-3) Neutrophils # (Auto) 3.6 x10^3uL (1.8-7.7) Lymphocytes # (Auto) 1.3 x10^3/uL (1.0-4.8) Monocytes # (Auto) 0.8 x10^3/uL (0.0-1.1) Eosinophils # (Auto) 0.2 x10^3/uL (0.0-0.7) Basophils # (Auto) 0.0 x10^3/uL (0.0-0.2) Sodium Level 145 mmol/L (136-145) Potassium Level 4.3 mmol/L (3.5-5.1) Chloride Level 109 mmol/L (98-107) Carbon Dioxide Level 33 mmol/L (21-32) Anion Gap 3 (6-14) Blood Urea Nitrogen 18 mg/dL (7-20) Creatinine 0.9 mg/dL (0.6-1.0) Estimated GFR (Cockcroft-Gault) 77.8 Glucose Level 132 mg/dL (70-99) Calcium Level 8.2 mg/dL (8.5-10.1) Total Bilirubin 0.4 mg/dL (0.2-1.0) Direct Bilirubin 0.2 mg/dL (0.0-0.2) Lactate Dehydrogenase 292 U/L (81-234) Triglycerides Level 76 mg/dL (0-150) Cholesterol Level 148 mg/dL (0-200) LDL Cholesterol, Calculated 100 mg/dL (0-100) VLDL Cholesterol, Calculated 15 mg/dL (0-40) Non-HDL Cholesterol Calculated 115 mg/dL (0-129) HDL Cholesterol 33 mg/dL (40-60) Cholesterol/HDL Ratio 4.5 Microbiology Micro Microbiology 07/13/16 Blood Culture - Final, Complete NO GROWTH AFTER 5 DAYS 07/13/16 Anaerobic/Aerobic Culture - Final, Complete 07/13/16 Anaerobic Culture Result 1 ([facility]) - Final, Complete 07/13/16 Aerobic Culture - Final, Complete 07/13/16 Aerobic Culture Result 1 (WEST) - Final, Complete 07/17/16 Sputum Culture - Final, Complete 07/17/16 Sputum Result 1 - Final, Complete 07/13/16 Urine Culture - Final, Complete 07/13/16 Urine Culture Result 1 (WEST) - Final, Complete 07/13/16 Urine Culture Result 2 (WEST) - Final, Complete Physical Exam HEENT: Neck Supple W Full Motion Chest: Symmetric LUNGS: Other (posterior basilar crackles) Heart: S1S2, RRR, no murmurs, other (no further VT on tele) Abdomen: Soft N/T, Other (truncal obesity) Extremities: Other (mild LE edema) Neurology: alert, follow commands Assessment Assessment 1. wide complex tachycardia 12 - 15 beats suggestive of NSVT Mg level normal no further VT MPI tomorrow as patient thinks she can lie flat; will need 2 day study 2. acute respiratory failure with sepsis and encephalopathy per primary, pulm, ID 3. diastolic HF reasonably compensated control BP 4. HLD LDLs = 100 continue statin therapy 5. morbid obesity with BMI > 40 6. Anemia Hgb 7.9 today presumed dilutional 7. hypernatremia CHAPO HOGAN MD 07/22/16 1339: CARDIO Progress Notes Plan Plan Pt. seen and examined. Agree with above [employer] note. No acute events overnight. Denies chest pain. Able to lay flat. No significant LE edema. Labs/meds reviewed. Plan for MPI tomorrow. Thus far, no NSVT recurrence. JUAN RAMON AGUILAR APRN July 22, 2016 12:49 CHAPO HOGAN MD July 22, 2016 13:39
--- NOTE | 2016-07-22 14:24 | PDOC ---
PROGRESS NOTES Assessment Assessment Metabolic encephalopathy. Respiratory failure. Hypoxia. Sepsis Tremors. Acute renal failure. Hypernatremia. Obesity. RECOMMENDATIONS/PLAN: Continue medical treatment. OT/PT. LP ruled out meningitis. HCT: negative. SUBJECTIVE: Stating she was doing fine on 07/22. OBJECTIVE: Patient had hypoxia and decreased O2 and she was transferred to ICU on 07/19. No focalized neurological deficits. Past Medical History Cardiovascular: HTN Psych: Depression Past Surgical History No pertinent recent surgical history Family History CAD Social History Single, no alcohol or tobacco ALLERGY: Reviewed. MEDICATIONS: Refer to [facility] REVIEW OF SYSTEMS: Constitutional: Obesity. Head: No recent traumatic brain or head injury. Skin: No edema, or rash. Ear: No infection, tinnitus. Eyes: No vision loss, or diplopia. Nose: No bleeding or purulent discharges. Hearing: No hearing decrease. Neck: No injury. Breast: No history of cancer, masses, or discharges. Cardiac: HTN Pulmonary: hypoxia. GI: No GI Ulcer, GI bleeding Urinary/genital: UTI. Endocrine: Obesity. Skeletomuscular: No muscular atrophy, deformity. Neurological: see HP. Psychiatric: Denies drug use/abuse. Otherwise, not [id number] review of systems. PHYSICAL EXAMINATION: General appearance in subacute distress. HEENT: Normocephalic and nontraumatic. Eyes, nose, ears, and throat are unremarkable. Hearing decrease. Neck is supple. No lymphadenopathy. No bruits are heard over the carotid artery. No Crepitus. Cardiovascular: S1, S2, regular rate and rhythm. Pulmonary: Clear to auscultation bilaterally. Abdomen: Bowel sounds are positive. Abdomen is soft, nontender, and nondistended. Extremities: No rash, lesions, or edema. No restriction of range of motion NEUROLOGICAL EXAMINATION: Awake. On room air. Oriented to time, place and person, but reaction was slow. PERRL. EOMI. CN: no focal findings. Muscle tone: within normal. Muscle strength: 5- DTR: 2- UE, 1+ at knee. Plantar reflex: Flexor response bilaterally Gait: not examined in chair. Sensory exam: no abnormal findings. No acute cerebellar signs elicited. F-T-N test fine. No tremors noted. Objective Objective Vital Signs Date Time Temp Pulse Resp B/P (MAP) Pulse Ox O2 Delivery O2 Flow Rate FiO2 07/22/16 12:00 98.6 99 27 121/71 (88) 96 Nasal Cannula 3.0 98.6 Intake and Output 07/22/16 07:00 Intake Total 1535 ml Output Total 1700 ml Balance -165 ml Intake Oral 1535 ml Output Urine Total 1700 ml Vitals Signs Vitals VS - Last 72 Hours, by Label Date Time Temp Pulse Resp B/P (MAP) Pulse Ox O2 Delivery O2 Flow Rate FiO2 07/22/16 12:00 98.6 99 27 121/71 (88) 96 Nasal Cannula 3.0 98.6 07/22/16 11:25 98 Nasal Cannula 2.0 07/22/16 08:00 98.4 92 24 127/71 (89) 96 Nasal Cannula 3.0 98.4 07/22/16 07:59 98 Nasal Cannula 3.0 07/22/16 04:00 99.7 84 18 103/58 (73) 96 Nasal Cannula 3.0 99.7 07/22/16 00:00 98.6 90 19 105/61 (76) 96 Nasal Cannula 3.0 98.6 07/21/16 20:00 Nasal Cannula 3.0 07/21/16 20:00 98.9 98 23 119/72 (88) 98 Nasal Cannula 3.0 98.9 07/21/16 19:31 98 Nasal Cannula 3.0 07/21/16 18:00 98 27 119/72 (88) 96 Nasal Cannula 3.0 07/21/16 17:10 97 Nasal Cannula 3.0 07/21/16 17:00 92 26 111/60 (77) 96 Nasal Cannula 3.0 07/21/16 16:00 99.9 93 24 108/74 (85) 95 Nasal Cannula 3.0 99.9 07/21/16 15:00 90 22 113/60 (77) 97 Nasal Cannula 3.0 07/21/16 14:00 95 25 98/58 (71) 95 Nasal Cannula 3.0 07/21/16 13:03 95 Nasal Cannula 3.0 07/21/16 13:00 97 24 111/66 (81) 94 Nasal Cannula 3.0 07/21/16 12:00 Nasal Cannula 3.0 07/21/16 12:00 98.0 95 23 102/63 (76) 92 Nasal Cannula 3.0 98.0 07/21/16 11:00 94 24 114/63 (80) 95 Nasal Cannula 3.0 07/21/16 10:00 98 25 119/62 (81) 94 Nasal Cannula 3.0 07/21/16 09:00 93 20 135/71 (92) 95 Nasal Cannula 3.0 07/21/16 08:24 93 Nasal Cannula 3.0 07/21/16 08:00 98.3 84 20 113/68 (83) 94 Nasal Cannula 3.0 98.3 07/21/16 08:00 Nasal Cannula 3.0 07/21/16 07:00 91 18 106/57 (73) 94 Nasal Cannula 3.0 Laboratory Laboratory Laboratory Tests Test 07/22/16 03:10 White Blood Count 5.9 x10^3/uL (4.0-11.0) Red Blood Count 2.39 x10^6/uL (3.50-5.40) Hemoglobin 7.9 g/dL (12.0-15.5) Hematocrit 23.2 % (36.0-47.0) Mean Corpuscular Volume 97 fL (79-100) Mean Corpuscular Hemoglobin 33 pg (25-35) Mean Corpuscular Hemoglobin Concent 34 g/dL (31-37) Red Cell Distribution Width 18.2 % (11.5-14.5) Platelet Count 270 x10^3/uL (140-400) Neutrophils (%) (Auto) 60 % (31-73) Lymphocytes (%) (Auto) 22 % (24-48) Monocytes (%) (Auto) 14 % (0-9) Eosinophils (%) (Auto) 3 % (0-3) Basophils (%) (Auto) 1 % (0-3) Neutrophils # (Auto) 3.6 x10^3uL (1.8-7.7) Lymphocytes # (Auto) 1.3 x10^3/uL (1.0-4.8) Monocytes # (Auto) 0.8 x10^3/uL (0.0-1.1) Eosinophils # (Auto) 0.2 x10^3/uL (0.0-0.7) Basophils # (Auto) 0.0 x10^3/uL (0.0-0.2) Reticulocyte Count (auto) 1.9 % (0.5-2.5) Sodium Level 145 mmol/L (136-145) Potassium Level 4.3 mmol/L (3.5-5.1) Chloride Level 109 mmol/L (98-107) Carbon Dioxide Level 33 mmol/L (21-32) Anion Gap 3 (6-14) Blood Urea Nitrogen 18 mg/dL (7-20) Creatinine 0.9 mg/dL (0.6-1.0) Estimated GFR (Cockcroft-Gault) 77.8 Glucose Level 132 mg/dL (70-99) Calcium Level 8.2 mg/dL (8.5-10.1) Total Bilirubin 0.4 mg/dL (0.2-1.0) Direct Bilirubin 0.2 mg/dL (0.0-0.2) Lactate Dehydrogenase 292 U/L (81-234) Triglycerides Level 76 mg/dL (0-150) Cholesterol Level 148 mg/dL (0-200) LDL Cholesterol, Calculated 100 mg/dL (0-100) VLDL Cholesterol, Calculated 15 mg/dL (0-40) Non-HDL Cholesterol Calculated 115 mg/dL (0-129) HDL Cholesterol 33 mg/dL (40-60) Cholesterol/HDL Ratio 4.5 Microbiology 07/13/16 Blood Culture - Final, Complete NO GROWTH AFTER 5 DAYS 07/13/16 Anaerobic/Aerobic Culture - Final, Complete 07/13/16 Anaerobic Culture Result 1 (WEST) - Final, Complete 07/13/16 Aerobic Culture - Final, Complete 07/13/16 Aerobic Culture Result 1 (WEST) - Final, Complete 07/17/16 Sputum Culture - Final, Complete 07/17/16 Sputum Result 1 - Final, Complete 07/13/16 Urine Culture - Final, Complete 07/13/16 Urine Culture Result 1 (WEST) - Final, Complete 07/13/16 Urine Culture Result 2 (WEST) - Final, Complete Medication Medications Current Medications Famotidine (Pepcid) 20 mg QHS PO ; Start 07/22/16 at 21:00 Comment Review of Relevant I have reviewed the following items quentin (where applicable) has been applied. ZARA CHAMBERLAIN MD July 22, 2016 14:24
[2016-07-22] MEDS: FAMOTIDINE 20 MG TABLET. PO SCH (20:36)
[2016-07-23] VITALS (7 sets, daily range): BP systolic 105–140; BP diastolic 60–80
[2016-07-23] MEDS: IPRATRPIUM/ALBUTEROL 0.5/2.5MG 3 ML NEBU. NEB SCH ×4 (07:14→20:07)
[2016-07-23] MEDS ORDERED: REGADENOSON 0.4 MG/5 ML DISP.SYRIN. IV ONE (08:30)
--- NOTE | 2016-07-23 09:54 | PDOC ---
PULMONARY PROGRESS NOTES Subjective extubated, 07/18, on 02, sob better. dropped oxygen sats at TE which was cancelled today on 3 litres Vitals Vital Signs Date Time Temp Pulse Resp B/P (MAP) Pulse Ox O2 Delivery O2 Flow Rate FiO2 07/23/16 07:45 Nasal Cannula 3.0 07/23/16 07:27 98.5 92 17 117/70 (86) 95 98.5 Comments ros as mentioned as above discussed w rn, other sys otherwise neg ROS: No Nausea, No Chest Pain, No Abdominal Pain General: Alert, No acute distress HEENT: Other (nc at perrl, nose clear, orally intubated) Lungs: Clear Cardiovascular: S1, S2 Abdomen: Soft, Non-tender Neuro Exam: Alert, Oriented Extremities: No Edema Skin: Warm Labs Laboratory Tests Test 07/21/16 13:45 07/22/16 03:10 Magnesium Level 1.9 mg/dL (1.8-2.4) White Blood Count 5.9 x10^3/uL (4.0-11.0) Red Blood Count 2.39 x10^6/uL (3.50-5.40) Hemoglobin 7.9 g/dL (12.0-15.5) Hematocrit 23.2 % (36.0-47.0) Mean Corpuscular Volume 97 fL (79-100) Mean Corpuscular Hemoglobin 33 pg (25-35) Mean Corpuscular Hemoglobin Concent 34 g/dL (31-37) Red Cell Distribution Width 18.2 % (11.5-14.5) Platelet Count 270 x10^3/uL (140-400) Neutrophils (%) (Auto) 60 % (31-73) Lymphocytes (%) (Auto) 22 % (24-48) Monocytes (%) (Auto) 14 % (0-9) Eosinophils (%) (Auto) 3 % (0-3) Basophils (%) (Auto) 1 % (0-3) Neutrophils # (Auto) 3.6 x10^3uL (1.8-7.7) Lymphocytes # (Auto) 1.3 x10^3/uL (1.0-4.8) Monocytes # (Auto) 0.8 x10^3/uL (0.0-1.1) Eosinophils # (Auto) 0.2 x10^3/uL (0.0-0.7) Basophils # (Auto) 0.0 x10^3/uL (0.0-0.2) Reticulocyte Count (auto) 1.9 % (0.5-2.5) Sodium Level 145 mmol/L (136-145) Potassium Level 4.3 mmol/L (3.5-5.1) Chloride Level 109 mmol/L (98-107) Carbon Dioxide Level 33 mmol/L (21-32) Anion Gap 3 (6-14) Blood Urea Nitrogen 18 mg/dL (7-20) Creatinine 0.9 mg/dL (0.6-1.0) Estimated GFR (Cockcroft-Gault) 77.8 Glucose Level 132 mg/dL (70-99) Calcium Level 8.2 mg/dL (8.5-10.1) Total Bilirubin 0.4 mg/dL (0.2-1.0) Direct Bilirubin 0.2 mg/dL (0.0-0.2) Lactate Dehydrogenase 292 U/L (81-234) Triglycerides Level 76 mg/dL (0-150) Cholesterol Level 148 mg/dL (0-200) LDL Cholesterol, Calculated 100 mg/dL (0-100) VLDL Cholesterol, Calculated 15 mg/dL (0-40) Non-HDL Cholesterol Calculated 115 mg/dL (0-129) HDL Cholesterol 33 mg/dL (40-60) Cholesterol/HDL Ratio 4.5 Medications Active Scripts Medications Dose Route/Sig Days Date Category Seroquel (Quetiapine Fumarate) 100 Mg Tablet 1 Tab PO DAILY08 07/14/16 Reported Meloxicam 15 Mg Tablet 1 Tab PO DAILY 07/14/16 Reported Seroquel (Quetiapine Fumarate) 200 Mg Tablet 1 Tab PO QHS 07/14/16 Reported Cipro (Ciprofloxacin Hcl) 250 Mg Tablet 1 Tab PO BID 04/07/16 Rx Comments cxr reviewed, There is a moderate unchanged left basilar opacity compatible with left lower lobe consolidation and atelectasis. A component of pleural fluid cannot be excluded. There is minimal right basilar atelectasis. Impression . 1. Acute respiratory failure secondary to acute encephalopathy and sepsis. extubated 2. Acute encephalopathy secondary to sepsis., resolved 3. High-grade fever and markedly elevated white cell count POA, suspect underlying sepsis. resolved. 4. wide complex tachycardia, cardiology seeing pt. MPI pending 5. encephalopathy, LP neg, resolved 6. obesity, snoring, eds, prob yan 7. suspected acute Diastolic HF/ improved with BIPAP,diuresis 8. Increase hypoxia today. could be due to persistent LLL atelectasis vs pneumonia, would repeat cxr and add gram negative coverage Plan . 1. 02 titration 2. start Zosyn 3. repeat cxr today 4. Follow all cultures, neg. 5. Lumbar puncture neg 6. Noncontrast CT chest reviewed. pulmonary HTN/ atelectasis 7. Deep venous thrombosis prophylaxis. 10. PSG as out pt ( she does not want CPAP ) Discussed with rv body mechanic recommendations, MPI, DEBRA later ANU CROWLEY MD July 23, 2016 09:54
[2016-07-23] MEDS ORDERED: PIP/TAZO PER PHARMACY MC PRN (10:00)
[2016-07-23 10:35] LABS: CALCIUM 8.7 mg/dL (8.5-10.1); CREATININE 0.8 mg/dL (0.6-1.0); GFR 89.1; POTASSIUM 4.5 mmol/L (3.5-5.1)
[2016-07-23 10:38] LABS: BASO % 1 % (0-3); EOS % 3 % (0-3); HEMATOCRIT 24.6 % (36.0-47.0); HEMOGLOBIN 8.4 g/dL (12.0-15.5); LYMPH # 1.2 x10^3/uL (1.0-4.8); LYMPH % 18 % (24-48); MEAN CORPUSCULAR HEMOGLOBIN 33 pg (25-35); MEAN CORPUSCULAR HGB CONC 34 g/dL (31-37); MEAN CORPUSCULAR VOLUME 96 fL (79-100); MONO % 12 % (0-9); NEUT % 67 % (31-73); PLATELET COUNT 349 x10^3/uL (140-400); RED BLOOD COUNT 2.57 x10^6/uL (3.50-5.40); RED CELL DISTRIBUTION WIDTH 17.4 % (11.5-14.5); WHITE BLOOD COUNT 6.5 x10^3/uL (4.0-11.0)
[2016-07-23] MEDS: QUEtiapine 100 MG TABLET. NG SCH ×2 (10:38→20:42)
[2016-07-23] MEDS: metroNIDAZOLE 500 MG TABLET PO SCH ×2 (10:38→20:42)
[2016-07-23] MEDS: ENOXAPARIN 40 MG/0.4 ML SYRINGE. SQ SCH ×2 (10:39→20:45)
[2016-07-23] MEDS: PIPERACILLIN/TAZOBACTAM 4.5 GM in IV NORMAL SALINE 100ML 100 ML IV SCH ×3 (10:40→23:32)
--- NOTE | 2016-07-23 11:12 | RAD ---
Indication: Shortness of air. Time of exam 10:54 AM Correlation is made with prior study from 07/21/2016. The heart remains enlarged. The continues to be some mild infiltrate in the left base. Right perihilar density is similar to prior. The right lung is otherwise clear. There is no pneumothorax. Impression: Stable chest since 2 days earlier.
--- NOTE | 2016-07-23 12:35 | PDOC ---
ANILA BISHOP DEFENSE TRAVEL ADMINISTRATOR 07/23/16 1235: CARDIO Progress Notes Date and Time Date of Service 07/23/2016 Time of Evaluation 1100 Subjective Subjective: No Chest Pain, No Palpitations, No Dizziness, Other (was SOA prior to stress test but now better. ) Vitals Vitals Vital Signs Date Time Temp Pulse Resp B/P (MAP) Pulse Ox O2 Delivery O2 Flow Rate FiO2 07/23/16 11:19 Nasal Cannula 2.0 07/23/16 10:51 99.3 81 16 140/80 (100) 96 99.3 Weight Weight [ ] Input and Output Intake and Output Intake and Output 07/23/16 07:00 Intake Total 1480 ml Output Total 1000 ml Balance 480 ml Intake Oral 1480 ml Output Urine Total 1000 ml # Voids 3 # Bowel Movements 1 Laboratory Labs Laboratory Tests Test 07/23/16 10:11 White Blood Count 6.5 x10^3/uL (4.0-11.0) Red Blood Count 2.57 x10^6/uL (3.50-5.40) Hemoglobin 8.4 g/dL (12.0-15.5) Hematocrit 24.6 % (36.0-47.0) Mean Corpuscular Volume 96 fL (79-100) Mean Corpuscular Hemoglobin 33 pg (25-35) Mean Corpuscular Hemoglobin Concent 34 g/dL (31-37) Red Cell Distribution Width 17.4 % (11.5-14.5) Platelet Count 349 x10^3/uL (140-400) Neutrophils (%) (Auto) 67 % (31-73) Lymphocytes (%) (Auto) 18 % (24-48) Monocytes (%) (Auto) 12 % (0-9) Eosinophils (%) (Auto) 3 % (0-3) Basophils (%) (Auto) 1 % (0-3) Neutrophils # (Auto) 4.3 x10^3uL (1.8-7.7) Lymphocytes # (Auto) 1.2 x10^3/uL (1.0-4.8) Monocytes # (Auto) 0.8 x10^3/uL (0.0-1.1) Eosinophils # (Auto) 0.2 x10^3/uL (0.0-0.7) Basophils # (Auto) 0.0 x10^3/uL (0.0-0.2) Sodium Level 144 mmol/L (136-145) Potassium Level 4.5 mmol/L (3.5-5.1) Chloride Level 108 mmol/L (98-107) Carbon Dioxide Level 35 mmol/L (21-32) Anion Gap 1 (6-14) Blood Urea Nitrogen 13 mg/dL (7-20) Creatinine 0.8 mg/dL (0.6-1.0) Estimated GFR (Cockcroft-Gault) 89.1 Glucose Level 108 mg/dL (70-99) Calcium Level 8.7 mg/dL (8.5-10.1) Microbiology Micro Microbiology 07/13/16 Blood Culture - Final, Complete NO GROWTH AFTER 5 DAYS 07/13/16 Anaerobic/Aerobic Culture - Final, Complete 07/13/16 Anaerobic Culture Result 1 (WEST) - Final, Complete 07/13/16 Aerobic Culture - Final, Complete 07/13/16 Aerobic Culture Result 1 (WEST) - Final, Complete 07/17/16 Sputum Culture - Final, Complete 07/17/16 Sputum Result 1 - Final, Complete 07/13/16 Urine Culture - Final, Complete 07/13/16 Urine Culture Result 1 (WEST) - Final, Complete 07/13/16 Urine Culture Result 2 (WEST) - Final, Complete Physical Exam HEENT: Neck Supple W Full Motion Chest: Symmetric LUNGS: Other (bibasilar crackles) Heart: S1S2, RRR (SR/ST without significant ectopies overnight), other (no further VT on tele) Abdomen: Soft N/T, Other (truncal obesity) Extremities: Other (1+ bilatera LE pitting edema) Neurology: alert, oriented, follow commands Assessment Assessment 1. NSVT None further overnight Could be induced by hypoxia MPI scheduled today but O2 sat was in 50s/SOA at [facility] Better now with uptitrate O2 supplement Will attempt MPI tomorrow to completely rule out ischemic etiology 2. Acute respiratory failure with sepsis and encephalopathy per primary, pulm, ID 3. diastolic HF reasonably compensated control BP 4. HLD LDLs = 100 continue statin therapy 5. morbid obesity with BMI > 40 6. Anemia Likely from chronic disease Hgb 8.4 7. hypernatremia CHAPO HOGAN MD 07/23/16 1610: CARDIO Progress Notes Plan Plan Pt. seen and examined. Agree with above SURVEYOR HELPER note. No acute events overnight. Unable to perform MPI today. No significant edema at this time. Will plan for MPI in a.m. if tolerated. ANILA BISHOP APRN July 23, 2016 12:35 CHAPO HOGAN MD July 23, 2016 16:10
--- NOTE | 2016-07-23 13:42 | PDOC ---
PROGRESS NOTES Assessment Assessment Metabolic encephalopathy. Respiratory failure. Hypoxia. Sepsis Tremors. Acute renal failure. Hypernatremia. Obesity. RECOMMENDATIONS/PLAN: Continue medical treatment. OT/PT. LP ruled out meningitis. HCT: negative. SUBJECTIVE: Stating she was doing fine on 07/23. OBJECTIVE: Patient had hypoxia and decreased O2 and she was transferred to ICU on 07/19. No focalized neurological deficits. Past Medical History Cardiovascular: HTN Psych: Depression Past Surgical History No pertinent recent surgical history Family History CAD Social History Single, no alcohol or tobacco ALLERGY: Reviewed. MEDICATIONS: Refer to [facility] REVIEW OF SYSTEMS: Constitutional: Obesity. Head: No recent traumatic brain or head injury. Skin: No edema, or rash. Ear: No infection, tinnitus. Eyes: No vision loss, or diplopia. Nose: No bleeding or purulent discharges. Hearing: No hearing decrease. Neck: No injury. Breast: No history of cancer, masses, or discharges. Cardiac: HTN Pulmonary: hypoxia. GI: No GI Ulcer, GI bleeding Urinary/genital: UTI. Endocrine: Obesity. Skeletomuscular: No muscular atrophy, deformity. Neurological: see HP. Psychiatric: Denies drug use/abuse. Otherwise, not [id number] review of systems. PHYSICAL EXAMINATION: General appearance in no acute distress. HEENT: Normocephalic and nontraumatic. Eyes, nose, ears, and throat are unremarkable. Hearing decrease. Neck is supple. No lymphadenopathy. No bruits are heard over the carotid artery. No Crepitus. Cardiovascular: S1, S2, regular rate and rhythm. Pulmonary: Clear to auscultation bilaterally. Abdomen: Bowel sounds are positive. Abdomen is soft, nontender, and nondistended. Extremities: No rash, lesions, or edema. No restriction of range of motion NEUROLOGICAL EXAMINATION: Awake. On room air. Oriented to time, place and person, but reaction was slow. PERRL. EOMI. CN: no focal findings. Muscle tone: within normal. Muscle strength: 5- DTR: 2- UE, 1+ at knee. Plantar reflex: Flexor response bilaterally Gait: not examined in chair. Sensory exam: no abnormal findings. No acute cerebellar signs elicited. F-T-N test fine. No tremors noted. Objective Objective Vital Signs Date Time Temp Pulse Resp B/P (MAP) Pulse Ox O2 Delivery O2 Flow Rate FiO2 07/23/16 11:19 Nasal Cannula 2.0 07/23/16 10:51 99.3 81 16 140/80 (100) 96 99.3 Intake and Output 07/23/16 07:00 Intake Total 1480 ml Output Total 1000 ml Balance 480 ml Intake Oral 1480 ml Output Urine Total 1000 ml # Voids 3 # Bowel Movements 1 Vitals Signs Vitals VS - Last 72 Hours, by Label Date Time Temp Pulse Resp B/P (MAP) Pulse Ox O2 Delivery O2 Flow Rate FiO2 07/23/16 11:19 Nasal Cannula 2.0 07/23/16 10:51 99.3 81 16 140/80 (100) 96 Room Air 99.3 07/23/16 07:45 Nasal Cannula 3.0 07/23/16 07:27 98.5 92 17 117/70 (86) 95 Nasal Cannula 3.0 98.5 07/23/16 07:18 94 Nasal Cannula 2.0 07/23/16 06:30 Nasal Cannula 4.0 07/23/16 03:45 97.3 91 20 105/60 (75) 96 Nasal Cannula 4.0 97.3 07/22/16 23:59 98.4 94 17 120/61 (80) 96 Nasal Cannula 3.0 98.4 07/22/16 20:49 Nasal Cannula 2.0 07/22/16 20:00 Nasal Cannula 3.0 07/22/16 19:30 99.3 95 30 154/79 (104) 94 Nasal Cannula 3.0 99.3 07/22/16 17:05 94 Nasal Cannula 2.0 07/22/16 16:00 98.3 97 25 118/83 (95) 97 Nasal Cannula 3.0 98.3 07/22/16 12:00 98.6 99 27 121/71 (88) 96 Nasal Cannula 3.0 98.6 07/22/16 11:25 98 Nasal Cannula 2.0 07/22/16 08:00 98.4 92 24 127/71 (89) 96 Nasal Cannula 3.0 98.4 07/22/16 07:59 98 Nasal Cannula 3.0 Laboratory Laboratory Laboratory Tests Test 07/23/16 10:11 White Blood Count 6.5 x10^3/uL (4.0-11.0) Red Blood Count 2.57 x10^6/uL (3.50-5.40) Hemoglobin 8.4 g/dL (12.0-15.5) Hematocrit 24.6 % (36.0-47.0) Mean Corpuscular Volume 96 fL (79-100) Mean Corpuscular Hemoglobin 33 pg (25-35) Mean Corpuscular Hemoglobin Concent 34 g/dL (31-37) Red Cell Distribution Width 17.4 % (11.5-14.5) Platelet Count 349 x10^3/uL (140-400) Neutrophils (%) (Auto) 67 % (31-73) Lymphocytes (%) (Auto) 18 % (24-48) Monocytes (%) (Auto) 12 % (0-9) Eosinophils (%) (Auto) 3 % (0-3) Basophils (%) (Auto) 1 % (0-3) Neutrophils # (Auto) 4.3 x10^3uL (1.8-7.7) Lymphocytes # (Auto) 1.2 x10^3/uL (1.0-4.8) Monocytes # (Auto) 0.8 x10^3/uL (0.0-1.1) Eosinophils # (Auto) 0.2 x10^3/uL (0.0-0.7) Basophils # (Auto) 0.0 x10^3/uL (0.0-0.2) Sodium Level 144 mmol/L (136-145) Potassium Level 4.5 mmol/L (3.5-5.1) Chloride Level 108 mmol/L (98-107) Carbon Dioxide Level 35 mmol/L (21-32) Anion Gap 1 (6-14) Blood Urea Nitrogen 13 mg/dL (7-20) Creatinine 0.8 mg/dL (0.6-1.0) Estimated GFR (Cockcroft-Gault) 89.1 Glucose Level 108 mg/dL (70-99) Calcium Level 8.7 mg/dL (8.5-10.1) Microbiology 07/13/16 Blood Culture - Final, Complete NO GROWTH AFTER 5 DAYS 07/13/16 Anaerobic/Aerobic Culture - Final, Complete 07/13/16 Anaerobic Culture Result 1 (WEST) - Final, Complete 07/13/16 Aerobic Culture - Final, Complete 07/13/16 Aerobic Culture Result 1 (WEST) - Final, Complete 07/17/16 Sputum Culture - Final, Complete 07/17/16 Sputum Result 1 - Final, Complete 07/13/16 Urine Culture - Final, Complete 07/13/16 Urine Culture Result 1 (WEST) - Final, Complete 07/13/16 Urine Culture Result 2 (WEST) - Final, Complete Medication Medications Current Medications Famotidine (Pepcid) 20 mg QHS PO Last administered on 07/22/16 20:36; Start at 21:00 Piperacillin Sod/ Tazobactam Sod (Zosyn Per Pharmacy) 1 each PRN DAILY PRN MC SEE COMMENTS; Start 07/23/16 at 10:00 Piperacillin Sod/ Tazobactam Sod 4.5 gm/Sodium Chloride 100 ml @ 200 mls/hr Q6HRS IV Last administered on 07/23/16 10:40; Start 07/23/16 at 10:30 Regadenoson (Lexiscan) 0.4 mg 1X ONCE IV ; Start 07/23/16 at 08:30; Stop at 08:32; Status DC Comment Review of Relevant I have reviewed the following items quentin (where applicable) has been applied. ZARA CHAMBERLAIN MD July 23, 2016 13:42
[2016-07-23] MEDS: FAMOTIDINE 20 MG TABLET. PO SCH (20:42)
[2016-07-24 03:00] VITALS: BP 106/66
[2016-07-24] MEDS: PIPERACILLIN/TAZOBACTAM 4.5 GM in IV NORMAL SALINE 100ML 100 ML IV SCH ×4 (05:31→23:52)
[2016-07-24 05:53] LABS: BASO % 1 % (0-3); EOS % 3 % (0-3); HEMATOCRIT 23.7 % (36.0-47.0); LYMPH # 1.6 x10^3/uL (1.0-4.8); LYMPH % 26 % (24-48); MEAN CORPUSCULAR HEMOGLOBIN 33 pg (25-35); MEAN CORPUSCULAR HGB CONC 34 g/dL (31-37); MEAN CORPUSCULAR VOLUME 96 fL (79-100); MONO % 11 % (0-9); NEUT % 59 % (31-73); PLATELET COUNT 343 x10^3/uL (140-400); RED BLOOD COUNT 2.46 x10^6/uL (3.50-5.40); RED CELL DISTRIBUTION WIDTH 18.1 % (11.5-14.5); WHITE BLOOD COUNT 6.4 x10^3/uL (4.0-11.0)
[2016-07-24 06:13] LABS: CALCIUM 8.3 mg/dL (8.5-10.1); CREATININE 0.8 mg/dL (0.6-1.0); GFR 89.1; POTASSIUM 4.9 mmol/L (3.5-5.1)
[2016-07-24 07:00] VITALS: BP 113/85
[2016-07-24] MEDS: IPRATRPIUM/ALBUTEROL 0.5/2.5MG 3 ML NEBU. NEB SCH ×4 (07:15→19:48)
[2016-07-24] MEDS ORDERED: REGADENOSON 0.4 MG/5 ML DISP.SYRIN. IV ONE (08:00)
[2016-07-24] MEDS: metroNIDAZOLE 500 MG TABLET PO SCH ×2 (09:28→20:01)
[2016-07-24] MEDS: QUEtiapine 100 MG TABLET. NG SCH ×2 (09:28→20:01)
[2016-07-24] MEDS: ENOXAPARIN 40 MG/0.4 ML SYRINGE. SQ SCH ×2 (09:28→21:17)
[2016-07-24 11:00] VITALS: BP 120/88
--- NOTE | 2016-07-24 11:06 | PDOC ---
ANILA BISHOP HARDWARE INSTALLATION COORDINATOR 07/24/16 1106: CARDIO Progress Notes Date and Time Date of Service 07/24/2016 Time of Evaluation 1040 Subjective Subjective: No Chest Pain, No Palpitations, No Dizziness, Other (SOA better) Vitals Vitals Vital Signs Date Time Temp Pulse Resp B/P (MAP) Pulse Ox O2 Delivery O2 Flow Rate FiO2 07/24/16 07:17 96 Nasal Cannula 2.0 07/24/16 03:00 98.4 79 16 106/66 (79) 98.4 Weight Weight [ ] Input and Output Intake and Output Intake and Output 07/24/16 07:00 Intake Total 600 ml Output Total 200 ml Balance 400 ml Intake Oral 600 ml Output Urine Total 200 ml # Voids 3 Laboratory Labs Laboratory Tests Test 07/24/16 05:35 White Blood Count 6.4 x10^3/uL (4.0-11.0) Red Blood Count 2.46 x10^6/uL (3.50-5.40) Hemoglobin 8.0 g/dL (12.0-15.5) Hematocrit 23.7 % (36.0-47.0) Mean Corpuscular Volume 96 fL (79-100) Mean Corpuscular Hemoglobin 33 pg (25-35) Mean Corpuscular Hemoglobin Concent 34 g/dL (31-37) Red Cell Distribution Width 18.1 % (11.5-14.5) Platelet Count 343 x10^3/uL (140-400) Neutrophils (%) (Auto) 59 % (31-73) Lymphocytes (%) (Auto) 26 % (24-48) Monocytes (%) (Auto) 11 % (0-9) Eosinophils (%) (Auto) 3 % (0-3) Basophils (%) (Auto) 1 % (0-3) Neutrophils # (Auto) 3.8 x10^3uL (1.8-7.7) Lymphocytes # (Auto) 1.6 x10^3/uL (1.0-4.8) Monocytes # (Auto) 0.7 x10^3/uL (0.0-1.1) Eosinophils # (Auto) 0.2 x10^3/uL (0.0-0.7) Basophils # (Auto) 0.0 x10^3/uL (0.0-0.2) Sodium Level 145 mmol/L (136-145) Potassium Level 4.9 mmol/L (3.5-5.1) Chloride Level 108 mmol/L (98-107) Carbon Dioxide Level 34 mmol/L (21-32) Anion Gap 3 (6-14) Blood Urea Nitrogen 12 mg/dL (7-20) Creatinine 0.8 mg/dL (0.6-1.0) Estimated GFR (Cockcroft-Gault) 89.1 Glucose Level 99 mg/dL (70-99) Calcium Level 8.3 mg/dL (8.5-10.1) Microbiology Micro Microbiology 07/13/16 Blood Culture - Final, Complete NO GROWTH AFTER 5 DAYS 07/13/16 Anaerobic/Aerobic Culture - Final, Complete 07/13/16 Anaerobic Culture Result 1 (WEST) - Final, Complete 07/13/16 Aerobic Culture - Final, Complete 07/13/16 Aerobic Culture Result 1 (WEST) - Final, Complete 07/17/16 Sputum Culture - Final, Complete 07/17/16 Sputum Result 1 - Final, Complete 07/13/16 Urine Culture - Final, Complete 07/13/16 Urine Culture Result 1 (WEST) - Final, Complete 07/13/16 Urine Culture Result 2 (WEST) - Final, Complete Physical Exam HEENT: Neck Supple W Full Motion Chest: Symmetric LUNGS: Other (diminished throughout) Heart: S1S2, RRR (SR), other (no further VT on tele) Abdomen: Soft N/T, Other (truncal obesity) Extremities: No Calf Tenderness, Other (1+ bilatera LE pitting edema) Neurology: alert, oriented, follow commands Assessment Assessment 1. NSVT No further ectopies in the last 48 hours Could be induced by hypoxia MPI pending today 2. Acute respiratory failure with sepsis and encephalopathy Pulmonary following 3. diastolic HF Compensated control BP 4. HLD LDLs = 100 continue statin therapy 5. morbid obesity with BMI > 40 6. Anemia Likely from chronic disease Hgb 8.0 CHAPO HOGAN MD 07/25/16 0823: CARDIO Progress Notes Plan Plan Late entry for 07/24/2016 Pt. seen and examined. No significant changes to dyspnea. MPI negative. Continue supportive care from CV perspective. No further testing. Pls call with questions. Thanks. ANILA BISHOP APRN July 24, 2016 11:06 CHAPO HOGAN MD July 25, 2016 08:23
--- NOTE | 2016-07-24 12:38 | PDOC ---
PROGRESS NOTES Chief Complaint Chief Complaint LATE ENTRY, pt seen 07/23 Acute hypoxic respir failure ASSESSMENT AND PLAN: 1. Acute respiratory failure 2/2 acute encephalopathy and sepsis: extubated on 07/18. resolved 2. Acute encephalopathy secondary to sepsis: resolved. LP on 07/13 neg for HSV 3. Sepsis: blood/sputum cult neg. Urine with Gardnerella, on flagyl. monitor 4. suspected SHAAN: sleep study on O/P basis 5. pHTN: pleural effusion. echo with nl EF (55-60%), no diastolic dysfxn 6. Run of Vtach: cardiology consult appreciated. MPI when tolerating lying flat 6. Leukocytosis: resolved 7. Thrombocytopenia: reactive to infect, now resolved 8. Anemia: worsening. ? dilutional. r/o occult bleed. with low HgbA1c, suspicion of hemolysis given. obtain labs. etiology would be unclear.. 9. Hypernatremia: improving. no free water IV 2/2 suspected fluid overload status 10. Hyperglycemia: mild, persisting. HgbA1c actually low normal, suspicious for hemolysis. (see above) 11. Depression: stable mood. cont home meds 12. Prophylaxis: Lovenox, H2B 13. Dispo: transfer to med floor History of Present Illness History of Present Illness try to DC in AM feels good, breathing well no CP. cough with clear sputum improving Vitals Vitals Vital Signs Date Time Temp Pulse Resp B/P (MAP) Pulse Ox O2 Delivery O2 Flow Rate FiO2 07/24/16 11:45 Nasal Cannula 2.0 07/24/16 11:00 98.6 88 22 120/88 (99) 96 98.6 Physical Exam General: Alert, Cooperative Heart: Normal S1, Normal S2, No murmurs Lungs: Clear Abdomen: Soft, Other (truncal obesity) Extremities: Other (trace to 1+ LE edema) Skin: No rashes Labs LABS Laboratory Tests Test 07/24/16 05:35 White Blood Count 6.4 x10^3/uL (4.0-11.0) Red Blood Count 2.46 x10^6/uL (3.50-5.40) Hemoglobin 8.0 g/dL (12.0-15.5) Hematocrit 23.7 % (36.0-47.0) Mean Corpuscular Volume 96 fL (79-100) Mean Corpuscular Hemoglobin 33 pg (25-35) Mean Corpuscular Hemoglobin Concent 34 g/dL (31-37) Red Cell Distribution Width 18.1 % (11.5-14.5) Platelet Count 343 x10^3/uL (140-400) Neutrophils (%) (Auto) 59 % (31-73) Lymphocytes (%) (Auto) 26 % (24-48) Monocytes (%) (Auto) 11 % (0-9) Eosinophils (%) (Auto) 3 % (0-3) Basophils (%) (Auto) 1 % (0-3) Neutrophils # (Auto) 3.8 x10^3uL (1.8-7.7) Lymphocytes # (Auto) 1.6 x10^3/uL (1.0-4.8) Monocytes # (Auto) 0.7 x10^3/uL (0.0-1.1) Eosinophils # (Auto) 0.2 x10^3/uL (0.0-0.7) Basophils # (Auto) 0.0 x10^3/uL (0.0-0.2) Sodium Level 145 mmol/L (136-145) Potassium Level 4.9 mmol/L (3.5-5.1) Chloride Level 108 mmol/L (98-107) Carbon Dioxide Level 34 mmol/L (21-32) Anion Gap 3 (6-14) Blood Urea Nitrogen 12 mg/dL (7-20) Creatinine 0.8 mg/dL (0.6-1.0) Estimated GFR (Cockcroft-Gault) 89.1 Glucose Level 99 mg/dL (70-99) Calcium Level 8.3 mg/dL (8.5-10.1) Assessment and Plan Assessmemt and Plan Problems Medical Problems: (1) Sepsis Status: Acute (2) Sepsis Status: Acute Problems: Comment Review of Relevant I have reviewed the following items quentin (where applicable) has been applied. Labs Laboratory Tests Test 07/23/16 10:11 07/24/16 05:35 White Blood Count 6.5 x10^3/uL (4.0-11.0) 6.4 x10^3/uL (4.0-11.0) Red Blood Count 2.57 x10^6/uL (3.50-5.40) 2.46 x10^6/uL (3.50-5.40) Hemoglobin 8.4 g/dL (12.0-15.5) 8.0 g/dL (12.0-15.5) Hematocrit 24.6 % (36.0-47.0) 23.7 % (36.0-47.0) Mean Corpuscular Volume 96 fL (79-100) 96 fL (79-100) Mean Corpuscular Hemoglobin 33 pg (25-35) 33 pg (25-35) Mean Corpuscular Hemoglobin Concent 34 g/dL (31-37) 34 g/dL (31-37) Red Cell Distribution Width 17.4 % (11.5-14.5) 18.1 % (11.5-14.5) Platelet Count 349 x10^3/uL (140-400) 343 x10^3/uL (140-400) Neutrophils (%) (Auto) 67 % (31-73) 59 % (31-73) Lymphocytes (%) (Auto) 18 % (24-48) 26 % (24-48) Monocytes (%) (Auto) 12 % (0-9) 11 % (0-9) Eosinophils (%) (Auto) 3 % (0-3) 3 % (0-3) Basophils (%) (Auto) 1 % (0-3) 1 % (0-3) Neutrophils # (Auto) 4.3 x10^3uL (1.8-7.7) 3.8 x10^3uL (1.8-7.7) Lymphocytes # (Auto) 1.2 x10^3/uL (1.0-4.8) 1.6 x10^3/uL (1.0-4.8) Monocytes # (Auto) 0.8 x10^3/uL (0.0-1.1) 0.7 x10^3/uL (0.0-1.1) Eosinophils # (Auto) 0.2 x10^3/uL (0.0-0.7) 0.2 x10^3/uL (0.0-0.7) Basophils # (Auto) 0.0 x10^3/uL (0.0-0.2) 0.0 x10^3/uL (0.0-0.2) Sodium Level 144 mmol/L (136-145) 145 mmol/L (136-145) Potassium Level 4.5 mmol/L (3.5-5.1) 4.9 mmol/L (3.5-5.1) Chloride Level 108 mmol/L (98-107) 108 mmol/L (98-107) Carbon Dioxide Level 35 mmol/L (21-32) 34 mmol/L (21-32) Anion Gap 1 (6-14) 3 (6-14) Blood Urea Nitrogen 13 mg/dL (7-20) 12 mg/dL (7-20) Creatinine 0.8 mg/dL (0.6-1.0) 0.8 mg/dL (0.6-1.0) Estimated GFR (Cockcroft-Gault) 89.1 89.1 Glucose Level 108 mg/dL (70-99) 99 mg/dL (70-99) Calcium Level 8.7 mg/dL (8.5-10.1) 8.3 mg/dL (8.5-10.1) Laboratory Tests Test 07/24/16 05:35 White Blood Count 6.4 x10^3/uL (4.0-11.0) Red Blood Count 2.46 x10^6/uL (3.50-5.40) Hemoglobin 8.0 g/dL (12.0-15.5) Hematocrit 23.7 % (36.0-47.0) Mean Corpuscular Volume 96 fL (79-100) Mean Corpuscular Hemoglobin 33 pg (25-35) Mean Corpuscular Hemoglobin Concent 34 g/dL (31-37) Red Cell Distribution Width 18.1 % (11.5-14.5) Platelet Count 343 x10^3/uL (140-400) Neutrophils (%) (Auto) 59 % (31-73) Lymphocytes (%) (Auto) 26 % (24-48) Monocytes (%) (Auto) 11 % (0-9) Eosinophils (%) (Auto) 3 % (0-3) Basophils (%) (Auto) 1 % (0-3) Neutrophils # (Auto) 3.8 x10^3uL (1.8-7.7) Lymphocytes # (Auto) 1.6 x10^3/uL (1.0-4.8) Monocytes # (Auto) 0.7 x10^3/uL (0.0-1.1) Eosinophils # (Auto) 0.2 x10^3/uL (0.0-0.7) Basophils # (Auto) 0.0 x10^3/uL (0.0-0.2) Sodium Level 145 mmol/L (136-145) Potassium Level 4.9 mmol/L (3.5-5.1) Chloride Level 108 mmol/L (98-107) Carbon Dioxide Level 34 mmol/L (21-32) Anion Gap 3 (6-14) Blood Urea Nitrogen 12 mg/dL (7-20) Creatinine 0.8 mg/dL (0.6-1.0) Estimated GFR (Cockcroft-Gault) 89.1 Glucose Level 99 mg/dL (70-99) Calcium Level 8.3 mg/dL (8.5-10.1) Microbiology 07/13/16 Blood Culture - Final, Complete NO GROWTH AFTER 5 DAYS 07/13/16 Anaerobic/Aerobic Culture - Final, Complete 07/13/16 Anaerobic Culture Result 1 ([facility]) - Final, Complete 07/13/16 Aerobic Culture - Final, Complete 07/13/16 Aerobic Culture Result 1 ([facility]) - Final, Complete 07/17/16 Sputum Culture - Final, Complete 07/17/16 Sputum Result 1 - Final, Complete 07/13/16 Urine Culture - Final, Complete 07/13/16 Urine Culture Result 1 (WEST) - Final, Complete 07/13/16 Urine Culture Result 2 ([facility]) - Final, Complete Medications Current Medications Haloperidol Lactate (Haldol) 5 mg 1X ONCE IVP Last administered on 07/13/16 12 :34; Start 07/13/16 at 12:30; Stop 07/13/16 at 12:31; Status DC Sodium Chloride 1,000 ml @ 1,000 mls/hr 1X ONCE IV Last administered on 14:06; Start 07/13/16 at 13:00; Stop 07/13/16 at 13:59; Status DC Sodium Chloride 1,000 ml @ 1,000 mls/hr 1X ONCE IV Last administered on 14:06; Start 07/13/16 at 13:45; Stop 07/13/16 at 14:44; Status DC Haloperidol Lactate (Haldol) 5 mg 1X ONCE IVP Last administered on 07/13/16 14 :20; Start 07/13/16 at 14:15; Stop 07/13/16 at 14:17; Status DC Etomidate (Amidate) 20 mg 1X ONCE IV Last administered on 07/13/16 14:35; Start 07/13/16 at 14:30; Stop 07/13/16 at 14:31; Status DC Lorazepam (Ativan) 2 mg STK-MED ONCE .ROUTE ; Start 07/13/16 at 14:43; Stop at 14:44; Status DC Levofloxacin/ Dextrose 150 ml @ 100 mls/hr 1X ONCE IV ; Start 07/13/16 at 15:00 ; Stop 07/13/16 at 15:00; Status DC Ceftriaxone Sodium 2 gm/ Sodium Chloride 100 ml @ 200 mls/hr Q24H IV ; Start at 15:00; Stop 07/13/16 at 15:00; Status DC Vancomycin HCl 1.25 gm/Sodium Chloride 250 ml @ 166.667 mls/hr 1X ONCE IV Last administered on 07/13/16 16:32; Start 07/13/16 at 15:00; Stop 07/13/16 at 16: 29; Status DC Meropenem 1 gm/ Sodium Chloride 100 ml @ 200 mls/hr Q8HRS IV Last administered on 07/17/16 05:24; Start 07/13/16 at 22:00; Stop 07/17/16 at 08:25; Status DC Meropenem 1 gm/ Sodium Chloride 100 ml @ 200 mls/hr 1X ONCE IV Last administered on 07/13/16 15:39; Start 07/13/16 at 15:00; Stop 07/13/16 at 15:29; Status DC Propofol 50 ml @ As Directed STK-MED ONCE IV ; Start 07/13/16 at 15:15; Stop 07/13 at 15:16; Status DC Lorazepam (Ativan) 2 mg 1X ONCE IV Last administered on 07/13/16 14:44; Start 07/13/16 at 15:45; Stop 07/13/16 at 15:46; Status DC Dextrose/Sodium Chloride 1,000 ml @ 125 mls/hr 1X ONCE IV Last administered on 07/13/16 18:25; Start 07/13/16 at 15:45; Stop 07/13/16 at 23:44; Status DC Propofol 100 ml @ 0 mls/hr CONT PRN IV SEE I/O RECORD Last administered on 05:11; Start 07/13/16 at 15:45; Stop 07/23/16 at 09:57; Status DC Sodium Chloride 1,000 ml @ 1,000 mls/hr 1X ONCE IV Last administered on 16:30; Start 07/13/16 at 16:30; Stop 07/13/16 at 17:29; Status DC Rocuronium [place] (Zemuron) 50 mg STK-MED ONCE .ROUTE ; Start 07/13/16 at 16:50 ; Stop 07/13/16 at 16:51; Status DC Propofol 50 ml @ 0 mls/hr CONT PRN IV SEE I/O RECORD Last administered on 15:30; Start 07/13/16 at 18:00; Stop 07/14/16 at 07:08; Status DC Fentanyl Citrate (Fentanyl 2ml Vial) 25 mcg PRN Q1HR PRN IV COMM Last administered on 07/17/16 12:16; Start 07/13/16 at 21:15; Stop 07/19/16 at 09:06; Status DC Fentanyl Citrate (Fentanyl 2ml Vial) 50 mcg PRN Q1HR PRN IV COMM Last administered on 07/14/16 23:01; Start 07/13/16 at 21:15; Stop 07/19/16 at 09:06; Status DC Chlorhexidine Gluconate (Peridex) 15 ml BID MM Last administered on 07/19/16 09 :00; Start 07/14/16 at 09:00; Stop 07/19/16 at 09:06; Status DC Dextrose/Sodium Chloride 1,000 ml @ 125 mls/hr 1X ONCE IV Last administered on 07/14/16 03:33; Start 07/14/16 at 03:30; Stop 07/14/16 at 11:29; Status DC Acetaminophen (Acetaminophen Supp) 650 mg PRN Q6HRS PRN [place] MILD PAIN / TEMP Last administered on 07/14/16 08:21; Start 07/14/16 at 08:00 Dextrose/Sodium Chloride 1,000 ml @ 100 mls/hr Q10H IV Last administered on 09:24; Start 07/14/16 at 09:15; Stop 07/19/16 at 15:45; Status DC Enoxaparin Sodium (Lovenox 40mg Syringe) 40 mg Q24H SQ Last administered on 07/20 14:49; Start 07/14/16 at 11:00; Stop 07/21/16 at 09:04; Status DC Famotidine (Pepcid) 20 mg QHS IVP Last administered on 07/21/16 20:54; Start at 21:00; Stop 07/22/16 at 09:18; Status DC Quetiapine Fumarate (SEROquel) 100 mg DAILY08 NG Last administered on 09:28; Start 07/15/16 at 15:00 Quetiapine Fumarate (SEROquel) 200 mg QHS NG Last administered on 07/23/16 20: 42; Start 07/15/16 at 21:00 Furosemide (Lasix) 20 mg 1X ONCE IVP Last administered on 07/17/16 11:18; Start 07/17/16 at 11:00; Stop 07/17/16 at 11:01; Status DC Sodium Chloride (Normal Saline Flush) 10 ml QSHIFT PRN IV AFTER MEDS AND BLOOD DRAWS; Start 07/17/16 at 11:00 Sodium Chloride (Normal Saline Flush) 20 ml QSHIFT PRN IV AFTER MEDS AND BLOOD DRAWS; Start 07/17/16 at 11:00 Metronidazole (Flagyl) 500 mg Q12HR PEG ; Start 07/18/16 at 13:00; Stop 07/18/16 at 13:28; Status DC Metronidazole 100 ml @ 100 mls/hr Q12HR IV Last administered on 07/18/16 21:25 ; Start 07/18/16 at 14:00; Stop 07/19/16 at 09:08; Status DC Metronidazole (Flagyl) 500 mg Q12HR PO Last administered on 07/24/16 09:28; Start 07/19/16 at 10:00 Albuterol/ Ipratropium (Duoneb) 3 ml 1X ONCE NEB Last administered on 18:30; Start 07/19/16 at 18:30; Stop 07/19/16 at 18:31; Status DC Furosemide (Lasix) 20 mg 1X ONCE IVP Last administered on 07/19/16 20:51; Start 07/19/16 at 20:15; Stop 07/19/16 at 20:16; Status DC Albuterol/ Ipratropium (Duoneb) 3 ml RTQID NEB Last administered on 07/24/16 11:44; Start 07/20/16 at 20:00 Enoxaparin Sodium (Lovenox 40mg Syringe) 40 mg BID SQ Last administered on 07/24 09:28; Start 07/21/16 at 10:30 Famotidine (Pepcid) 20 mg QHS PO Last administered on 07/23/16 20:42; Start at 21:00 Regadenoson (Lexiscan) 0.4 mg 1X ONCE IV Last administered on 07/24/16 08:29 ; Start 07/23/16 at 08:30; Stop 07/23/16 at 08:32; Status DC Piperacillin Sod/ Tazobactam Sod (Zosyn Per Pharmacy) 1 each PRN DAILY PRN MC SEE COMMENTS; Start 07/23/16 at 10:00 Piperacillin Sod/ Tazobactam Sod 4.5 gm/Sodium Chloride 100 ml @ 200 mls/hr Q6HRS IV Last administered on 07/24/16 05:31; Start 07/23/16 at 10:30 Regadenoson (Lexiscan) 0.4 mg 1X ONCE IV Last administered on 07/24/16 08:00 ; Start 07/24/16 at 08:00; Stop 07/24/16 at 08:03; Status DC Active Scripts Active Reported Seroquel (Quetiapine Fumarate) 100 Mg Tablet 1 Tab PO DAILY08 Seroquel (Quetiapine Fumarate) 200 Mg Tablet 1 Tab PO QHS Vitals/I & O Vital Sign - Last 24 Hours 07/23/16 07/23/16 07/23/16 07/23/16 14:40 14:52 15:07 19:00 Temp 98.4 98.4 100.1 98.4 98.4 100.1 Pulse 104 104 103 Resp 18 18 20 B/P (MAP) 114/72 (86) 114/72 (86) 107/64 (78) Pulse Ox 94 94 92 O2 Delivery Nasal Cannula Nasal Cannula Nasal Cannula O2 Flow Rate 2.0 2.0 2.0 07/23/16 07/23/16 07/23/16 07/23/16 20:00 20:09 20:52 23:00 Temp 98.9 98.7 98.9 98.7 Pulse 96 Resp 18 B/P (MAP) 123/73 (90) Pulse Ox 92 94 O2 Delivery Nasal Cannula Nasal Cannula O2 Flow Rate 3.0 2.0 07/24/16 07/24/16 07/24/16 07/24/16 03:00 07:00 07:17 11:00 Temp 98.4 98.4 98.6 98.4 98.4 98.6 Pulse 79 84 88 Resp 16 22 22 B/P (MAP) 106/66 (79) 113/85 (94) 120/88 (99) Pulse Ox 94 98 96 96 O2 Delivery Nasal Cannula Nasal Cannula Nasal Cannula O2 Flow Rate 2.0 2.0 07/24/16 11:45 O2 Delivery Nasal Cannula O2 Flow Rate 2.0 Intake and Output 07/23/16 07/23/16 07/24/16 15:00 23:00 07:00 Intake Total 480 ml 120 ml Output Total 200 ml Balance 280 ml 120 ml TEX MCMANUS MD July 24, 2016 12:38
--- NOTE | 2016-07-24 13:10 | PDOC ---
PROGRESS NOTES Chief Complaint Chief Complaint Acute hypoxic respiratory failure 1. Acute respiratory failure 2/2 acute encephalopathy and sepsis: extubated on 07/18. still hypoxic 2. Acute encephalopathy secondary to sepsis: resolved. LP on 07/13 neg for HSV 3. Sepsis: Urine with Gardnerella, 4. suspected SHAAN: sleep study on O/P basis 5. pHTN: pleural effusion. echo with nl EF (55-60%), no diastolic dysfxn 6. Thrombocytopenia: reactive to infect, now resolved 7. Anemia: 8/ weakness, acq. ICU myopathy 9. Hypernatremia: improving. no free water IV 2/2 suspected fluid overload status 10. Hyperglycemia: mild, persisting. HgbA1c low normal, 11. Depression: stable mood. 12. Prophylaxis: Lovenox, H2B 13. CHF, acute on chronic diastolic History of Present Illness History of Present Illness try to DC in AM will need 6 min walk cont pulm tx poss chronic resp hypercarbia, elevated bicarb serum feels good, breathing well no CP. cough with clear sputum improving Vitals Vitals Vital Signs Date Time Temp Pulse Resp B/P (MAP) Pulse Ox O2 Delivery O2 Flow Rate FiO2 07/24/16 11:45 Nasal Cannula 2.0 07/24/16 11:00 98.6 88 22 120/88 (99) 96 98.6 Physical Exam General: Alert, Cooperative Heart: Normal S1, Normal S2, No murmurs Lungs: Clear Abdomen: Soft, Other (truncal obesity) Extremities: Other (trace to 1+ LE edema) Skin: No rashes Labs LABS Laboratory Tests Test 07/24/16 05:35 White Blood Count 6.4 x10^3/uL (4.0-11.0) Red Blood Count 2.46 x10^6/uL (3.50-5.40) Hemoglobin 8.0 g/dL (12.0-15.5) Hematocrit 23.7 % (36.0-47.0) Mean Corpuscular Volume 96 fL (79-100) Mean Corpuscular Hemoglobin 33 pg (25-35) Mean Corpuscular Hemoglobin Concent 34 g/dL (31-37) Red Cell Distribution Width 18.1 % (11.5-14.5) Platelet Count 343 x10^3/uL (140-400) Neutrophils (%) (Auto) 59 % (31-73) Lymphocytes (%) (Auto) 26 % (24-48) Monocytes (%) (Auto) 11 % (0-9) Eosinophils (%) (Auto) 3 % (0-3) Basophils (%) (Auto) 1 % (0-3) Neutrophils # (Auto) 3.8 x10^3uL (1.8-7.7) Lymphocytes # (Auto) 1.6 x10^3/uL (1.0-4.8) Monocytes # (Auto) 0.7 x10^3/uL (0.0-1.1) Eosinophils # (Auto) 0.2 x10^3/uL (0.0-0.7) Basophils # (Auto) 0.0 x10^3/uL (0.0-0.2) Sodium Level 145 mmol/L (136-145) Potassium Level 4.9 mmol/L (3.5-5.1) Chloride Level 108 mmol/L (98-107) Carbon Dioxide Level 34 mmol/L (21-32) Anion Gap 3 (6-14) Blood Urea Nitrogen 12 mg/dL (7-20) Creatinine 0.8 mg/dL (0.6-1.0) Estimated GFR (Cockcroft-Gault) 89.1 Glucose Level 99 mg/dL (70-99) Calcium Level 8.3 mg/dL (8.5-10.1) Assessment and Plan Assessmemt and Plan Problems Medical Problems: (1) Sepsis Status: Acute (2) Sepsis Status: Acute Problems: Comment Review of Relevant I have reviewed the following items quentin (where applicable) has been applied. Labs Laboratory Tests Test 07/23/16 10:11 07/24/16 05:35 White Blood Count 6.5 x10^3/uL (4.0-11.0) 6.4 x10^3/uL (4.0-11.0) Red Blood Count 2.57 x10^6/uL (3.50-5.40) 2.46 x10^6/uL (3.50-5.40) Hemoglobin 8.4 g/dL (12.0-15.5) 8.0 g/dL (12.0-15.5) Hematocrit 24.6 % (36.0-47.0) 23.7 % (36.0-47.0) Mean Corpuscular Volume 96 fL (79-100) 96 fL (79-100) Mean Corpuscular Hemoglobin 33 pg (25-35) 33 pg (25-35) Mean Corpuscular Hemoglobin Concent 34 g/dL (31-37) 34 g/dL (31-37) Red Cell Distribution Width 17.4 % (11.5-14.5) 18.1 % (11.5-14.5) Platelet Count 349 x10^3/uL (140-400) 343 x10^3/uL (140-400) Neutrophils (%) (Auto) 67 % (31-73) 59 % (31-73) Lymphocytes (%) (Auto) 18 % (24-48) 26 % (24-48) Monocytes (%) (Auto) 12 % (0-9) 11 % (0-9) Eosinophils (%) (Auto) 3 % (0-3) 3 % (0-3) Basophils (%) (Auto) 1 % (0-3) 1 % (0-3) Neutrophils # (Auto) 4.3 x10^3uL (1.8-7.7) 3.8 x10^3uL (1.8-7.7) Lymphocytes # (Auto) 1.2 x10^3/uL (1.0-4.8) 1.6 x10^3/uL (1.0-4.8) Monocytes # (Auto) 0.8 x10^3/uL (0.0-1.1) 0.7 x10^3/uL (0.0-1.1) Eosinophils # (Auto) 0.2 x10^3/uL (0.0-0.7) 0.2 x10^3/uL (0.0-0.7) Basophils # (Auto) 0.0 x10^3/uL (0.0-0.2) 0.0 x10^3/uL (0.0-0.2) Sodium Level 144 mmol/L (136-145) 145 mmol/L (136-145) Potassium Level 4.5 mmol/L (3.5-5.1) 4.9 mmol/L (3.5-5.1) Chloride Level 108 mmol/L (98-107) 108 mmol/L (98-107) Carbon Dioxide Level 35 mmol/L (21-32) 34 mmol/L (21-32) Anion Gap 1 (6-14) 3 (6-14) Blood Urea Nitrogen 13 mg/dL (7-20) 12 mg/dL (7-20) Creatinine 0.8 mg/dL (0.6-1.0) 0.8 mg/dL (0.6-1.0) Estimated GFR (Cockcroft-Gault) 89.1 89.1 Glucose Level 108 mg/dL (70-99) 99 mg/dL (70-99) Calcium Level 8.7 mg/dL (8.5-10.1) 8.3 mg/dL (8.5-10.1) Laboratory Tests Test 07/24/16 05:35 White Blood Count 6.4 x10^3/uL (4.0-11.0) Red Blood Count 2.46 x10^6/uL (3.50-5.40) Hemoglobin 8.0 g/dL (12.0-15.5) Hematocrit 23.7 % (36.0-47.0) Mean Corpuscular Volume 96 fL (79-100) Mean Corpuscular Hemoglobin 33 pg (25-35) Mean Corpuscular Hemoglobin Concent 34 g/dL (31-37) Red Cell Distribution Width 18.1 % (11.5-14.5) Platelet Count 343 x10^3/uL (140-400) Neutrophils (%) (Auto) 59 % (31-73) Lymphocytes (%) (Auto) 26 % (24-48) Monocytes (%) (Auto) 11 % (0-9) Eosinophils (%) (Auto) 3 % (0-3) Basophils (%) (Auto) 1 % (0-3) Neutrophils # (Auto) 3.8 x10^3uL (1.8-7.7) Lymphocytes # (Auto) 1.6 x10^3/uL (1.0-4.8) Monocytes # (Auto) 0.7 x10^3/uL (0.0-1.1) Eosinophils # (Auto) 0.2 x10^3/uL (0.0-0.7) Basophils # (Auto) 0.0 x10^3/uL (0.0-0.2) Sodium Level 145 mmol/L (136-145) Potassium Level 4.9 mmol/L (3.5-5.1) Chloride Level 108 mmol/L (98-107) Carbon Dioxide Level 34 mmol/L (21-32) Anion Gap 3 (6-14) Blood Urea Nitrogen 12 mg/dL (7-20) Creatinine 0.8 mg/dL (0.6-1.0) Estimated GFR (Cockcroft-Gault) 89.1 Glucose Level 99 mg/dL (70-99) Calcium Level 8.3 mg/dL (8.5-10.1) Microbiology 07/13/16 Blood Culture - Final, Complete NO GROWTH AFTER 5 DAYS 07/13/16 Anaerobic/Aerobic Culture - Final, Complete 07/13/16 Anaerobic Culture Result 1 ([facility]) - Final, Complete 07/13/16 Aerobic Culture - Final, Complete 07/13/16 Aerobic Culture Result 1 (WEST) - Final, Complete 07/17/16 Sputum Culture - Final, Complete 07/17/16 Sputum Result 1 - Final, Complete 07/13/16 Urine Culture - Final, Complete 07/13/16 Urine Culture Result 1 (WEST) - Final, Complete 07/13/16 Urine Culture Result 2 (WE[facility]) - Final, Complete Medications Current Medications Haloperidol Lactate (Haldol) 5 mg 1X ONCE IVP Last administered on 07/13/16 12 :34; Start 07/13/16 at 12:30; Stop 07/13/16 at 12:31; Status DC Sodium Chloride 1,000 ml @ 1,000 mls/hr 1X ONCE IV Last administered on 14:06; Start 07/13/16 at 13:00; Stop 07/13/16 at 13:59; Status DC Sodium Chloride 1,000 ml @ 1,000 mls/hr 1X ONCE IV Last administered on 14:06; Start 07/13/16 at 13:45; Stop 07/13/16 at 14:44; Status DC Haloperidol Lactate (Haldol) 5 mg 1X ONCE IVP Last administered on 07/13/16 14 :20; Start 07/13/16 at 14:15; Stop 07/13/16 at 14:17; Status DC Etomidate (Amidate) 20 mg 1X ONCE IV Last administered on 07/13/16 14:35; Start 07/13/16 at 14:30; Stop 07/13/16 at 14:31; Status DC Lorazepam (Ativan) 2 mg STK-MED ONCE .ROUTE ; Start 07/13/16 at 14:43; Stop at 14:44; Status DC Levofloxacin/ Dextrose 150 ml @ 100 mls/hr 1X ONCE IV ; Start 07/13/16 at 15:00 ; Stop 07/13/16 at 15:00; Status DC Ceftriaxone Sodium 2 gm/ Sodium Chloride 100 ml @ 200 mls/hr Q24H IV ; Start at 15:00; Stop 07/13/16 at 15:00; Status DC Vancomycin HCl 1.25 gm/Sodium Chloride 250 ml @ 166.667 mls/hr 1X ONCE IV Last administered on 07/13/16 16:32; Start 07/13/16 at 15:00; Stop 07/13/16 at 16: 29; Status DC Meropenem 1 gm/ Sodium Chloride 100 ml @ 200 mls/hr Q8HRS IV Last administered on 07/17/16 05:24; Start 07/13/16 at 22:00; Stop 07/17/16 at 08:25; Status DC Meropenem 1 gm/ Sodium Chloride 100 ml @ 200 mls/hr 1X ONCE IV Last administered on 07/13/16 15:39; Start 07/13/16 at 15:00; Stop 07/13/16 at 15:29; Status DC Propofol 50 ml @ As Directed STK-MED ONCE IV ; Start 07/13/16 at 15:15; Stop 07/13 at 15:16; Status DC Lorazepam (Ativan) 2 mg 1X ONCE IV Last administered on 07/13/16 14:44; Start 07/13/16 at 15:45; Stop 07/13/16 at 15:46; Status DC Dextrose/Sodium Chloride 1,000 ml @ 125 mls/hr 1X ONCE IV Last administered on 07/13/16 18:25; Start 07/13/16 at 15:45; Stop 07/13/16 at 23:44; Status DC Propofol 100 ml @ 0 mls/hr CONT PRN IV SEE I/O RECORD Last administered on 05:11; Start 07/13/16 at 15:45; Stop 07/23/16 at 09:57; Status DC Sodium Chloride 1,000 ml @ 1,000 mls/hr 1X ONCE IV Last administered on 16:30; Start 07/13/16 at 16:30; Stop 07/13/16 at 17:29; Status DC Rocuronium Curtis (Zemuron) 50 mg STK-MED ONCE .ROUTE ; Start 07/13/16 at 16:50 ; Stop 07/13/16 at 16:51; Status DC Propofol 50 ml @ 0 mls/hr CONT PRN IV SEE I/O RECORD Last administered on 15:30; Start 07/13/16 at 18:00; Stop 07/14/16 at 07:08; Status DC Fentanyl Citrate (Fentanyl 2ml Vial) 25 mcg PRN Q1HR PRN IV COMM Last administered on 07/17/16 12:16; Start 07/13/16 at 21:15; Stop 07/19/16 at 09:06; Status DC Fentanyl Citrate (Fentanyl 2ml Vial) 50 mcg PRN Q1HR PRN IV COMM Last administered on 07/14/16 23:01; Start 07/13/16 at 21:15; Stop 07/19/16 at 09:06; Status DC Chlorhexidine Gluconate (Peridex) 15 ml BID MM Last administered on 07/19/16 09 :00; Start 07/14/16 at 09:00; Stop 07/19/16 at 09:06; Status DC Dextrose/Sodium Chloride 1,000 ml @ 125 mls/hr 1X ONCE IV Last administered on 07/14/16 03:33; Start 07/14/16 at 03:30; Stop 07/14/16 at 11:29; Status DC Acetaminophen (Acetaminophen Supp) 650 mg PRN Q6HRS PRN DC MILD PAIN / TEMP Last administered on 07/14/16 08:21; Start 07/14/16 at 08:00 Dextrose/Sodium Chloride 1,000 ml @ 100 mls/hr Q10H IV Last administered on 09:24; Start 07/14/16 at 09:15; Stop 07/19/16 at 15:45; Status DC Enoxaparin Sodium (Lovenox 40mg Syringe) 40 mg Q24H SQ Last administered on 07/20 14:49; Start 07/14/16 at 11:00; Stop 07/21/16 at 09:04; Status DC Famotidine (Pepcid) 20 mg QHS IVP Last administered on 07/21/16 20:54; Start at 21:00; Stop 07/22/16 at 09:18; Status DC Quetiapine Fumarate (SEROquel) 100 mg DAILY08 NG Last administered on 09:28; Start 07/15/16 at 15:00 Quetiapine Fumarate (SEROquel) 200 mg QHS NG Last administered on 07/23/16 20: 42; Start 07/15/16 at 21:00 Furosemide (Lasix) 20 mg 1X ONCE IVP Last administered on 07/17/16 11:18; Start 07/17/16 at 11:00; Stop 07/17/16 at 11:01; Status DC Sodium Chloride (Normal Saline Flush) 10 ml QSHIFT PRN IV AFTER MEDS AND BLOOD DRAWS; Start 07/17/16 at 11:00 Sodium Chloride (Normal Saline Flush) 20 ml QSHIFT PRN IV AFTER MEDS AND BLOOD DRAWS; Start 07/17/16 at 11:00 Metronidazole (Flagyl) 500 mg Q12HR PEG ; Start 07/18/16 at 13:00; Stop 07/18/16 at 13:28; Status DC Metronidazole 100 ml @ 100 mls/hr Q12HR IV Last administered on 07/18/16 21:25 ; Start 07/18/16 at 14:00; Stop 07/19/16 at 09:08; Status DC Metronidazole (Flagyl) 500 mg Q12HR PO Last administered on 07/24/16 09:28; Start 07/19/16 at 10:00 Albuterol/ Ipratropium (Duoneb) 3 ml 1X ONCE NEB Last administered on 18:30; Start 07/19/16 at 18:30; Stop 07/19/16 at 18:31; Status DC Furosemide (Lasix) 20 mg 1X ONCE IVP Last administered on 07/19/16 20:51; Start 07/19/16 at 20:15; Stop 07/19/16 at 20:16; Status DC Albuterol/ Ipratropium (Duoneb) 3 ml RTQID NEB Last administered on 07/24/16 11:44; Start 07/20/16 at 20:00 Enoxaparin Sodium (Lovenox 40mg Syringe) 40 mg BID SQ Last administered on 07/24 09:28; Start 07/21/16 at 10:30 Famotidine (Pepcid) 20 mg QHS PO Last administered on 07/23/16 20:42; Start at 21:00 Regadenoson (Lexiscan) 0.4 mg 1X ONCE IV Last administered on 07/24/16 08:29 ; Start 07/23/16 at 08:30; Stop 07/23/16 at 08:32; Status DC Piperacillin Sod/ Tazobactam Sod (Zosyn Per Pharmacy) 1 each PRN DAILY PRN MC SEE COMMENTS; Start 07/23/16 at 10:00 Piperacillin Sod/ Tazobactam Sod 4.5 gm/Sodium Chloride 100 ml @ 200 mls/hr Q6HRS IV Last administered on 07/24/16 12:43; Start 07/23/16 at 10:30 Regadenoson (Lexiscan) 0.4 mg 1X ONCE IV Last administered on 07/24/16 08:00 ; Start 07/24/16 at 08:00; Stop 07/24/16 at 08:03; Status DC Active Scripts Active Reported Seroquel (Quetiapine Fumarate) 100 Mg Tablet 1 Tab PO DAILY08 Seroquel (Quetiapine Fumarate) 200 Mg Tablet 1 Tab PO QHS Vitals/I & O Vital Sign - Last 24 Hours 07/23/16 07/23/16 07/23/16 07/23/16 14:40 14:52 15:07 19:00 Temp 98.4 98.4 100.1 98.4 98.4 100.1 Pulse 104 104 103 Resp 18 18 20 B/P (MAP) 114/72 (86) 114/72 (86) 107/64 (78) Pulse Ox 94 94 92 O2 Delivery Nasal Cannula Nasal Cannula Nasal Cannula O2 Flow Rate 2.0 2.0 2.0 07/23/16 07/23/16 07/23/16 07/23/16 20:00 20:09 20:52 23:00 Temp 98.9 98.7 98.9 98.7 Pulse 96 Resp 18 B/P (MAP) 123/73 (90) Pulse Ox 92 94 O2 Delivery Nasal Cannula Nasal Cannula O2 Flow Rate 3.0 2.0 07/24/16 07/24/16 07/24/16 07/24/16 03:00 07:00 07:17 11:00 Temp 98.4 98.4 98.6 98.4 98.4 98.6 Pulse 79 84 88 Resp 16 22 22 B/P (MAP) 106/66 (79) 113/85 (94) 120/88 (99) Pulse Ox 94 98 96 96 O2 Delivery Nasal Cannula Nasal Cannula Nasal Cannula O2 Flow Rate 2.0 2.0 07/24/16 11:45 O2 Delivery Nasal Cannula O2 Flow Rate 2.0 Intake and Output 07/23/16 07/23/16 07/24/16 15:00 23:00 07:00 Intake Total 480 ml 120 ml Output Total 200 ml Balance 280 ml 120 ml TEX MCMANUS MD July 24, 2016 13:10
--- NOTE | 2016-07-24 13:22 | PDOC ---
PULMONARY PROGRESS NOTES Subjective extubated, 07/18, on 02, sob better. has occ cough, no pain Vitals Vital Signs Date Time Temp Pulse Resp B/P (MAP) Pulse Ox O2 Delivery O2 Flow Rate FiO2 07/24/16 11:45 Nasal Cannula 2.0 07/24/16 11:00 98.6 88 22 120/88 (99) 96 98.6 Comments ros as mentioned as above discussed w rn, other sys otherwise neg ROS: No Nausea, No Chest Pain, No Abdominal Pain General: Alert, No acute distress HEENT: Other (nc at perrl, nose clear, orally intubated) Cardiovascular: S1, S2 Abdomen: Soft, Non-tender Neuro Exam: Alert, Oriented Extremities: No Edema Skin: Warm Labs Laboratory Tests Test 07/23/16 10:11 07/24/16 05:35 White Blood Count 6.5 x10^3/uL (4.0-11.0) 6.4 x10^3/uL (4.0-11.0) Red Blood Count 2.57 x10^6/uL (3.50-5.40) 2.46 x10^6/uL (3.50-5.40) Hemoglobin 8.4 g/dL (12.0-15.5) 8.0 g/dL (12.0-15.5) Hematocrit 24.6 % (36.0-47.0) 23.7 % (36.0-47.0) Mean Corpuscular Volume 96 fL (79-100) 96 fL (79-100) Mean Corpuscular Hemoglobin 33 pg (25-35) 33 pg (25-35) Mean Corpuscular Hemoglobin Concent 34 g/dL (31-37) 34 g/dL (31-37) Red Cell Distribution Width 17.4 % (11.5-14.5) 18.1 % (11.5-14.5) Platelet Count 349 x10^3/uL (140-400) 343 x10^3/uL (140-400) Neutrophils (%) (Auto) 67 % (31-73) 59 % (31-73) Lymphocytes (%) (Auto) 18 % (24-48) 26 % (24-48) Monocytes (%) (Auto) 12 % (0-9) 11 % (0-9) Eosinophils (%) (Auto) 3 % (0-3) 3 % (0-3) Basophils (%) (Auto) 1 % (0-3) 1 % (0-3) Neutrophils # (Auto) 4.3 x10^3uL (1.8-7.7) 3.8 x10^3uL (1.8-7.7) Lymphocytes # (Auto) 1.2 x10^3/uL (1.0-4.8) 1.6 x10^3/uL (1.0-4.8) Monocytes # (Auto) 0.8 x10^3/uL (0.0-1.1) 0.7 x10^3/uL (0.0-1.1) Eosinophils # (Auto) 0.2 x10^3/uL (0.0-0.7) 0.2 x10^3/uL (0.0-0.7) Basophils # (Auto) 0.0 x10^3/uL (0.0-0.2) 0.0 x10^3/uL (0.0-0.2) Sodium Level 144 mmol/L (136-145) 145 mmol/L (136-145) Potassium Level 4.5 mmol/L (3.5-5.1) 4.9 mmol/L (3.5-5.1) Chloride Level 108 mmol/L (98-107) 108 mmol/L (98-107) Carbon Dioxide Level 35 mmol/L (21-32) 34 mmol/L (21-32) Anion Gap 1 (6-14) 3 (6-14) Blood Urea Nitrogen 13 mg/dL (7-20) 12 mg/dL (7-20) Creatinine 0.8 mg/dL (0.6-1.0) 0.8 mg/dL (0.6-1.0) Estimated GFR (Cockcroft-Gault) 89.1 89.1 Glucose Level 108 mg/dL (70-99) 99 mg/dL (70-99) Calcium Level 8.7 mg/dL (8.5-10.1) 8.3 mg/dL (8.5-10.1) Laboratory Tests Test 07/24/16 05:35 White Blood Count 6.4 x10^3/uL (4.0-11.0) Red Blood Count 2.46 x10^6/uL (3.50-5.40) Hemoglobin 8.0 g/dL (12.0-15.5) Hematocrit 23.7 % (36.0-47.0) Mean Corpuscular Volume 96 fL (79-100) Mean Corpuscular Hemoglobin 33 pg (25-35) Mean Corpuscular Hemoglobin Concent 34 g/dL (31-37) Red Cell Distribution Width 18.1 % (11.5-14.5) Platelet Count 343 x10^3/uL (140-400) Neutrophils (%) (Auto) 59 % (31-73) Lymphocytes (%) (Auto) 26 % (24-48) Monocytes (%) (Auto) 11 % (0-9) Eosinophils (%) (Auto) 3 % (0-3) Basophils (%) (Auto) 1 % (0-3) Neutrophils # (Auto) 3.8 x10^3uL (1.8-7.7) Lymphocytes # (Auto) 1.6 x10^3/uL (1.0-4.8) Monocytes # (Auto) 0.7 x10^3/uL (0.0-1.1) Eosinophils # (Auto) 0.2 x10^3/uL (0.0-0.7) Basophils # (Auto) 0.0 x10^3/uL (0.0-0.2) Sodium Level 145 mmol/L (136-145) Potassium Level 4.9 mmol/L (3.5-5.1) Chloride Level 108 mmol/L (98-107) Carbon Dioxide Level 34 mmol/L (21-32) Anion Gap 3 (6-14) Blood Urea Nitrogen 12 mg/dL (7-20) Creatinine 0.8 mg/dL (0.6-1.0) Estimated GFR (Cockcroft-Gault) 89.1 Glucose Level 99 mg/dL (70-99) Calcium Level 8.3 mg/dL (8.5-10.1) Medications Active Scripts Medications Dose Route/Sig Days Date Category Seroquel (Quetiapine Fumarate) 100 Mg Tablet 1 Tab PO DAILY08 07/14/16 Reported Meloxicam 15 Mg Tablet 1 Tab PO DAILY 07/14/16 Reported Seroquel (Quetiapine Fumarate) 200 Mg Tablet 1 Tab PO QHS 07/14/16 Reported Cipro (Ciprofloxacin Hcl) 250 Mg Tablet 1 Tab PO BID 04/07/16 Rx Comments cxr reviewed, The heart remains enlarged. The continues to be some mild infiltrate in the left base. Right perihilar density is similar to prior. The right lung is otherwise clear. There is no pneumothorax. no change Impression . 1. Acute respiratory failure secondary to acute encephalopathy and sepsis. extubated 2. Acute encephalopathy secondary to sepsis., resolved 3. High-grade fever and markedly elevated white cell count POA, suspect underlying sepsis. resolved. 4. wide complex tachycardia, cardiology seeing pt. MPI pending 5. encephalopathy, LP neg, resolved 6. obesity, snoring, eds, prob yan 7. suspected acute Diastolic HF/ improved with BIPAP,diuresis 8. LLL atelectasis vs pneumonia, gram negative coverage added Plan . 1. 02 titration, 6 min walk bf dc 2. Zosyn 3. repeat cxr reviewed, 4. Follow all cultures, neg. 5. Lumbar puncture neg 6. Noncontrast CT chest reviewed. pulmonary HTN/ atelectasis 7. Deep venous thrombosis prophylaxis. 10. PSG as out pt ( she does not want CPAP ) Discussed with RN, pt cardiology recommendations, MPI, DEBRA later TABBY JOHNSON MD July 24, 2016 13:22
--- NOTE | 2016-07-24 14:42 | RAD ---
APPROVED REPORT Test Type: Pharmacological Stress Nurse/Tech: Melita Bello R.N. Test Indications: arrhythmia, VT Cardiac History: see ehr Medications: see ehr Medical History: see ehr Resting ECG: SR Resting Heart Rate: 77 bpm Resting Blood Pressure: 126/70mmHg Pretest Chest Pain: No chest pain Nurse/Tech Notes lungs clear but diminished, using O2 2 L nc, heart tones regular Consent: The procedure was explained to the patient in lay terms. Informed consent was witnessed. Mateo eout was entered into [facility]. History and Stress Test performed by Melita Bello R.N. Pharm. Details Pharmacologic stress testing was performed using 0.4mg per 5ml of regadenoson given intravenously ove r 7-10 seconds. Stress Symptoms No chest pain or symptoms. POST EXERCISE Reason for Termination: Infusion complete Target HR: No Max HR: 97 bpm Max Blood Pressure: 127/62mmHg Chest Pain: No. Arrhythmia: No. ST Change: No. INTERPRETATION Stress EKG Conclusion: No evidence of vasodilator induced EKG changes. Imaging Protocol IMAGE PROTOCOL: Stress Tc-99m/rest Tc-99m 2 days Rest: Stress: Viability: Radiopharm.Tc99m Sestamibi [id number] Duration 12min. Img Date 07/24/2016 Inj-Img [id number]. Stress Admin Site: IV - PICC LineAdministrator: Vince Reyes, RT (R)(N) STRESS DATA End Diast. Vol.114.0mlAv. Heart Rate86.0bpm End Syst. Vol.37.0mlCO Index BSA0.0L/min Myocardial Txvs828.0gEject. Kouahioy48.0% Stress Rates Pk. Fill Rate4.06EDV/secLVtime Pk. Fill 204.22msec Pk. Empty Rate4.87ESV/secLVtime Pk. Ftayc512.96msec 03/17 Pk. Fill1.19EDV/sec Stress Scores Regional WT2.00Summed WT11.00 Regional WM0.00Summed WM3.00 LV Perfusion normal perfusion at stress. Wall Motion Normal wall motion. LV Perf. Quant 17 Seg. SSS3.00 Stress Defect Extent (% LAD)0.60Rest Defect Extent (% LAD)Rev. Defect Extent (% LAD)0.00 Stress Defect Extent (% LCX) 22.50Rest Defect Extent (% LCX)Rev. Defect Extent (% LCX)0.00 Stress Defect Extent (% RCA)0.00Rest Defect Extent (% RCA)Rev. Defect Extent (% RCA)0.00 Stress Defect Extent (% RENETTA)6.10Rest Defect Extent (% RENETTA)Rev. Defect Extent (% RENETTA)0.00 Other Information Quality:Fair Risk Assessment: Low Risk Conclusion 1. No evidence of stress induced EKG changes. 2. Normal perfusion at stress. 3. Normal EF at > 65% 4. Low risk study
--- NOTE | 2016-07-24 16:50 | PDOC ---
PROGRESS NOTES Assessment Assessment Metabolic encephalopathy. Respiratory failure. Hypoxia. Sepsis Tremors. Acute renal failure. Hypernatremia. Obesity. RECOMMENDATIONS/PLAN: Continue medical treatment. OT/PT. LP ruled out meningitis. HCT: negative. SUBJECTIVE: Stating she was doing fine on 07/24, but had memory problems.. OBJECTIVE: Patient had hypoxia and decreased O2 and she was transferred to ICU on 07/19. No focalized neurological deficits. Past Medical History Cardiovascular: HTN Psych: Depression Past Surgical History No pertinent recent surgical history Family History CAD Social History Single, no alcohol or tobacco ALLERGY: Reviewed. MEDICATIONS: Refer to [facility] REVIEW OF SYSTEMS: Constitutional: Obesity. Head: No recent traumatic brain or head injury. Skin: No edema, or rash. Ear: No infection, tinnitus. Eyes: No vision loss, or diplopia. Nose: No bleeding or purulent discharges. Hearing: No hearing decrease. Neck: No injury. Breast: No history of cancer, masses, or discharges. Cardiac: HTN Pulmonary: hypoxia. GI: No GI Ulcer, GI bleeding Urinary/genital: UTI. Endocrine: Obesity. Skeletomuscular: No muscular atrophy, deformity. Neurological: see HP. Psychiatric: Denies drug use/abuse. Otherwise, not [id number] review of systems. PHYSICAL EXAMINATION: General appearance in no acute distress. HEENT: Normocephalic and nontraumatic. Eyes, nose, ears, and throat are unremarkable. Hearing decrease. Neck is supple. No lymphadenopathy. No bruits are heard over the carotid artery. No Crepitus. Cardiovascular: S1, S2, regular rate and rhythm. Pulmonary: Clear to auscultation bilaterally. Abdomen: Bowel sounds are positive. Abdomen is soft, nontender, and nondistended. Extremities: No rash, lesions, or edema. No restriction of range of motion NEUROLOGICAL EXAMINATION: Awake. On room air. Oriented to time, place and person, but reaction was slow. PERRL. EOMI. CN: no focal findings. Muscle tone: within normal. Muscle strength: 5- DTR: 2- UE, 1+ at knee. Plantar reflex: Flexor response bilaterally Gait: not examined in chair. Sensory exam: no abnormal findings. No acute cerebellar signs elicited. F-T-N test fine. No tremors noted. Objective Objective Vital Signs Date Time Temp Pulse Resp B/P (MAP) Pulse Ox O2 Delivery O2 Flow Rate FiO2 07/24/16 16:06 Nasal Cannula 2.0 07/24/16 11:00 98.6 88 22 120/88 (99) 96 98.6 Intake and Output 07/24/16 07:00 Intake Total 600 ml Output Total 200 ml Balance 400 ml Intake Oral 600 ml Output Urine Total 200 ml # Voids 3 Vitals Signs Vitals VS - Last 72 Hours, by Label Date Time Temp Pulse Resp B/P (MAP) Pulse Ox O2 Delivery O2 Flow Rate FiO2 07/24/16 16:06 Nasal Cannula 2.0 07/24/16 11:45 Nasal Cannula 2.0 07/24/16 11:00 98.6 88 22 120/88 (99) 96 Nasal Cannula 2.0 98.6 07/24/16 07:17 96 Nasal Cannula 2.0 07/24/16 07:00 98.4 84 22 113/85 (94) 98 Nasal Cannula 98.4 07/24/16 03:00 98.4 79 16 106/66 (79) 94 98.4 07/23/16 23:00 98.7 96 18 123/73 (90) 94 98.7 07/23/16 20:52 98.9 98.9 07/23/16 20:09 92 Nasal Cannula 2.0 07/23/16 20:00 Nasal Cannula 3.0 07/23/16 19:00 100.1 103 20 107/64 (78) 92 100.1 07/23/16 15:07 Nasal Cannula 2.0 07/23/16 14:52 98.4 104 18 114/72 (86) 94 Nasal Cannula 2.0 98.4 07/23/16 14:40 98.4 104 18 114/72 (86) 94 Nasal Cannula 2.0 98.4 07/23/16 11:19 Nasal Cannula 2.0 07/23/16 10:51 99.3 81 16 140/80 (100) 96 Room Air 99.3 07/23/16 07:45 Nasal Cannula 3.0 07/23/16 07:27 98.5 92 17 117/70 (86) 95 Nasal Cannula 3.0 98.5 07/23/16 07:18 94 Nasal Cannula 2.0 Laboratory Laboratory Laboratory Tests Test 07/24/16 05:35 White Blood Count 6.4 x10^3/uL (4.0-11.0) Red Blood Count 2.46 x10^6/uL (3.50-5.40) Hemoglobin 8.0 g/dL (12.0-15.5) Hematocrit 23.7 % (36.0-47.0) Mean Corpuscular Volume 96 fL (79-100) Mean Corpuscular Hemoglobin 33 pg (25-35) Mean Corpuscular Hemoglobin Concent 34 g/dL (31-37) Red Cell Distribution Width 18.1 % (11.5-14.5) Platelet Count 343 x10^3/uL (140-400) Neutrophils (%) (Auto) 59 % (31-73) Lymphocytes (%) (Auto) 26 % (24-48) Monocytes (%) (Auto) 11 % (0-9) Eosinophils (%) (Auto) 3 % (0-3) Basophils (%) (Auto) 1 % (0-3) Neutrophils # (Auto) 3.8 x10^3uL (1.8-7.7) Lymphocytes # (Auto) 1.6 x10^3/uL (1.0-4.8) Monocytes # (Auto) 0.7 x10^3/uL (0.0-1.1) Eosinophils # (Auto) 0.2 x10^3/uL (0.0-0.7) Basophils # (Auto) 0.0 x10^3/uL (0.0-0.2) Sodium Level 145 mmol/L (136-145) Potassium Level 4.9 mmol/L (3.5-5.1) Chloride Level 108 mmol/L (98-107) Carbon Dioxide Level 34 mmol/L (21-32) Anion Gap 3 (6-14) Blood Urea Nitrogen 12 mg/dL (7-20) Creatinine 0.8 mg/dL (0.6-1.0) Estimated GFR (Cockcroft-Gault) 89.1 Glucose Level 99 mg/dL (70-99) Calcium Level 8.3 mg/dL (8.5-10.1) Microbiology 07/13/16 Blood Culture - Final, Complete NO GROWTH AFTER 5 DAYS 07/13/16 Anaerobic/Aerobic Culture - Final, Complete 07/13/16 Anaerobic Culture Result 1 (WEST) - Final, Complete 07/13/16 Aerobic Culture - Final, Complete 07/13/16 Aerobic Culture Result 1 (WEST) - Final, Complete 07/17/16 Sputum Culture - Final, Complete 07/17/16 Sputum Result 1 - Final, Complete 07/13/16 Urine Culture - Final, Complete 07/13/16 Urine Culture Result 1 (WEST) - Final, Complete 07/13/16 Urine Culture Result 2 (WEST) - Final, Complete Medication Medications Current Medications Regadenoson (Lexiscan) 0.4 mg 1X ONCE IV Last administered on 07/24/16t 08:00 ; Start 07/24/16 at 08:00; Stop 07/24/16 at 08:03; Status DC Comment Review of Relevant I have reviewed the following items quentin (where applicable) has been applied. ZARA CHAMBERLAIN MD July 24, 2016 16:50
[2016-07-24 19:00] VITALS: BP 90/62
[2016-07-24] MEDS: FAMOTIDINE 20 MG TABLET. PO SCH (20:01)
[2016-07-24 23:59] VITALS: BP 106/69
[2016-07-25 03:59] VITALS: BP 111/80
[2016-07-25] MEDS: PIPERACILLIN/TAZOBACTAM 4.5 GM in IV NORMAL SALINE 100ML 100 ML IV SCH ×3 (06:00→19:26)
[2016-07-25 06:05] LABS: BASO # 0.1 x10^3/uL (0.0-0.2); BASO % 1 % (0-3); EOS % 4 % (0-3); HEMATOCRIT 24.8 % (36.0-47.0); HEMOGLOBIN 8.4 g/dL (12.0-15.5); LYMPH # 1.5 x10^3/uL (1.0-4.8); LYMPH % 20 % (24-48); MEAN CORPUSCULAR HEMOGLOBIN 33 pg (25-35); MEAN CORPUSCULAR HGB CONC 34 g/dL (31-37); MEAN CORPUSCULAR VOLUME 96 fL (79-100); MONO % 9 % (0-9); NEUT % 66 % (31-73); PLATELET COUNT 375 x10^3/uL (140-400); RED BLOOD COUNT 2.59 x10^6/uL (3.50-5.40); RED CELL DISTRIBUTION WIDTH 17.5 % (11.5-14.5); WHITE BLOOD COUNT 7.7 x10^3/uL (4.0-11.0)
[2016-07-25 06:24] LABS: CALCIUM 8.1 mg/dL (8.5-10.1); CREATININE 0.9 mg/dL (0.6-1.0); GFR 77.8; POTASSIUM 4.6 mmol/L (3.5-5.1)
[2016-07-25 07:00] VITALS: BP 90/59
[2016-07-25] MEDS: IPRATRPIUM/ALBUTEROL 0.5/2.5MG 3 ML NEBU. NEB SCH ×4 (07:05→19:22)
[2016-07-25] MEDS: ENOXAPARIN 40 MG/0.4 ML SYRINGE. SQ SCH ×2 (08:55→21:17)
[2016-07-25] MEDS: QUEtiapine 100 MG TABLET. NG SCH ×2 (08:55→21:16)
[2016-07-25] MEDS: metroNIDAZOLE 500 MG TABLET PO SCH ×2 (08:55→21:17)
--- NOTE | 2016-07-25 10:13 | PDOC ---
PULMONARY PROGRESS NOTES Subjective on , sob better. has less cough, no pain extubated, 07/18, Vitals Vital Signs Date Time Temp Pulse Resp B/P (MAP) Pulse Ox O2 Delivery O2 Flow Rate FiO2 07/25/16 08:00 Nasal Cannula 3.0 07/25/16 07:07 97 07/25/16 07:00 98.5 101 22 90/59 (69) 98.5 Comments ros as mentioned as above discussed w rn, other sys otherwise neg ROS: No Nausea, No Chest Pain, No Abdominal Pain General: Alert, No acute distress HEENT: Other (nc at perrl, nose clear, orally intubated) Lungs: Other (deminished) Cardiovascular: S1, S2 Abdomen: Soft, Non-tender Neuro Exam: Alert, Oriented Extremities: No Edema Skin: Warm Labs Laboratory Tests Test 07/24/16 05:35 07/25/16 05:45 White Blood Count 6.4 x10^3/uL (4.0-11.0) 7.7 x10^3/uL (4.0-11.0) Red Blood Count 2.46 x10^6/uL (3.50-5.40) 2.59 x10^6/uL (3.50-5.40) Hemoglobin 8.0 g/dL (12.0-15.5) 8.4 g/dL (12.0-15.5) Hematocrit 23.7 % (36.0-47.0) 24.8 % (36.0-47.0) Mean Corpuscular Volume 96 fL (79-100) 96 fL (79-100) Mean Corpuscular Hemoglobin 33 pg (25-35) 33 pg (25-35) Mean Corpuscular Hemoglobin Concent 34 g/dL (31-37) 34 g/dL (31-37) Red Cell Distribution Width 18.1 % (11.5-14.5) 17.5 % (11.5-14.5) Platelet Count 343 x10^3/uL (140-400) 375 x10^3/uL (140-400) Neutrophils (%) (Auto) 59 % (31-73) 66 % (31-73) Lymphocytes (%) (Auto) 26 % (24-48) 20 % (24-48) Monocytes (%) (Auto) 11 % (0-9) 9 % (0-9) Eosinophils (%) (Auto) 3 % (0-3) 4 % (0-3) Basophils (%) (Auto) 1 % (0-3) 1 % (0-3) Neutrophils # (Auto) 3.8 x10^3uL (1.8-7.7) 5.1 x10^3uL (1.8-7.7) Lymphocytes # (Auto) 1.6 x10^3/uL (1.0-4.8) 1.5 x10^3/uL (1.0-4.8) Monocytes # (Auto) 0.7 x10^3/uL (0.0-1.1) 0.7 x10^3/uL (0.0-1.1) Eosinophils # (Auto) 0.2 x10^3/uL (0.0-0.7) 0.3 x10^3/uL (0.0-0.7) Basophils # (Auto) 0.0 x10^3/uL (0.0-0.2) 0.1 x10^3/uL (0.0-0.2) Sodium Level 145 mmol/L (136-145) 144 mmol/L (136-145) Potassium Level 4.9 mmol/L (3.5-5.1) 4.6 mmol/L (3.5-5.1) Chloride Level 108 mmol/L (98-107) 108 mmol/L (98-107) Carbon Dioxide Level 34 mmol/L (21-32) 32 mmol/L (21-32) Anion Gap 3 (6-14) 4 (6-14) Blood Urea Nitrogen 12 mg/dL (7-20) 12 mg/dL (7-20) Creatinine 0.8 mg/dL (0.6-1.0) 0.9 mg/dL (0.6-1.0) Estimated GFR (Cockcroft-Gault) 89.1 77.8 Glucose Level 99 mg/dL (70-99) 134 mg/dL (70-99) Calcium Level 8.3 mg/dL (8.5-10.1) 8.1 mg/dL (8.5-10.1) Laboratory Tests Test 07/25/16 05:45 White Blood Count 7.7 x10^3/uL (4.0-11.0) Red Blood Count 2.59 x10^6/uL (3.50-5.40) Hemoglobin 8.4 g/dL (12.0-15.5) Hematocrit 24.8 % (36.0-47.0) Mean Corpuscular Volume 96 fL (79-100) Mean Corpuscular Hemoglobin 33 pg (25-35) Mean Corpuscular Hemoglobin Concent 34 g/dL (31-37) Red Cell Distribution Width 17.5 % (11.5-14.5) Platelet Count 375 x10^3/uL (140-400) Neutrophils (%) (Auto) 66 % (31-73) Lymphocytes (%) (Auto) 20 % (24-48) Monocytes (%) (Auto) 9 % (0-9) Eosinophils (%) (Auto) 4 % (0-3) Basophils (%) (Auto) 1 % (0-3) Neutrophils # (Auto) 5.1 x10^3uL (1.8-7.7) Lymphocytes # (Auto) 1.5 x10^3/uL (1.0-4.8) Monocytes # (Auto) 0.7 x10^3/uL (0.0-1.1) Eosinophils # (Auto) 0.3 x10^3/uL (0.0-0.7) Basophils # (Auto) 0.1 x10^3/uL (0.0-0.2) Sodium Level 144 mmol/L (136-145) Potassium Level 4.6 mmol/L (3.5-5.1) Chloride Level 108 mmol/L (98-107) Carbon Dioxide Level 32 mmol/L (21-32) Anion Gap 4 (6-14) Blood Urea Nitrogen 12 mg/dL (7-20) Creatinine 0.9 mg/dL (0.6-1.0) Estimated GFR (Cockcroft-Gault) 77.8 Glucose Level 134 mg/dL (70-99) Calcium Level 8.1 mg/dL (8.5-10.1) Medications Active Scripts Medications Dose Route/Sig Days Date Category Seroquel (Quetiapine Fumarate) 100 Mg Tablet 1 Tab PO DAILY08 07/14/16 Reported Meloxicam 15 Mg Tablet 1 Tab PO DAILY 07/14/16 Reported Seroquel (Quetiapine Fumarate) 200 Mg Tablet 1 Tab PO QHS 07/14/16 Reported Cipro (Ciprofloxacin Hcl) 250 Mg Tablet 1 Tab PO BID 04/07/16 Rx Comments cxr reviewed, The heart remains enlarged. The continues to be some mild infiltrate in the left base. Right perihilar density is similar to prior. The right lung is otherwise clear. There is no pneumothorax. no change Impression . 1. Acute respiratory failure secondary to acute encephalopathy and sepsis. extubated 2. Acute encephalopathy secondary to sepsis., resolved 3. High-grade fever and markedly elevated white cell count POA, suspect underlying sepsis. resolved. 4. wide complex tachycardia, cardiology seeing pt. MPI pending 5. encephalopathy, LP neg, resolved 6. obesity, snoring, eds, prob yan 7. suspected acute Diastolic HF/ improved with BIPAP,diuresis 8. LLL atelectasis vs pneumonia, gram negative coverage added Plan . 1. 02 titration, 6 min walk and over night ox bf dc 2. Zosyn 3. repeat cxr reviewed, 4. Follow all cultures, neg. 5. Lumbar puncture neg 6. Noncontrast CT chest reviewed. pulmonary HTN/ atelectasis 7. Deep venous thrombosis prophylaxis. 10. PSG as out pt ( she does not want CPAP ) Discussed with RN, pt cardiology recommendations, MPI, DEBRA later TABBY JOHNSON MD July 25, 2016 10:13
[2016-07-25 10:59] VITALS: BP 100/60
--- NOTE | 2016-07-25 11:55 | PDOC ---
PROGRESS NOTES Chief Complaint Chief Complaint Acute hypoxic respiratory failure History of Present Illness History of Present Illness Pt was sitting up in chair with NAD Reports she feels much better and able to ambulate Vitals Vitals Vital Signs Date Time Temp Pulse Resp B/P (MAP) Pulse Ox O2 Delivery O2 Flow Rate FiO2 07/25/16 11:11 97 Nasal Cannula 2.0 07/25/16 10:59 97.0 62 20 100/60 (73) 97.0 Physical Exam General: Alert, Oriented X3, Cooperative Heart: Normal S1, Normal S2, No murmurs Lungs: Clear, Other (NC 2 L) Abdomen: Normal bowel sounds, Soft, Other (truncal obesity) Extremities: No clubbing, Other (trace to 1+ LE edema) Skin: No rashes, No significant lesion Labs LABS Laboratory Tests Test 07/25/16 05:45 White Blood Count 7.7 x10^3/uL (4.0-11.0) Red Blood Count 2.59 x10^6/uL (3.50-5.40) Hemoglobin 8.4 g/dL (12.0-15.5) Hematocrit 24.8 % (36.0-47.0) Mean Corpuscular Volume 96 fL (79-100) Mean Corpuscular Hemoglobin 33 pg (25-35) Mean Corpuscular Hemoglobin Concent 34 g/dL (31-37) Red Cell Distribution Width 17.5 % (11.5-14.5) Platelet Count 375 x10^3/uL (140-400) Neutrophils (%) (Auto) 66 % (31-73) Lymphocytes (%) (Auto) 20 % (24-48) Monocytes (%) (Auto) 9 % (0-9) Eosinophils (%) (Auto) 4 % (0-3) Basophils (%) (Auto) 1 % (0-3) Neutrophils # (Auto) 5.1 x10^3uL (1.8-7.7) Lymphocytes # (Auto) 1.5 x10^3/uL (1.0-4.8) Monocytes # (Auto) 0.7 x10^3/uL (0.0-1.1) Eosinophils # (Auto) 0.3 x10^3/uL (0.0-0.7) Basophils # (Auto) 0.1 x10^3/uL (0.0-0.2) Sodium Level 144 mmol/L (136-145) Potassium Level 4.6 mmol/L (3.5-5.1) Chloride Level 108 mmol/L (98-107) Carbon Dioxide Level 32 mmol/L (21-32) Anion Gap 4 (6-14) Blood Urea Nitrogen 12 mg/dL (7-20) Creatinine 0.9 mg/dL (0.6-1.0) Estimated GFR (Cockcroft-Gault) 77.8 Glucose Level 134 mg/dL (70-99) Calcium Level 8.1 mg/dL (8.5-10.1) Review of Systems Review of Systems Denies chest pain Denies N/V/D Assessment and Plan Assessmemt and Plan Problems Medical Problems: (1) Sepsis Status: Acute (2) Sepsis Status: Acute Assessment: 1. Acute respiratory failure secondary to acute encephalopathy and sepsis. extubated 2. Acute encephalopathy secondary to sepsis., resolved 3. High-grade fever and markedly elevated white cell count POA, suspect underlying sepsis. resolved. 4. wide complex tachycardia, cardiology seeing pt. MPI pending - negative, cardio ok w/ d/c 5. encephalopathy, LP neg, resolved 6. obesity, snoring, eds, prob yan 7. suspected acute Diastolic HF/ improved with BIPAP,diuresis 8. LLL atelectasis vs pneumonia, gram negative coverage added Plan: D/C today Start Augmentin Continue Flagyl Reviewed LP, CXR, MPI - all unremarkable Activity as tolerated Continue home meds F/U w/ PCP in 1 week Problems: Comment Review of Relevant I have reviewed the following items quentin (where applicable) has been applied. Labs Laboratory Tests Test 07/24/16 05:35 07/25/16 05:45 White Blood Count 6.4 x10^3/uL (4.0-11.0) 7.7 x10^3/uL (4.0-11.0) Red Blood Count 2.46 x10^6/uL (3.50-5.40) 2.59 x10^6/uL (3.50-5.40) Hemoglobin 8.0 g/dL (12.0-15.5) 8.4 g/dL (12.0-15.5) Hematocrit 23.7 % (36.0-47.0) 24.8 % (36.0-47.0) Mean Corpuscular Volume 96 fL (79-100) 96 fL (79-100) Mean Corpuscular Hemoglobin 33 pg (25-35) 33 pg (25-35) Mean Corpuscular Hemoglobin Concent 34 g/dL (31-37) 34 g/dL (31-37) Red Cell Distribution Width 18.1 % (11.5-14.5) 17.5 % (11.5-14.5) Platelet Count 343 x10^3/uL (140-400) 375 x10^3/uL (140-400) Neutrophils (%) (Auto) 59 % (31-73) 66 % (31-73) Lymphocytes (%) (Auto) 26 % (24-48) 20 % (24-48) Monocytes (%) (Auto) 11 % (0-9) 9 % (0-9) Eosinophils (%) (Auto) 3 % (0-3) 4 % (0-3) Basophils (%) (Auto) 1 % (0-3) 1 % (0-3) Neutrophils # (Auto) 3.8 x10^3uL (1.8-7.7) 5.1 x10^3uL (1.8-7.7) Lymphocytes # (Auto) 1.6 x10^3/uL (1.0-4.8) 1.5 x10^3/uL (1.0-4.8) Monocytes # (Auto) 0.7 x10^3/uL (0.0-1.1) 0.7 x10^3/uL (0.0-1.1) Eosinophils # (Auto) 0.2 x10^3/uL (0.0-0.7) 0.3 x10^3/uL (0.0-0.7) Basophils # (Auto) 0.0 x10^3/uL (0.0-0.2) 0.1 x10^3/uL (0.0-0.2) Sodium Level 145 mmol/L (136-145) 144 mmol/L (136-145) Potassium Level 4.9 mmol/L (3.5-5.1) 4.6 mmol/L (3.5-5.1) Chloride Level 108 mmol/L (98-107) 108 mmol/L (98-107) Carbon Dioxide Level 34 mmol/L (21-32) 32 mmol/L (21-32) Anion Gap 3 (6-14) 4 (6-14) Blood Urea Nitrogen 12 mg/dL (7-20) 12 mg/dL (7-20) Creatinine 0.8 mg/dL (0.6-1.0) 0.9 mg/dL (0.6-1.0) Estimated GFR (Cockcroft-Gault) 89.1 77.8 Glucose Level 99 mg/dL (70-99) 134 mg/dL (70-99) Calcium Level 8.3 mg/dL (8.5-10.1) 8.1 mg/dL (8.5-10.1) Laboratory Tests Test 07/25/16 05:45 White Blood Count 7.7 x10^3/uL (4.0-11.0) Red Blood Count 2.59 x10^6/uL (3.50-5.40) Hemoglobin 8.4 g/dL (12.0-15.5) Hematocrit 24.8 % (36.0-47.0) Mean Corpuscular Volume 96 fL (79-100) Mean Corpuscular Hemoglobin 33 pg (25-35) Mean Corpuscular Hemoglobin Concent 34 g/dL (31-37) Red Cell Distribution Width 17.5 % (11.5-14.5) Platelet Count 375 x10^3/uL (140-400) Neutrophils (%) (Auto) 66 % (31-73) Lymphocytes (%) (Auto) 20 % (24-48) Monocytes (%) (Auto) 9 % (0-9) Eosinophils (%) (Auto) 4 % (0-3) Basophils (%) (Auto) 1 % (0-3) Neutrophils # (Auto) 5.1 x10^3uL (1.8-7.7) Lymphocytes # (Auto) 1.5 x10^3/uL (1.0-4.8) Monocytes # (Auto) 0.7 x10^3/uL (0.0-1.1) Eosinophils # (Auto) 0.3 x10^3/uL (0.0-0.7) Basophils # (Auto) 0.1 x10^3/uL (0.0-0.2) Sodium Level 144 mmol/L (136-145) Potassium Level 4.6 mmol/L (3.5-5.1) Chloride Level 108 mmol/L (98-107) Carbon Dioxide Level 32 mmol/L (21-32) Anion Gap 4 (6-14) Blood Urea Nitrogen 12 mg/dL (7-20) Creatinine 0.9 mg/dL (0.6-1.0) Estimated GFR (Cockcroft-Gault) 77.8 Glucose Level 134 mg/dL (70-99) Calcium Level 8.1 mg/dL (8.5-10.1) Microbiology 07/13/16 Blood Culture - Final, Complete NO GROWTH AFTER 5 DAYS 07/13/16 Anaerobic/Aerobic Culture - Final, Complete 07/13/16 Anaerobic Culture Result 1 (WEST) - Final, Complete 07/13/16 Aerobic Culture - Final, Complete 07/13/16 Aerobic Culture Result 1 (WEST) - Final, Complete 07/17/16 Sputum Culture - Final, Complete 07/17/16 Sputum Result 1 - Final, Complete 07/13/16 Urine Culture - Final, Complete 07/13/16 Urine Culture Result 1 (WEST) - Final, Complete 07/13/16 Urine Culture Result 2 (WEST) - Final, Complete Medications Current Medications Haloperidol Lactate (Haldol) 5 mg 1X ONCE IVP Last administered on 07/13/16 12 :34; Start 07/13/16 at 12:30; Stop 07/13/16 at 12:31; Status DC Sodium Chloride 1,000 ml @ 1,000 mls/hr 1X ONCE IV Last administered on 14:06; Start 07/13/16 at 13:00; Stop 07/13/16 at 13:59; Status DC Sodium Chloride 1,000 ml @ 1,000 mls/hr 1X ONCE IV Last administered on 14:06; Start 07/13/16 at 13:45; Stop 07/13/16 at 14:44; Status DC Haloperidol Lactate (Haldol) 5 mg 1X ONCE IVP Last administered on 07/13/16 14 :20; Start 07/13/16 at 14:15; Stop 07/13/16 at 14:17; Status DC Etomidate (Amidate) 20 mg 1X ONCE IV Last administered on 07/13/16 14:35; Start 07/13/16 at 14:30; Stop 07/13/16 at 14:31; Status DC Lorazepam (Ativan) 2 mg STK-MED ONCE .ROUTE ; Start 07/13/16 at 14:43; Stop at 14:44; Status DC Levofloxacin/ Dextrose 150 ml @ 100 mls/hr 1X ONCE IV ; Start 07/13/16 at 15:00 ; Stop 07/13/16 at 15:00; Status DC Ceftriaxone Sodium 2 gm/ Sodium Chloride 100 ml @ 200 mls/hr Q24H IV ; Start at 15:00; Stop 07/13/16 at 15:00; Status DC Vancomycin HCl 1.25 gm/Sodium Chloride 250 ml @ 166.667 mls/hr 1X ONCE IV Last administered on 07/13/16 16:32; Start 07/13/16 at 15:00; Stop 07/13/16 at 16: 29; Status DC Meropenem 1 gm/ Sodium Chloride 100 ml @ 200 mls/hr Q8HRS IV Last administered on 07/17/16 05:24; Start 07/13/16 at 22:00; Stop 07/17/16 at 08:25; Status DC Meropenem 1 gm/ Sodium Chloride 100 ml @ 200 mls/hr 1X ONCE IV Last administered on 07/13/16 15:39; Start 07/13/16 at 15:00; Stop 07/13/16 at 15:29; Status DC Propofol 50 ml @ As Directed STK-MED ONCE IV ; Start 07/13/16 at 15:15; Stop 07/13 at 15:16; Status DC Lorazepam (Ativan) 2 mg 1X ONCE IV Last administered on 07/13/16 14:44; Start 07/13/16 at 15:45; Stop 07/13/16 at 15:46; Status DC Dextrose/Sodium Chloride 1,000 ml @ 125 mls/hr 1X ONCE IV Last administered on 07/13/16 18:25; Start 07/13/16 at 15:45; Stop 07/13/16 at 23:44; Status DC Propofol 100 ml @ 0 mls/hr CONT PRN IV SEE I/O RECORD Last administered on 05:11; Start 07/13/16 at 15:45; Stop 07/23/16 at 09:57; Status DC Sodium Chloride 1,000 ml @ 1,000 mls/hr 1X ONCE IV Last administered on 16:30; Start 07/13/16 at 16:30; Stop 07/13/16 at 17:29; Status DC Rocuronium [place] (Zemuron) 50 mg STK-MED ONCE .ROUTE ; Start 07/13/16 at 16:50 ; Stop 07/13/16 at 16:51; Status DC Propofol 50 ml @ 0 mls/hr CONT PRN IV SEE I/O RECORD Last administered on 15:30; Start 07/13/16 at 18:00; Stop 07/14/16 at 07:08; Status DC Fentanyl Citrate (Fentanyl 2ml Vial) 25 mcg PRN Q1HR PRN IV COMM Last administered on 07/17/16 12:16; Start 07/13/16 at 21:15; Stop 07/19/16 at 09:06; Status DC Fentanyl Citrate (Fentanyl 2ml Vial) 50 mcg PRN Q1HR PRN IV COMM Last administered on 07/14/16 23:01; Start 07/13/16 at 21:15; Stop 07/19/16 at 09:06; Status DC Chlorhexidine Gluconate (Peridex) 15 ml BID MM Last administered on 07/19/16 09 :00; Start 07/14/16 at 09:00; Stop 07/19/16 at 09:06; Status DC Dextrose/Sodium Chloride 1,000 ml @ 125 mls/hr 1X ONCE IV Last administered on 07/14/16 03:33; Start 07/14/16 at 03:30; Stop 07/14/16 at 11:29; Status DC Acetaminophen (Acetaminophen Supp) 650 mg PRN Q6HRS PRN GA MILD PAIN / TEMP Last administered on 07/14/16 08:21; Start 07/14/16 at 08:00 Dextrose/Sodium Chloride 1,000 ml @ 100 mls/hr Q10H IV Last administered on 09:24; Start 07/14/16 at 09:15; Stop 07/19/16 at 15:45; Status DC Enoxaparin Sodium (Lovenox 40mg Syringe) 40 mg Q24H SQ Last administered on 07/20 14:49; Start 07/14/16 at 11:00; Stop 07/21/16 at 09:04; Status DC Famotidine (Pepcid) 20 mg QHS IVP Last administered on 07/21/16 20:54; Start at 21:00; Stop 07/22/16 at 09:18; Status DC Quetiapine Fumarate (SEROquel) 100 mg DAILY08 NG Last administered on 08:55; Start 07/15/16 at 15:00 Quetiapine Fumarate (SEROquel) 200 mg QHS NG Last administered on 07/24/16 20: 01; Start 07/15/16 at 21:00 Furosemide (Lasix) 20 mg 1X ONCE IVP Last administered on 07/17/16 11:18; Start 07/17/16 at 11:00; Stop 07/17/16 at 11:01; Status DC Sodium Chloride (Normal Saline Flush) 10 ml QSHIFT PRN IV AFTER MEDS AND BLOOD DRAWS; Start 07/17/16 at 11:00 Sodium Chloride (Normal Saline Flush) 20 ml QSHIFT PRN IV AFTER MEDS AND BLOOD DRAWS; Start 07/17/16 at 11:00 Metronidazole (Flagyl) 500 mg Q12HR PEG ; Start 07/18/16 at 13:00; Stop 07/18/16 at 13:28; Status DC Metronidazole 100 ml @ 100 mls/hr Q12HR IV Last administered on 07/18/16 21:25 ; Start 07/18/16 at 14:00; Stop 07/19/16 at 09:08; Status DC Metronidazole (Flagyl) 500 mg Q12HR PO Last administered on 07/25/16 08:55; Start 07/19/16 at 10:00 Albuterol/ Ipratropium (Duoneb) 3 ml 1X ONCE NEB Last administered on 18:30; Start 07/19/16 at 18:30; Stop 07/19/16 at 18:31; Status DC Furosemide (Lasix) 20 mg 1X ONCE IVP Last administered on 07/19/16 20:51; Start 07/19/16 at 20:15; Stop 07/19/16 at 20:16; Status DC Albuterol/ Ipratropium (Duoneb) 3 ml RTQID NEB Last administered on 07/25/16 11:09; Start 07/20/16 at 20:00 Enoxaparin Sodium (Lovenox 40mg Syringe) 40 mg BID SQ Last administered on 07/25 08:55; Start 07/21/16 at 10:30 Famotidine (Pepcid) 20 mg QHS PO Last administered on 07/24/16 20:01; Start at 21:00 Regadenoson (Lexiscan) 0.4 mg 1X ONCE IV Last administered on 07/24/16 08:29 ; Start 07/23/16 at 08:30; Stop 07/23/16 at 08:32; Status DC Piperacillin Sod/ Tazobactam Sod (Zosyn Per Pharmacy) 1 each PRN DAILY PRN MC SEE COMMENTS; Start 07/23/16 at 10:00 Piperacillin Sod/ Tazobactam Sod 4.5 gm/Sodium Chloride 100 ml @ 200 mls/hr Q6HRS IV Last administered on 07/25/16 06:00; Start 07/23/16 at 10:30 Regadenoson (Lexiscan) 0.4 mg 1X ONCE IV Last administered on 07/24/16 08:00 ; Start 07/24/16 at 08:00; Stop 07/24/16 at 08:03; Status DC Active Scripts Active Reported Citalopram Hbr (Citalopram Hydrobromide) 20 Mg Tablet 1 Tab PO DAILY Seroquel (Quetiapine Fumarate) 100 Mg Tablet 1 Tab PO DAILY08 Seroquel (Quetiapine Fumarate) 200 Mg Tablet 1 Tab PO QHS Vitals/I & O Vital Sign - Last 24 Hours 07/24/16 07/24/16 07/24/16 07/24/16 16:06 19:00 19:51 20:09 Temp 98.7 98.7 Pulse 101 Resp 18 B/P (MAP) 90/62 (71) Pulse Ox 94 98 O2 Delivery Nasal Cannula Room Air Nasal Cannula Nasal Cannula O2 Flow Rate 2.0 2.0 3.0 07/24/16 07/25/16 07/25/1607/25/17 23:59 03:59 07:00 07:07 Temp 98.4 98.4 98.5 98.4 98.4 98.5 Pulse 100 107 101 Resp 22 18 22 B/P (MAP) 106/69 (81) 111/80 (90) 90/59 (69) Pulse Ox 93 91 96 97 O2 Delivery Nasal Cannula Nasal Cannula Nasal Cannula Nasal Cannula O2 Flow Rate 2.0 2.0 2.0 2.0 07/25/16 07/25/16 07/25/16 08:00 10:59 11:11 Temp 97.0 97.0 Pulse 62 Resp 20 B/P (MAP) 100/60 (73) Pulse Ox 97 97 O2 Delivery Nasal Cannula Room Air Nasal Cannula O2 Flow Rate 3.0 2.0 Intake and Output 07/24/16 07/24/16 07/25/16 15:00 23:00 07:00 Intake Total 840 ml 720 ml 200 ml Output Total 1100 ml 600 ml Balance -260 ml 120 ml 200 ml GOMEZ [id number] III DO July 25, 2016 11:55
[2016-07-25 15:00] VITALS: BP 130/87
[2016-07-25 19:59] VITALS: BP 130/76
[2016-07-25] MEDS: FAMOTIDINE 20 MG TABLET. PO SCH (21:17)
[2016-07-25 23:30] VITALS: BP 105/60
[2016-07-26] MEDS: PIPERACILLIN/TAZOBACTAM 4.5 GM in IV NORMAL SALINE 100ML 100 ML IV SCH ×2 (01:35→06:23)
[2016-07-26 03:32] VITALS: BP 125/86
[2016-07-26 06:34] LABS: BASO # 0.1 x10^3/uL (0.0-0.2); BASO % 1 % (0-3); EOS % 4 % (0-3); HEMATOCRIT 24.5 % (36.0-47.0); HEMOGLOBIN 8.2 g/dL (12.0-15.5); LYMPH # 1.6 x10^3/uL (1.0-4.8); LYMPH % 25 % (24-48); MEAN CORPUSCULAR HEMOGLOBIN 32 pg (25-35); MEAN CORPUSCULAR HGB CONC 33 g/dL (31-37); MEAN CORPUSCULAR VOLUME 96 fL (79-100); MONO % 10 % (0-9); NEUT % 60 % (31-73); PLATELET COUNT 347 x10^3/uL (140-400); RED BLOOD COUNT 2.56 x10^6/uL (3.50-5.40); WHITE BLOOD COUNT 6.5 x10^3/uL (4.0-11.0)
[2016-07-26 06:36] LABS: CALCIUM 8.4 mg/dL (8.5-10.1); CREATININE 0.8 mg/dL (0.6-1.0); GFR 89.1; POTASSIUM 4.6 mmol/L (3.5-5.1)
[2016-07-26] MEDS: IPRATRPIUM/ALBUTEROL 0.5/2.5MG 3 ML NEBU. NEB SCH ×4 (06:56→19:13)
[2016-07-26 07:00] VITALS: BP 120/74
[2016-07-26] MEDS: QUEtiapine 100 MG TABLET. NG SCH ×2 (08:08→20:51)
[2016-07-26] MEDS: metroNIDAZOLE 500 MG TABLET PO SCH ×2 (08:08→20:51)
[2016-07-26] MEDS: ENOXAPARIN 40 MG/0.4 ML SYRINGE. SQ SCH ×2 (08:10→20:59)
--- NOTE | 2016-07-26 10:27 | PDOC ---
PULMONARY PROGRESS NOTES Subjective on , sob better. has occ cough, no pain, has post nasal drip extubated, 07/18, Vitals Vital Signs Date Time Temp Pulse Resp B/P (MAP) Pulse Ox O2 Delivery O2 Flow Rate FiO2 07/26/16 08:00 Nasal Cannula 2.0 07/26/16 07:00 95.7 87 22 120/74 (89) 96 95.7 Comments ros as mentioned as above discussed w rn, other sys otherwise neg ROS: No Nausea, No Chest Pain, No Abdominal Pain General: Alert, No acute distress HEENT: Other (nc at perrl, nose clear, orally intubated) Lungs: Other (deminished) Cardiovascular: S1, S2 Abdomen: Soft, Non-tender Neuro Exam: Alert, Oriented Extremities: No Edema Skin: Warm Labs Laboratory Tests Test 07/25/16 05:45 07/26/16 06:15 White Blood Count 7.7 x10^3/uL (4.0-11.0) 6.5 x10^3/uL (4.0-11.0) Red Blood Count 2.59 x10^6/uL (3.50-5.40) 2.56 x10^6/uL (3.50-5.40) Hemoglobin 8.4 g/dL (12.0-15.5) 8.2 g/dL (12.0-15.5) Hematocrit 24.8 % (36.0-47.0) 24.5 % (36.0-47.0) Mean Corpuscular Volume 96 fL (79-100) 96 fL (79-100) Mean Corpuscular Hemoglobin 33 pg (25-35) 32 pg (25-35) Mean Corpuscular Hemoglobin Concent 34 g/dL (31-37) 33 g/dL (31-37) Red Cell Distribution Width 17.5 % (11.5-14.5) 18.0 % (11.5-14.5) Platelet Count 375 x10^3/uL (140-400) 347 x10^3/uL (140-400) Neutrophils (%) (Auto) 66 % (31-73) 60 % (31-73) Lymphocytes (%) (Auto) 20 % (24-48) 25 % (24-48) Monocytes (%) (Auto) 9 % (0-9) 10 % (0-9) Eosinophils (%) (Auto) 4 % (0-3) 4 % (0-3) Basophils (%) (Auto) 1 % (0-3) 1 % (0-3) Neutrophils # (Auto) 5.1 x10^3uL (1.8-7.7) 3.9 x10^3uL (1.8-7.7) Lymphocytes # (Auto) 1.5 x10^3/uL (1.0-4.8) 1.6 x10^3/uL (1.0-4.8) Monocytes # (Auto) 0.7 x10^3/uL (0.0-1.1) 0.6 x10^3/uL (0.0-1.1) Eosinophils # (Auto) 0.3 x10^3/uL (0.0-0.7) 0.3 x10^3/uL (0.0-0.7) Basophils # (Auto) 0.1 x10^3/uL (0.0-0.2) 0.1 x10^3/uL (0.0-0.2) Sodium Level 144 mmol/L (136-145) 143 mmol/L (136-145) Potassium Level 4.6 mmol/L (3.5-5.1) 4.6 mmol/L (3.5-5.1) Chloride Level 108 mmol/L (98-107) 107 mmol/L (98-107) Carbon Dioxide Level 32 mmol/L (21-32) 33 mmol/L (21-32) Anion Gap 4 (6-14) 3 (6-14) Blood Urea Nitrogen 12 mg/dL (7-20) 9 mg/dL (7-20) Creatinine 0.9 mg/dL (0.6-1.0) 0.8 mg/dL (0.6-1.0) Estimated GFR (Cockcroft-Gault) 77.8 89.1 Glucose Level 134 mg/dL (70-99) 100 mg/dL (70-99) Calcium Level 8.1 mg/dL (8.5-10.1) 8.4 mg/dL (8.5-10.1) Laboratory Tests Test 07/26/16 06:15 White Blood Count 6.5 x10^3/uL (4.0-11.0) Red Blood Count 2.56 x10^6/uL (3.50-5.40) Hemoglobin 8.2 g/dL (12.0-15.5) Hematocrit 24.5 % (36.0-47.0) Mean Corpuscular Volume 96 fL (79-100) Mean Corpuscular Hemoglobin 32 pg (25-35) Mean Corpuscular Hemoglobin Concent 33 g/dL (31-37) Red Cell Distribution Width 18.0 % (11.5-14.5) Platelet Count 347 x10^3/uL (140-400) Neutrophils (%) (Auto) 60 % (31-73) Lymphocytes (%) (Auto) 25 % (24-48) Monocytes (%) (Auto) 10 % (0-9) Eosinophils (%) (Auto) 4 % (0-3) Basophils (%) (Auto) 1 % (0-3) Neutrophils # (Auto) 3.9 x10^3uL (1.8-7.7) Lymphocytes # (Auto) 1.6 x10^3/uL (1.0-4.8) Monocytes # (Auto) 0.6 x10^3/uL (0.0-1.1) Eosinophils # (Auto) 0.3 x10^3/uL (0.0-0.7) Basophils # (Auto) 0.1 x10^3/uL (0.0-0.2) Sodium Level 143 mmol/L (136-145) Potassium Level 4.6 mmol/L (3.5-5.1) Chloride Level 107 mmol/L (98-107) Carbon Dioxide Level 33 mmol/L (21-32) Anion Gap 3 (6-14) Blood Urea Nitrogen 9 mg/dL (7-20) Creatinine 0.8 mg/dL (0.6-1.0) Estimated GFR (Cockcroft-Gault) 89.1 Glucose Level 100 mg/dL (70-99) Calcium Level 8.4 mg/dL (8.5-10.1) Medications Active Scripts Medications Dose Route/Sig Days Date Category Seroquel (Quetiapine Fumarate) 100 Mg Tablet 1 Tab PO DAILY08 07/14/16 Reported Meloxicam 15 Mg Tablet 1 Tab PO DAILY 07/14/16 Reported Seroquel (Quetiapine Fumarate) 200 Mg Tablet 1 Tab PO QHS 07/14/16 Reported Cipro (Ciprofloxacin Hcl) 250 Mg Tablet 1 Tab PO BID 04/07/16 Rx Comments cxr reviewed, The heart remains enlarged. The continues to be some mild infiltrate in the left base. Right perihilar density is similar to prior. The right lung is otherwise clear. There is no pneumothorax. no change Impression . 1. Acute respiratory failure secondary to acute encephalopathy and sepsis. extubated 2. Acute encephalopathy secondary to sepsis., resolved 3. High-grade fever and markedly elevated white cell count POA, suspect underlying sepsis. resolved. 4. wide complex tachycardia, cardiology seeing pt. MPI pending 5. encephalopathy, LP neg, resolved 6. obesity, snoring, eds, prob yan 7. suspected acute Diastolic HF/ improved with BIPAP,diuresis 8. LLL atelectasis vs pneumonia, gram negative coverage added 9. allergic rhinitis Plan . 1. 02 titration, 6 min walk and over night ox bf dc 2. change Zosyn to augmentin, total abx tx, 7 days 3. repeat cxr reviewed, 4. Follow all cultures, neg. 5. Lumbar puncture neg 6. Noncontrast CT chest reviewed. pulmonary HTN/ atelectasis 7. Deep venous thrombosis prophylaxis. 10. PSG as out pt ( she does not want CPAP ) 11. sravani austin Discussed with RN, pt cardiology recommendations, MPI, DEBRA later TABBY JOHNSON MD July 26, 2016 10:27
[2016-07-26 10:59] VITALS: BP 106/62
--- NOTE | 2016-07-26 14:14 | PDOC ---
PROGRESS NOTES Chief Complaint Chief Complaint Acute hypoxic respiratory failure History of Present Illness History of Present Illness Pt was sitting up in chair with NAD Reports she feels much better Discussed with pt need to obtain SNU eval tomorrow Pt understands yo Vitals Vitals Vital Signs Date Time Temp Pulse Resp B/P (MAP) Pulse Ox O2 Delivery O2 Flow Rate FiO2 07/26/16 10:59 98.1 85 22 106/62 (77) 98 Nasal Cannula 2.0 98.1 Physical Exam General: Alert, Oriented X3, Cooperative Heart: Normal S1, Normal S2, No murmurs Lungs: Clear, Other (deminished) Abdomen: Normal bowel sounds, Soft, Other (truncal obesity) Extremities: No clubbing, Other (trace to 1+ LE edema) Skin: No rashes, No significant lesion Labs LABS Laboratory Tests Test 07/26/16 06:15 White Blood Count 6.5 x10^3/uL (4.0-11.0) Red Blood Count 2.56 x10^6/uL (3.50-5.40) Hemoglobin 8.2 g/dL (12.0-15.5) Hematocrit 24.5 % (36.0-47.0) Mean Corpuscular Volume 96 fL (79-100) Mean Corpuscular Hemoglobin 32 pg (25-35) Mean Corpuscular Hemoglobin Concent 33 g/dL (31-37) Red Cell Distribution Width 18.0 % (11.5-14.5) Platelet Count 347 x10^3/uL (140-400) Neutrophils (%) (Auto) 60 % (31-73) Lymphocytes (%) (Auto) 25 % (24-48) Monocytes (%) (Auto) 10 % (0-9) Eosinophils (%) (Auto) 4 % (0-3) Basophils (%) (Auto) 1 % (0-3) Neutrophils # (Auto) 3.9 x10^3uL (1.8-7.7) Lymphocytes # (Auto) 1.6 x10^3/uL (1.0-4.8) Monocytes # (Auto) 0.6 x10^3/uL (0.0-1.1) Eosinophils # (Auto) 0.3 x10^3/uL (0.0-0.7) Basophils # (Auto) 0.1 x10^3/uL (0.0-0.2) Sodium Level 143 mmol/L (136-145) Potassium Level 4.6 mmol/L (3.5-5.1) Chloride Level 107 mmol/L (98-107) Carbon Dioxide Level 33 mmol/L (21-32) Anion Gap 3 (6-14) Blood Urea Nitrogen 9 mg/dL (7-20) Creatinine 0.8 mg/dL (0.6-1.0) Estimated GFR (Cockcroft-Gault) 89.1 Glucose Level 100 mg/dL (70-99) Calcium Level 8.4 mg/dL (8.5-10.1) Review of Systems Review of Systems Denies chest pain Denies N/V/D Assessment and Plan Assessmemt and Plan Problems Medical Problems: (1) Sepsis Status: Acute (2) Sepsis Status: Acute Assessment: 1. Acute respiratory failure secondary to acute encephalopathy and sepsis. extubated 2. Acute encephalopathy secondary to sepsis., resolved 3. High-grade fever and markedly elevated white cell count POA, suspect underlying sepsis. resolved. 4. wide complex tachycardia, cardiology seeing pt. MPI pending - negative, cardio ok w/ d/c 5. encephalopathy, LP neg, resolved 6. obesity, snoring, eds, prob yan 7. suspected acute Diastolic HF/ improved with BIPAP,diuresis 8. LLL atelectasis vs pneumonia, gram negative coverage added Plan: Continue pulmonary tx Obtain SNU eval tomorrow for possible d/c if ok with pulm Continue current meds Reviewed LP, CXR, MPI - all unremarkable Activity as tolerated Check labs in am PT/OT Problems: Comment Review of Relevant I have reviewed the following items quentin (where applicable) has been applied. Labs Laboratory Tests Test 07/25/16 05:45 07/26/16 06:15 White Blood Count 7.7 x10^3/uL (4.0-11.0) 6.5 x10^3/uL (4.0-11.0) Red Blood Count 2.59 x10^6/uL (3.50-5.40) 2.56 x10^6/uL (3.50-5.40) Hemoglobin 8.4 g/dL (12.0-15.5) 8.2 g/dL (12.0-15.5) Hematocrit 24.8 % (36.0-47.0) 24.5 % (36.0-47.0) Mean Corpuscular Volume 96 fL (79-100) 96 fL (79-100) Mean Corpuscular Hemoglobin 33 pg (25-35) 32 pg (25-35) Mean Corpuscular Hemoglobin Concent 34 g/dL (31-37) 33 g/dL (31-37) Red Cell Distribution Width 17.5 % (11.5-14.5) 18.0 % (11.5-14.5) Platelet Count 375 x10^3/uL (140-400) 347 x10^3/uL (140-400) Neutrophils (%) (Auto) 66 % (31-73) 60 % (31-73) Lymphocytes (%) (Auto) 20 % (24-48) 25 % (24-48) Monocytes (%) (Auto) 9 % (0-9) 10 % (0-9) Eosinophils (%) (Auto) 4 % (0-3) 4 % (0-3) Basophils (%) (Auto) 1 % (0-3) 1 % (0-3) Neutrophils # (Auto) 5.1 x10^3uL (1.8-7.7) 3.9 x10^3uL (1.8-7.7) Lymphocytes # (Auto) 1.5 x10^3/uL (1.0-4.8) 1.6 x10^3/uL (1.0-4.8) Monocytes # (Auto) 0.7 x10^3/uL (0.0-1.1) 0.6 x10^3/uL (0.0-1.1) Eosinophils # (Auto) 0.3 x10^3/uL (0.0-0.7) 0.3 x10^3/uL (0.0-0.7) Basophils # (Auto) 0.1 x10^3/uL (0.0-0.2) 0.1 x10^3/uL (0.0-0.2) Sodium Level 144 mmol/L (136-145) 143 mmol/L (136-145) Potassium Level 4.6 mmol/L (3.5-5.1) 4.6 mmol/L (3.5-5.1) Chloride Level 108 mmol/L (98-107) 107 mmol/L (98-107) Carbon Dioxide Level 32 mmol/L (21-32) 33 mmol/L (21-32) Anion Gap 4 (6-14) 3 (6-14) Blood Urea Nitrogen 12 mg/dL (7-20) 9 mg/dL (7-20) Creatinine 0.9 mg/dL (0.6-1.0) 0.8 mg/dL (0.6-1.0) Estimated GFR (Cockcroft-Gault) 77.8 89.1 Glucose Level 134 mg/dL (70-99) 100 mg/dL (70-99) Calcium Level 8.1 mg/dL (8.5-10.1) 8.4 mg/dL (8.5-10.1) Laboratory Tests Test 07/26/16 06:15 White Blood Count 6.5 x10^3/uL (4.0-11.0) Red Blood Count 2.56 x10^6/uL (3.50-5.40) Hemoglobin 8.2 g/dL (12.0-15.5) Hematocrit 24.5 % (36.0-47.0) Mean Corpuscular Volume 96 fL (79-100) Mean Corpuscular Hemoglobin 32 pg (25-35) Mean Corpuscular Hemoglobin Concent 33 g/dL (31-37) Red Cell Distribution Width 18.0 % (11.5-14.5) Platelet Count 347 x10^3/uL (140-400) Neutrophils (%) (Auto) 60 % (31-73) Lymphocytes (%) (Auto) 25 % (24-48) Monocytes (%) (Auto) 10 % (0-9) Eosinophils (%) (Auto) 4 % (0-3) Basophils (%) (Auto) 1 % (0-3) Neutrophils # (Auto) 3.9 x10^3uL (1.8-7.7) Lymphocytes # (Auto) 1.6 x10^3/uL (1.0-4.8) Monocytes # (Auto) 0.6 x10^3/uL (0.0-1.1) Eosinophils # (Auto) 0.3 x10^3/uL (0.0-0.7) Basophils # (Auto) 0.1 x10^3/uL (0.0-0.2) Sodium Level 143 mmol/L (136-145) Potassium Level 4.6 mmol/L (3.5-5.1) Chloride Level 107 mmol/L (98-107) Carbon Dioxide Level 33 mmol/L (21-32) Anion Gap 3 (6-14) Blood Urea Nitrogen 9 mg/dL (7-20) Creatinine 0.8 mg/dL (0.6-1.0) Estimated GFR (Cockcroft-Gault) 89.1 Glucose Level 100 mg/dL (70-99) Calcium Level 8.4 mg/dL (8.5-10.1) Microbiology 07/13/16 Blood Culture - Final, Complete NO GROWTH AFTER 5 DAYS 07/13/16 Anaerobic/Aerobic Culture - Final, Complete 07/13/16 Anaerobic Culture Result 1 ([facility]) - Final, Complete 07/13/16 Aerobic Culture - Final, Complete 07/13/16 Aerobic Culture Result 1 (WEST) - Final, Complete 07/17/16 Sputum Culture - Final, Complete 07/17/16 Sputum Result 1 - Final, Complete 07/13/16 Urine Culture - Final, Complete 07/13/16 Urine Culture Result 1 (WEST) - Final, Complete 07/13/16 Urine Culture Result 2 (WE[facility]) - Final, Complete Medications Current Medications Haloperidol Lactate (Haldol) 5 mg 1X ONCE IVP Last administered on 07/13/16 12 :34; Start 07/13/16 at 12:30; Stop 07/13/16 at 12:31; Status DC Sodium Chloride 1,000 ml @ 1,000 mls/hr 1X ONCE IV Last administered on 14:06; Start 07/13/16 at 13:00; Stop 07/13/16 at 13:59; Status DC Sodium Chloride 1,000 ml @ 1,000 mls/hr 1X ONCE IV Last administered on 14:06; Start 07/13/16 at 13:45; Stop 07/13/16 at 14:44; Status DC Haloperidol Lactate (Haldol) 5 mg 1X ONCE IVP Last administered on 07/13/16 14 :20; Start 07/13/16 at 14:15; Stop 07/13/16 at 14:17; Status DC Etomidate (Amidate) 20 mg 1X ONCE IV Last administered on 07/13/16 14:35; Start 07/13/16 at 14:30; Stop 07/13/16 at 14:31; Status DC Lorazepam (Ativan) 2 mg STK-MED ONCE .ROUTE ; Start 07/13/16 at 14:43; Stop at 14:44; Status DC Levofloxacin/ Dextrose 150 ml @ 100 mls/hr 1X ONCE IV ; Start 07/13/16 at 15:00 ; Stop 07/13/16 at 15:00; Status DC Ceftriaxone Sodium 2 gm/ Sodium Chloride 100 ml @ 200 mls/hr Q24H IV ; Start at 15:00; Stop 07/13/16 at 15:00; Status DC Vancomycin HCl 1.25 gm/Sodium Chloride 250 ml @ 166.667 mls/hr 1X ONCE IV Last administered on 07/13/16 16:32; Start 07/13/16 at 15:00; Stop 07/13/16 at 16: 29; Status DC Meropenem 1 gm/ Sodium Chloride 100 ml @ 200 mls/hr Q8HRS IV Last administered on 07/17/16 05:24; Start 07/13/16 at 22:00; Stop 07/17/16 at 08:25; Status DC Meropenem 1 gm/ Sodium Chloride 100 ml @ 200 mls/hr 1X ONCE IV Last administered on 07/13/16 15:39; Start 07/13/16 at 15:00; Stop 07/13/16 at 15:29; Status DC Propofol 50 ml @ As Directed STK-MED ONCE IV ; Start 07/13/16 at 15:15; Stop 07/13 at 15:16; Status DC Lorazepam (Ativan) 2 mg 1X ONCE IV Last administered on 07/13/16 14:44; Start 07/13/16 at 15:45; Stop 07/13/16 at 15:46; Status DC Dextrose/Sodium Chloride 1,000 ml @ 125 mls/hr 1X ONCE IV Last administered on 07/13/16 18:25; Start 07/13/16 at 15:45; Stop 07/13/16 at 23:44; Status DC Propofol 100 ml @ 0 mls/hr CONT PRN IV SEE I/O RECORD Last administered on 05:11; Start 07/13/16 at 15:45; Stop 07/23/16 at 09:57; Status DC Sodium Chloride 1,000 ml @ 1,000 mls/hr 1X ONCE IV Last administered on 16:30; Start 07/13/16 at 16:30; Stop 07/13/16 at 17:29; Status DC Rocuronium Schuyler (Zemuron) 50 mg STK-MED ONCE .ROUTE ; Start 07/13/16 at 16:50 ; Stop 07/13/16 at 16:51; Status DC Propofol 50 ml @ 0 mls/hr CONT PRN IV SEE I/O RECORD Last administered on 15:30; Start 07/13/16 at 18:00; Stop 07/14/16 at 07:08; Status DC Fentanyl Citrate (Fentanyl 2ml Vial) 25 mcg PRN Q1HR PRN IV COMM Last administered on 07/17/16 12:16; Start 07/13/16 at 21:15; Stop 07/19/16 at 09:06; Status DC Fentanyl Citrate (Fentanyl 2ml Vial) 50 mcg PRN Q1HR PRN IV COMM Last administered on 07/14/16 23:01; Start 07/13/16 at 21:15; Stop 07/19/16 at 09:06; Status DC Chlorhexidine Gluconate (Peridex) 15 ml BID MM Last administered on 07/19/16 09 :00; Start 07/14/16 at 09:00; Stop 07/19/16 at 09:06; Status DC Dextrose/Sodium Chloride 1,000 ml @ 125 mls/hr 1X ONCE IV Last administered on 07/14/16 03:33; Start 07/14/16 at 03:30; Stop 07/14/16 at 11:29; Status DC Acetaminophen (Acetaminophen Supp) 650 mg PRN Q6HRS PRN IA MILD PAIN / TEMP Last administered on 07/14/16 08:21; Start 07/14/16 at 08:00 Dextrose/Sodium Chloride 1,000 ml @ 100 mls/hr Q10H IV Last administered on 09:24; Start 07/14/16 at 09:15; Stop 07/19/16 at 15:45; Status DC Enoxaparin Sodium (Lovenox 40mg Syringe) 40 mg Q24H SQ Last administered on 07/20 14:49; Start 07/14/16 at 11:00; Stop 07/21/16 at 09:04; Status DC Famotidine (Pepcid) 20 mg QHS IVP Last administered on 07/21/16 20:54; Start at 21:00; Stop 07/22/16 at 09:18; Status DC Quetiapine Fumarate (SEROquel) 100 mg DAILY08 NG Last administered on 08:08; Start 07/15/16 at 15:00 Quetiapine Fumarate (SEROquel) 200 mg QHS NG Last administered on 07/25/16 21: 16; Start 07/15/16 at 21:00 Furosemide (Lasix) 20 mg 1X ONCE IVP Last administered on 07/17/16 11:18; Start 07/17/16 at 11:00; Stop 07/17/16 at 11:01; Status DC Sodium Chloride (Normal Saline Flush) 10 ml QSHIFT PRN IV AFTER MEDS AND BLOOD DRAWS; Start 07/17/16 at 11:00 Sodium Chloride (Normal Saline Flush) 20 ml QSHIFT PRN IV AFTER MEDS AND BLOOD DRAWS; Start 07/17/16 at 11:00 Metronidazole (Flagyl) 500 mg Q12HR PEG ; Start 07/18/16 at 13:00; Stop 07/18/16 at 13:28; Status DC Metronidazole 100 ml @ 100 mls/hr Q12HR IV Last administered on 07/18/16 21:25 ; Start 07/18/16 at 14:00; Stop 07/19/16 at 09:08; Status DC Metronidazole (Flagyl) 500 mg Q12HR PO Last administered on 07/26/16 08:08; Start 07/19/16 at 10:00 Albuterol/ Ipratropium (Duoneb) 3 ml 1X ONCE NEB Last administered on 18:30; Start 07/19/16 at 18:30; Stop 07/19/16 at 18:31; Status DC Furosemide (Lasix) 20 mg 1X ONCE IVP Last administered on 07/19/16 20:51; Start 07/19/16 at 20:15; Stop 07/19/16 at 20:16; Status DC Albuterol/ Ipratropium (Duoneb) 3 ml RTQID NEB Last administered on 07/26/16 10:51; Start 07/20/16 at 20:00 Enoxaparin Sodium (Lovenox 40mg Syringe) 40 mg BID SQ Last administered on 07/26 08:10; Start 07/21/16 at 10:30 Famotidine (Pepcid) 20 mg QHS PO Last administered on 07/25/16 21:17; Start at 21:00 Regadenoson (Lexiscan) 0.4 mg 1X ONCE IV Last administered on 07/24/16 08:29 ; Start 07/23/16 at 08:30; Stop 07/23/16 at 08:32; Status DC Piperacillin Sod/ Tazobactam Sod (Zosyn Per Pharmacy) 1 each PRN DAILY PRN MC SEE COMMENTS; Start 07/23/16 at 10:00; Stop 07/25/16 at 13:12; Status DC Piperacillin Sod/ Tazobactam Sod 4.5 gm/Sodium Chloride 100 ml @ 200 mls/hr Q6HRS IV Last administered on 07/26/16 06:23; Start 07/23/16 at 10:30; Stop at 10:27; Status DC Regadenoson (Lexiscan) 0.4 mg 1X ONCE IV Last administered on 07/24/16 08:00 ; Start 07/24/16 at 08:00; Stop 07/24/16 at 08:03; Status DC Amoxicillin/ Clavulanate Potassium (Augmentin 875/ 125mg) 1 tab BID PO ; Start 07/26/16 at 21:00 Montelukast Sodium (Singulair) 10 mg QHS PO ; Start 07/26/16 at 21:00 Active Scripts Active Reported Citalopram Hbr (Citalopram Hydrobromide) 20 Mg Tablet 1 Tab PO DAILY Seroquel (Quetiapine Fumarate) 100 Mg Tablet 1 Tab PO DAILY08 Seroquel (Quetiapine Fumarate) 200 Mg Tablet 1 Tab PO QHS Vitals/I & O Vital Sign - Last 24 Hours 07/25/16 07/25/16 07/25/16 07/25/16 15:00 15:17 19:24 19:59 Temp 98.0 98.0 98.0 98.0 Pulse 66 96 Resp 20 18 B/P (MAP) 130/87 (101) 130/76 (94) Pulse Ox 96 97 98 95 O2 Delivery Nasal Cannula Nasal Cannula Nasal Cannula Nasal Cannula O2 Flow Rate 2.0 2.0 2.0 2.0 07/25/16 07/25/16 07/26/16 07/26/16 20:00 23:30 03:32 06:58 Temp 98.7 98.5 98.7 98.5 Pulse 96 91 Resp 22 20 B/P (MAP) 105/60 (75) 125/86 (99) Pulse Ox 93 97 97 O2 Delivery Nasal Cannula Nasal Cannula Nasal Cannula Nasal Cannula O2 Flow Rate 2.0 2.0 2.0 2.0 07/26/16 07/26/16 07/26/16 07/26/16 07:00 08:00 10:51 10:59 Temp 95.7 98.1 95.7 98.1 Pulse 87 85 Resp 22 22 B/P (MAP) 120/74 (89) 106/62 (77) Pulse Ox 96 98 98 O2 Delivery Nasal Cannula Nasal Cannula Nasal Cannula Nasal Cannula O2 Flow Rate 2.0 2.0 2.0 2.0 Intake and Output 07/25/16 07/25/16 07/26/16 15:00 23:00 07:00 Intake Total 480 ml 940 ml 540 ml Output Total 400 ml 1000 ml Balance 80 ml -60 ml 540 ml GOMEZ IBRAHIM K III DO July 26, 2016 14:14
[2016-07-26 14:56] VITALS: BP 113/65
[2016-07-26 19:00] VITALS: BP 105/68
[2016-07-26] MEDS: FAMOTIDINE 20 MG TABLET. PO SCH (20:51)
[2016-07-26] MEDS: AMOXICILLIN/K CLAV 875/125MG TABLET. PO SCH (20:51)
[2016-07-26] MEDS ORDERED: MONTELUKAST SODIUM 10 MG TABLET. PO SCH (21:00)
[2016-07-26 23:00] VITALS: BP 139/82
[2016-07-27 03:00] VITALS: BP 116/65
[2016-07-27 03:34] LABS: BASO % 1 % (0-3); EOS % 4 % (0-3); HEMATOCRIT 23.7 % (36.0-47.0); LYMPH # 1.9 x10^3/uL (1.0-4.8); LYMPH % 30 % (24-48); MEAN CORPUSCULAR HEMOGLOBIN 32 pg (25-35); MEAN CORPUSCULAR HGB CONC 34 g/dL (31-37); MEAN CORPUSCULAR VOLUME 96 fL (79-100); MONO % 12 % (0-9); NEUT % 54 % (31-73); PLATELET COUNT 352 x10^3/uL (140-400); RED BLOOD COUNT 2.48 x10^6/uL (3.50-5.40); RED CELL DISTRIBUTION WIDTH 17.6 % (11.5-14.5); WHITE BLOOD COUNT 6.6 x10^3/uL (4.0-11.0)
[2016-07-27 03:55] LABS: CALCIUM 8.4 mg/dL (8.5-10.1); CREATININE 0.7 mg/dL (0.6-1.0); POTASSIUM 4.3 mmol/L (3.5-5.1)
[2016-07-27 07:00] VITALS: BP 104/58
[2016-07-27] MEDS: IPRATRPIUM/ALBUTEROL 0.5/2.5MG 3 ML NEBU. NEB SCH ×2 (07:36→11:27)
[2016-07-27] MEDS: metroNIDAZOLE 500 MG TABLET PO SCH (07:53)
[2016-07-27] MEDS: QUEtiapine 100 MG TABLET. NG SCH (07:53)
[2016-07-27] MEDS: AMOXICILLIN/K CLAV 875/125MG TABLET. PO SCH (07:53)
[2016-07-27] MEDS: ENOXAPARIN 40 MG/0.4 ML SYRINGE. SQ SCH (07:56)
[2016-07-27] MEDS ORDERED: MONT10TA9 PO (10:31)
--- NOTE | 2016-07-27 10:34 | PDOC3 ---
Discharge Summary Visit Information Date of Admission: July 13, 2016 Date of Discharge: July 27, 2016 Admitting Diagnosis Comment: 1. Acute respiratory failure secondary to acute encephalopathy and sepsis. extubated 2. Acute encephalopathy secondary to sepsis., resolved 3. High-grade fever and markedly elevated white cell count POA, suspect underlying sepsis. resolved. 4. wide complex tachycardia, cardiology seeing pt. MPI pending 5. encephalopathy, LP neg, resolved 6. obesity, snoring, eds, prob yan 7. suspected acute Diastolic HF/ improved with BIPAP,diuresis 8. LLL atelectasis vs pneumonia, gram negative coverage added 9. allergic rhinitis Final Diagnosis Problems Medical Problems: (1) Sepsis Status: Acute (2) Sepsis Status: Acute Brief Hospital Course Allergies Allergies Coded Allergies Type Severity Reaction Last Updated Verified No Known Drug Allergies 03/24/16 No Vital Signs Vital Signs Date Time Temp Pulse Resp B/P (MAP) Pulse Ox O2 Delivery O2 Flow Rate FiO2 07/27/16 09:02 98.8 98.8 07/27/16 08:00 Nasal Cannula 2.0 07/27/16 07:38 95 07/27/16 07:00 88 17 104/58 (73) Lab Results Laboratory Tests Test 07/26/16 06:15 07/27/16 03:23 White Blood Count 6.5 x10^3/uL (4.0-11.0) 6.6 x10^3/uL (4.0-11.0) Red Blood Count 2.56 x10^6/uL (3.50-5.40) 2.48 x10^6/uL (3.50-5.40) Hemoglobin 8.2 g/dL (12.0-15.5) 8.0 g/dL (12.0-15.5) Hematocrit 24.5 % (36.0-47.0) 23.7 % (36.0-47.0) Mean Corpuscular Volume 96 fL (79-100) 96 fL (79-100) Mean Corpuscular Hemoglobin 32 pg (25-35) 32 pg (25-35) Mean Corpuscular Hemoglobin Concent 33 g/dL (31-37) 34 g/dL (31-37) Red Cell Distribution Width 18.0 % (11.5-14.5) 17.6 % (11.5-14.5) Platelet Count 347 x10^3/uL (140-400) 352 x10^3/uL (140-400) Neutrophils (%) (Auto) 60 % (31-73) 54 % (31-73) Lymphocytes (%) (Auto) 25 % (24-48) 30 % (24-48) Monocytes (%) (Auto) 10 % (0-9) 12 % (0-9) Eosinophils (%) (Auto) 4 % (0-3) 4 % (0-3) Basophils (%) (Auto) 1 % (0-3) 1 % (0-3) Neutrophils # (Auto) 3.9 x10^3uL (1.8-7.7) 3.6 x10^3uL (1.8-7.7) Lymphocytes # (Auto) 1.6 x10^3/uL (1.0-4.8) 1.9 x10^3/uL (1.0-4.8) Monocytes # (Auto) 0.6 x10^3/uL (0.0-1.1) 0.8 x10^3/uL (0.0-1.1) Eosinophils # (Auto) 0.3 x10^3/uL (0.0-0.7) 0.2 x10^3/uL (0.0-0.7) Basophils # (Auto) 0.1 x10^3/uL (0.0-0.2) 0.0 x10^3/uL (0.0-0.2) Sodium Level 143 mmol/L (136-145) 143 mmol/L (136-145) Potassium Level 4.6 mmol/L (3.5-5.1) 4.3 mmol/L (3.5-5.1) Chloride Level 107 mmol/L (98-107) 108 mmol/L (98-107) Carbon Dioxide Level 33 mmol/L (21-32) 32 mmol/L (21-32) Anion Gap 3 (6-14) 3 (6-14) Blood Urea Nitrogen 9 mg/dL (7-20) 7 mg/dL (7-20) Creatinine 0.8 mg/dL (0.6-1.0) 0.7 mg/dL (0.6-1.0) Estimated GFR (Cockcroft-Gault) 89.1 104.0 Glucose Level 100 mg/dL (70-99) 99 mg/dL (70-99) Calcium Level 8.4 mg/dL (8.5-10.1) 8.4 mg/dL (8.5-10.1) Laboratory Tests Test 07/27/16 03:23 White Blood Count 6.6 x10^3/uL (4.0-11.0) Red Blood Count 2.48 x10^6/uL (3.50-5.40) Hemoglobin 8.0 g/dL (12.0-15.5) Hematocrit 23.7 % (36.0-47.0) Mean Corpuscular Volume 96 fL (79-100) Mean Corpuscular Hemoglobin 32 pg (25-35) Mean Corpuscular Hemoglobin Concent 34 g/dL (31-37) Red Cell Distribution Width 17.6 % (11.5-14.5) Platelet Count 352 x10^3/uL (140-400) Neutrophils (%) (Auto) 54 % (31-73) Lymphocytes (%) (Auto) 30 % (24-48) Monocytes (%) (Auto) 12 % (0-9) Eosinophils (%) (Auto) 4 % (0-3) Basophils (%) (Auto) 1 % (0-3) Neutrophils # (Auto) 3.6 x10^3uL (1.8-7.7) Lymphocytes # (Auto) 1.9 x10^3/uL (1.0-4.8) Monocytes # (Auto) 0.8 x10^3/uL (0.0-1.1) Eosinophils # (Auto) 0.2 x10^3/uL (0.0-0.7) Basophils # (Auto) 0.0 x10^3/uL (0.0-0.2) Sodium Level 143 mmol/L (136-145) Potassium Level 4.3 mmol/L (3.5-5.1) Chloride Level 108 mmol/L (98-107) Carbon Dioxide Level 32 mmol/L (21-32) Anion Gap 3 (6-14) Blood Urea Nitrogen 7 mg/dL (7-20) Creatinine 0.7 mg/dL (0.6-1.0) Estimated GFR (Cockcroft-Gault) 104.0 Glucose Level 99 mg/dL (70-99) Calcium Level 8.4 mg/dL (8.5-10.1) Brief Hospital Course Ms. Thrasher is a 60 old admitted for severe sepsis - pls refer to my assessment and plan for other details of my dx. Transferred out of ICU, Co managed with ID, Now will be on flagyl and augmentin. NOt on O2 prior to coming here, Self pay, follows with [facility], BUt unwilling to pay out of pocket for O2 - at 3 lNC here, PAssd the nocturnal pulse ox test? Scripts for antibiotics and singulair and pro air given Pt seen and examined On celexa and seroquel at home Dipso: home Unable to do HH (SP) Dw Rn and pt Time 32 mins Discharge Information Condition at Discharge: Improved, Stable Disposition/Orders: D/C to Home Scheduled Citalopram Hydrobromide (Citalopram Hbr), 1 TAB PO DAILY, (Reported) Montelukast Sodium (Montelukast Sodium Tablet), 1 TAB PO DAILY Quetiapine Fumarate (Seroquel), 1 TAB PO QHS, (Reported) Quetiapine Fumarate (Seroquel), 1 TAB PO DAILY08, (Reported) Discontinued Medications Meloxicam (Meloxicam), 1 TAB PO DAILY, (Reported) MANOLO GLEZ MD July 27, 2016 10:34
[2016-07-27 11:01] VITALS: BP 92/63
--- NOTE | 2016-07-27 11:54 | PDOC ---
PULMONARY PROGRESS NOTES Subjective on 02, sob better. Vitals Vital Signs Date Time Temp Pulse Resp B/P (MAP) Pulse Ox O2 Delivery O2 Flow Rate FiO2 07/27/16 11:28 Nasal Cannula 2.0 07/27/16 11:01 97.9 89 17 92/63 (73) 99 97.9 Comments ros as mentioned as above discussed w rn, other sys otherwise neg ROS: No Nausea, No Chest Pain, No Abdominal Pain General: Alert, No acute distress HEENT: Other (nc at perrl, nose clear, orally intubated) Lungs: Other (deminished) Cardiovascular: S1, S2 Abdomen: Soft, Non-tender Neuro Exam: Alert, Oriented Extremities: No Edema Skin: Warm Labs Laboratory Tests Test 07/26/16 06:15 07/27/16 03:23 White Blood Count 6.5 x10^3/uL (4.0-11.0) 6.6 x10^3/uL (4.0-11.0) Red Blood Count 2.56 x10^6/uL (3.50-5.40) 2.48 x10^6/uL (3.50-5.40) Hemoglobin 8.2 g/dL (12.0-15.5) 8.0 g/dL (12.0-15.5) Hematocrit 24.5 % (36.0-47.0) 23.7 % (36.0-47.0) Mean Corpuscular Volume 96 fL (79-100) 96 fL (79-100) Mean Corpuscular Hemoglobin 32 pg (25-35) 32 pg (25-35) Mean Corpuscular Hemoglobin Concent 33 g/dL (31-37) 34 g/dL (31-37) Red Cell Distribution Width 18.0 % (11.5-14.5) 17.6 % (11.5-14.5) Platelet Count 347 x10^3/uL (140-400) 352 x10^3/uL (140-400) Neutrophils (%) (Auto) 60 % (31-73) 54 % (31-73) Lymphocytes (%) (Auto) 25 % (24-48) 30 % (24-48) Monocytes (%) (Auto) 10 % (0-9) 12 % (0-9) Eosinophils (%) (Auto) 4 % (0-3) 4 % (0-3) Basophils (%) (Auto) 1 % (0-3) 1 % (0-3) Neutrophils # (Auto) 3.9 x10^3uL (1.8-7.7) 3.6 x10^3uL (1.8-7.7) Lymphocytes # (Auto) 1.6 x10^3/uL (1.0-4.8) 1.9 x10^3/uL (1.0-4.8) Monocytes # (Auto) 0.6 x10^3/uL (0.0-1.1) 0.8 x10^3/uL (0.0-1.1) Eosinophils # (Auto) 0.3 x10^3/uL (0.0-0.7) 0.2 x10^3/uL (0.0-0.7) Basophils # (Auto) 0.1 x10^3/uL (0.0-0.2) 0.0 x10^3/uL (0.0-0.2) Sodium Level 143 mmol/L (136-145) 143 mmol/L (136-145) Potassium Level 4.6 mmol/L (3.5-5.1) 4.3 mmol/L (3.5-5.1) Chloride Level 107 mmol/L (98-107) 108 mmol/L (98-107) Carbon Dioxide Level 33 mmol/L (21-32) 32 mmol/L (21-32) Anion Gap 3 (6-14) 3 (6-14) Blood Urea Nitrogen 9 mg/dL (7-20) 7 mg/dL (7-20) Creatinine 0.8 mg/dL (0.6-1.0) 0.7 mg/dL (0.6-1.0) Estimated GFR (Cockcroft-Gault) 89.1 104.0 Glucose Level 100 mg/dL (70-99) 99 mg/dL (70-99) Calcium Level 8.4 mg/dL (8.5-10.1) 8.4 mg/dL (8.5-10.1) Laboratory Tests Test 07/27/16 03:23 White Blood Count 6.6 x10^3/uL (4.0-11.0) Red Blood Count 2.48 x10^6/uL (3.50-5.40) Hemoglobin 8.0 g/dL (12.0-15.5) Hematocrit 23.7 % (36.0-47.0) Mean Corpuscular Volume 96 fL (79-100) Mean Corpuscular Hemoglobin 32 pg (25-35) Mean Corpuscular Hemoglobin Concent 34 g/dL (31-37) Red Cell Distribution Width 17.6 % (11.5-14.5) Platelet Count 352 x10^3/uL (140-400) Neutrophils (%) (Auto) 54 % (31-73) Lymphocytes (%) (Auto) 30 % (24-48) Monocytes (%) (Auto) 12 % (0-9) Eosinophils (%) (Auto) 4 % (0-3) Basophils (%) (Auto) 1 % (0-3) Neutrophils # (Auto) 3.6 x10^3uL (1.8-7.7) Lymphocytes # (Auto) 1.9 x10^3/uL (1.0-4.8) Monocytes # (Auto) 0.8 x10^3/uL (0.0-1.1) Eosinophils # (Auto) 0.2 x10^3/uL (0.0-0.7) Basophils # (Auto) 0.0 x10^3/uL (0.0-0.2) Sodium Level 143 mmol/L (136-145) Potassium Level 4.3 mmol/L (3.5-5.1) Chloride Level 108 mmol/L (98-107) Carbon Dioxide Level 32 mmol/L (21-32) Anion Gap 3 (6-14) Blood Urea Nitrogen 7 mg/dL (7-20) Creatinine 0.7 mg/dL (0.6-1.0) Estimated GFR (Cockcroft-Gault) 104.0 Glucose Level 99 mg/dL (70-99) Calcium Level 8.4 mg/dL (8.5-10.1) Medications Active Scripts Medications Dose Route/Sig Days Date Category Seroquel (Quetiapine Fumarate) 100 Mg Tablet 1 Tab PO DAILY08 07/14/16 Reported Meloxicam 15 Mg Tablet 1 Tab PO DAILY 07/14/16 Reported Seroquel (Quetiapine Fumarate) 200 Mg Tablet 1 Tab PO QHS 5/2/17 Reported Cipro (Ciprofloxacin Hcl) 250 Mg Tablet 1 Tab PO BID 04/07/16 Rx Comments cxr reviewed, The heart remains enlarged. The continues to be some mild infiltrate in the left base. Right perihilar density is similar to prior. The right lung is otherwise clear. There is no pneumothorax. no change Impression . 1. Acute respiratory failure secondary to acute encephalopathy and sepsis. extubated 2. Acute encephalopathy secondary to sepsis., resolved 3. sepsis. resolved. 4. wide complex tachycardia, cardiology seeing pt. 5. encephalopathy, LP neg, resolved 6. obesity, snoring, eds, prob yan 7. suspected acute Diastolic HF/ improved with BIPAP,diuresis 8. LLL atelectasis vs pneumonia, gram negative coverage added 9. allergic rhinitis Plan . 1. does not have any coverage to cover for O2 2. augmentin, total abx tx, 7 days 3. repeat cxr reviewed, 4. Follow all cultures, neg. 5. Lumbar puncture neg 6. Noncontrast CT chest reviewed. pulmonary HTN/ atelectasis 7. Deep venous thrombosis prophylaxis. 10. PSG as out pt ( she does not want CPAP ) Discussed with RN, pt cardiology recommendations, MPI, DEBRA later ok with ANU Courtney MD July 27, 2016 11:54
--- NOTE | 2016-07-27 12:10 | PDOC ---
PROGRESS NOTES Assessment Problems Medical Problems: (1) Sepsis Status: Acute (2) Sepsis Status: Acute Assessment Metabolic encephalopathy. Tremors, resolved. Plan Agree with discharge plans Follow-up with neurology as needed Subjective No complaints Objective Vital Signs Date Time Temp Pulse Resp B/P (MAP) Pulse Ox O2 Delivery O2 Flow Rate FiO2 07/27/16 11:28 Nasal Cannula 2.0 07/27/16 11:01 97.9 89 17 92/63 (73) 99 97.9 Intake and Output 07/27/16 07:00 Intake Total 840 ml Balance 840 ml Intake Oral 840 ml IV Total 0 ml # Voids 7 # Bowel Movements 2 PHYSICAL EXAM Alert. Oriented to time, place and person. PERRL. EOMI. CN: no focal findings. Muscle tone: normal. Muscle strength: 5-/5 DTR: 1+ Plantar reflex: flexor Gait: not examined in bed. Sensory exam: no abnormal findings. No cerebellar signs elicited. Review of Relevant I have reviewed the following items quentin (where applicable) has been applied. Labs Laboratory Tests Test 07/26/16 06:15 07/27/16 03:23 White Blood Count 6.5 x10^3/uL (4.0-11.0) 6.6 x10^3/uL (4.0-11.0) Red Blood Count 2.56 x10^6/uL (3.50-5.40) 2.48 x10^6/uL (3.50-5.40) Hemoglobin 8.2 g/dL (12.0-15.5) 8.0 g/dL (12.0-15.5) Hematocrit 24.5 % (36.0-47.0) 23.7 % (36.0-47.0) Mean Corpuscular Volume 96 fL (79-100) 96 fL (79-100) Mean Corpuscular Hemoglobin 32 pg (25-35) 32 pg (25-35) Mean Corpuscular Hemoglobin Concent 33 g/dL (31-37) 34 g/dL (31-37) Red Cell Distribution Width 18.0 % (11.5-14.5) 17.6 % (11.5-14.5) Platelet Count 347 x10^3/uL (140-400) 352 x10^3/uL (140-400) Neutrophils (%) (Auto) 60 % (31-73) 54 % (31-73) Lymphocytes (%) (Auto) 25 % (24-48) 30 % (24-48) Monocytes (%) (Auto) 10 % (0-9) 12 % (0-9) Eosinophils (%) (Auto) 4 % (0-3) 4 % (0-3) Basophils (%) (Auto) 1 % (0-3) 1 % (0-3) Neutrophils # (Auto) 3.9 x10^3uL (1.8-7.7) 3.6 x10^3uL (1.8-7.7) Lymphocytes # (Auto) 1.6 x10^3/uL (1.0-4.8) 1.9 x10^3/uL (1.0-4.8) Monocytes # (Auto) 0.6 x10^3/uL (0.0-1.1) 0.8 x10^3/uL (0.0-1.1) Eosinophils # (Auto) 0.3 x10^3/uL (0.0-0.7) 0.2 x10^3/uL (0.0-0.7) Basophils # (Auto) 0.1 x10^3/uL (0.0-0.2) 0.0 x10^3/uL (0.0-0.2) Sodium Level 143 mmol/L (136-145) 143 mmol/L (136-145) Potassium Level 4.6 mmol/L (3.5-5.1) 4.3 mmol/L (3.5-5.1) Chloride Level 107 mmol/L (98-107) 108 mmol/L (98-107) Carbon Dioxide Level 33 mmol/L (21-32) 32 mmol/L (21-32) Anion Gap 3 (6-14) 3 (6-14) Blood Urea Nitrogen 9 mg/dL (7-20) 7 mg/dL (7-20) Creatinine 0.8 mg/dL (0.6-1.0) 0.7 mg/dL (0.6-1.0) Estimated GFR (Cockcroft-Gault) 89.1 104.0 Glucose Level 100 mg/dL (70-99) 99 mg/dL (70-99) Calcium Level 8.4 mg/dL (8.5-10.1) 8.4 mg/dL (8.5-10.1) Laboratory Tests Test 07/27/16 03:23 White Blood Count 6.6 x10^3/uL (4.0-11.0) Red Blood Count 2.48 x10^6/uL (3.50-5.40) Hemoglobin 8.0 g/dL (12.0-15.5) Hematocrit 23.7 % (36.0-47.0) Mean Corpuscular Volume 96 fL (79-100) Mean Corpuscular Hemoglobin 32 pg (25-35) Mean Corpuscular Hemoglobin Concent 34 g/dL (31-37) Red Cell Distribution Width 17.6 % (11.5-14.5) Platelet Count 352 x10^3/uL (140-400) Neutrophils (%) (Auto) 54 % (31-73) Lymphocytes (%) (Auto) 30 % (24-48) Monocytes (%) (Auto) 12 % (0-9) Eosinophils (%) (Auto) 4 % (0-3) Basophils (%) (Auto) 1 % (0-3) Neutrophils # (Auto) 3.6 x10^3uL (1.8-7.7) Lymphocytes # (Auto) 1.9 x10^3/uL (1.0-4.8) Monocytes # (Auto) 0.8 x10^3/uL (0.0-1.1) Eosinophils # (Auto) 0.2 x10^3/uL (0.0-0.7) Basophils # (Auto) 0.0 x10^3/uL (0.0-0.2) Sodium Level 143 mmol/L (136-145) Potassium Level 4.3 mmol/L (3.5-5.1) Chloride Level 108 mmol/L (98-107) Carbon Dioxide Level 32 mmol/L (21-32) Anion Gap 3 (6-14) Blood Urea Nitrogen 7 mg/dL (7-20) Creatinine 0.7 mg/dL (0.6-1.0) Estimated GFR (Cockcroft-Gault) 104.0 Glucose Level 99 mg/dL (70-99) Calcium Level 8.4 mg/dL (8.5-10.1) Microbiology 5/1/17 Blood Culture - Final, Complete NO GROWTH AFTER 5 DAYS 07/13/16 Anaerobic/Aerobic Culture - Final, Complete 07/13/16 Anaerobic Culture Result 1 (WEST) - Final, Complete 07/13/16 Aerobic Culture - Final, Complete 07/13/16 Aerobic Culture Result 1 (WEST) - Final, Complete 07/17/16 Sputum Culture - Final, Complete 07/17/16 Sputum Result 1 - Final, Complete 07/13/16 Urine Culture - Final, Complete 07/13/16 Urine Culture Result 1 (WEST) - Final, Complete 07/13/16 Urine Culture Result 2 (WEST) - Final, Complete Medications Current Medications Haloperidol Lactate (Haldol) 5 mg 1X ONCE IVP Last administered on 07/13/16 12 :34; Start 07/13/16 at 12:30; Stop 07/13/16 at 12:31; Status DC Sodium Chloride 1,000 ml @ 1,000 mls/hr 1X ONCE IV Last administered on 14:06; Start 07/13/16 at 13:00; Stop 07/13/16 at 13:59; Status DC Sodium Chloride 1,000 ml @ 1,000 mls/hr 1X ONCE IV Last administered on 14:06; Start 07/13/16 at 13:45; Stop 07/13/16 at 14:44; Status DC Haloperidol Lactate (Haldol) 5 mg 1X ONCE IVP Last administered on 07/13/16 14 :20; Start 07/13/16 at 14:15; Stop 07/13/16 at 14:17; Status DC Etomidate (Amidate) 20 mg 1X ONCE IV Last administered on 07/13/16 14:35; Start 07/13/16 at 14:30; Stop 07/13/16 at 14:31; Status DC Lorazepam (Ativan) 2 mg STK-MED ONCE .ROUTE ; Start 07/13/16 at 14:43; Stop at 14:44; Status DC Levofloxacin/ Dextrose 150 ml @ 100 mls/hr 1X ONCE IV ; Start 07/13/16 at 15:00 ; Stop 07/13/16 at 15:00; Status DC Ceftriaxone Sodium 2 gm/ Sodium Chloride 100 ml @ 200 mls/hr Q24H IV ; Start at 15:00; Stop 07/13/16 at 15:00; Status DC Vancomycin HCl 1.25 gm/Sodium Chloride 250 ml @ 166.667 mls/hr 1X ONCE IV Last administered on 07/13/16 16:32; Start 07/13/16 at 15:00; Stop 07/13/16 at 16: 29; Status DC Meropenem 1 gm/ Sodium Chloride 100 ml @ 200 mls/hr Q8HRS IV Last administered on 07/17/16 05:24; Start 07/13/16 at 22:00; Stop 07/17/16 at 08:25; Status DC Meropenem 1 gm/ Sodium Chloride 100 ml @ 200 mls/hr 1X ONCE IV Last administered on 07/13/16 15:39; Start 07/13/16 at 15:00; Stop 07/13/16 at 15:29; Status DC Propofol 50 ml @ As Directed STK-MED ONCE IV ; Start 07/13/16 at 15:15; Stop 07/13 at 15:16; Status DC Lorazepam (Ativan) 2 mg 1X ONCE IV Last administered on 07/13/16 14:44; Start 07/13/16 at 15:45; Stop 07/13/16 at 15:46; Status DC Dextrose/Sodium Chloride 1,000 ml @ 125 mls/hr 1X ONCE IV Last administered on 07/13/16 18:25; Start 07/13/16 at 15:45; Stop 07/13/16 at 23:44; Status DC Propofol 100 ml @ 0 mls/hr CONT PRN IV SEE I/O RECORD Last administered on 05:11; Start 07/13/16 at 15:45; Stop 07/23/16 at 09:57; Status DC Sodium Chloride 1,000 ml @ 1,000 mls/hr 1X ONCE IV Last administered on 16:30; Start 07/13/16 at 16:30; Stop 07/13/16 at 17:29; Status DC Rocuronium Elba (Zemuron) 50 mg STK-MED ONCE .ROUTE ; Start 07/13/16 at 16:50 ; Stop 07/13/16 at 16:51; Status DC Propofol 50 ml @ 0 mls/hr CONT PRN IV SEE I/O RECORD Last administered on 15:30; Start 07/13/16 at 18:00; Stop 07/14/16 at 07:08; Status DC Fentanyl Citrate (Fentanyl 2ml Vial) 25 mcg PRN Q1HR PRN IV COMM Last administered on 07/17/16 12:16; Start 07/13/16 at 21:15; Stop 07/19/16 at 09:06; Status DC Fentanyl Citrate (Fentanyl 2ml Vial) 50 mcg PRN Q1HR PRN IV COMM Last administered on 07/14/16 23:01; Start 07/13/16 at 21:15; Stop 07/19/16 at 09:06; Status DC Chlorhexidine Gluconate (Peridex) 15 ml BID MM Last administered on 07/19/16 09 :00; Start 07/14/16 at 09:00; Stop 07/19/16 at 09:06; Status DC Dextrose/Sodium Chloride 1,000 ml @ 125 mls/hr 1X ONCE IV Last administered on 07/14/16 03:33; Start 07/14/16 at 03:30; Stop 07/14/16 at 11:29; Status DC Acetaminophen (Acetaminophen Supp) 650 mg PRN Q6HRS PRN DE MILD PAIN / TEMP Last administered on 07/14/16 08:21; Start 07/14/16 at 08:00 Dextrose/Sodium Chloride 1,000 ml @ 100 mls/hr Q10H IV Last administered on 09:24; Start 07/14/16 at 09:15; Stop 07/19/16 at 15:45; Status DC Enoxaparin Sodium (Lovenox 40mg Syringe) 40 mg Q24H SQ Last administered on 07/20 14:49; Start 07/14/16 at 11:00; Stop 07/21/16 at 09:04; Status DC Famotidine (Pepcid) 20 mg QHS IVP Last administered on 07/21/16 20:54; Start at 21:00; Stop 07/22/16 at 09:18; Status DC Quetiapine Fumarate (SEROquel) 100 mg DAILY08 NG Last administered on 07:53; Start 07/15/16 at 15:00 Quetiapine Fumarate (SEROquel) 200 mg QHS NG Last administered on 07/26/16 20: 51; Start 07/15/16 at 21:00 Furosemide (Lasix) 20 mg 1X ONCE IVP Last administered on 07/17/16 11:18; Start 07/17/16 at 11:00; Stop 07/17/16 at 11:01; Status DC Sodium Chloride (Normal Saline Flush) 10 ml QSHIFT PRN IV AFTER MEDS AND BLOOD DRAWS; Start 07/17/16 at 11:00 Sodium Chloride (Normal Saline Flush) 20 ml QSHIFT PRN IV AFTER MEDS AND BLOOD DRAWS; Start 07/17/16 at 11:00 Metronidazole (Flagyl) 500 mg Q12HR PEG ; Start 07/18/16 at 13:00; Stop 07/18/16 at 13:28; Status DC Metronidazole 100 ml @ 100 mls/hr Q12HR IV Last administered on 07/18/16 21:25 ; Start 07/18/16 at 14:00; Stop 07/19/16 at 09:08; Status DC Metronidazole (Flagyl) 500 mg Q12HR PO Last administered on 07/27/16 07:53; Start 07/19/16 at 10:00 Albuterol/ Ipratropium (Duoneb) 3 ml 1X ONCE NEB Last administered on 18:30; Start 07/19/16 at 18:30; Stop 07/19/16 at 18:31; Status DC Furosemide (Lasix) 20 mg 1X ONCE IVP Last administered on 07/19/16 20:51; Start 07/19/16 at 20:15; Stop 07/19/16 at 20:16; Status DC Albuterol/ Ipratropium (Duoneb) 3 ml RTQID NEB Last administered on 07/27/16 11:27; Start 07/20/16 at 20:00 Enoxaparin Sodium (Lovenox 40mg Syringe) 40 mg BID SQ Last administered on 07/27 07:56; Start 07/21/16 at 10:30 Famotidine (Pepcid) 20 mg QHS PO Last administered on 07/26/16 20:51; Start at 21:00 Regadenoson (Lexiscan) 0.4 mg 1X ONCE IV ; Start 07/23/16 at 08:30; Stop at 08:31; Status Cancel Piperacillin Sod/ Tazobactam Sod (Zosyn Per Pharmacy) 1 each PRN DAILY PRN MC SEE COMMENTS; Start 07/23/16 at 10:00; Stop 07/25/16 at 13:12; Status DC Piperacillin Sod/ Tazobactam Sod 4.5 gm/Sodium Chloride 100 ml @ 200 mls/hr Q6HRS IV Last administered on 07/26/16 06:23; Start 07/23/16 at 10:30; Stop at 10:27; Status DC Regadenoson (Lexiscan) 0.4 mg 1X ONCE IV Last administered on 07/24/16 08:00 ; Start 07/24/16 at 08:00; Stop 07/24/16 at 08:03; Status DC Amoxicillin/ Clavulanate Potassium (Augmentin 875/ 125mg) 1 tab BID PO Last administered on 07/27/16 07:53; Start 07/26/16 at 21:00 Montelukast Sodium (Singulair) 10 mg QHS PO Last administered on 07/26/16 20: 51; Start 07/26/16 at 21:00 Active Scripts Active Montelukast Sodium Tablet (Montelukast Sodium) 10 Mg Tablet 1 Tab PO DAILY Reported Citalopram Hbr (Citalopram Hydrobromide) 20 Mg Tablet 1 Tab PO DAILY Seroquel (Quetiapine Fumarate) 100 Mg Tablet 1 Tab PO DAILY08 Seroquel (Quetiapine Fumarate) 200 Mg Tablet 1 Tab PO QHS Vitals/I & O Vital Sign - Last 24 Hours 07/26/16 07/26/16 07/26/16 07/26/16 14:56 15:05 19:00 19:14 Temp 97.9 99.6 97.9 99.6 Pulse 89 98 Resp 22 20 B/P (MAP) 113/65 (81) 105/68 (80) Pulse Ox 97 96 95 O2 Delivery Nasal Cannula Nasal Cannula Nasal Cannula Nasal Cannula O2 Flow Rate 2.0 2.0 2.0 2.0 07/26/16 07/26/16 07/27/16 07/27/16 20:00 23:00 03:00 07:00 Temp 98.6 98.8 100.8 98.6 98.8 100.8 Pulse 97 98 88 Resp 20 20 17 B/P (MAP) 139/82 (101) 116/65 (82) 104/58 (73) Pulse Ox 96 95 94 O2 Delivery Nasal Cannula Nasal Cannula Nasal Cannula Room Air O2 Flow Rate 2.0 2.0 1.0 07/27/16 07/27/16 07/27/16 07/27/16 07:38 08:00 09:02 11:01 Temp 98.8 97.9 98.8 97.9 Pulse 89 Resp 17 B/P (MAP) 92/63 (73) Pulse Ox 95 99 O2 Delivery Nasal Cannula Nasal Cannula Room Air O2 Flow Rate 2.0 2.0 07/27/16 11:28 O2 Delivery Nasal Cannula O2 Flow Rate 2.0 Intake and Output 07/26/16 07/26/16 07/27/16 15:00 23:00 07:00 Intake Total 360 ml 180 ml 300 ml Balance 360 ml 180 ml 300 ml MAGDA GERBER MD July 27, 2016 12:10
--- NOTE | 2016-07-28 12:45 | RESP ---
DATE OF SERVICE: 07/26/2016 NOCTURNAL OXIMETRY STUDY This study was performed while the patient was placed on 2 liters due to hypoxia. Later, the patient was weaned to 1 liter. The patient's mean oxygen saturation remained around 92% with the lowest of 48%. 11% of the time oxygen saturation remained less than 90% while on 2 liters. IMPRESSION: Abnormal nocturnal oximetry study consistent with nocturnal hypoxia. RECOMMENDATIONS: The patient will benefit from 1-2 liters of oxygen at nighttime. If clinical suspicion for sleep apnea is high, then consider doing full polysomnogram. ANU CROWLEY MD DR: EDIE/frank JOB#: [id number] / [id number] GOMEZ Degroot DO MTDD
--- NOTE | 2016-07-31 22:16 | DS ---
DATE OF DISCHARGE: 07/27/2016 ADMISSION DIAGNOSES: Sepsis. DISCHARGE DIAGNOSIS: Resolving sepsis. HOSPITAL COURSE: The patient is a pleasant 60-year-old female who presented with sepsis. She was admitted. We started her on IV antibiotics, consulted Infectious Disease. Lumbar puncture was negative. Over the next few days, she returned to her baseline, we discharged her to home. DISPOSITION: Home. ACTIVITY: As tolerated. DIET: Low sodium. MEDICATIONS: Please see the MRAD. TOTAL TIME ON DISCHARGE: 36 minutes. GOMEZ IBRAHIM DO DR: LESVIA/frank JOB#: [id number] / [id number]
== END 2016-07-27 15:03 | disposition home or self-care (01) | DRG 870 ==
LOC: ER 12:14 → 1 WEST ICU 14:00 → 6 SOUTH 07-19 11:45 → 1 WEST ICU 07-20 00:50 → 5 SOUTH 07-23 04:11
PROVIDERS: ADMIT Internal Medicine; ATTEND Internal Medicine
PROC: 0BH17EZ Insertion of Endotracheal Airway into Trachea, Via Natural or Artificial Opening (ICD-10-PCS; 2016-07-13)
PROC: 5A1955Z Respiratory Ventilation, Greater than 96 Consecutive Hours (ICD-10-PCS; 2016-07-13)
PROC: 009U3ZX Drainage of Spinal Canal, Percutaneous Approach, Diagnostic (ICD-10-PCS; 2016-07-14)
PROC: B01B1ZZ Fluoroscopy of Spinal Cord using Low Osmolar Contrast (ICD-10-PCS; 2016-07-14)
PROC: 5A09357 Assistance with Respiratory Ventilation, Less than 24 Consecutive Hours, Continuous Positive Airway Pressure (ICD-10-PCS; principal; 2016-07-19)
DX: A41.9 Sepsis, unspecified organism (principal); G93.41 Metabolic encephalopathy; I50.33 Acute on chronic diastolic (congestive) heart failure; J96.01 Acute respiratory failure with hypoxia; J18.9 Pneumonia, unspecified organism; E87.0 Hyperosmolality and hypernatremia; G72.81 Critical illness myopathy; N17.9 Acute kidney failure, unspecified; Z68.41 Body mass index [BMI] 40.0-44.9, adult; J98.11 Atelectasis; G47.33 Obstructive sleep apnea (adult) (pediatric); E78.5 Hyperlipidemia, unspecified; E78.00 Pure hypercholesterolemia, unspecified; E66.01 Morbid (severe) obesity due to excess calories; D69.6 Thrombocytopenia, unspecified; D63.8 Anemia in other chronic diseases classified elsewhere; F32.9 Major depressive disorder, single episode, unspecified; I11.0 Hypertensive heart disease with heart failure; J30.9 Allergic rhinitis, unspecified; R65.20 Severe sepsis without septic shock; R73.9 Hyperglycemia, unspecified; R32 Unspecified urinary incontinence; Z82.49 Family history of ischemic heart disease and other diseases of the circulatory system
CPT/HCPCS: 31500; 36415; 36600; 51702; 62270; 70450; 71010; 71250; 78452; 80048; 80053; 80061; 81001; 82140; 82247; 82248; 82550; 82805; 82945; 82947; 83036; 83605; 83615; 83735; 83880; 84157; 84443; 84484; 85007; 85027; 85045; 85610; 87040; 87070; 87071; 87075; 87086; 87205; 87529; 87641; 89051; 93005; 93017; 93306; 94002; 94003; 94250; 94620; 94640; 94660; 94760; 94799; 96361; 96365; 96366; 96368; 96374; 96375; 97004; A9500; G0480; G0481; J1630; J1650; J2060; J2185; J2543; J2704; J2785; J3010; J3370; J3490; J7030; J7050; J7620; S0028; 97110; 97116; 97530; 97535; 99285-25